=== PATIENT | male | born 1950 | race Caucasian/White ===

== ENCOUNTER → 2017-03-16 | Outpatient (CLI) | payer OTHER ==
[~2017-03-16] VITALS: Ht 185.4 cm; Wt 126.2 kg
[~2017-03-16] MED LIST: ACET1TAB84 PO; ADVIN25/60 INH; DILT-119 PO; FURO20TA PO; INSUINJ14 SC; INSUINJ4; LISI40TA PO; METF-383 PO; METO-551 PO; OMEP40CA36 PO; SIMV40TA4 PO
[2017-03-16 12:15] VITALS: BP 155/77; PULSE 74; Ht 185.4 cm; Wt 126.2 kg
== END | disposition home or self-care (01) ==
LOC: C.NEUR 11:40
PROVIDERS: ATTEND Physician Assistant Medical
DX: G47.33 Obstructive sleep apnea (adult) (pediatric) (principal); R09.02 Hypoxemia; J44.9 Chronic obstructive pulmonary disease, unspecified; J45.909 Unspecified asthma, uncomplicated; J98.6 Disorders of diaphragm

== ENCOUNTER → 2017-03-22 | Outpatient (CLI) | payer OTHER ==
[2017-03-22 10:17] LABS: CHOLESTEROL/HDL RATIO 3.2
[2017-03-22 10:26] LABS: ESTIMATED AVERAGE GLUCOSE 180 mg/dl; HA1C FLAG Normal (Normal)
--- NOTE | 2017-04-06 09:22 | CODING QUERY MEDICAL NECESSITY ---
SUPPORTING DIAGNOSIS NEEDED A supporting diagnosis is required for the test/procedure performed on this patient in order for us to be reimbursed by the patient's insurance. Please provide a supporting diagnosis for the following test/procedure listed below next to the test name along with your signature. *If there is no additional diagnosis for this patient that would support the following test/procedure please document that below next to the test/procedure. Test(s)/Procedure(s) that require a supporting diagnosis: DOS 03/22 * Hba1c DIAGNOSIS: Provider Signature: Date: Thank you Portia Colin [facility] Information Management Once completed, please kindly fax back to [phone] For questions please call [phone]
== END | disposition home or self-care (01) ==
LOC: C.LAB1850 08:35
PROVIDERS: ATTEND Nurse Practitioner Adult Health
DX: E78.5 Hyperlipidemia, unspecified (principal); E11.29 Type 2 diabetes mellitus with other diabetic kidney complication

== ENCOUNTER → 2017-05-11 | Outpatient (CLI) | payer OTHER ==
[2017-05-11 12:27] LABS: HEMATOCRIT 41.9 % (42-52); MEAN CELL VOLUME 95.9 fL (80-100); MEAN CORPUSCULAR HGB CONC 34.4 g/dl (32-36); MEAN PLATELET VOLUME 9.6 fL (7.4-10.4); PLATELET COUNT 271 K/uL (130-400); RED BLOOD COUNT 4.37 M/uL (4.7-6.1); WHITE BLOOD COUNT 9.52 K/uL (4.8-10.8)
[2017-05-11 12:44] LABS: URINE APPEARANCE CLOUDY (CLEAR); URINE BILIRUBIN NEG (NEG); URINE COLOR DK YELLOW; URINE EPITHELIAL CELL AUTO 20-30 /lpf (0-5); URINE NITRITE NEG (NEG); URINE PH 5.5 (4.5-7.5); URINE SPECIFIC GRAVITY 1.017 (1.000-1.030); UROBILINOGEN NEG (NEG)
[2017-05-11 12:50] LABS: CALCIUM 8.6 mg/dl (8.5-10.1)
[2017-05-11 12:52] LABS: MANUAL MICROSCOPIC REQUIRED? NO; REVIEW REQ? NO
[2017-05-11 13:05] LABS: BLOOD UREA NITROGEN 10 mg/dl (7-18); CARBON DIOXIDE 24 mmol/L (21-32); CHLORIDE 104 mmol/L (98-107); GLUCOSE 165 mg/dl (70-99); PHOSPHORUS 2.7 mg/dl (2.5-4.9); POTASSIUM 3.7 mmol/L (3.5-5.1); SODIUM 140 mmol/L (136-145)
[2017-05-11 14:11] LABS: URINE PROTIEN/CREAT RATIO 0.4 (0-0.2); URINE TOTAL PROTEIN 65.6 mg/dl (0-11.9)
== END | disposition home or self-care (01) ==
LOC: C.LAB1850 10:12
PROVIDERS: ATTEND Internal Medicine Nephrology
DX: I10 Essential (primary) hypertension (principal); N18.2 Chronic kidney disease, stage 2 (mild); R60.9 Edema, unspecified; E78.5 Hyperlipidemia, unspecified; E55.9 Vitamin D deficiency, unspecified

== ENCOUNTER → 2017-07-16 | Outpatient (CLI) | payer OTHER ==
[2017-07-16 16:49] LABS: ALT/SGPT 36 U/L (12-78); AST/SGOT 21 U/L (15-37)
[2017-07-17 07:03] LABS: ESTIMATED AVERAGE GLUCOSE 174 mg/dl; HA1C FLAG Normal (Normal)
== END | disposition home or self-care (01) ==
LOC: C.LAB1850 14:35
PROVIDERS: ATTEND Nurse Practitioner Adult Health
DX: E78.5 Hyperlipidemia, unspecified (principal); I10 Essential (primary) hypertension; E11.29 Type 2 diabetes mellitus with other diabetic kidney complication

== ENCOUNTER → 2017-10-27 | Outpatient (CLI) | payer OTHER ==
[2017-10-27 16:00] LABS: HEMATOCRIT 41.5 % (42-52); MEAN CELL VOLUME 91.6 fL (80-100); MEAN CORPUSCULAR HEMOGLOBIN 31.6 pg (25-34); MEAN CORPUSCULAR HGB CONC 34.5 g/dl (32-36); MEAN PLATELET VOLUME 9.4 fL (7.4-10.4); PLATELET COUNT 287 K/uL (130-400); RED BLOOD COUNT 4.53 M/uL (4.7-6.1); WHITE BLOOD COUNT 7.05 K/uL (4.8-10.8)
[2017-10-27 16:04] LABS: MANUAL MICROSCOPIC REQUIRED? NO; REVIEW REQ? NO; URINE APPEARANCE CLEAR (CLEAR); URINE BILIRUBIN NEG (NEG); URINE COLOR YELLOW; URINE NITRITE NEG (NEG); URINE SPECIFIC GRAVITY 1.011 (1.000-1.030); UROBILINOGEN NEG (NEG)
[2017-10-27 16:26] LABS: BLOOD UREA NITROGEN 11 mg/dl (7-18); BUN/CREATININE RATIO 12.5 (10-20); CALCIUM 8.9 mg/dl (8.5-10.1); CARBON DIOXIDE 28 mmol/L (21-32); CHLORIDE 104 mmol/L (98-107); CREATININE 0.89 mg/dl (0.60-1.40); GLUCOSE 85 mg/dl (70-99); POTASSIUM 3.6 mmol/L (3.5-5.1); SODIUM 137 mmol/L (136-145)
[2017-10-27 16:28] LABS: CREATININE, URINE 28.3 mg/dl; URINE PROTIEN/CREAT RATIO 0.5 (0-0.2); URINE TOTAL PROTEIN 13.4 mg/dl (0-11.9)
[2017-10-28 05:27] LABS: ESTIMATED AVERAGE GLUCOSE 163 mg/dl; HA1C FLAG Normal (Normal)
== END | disposition home or self-care (01) ==
LOC: C.LAB1850 14:47
PROVIDERS: ATTEND Internal Medicine Nephrology
DX: E11.29 Type 2 diabetes mellitus with other diabetic kidney complication (principal); N18.2 Chronic kidney disease, stage 2 (mild); R60.9 Edema, unspecified; R80.9 Proteinuria, unspecified; E55.9 Vitamin D deficiency, unspecified; I12.9 Hypertensive chronic kidney disease with stage 1 through stage 4 chronic kidney disease, or unspecified chronic kidney disease

== ENCOUNTER → 2017-12-07 | Outpatient (CLI) | payer OTHER ==
[2017-12-07 16:09] LABS: ALBUMIN 3.5 gm/dl (3.4-5.0); ALKALINE PHOSPHATASE 105 U/L (45-117); ALT/SGPT 24 U/L (12-78); AST/SGOT 11 U/L (15-37); BLOOD UREA NITROGEN 19 mg/dl (7-18); CALCIUM 9.2 mg/dl (8.5-10.1); CARBON DIOXIDE 25 mmol/L (21-32); CREATININE 1.03 mg/dl (0.60-1.40); GLUCOSE 232 mg/dl (70-99); SODIUM 137 mmol/L (136-145); TOTAL PROTEIN 7.2 gm/dl (6.4-8.2)
== END | disposition home or self-care (01) ==
LOC: C.LAB1850 10:21
PROVIDERS: ATTEND Urology
DX: R39.13 Splitting of urinary stream (principal)

== ENCOUNTER → 2018-01-06 | Outpatient (CLI) | payer OTHER | END | disposition home or self-care (01) | LOC: C.LAB1850 08:46 | PROVIDERS: ATTEND Urology | DX: Z00.00 Encounter for general adult medical examination without abnormal findings (principal); N40.1 Benign prostatic hyperplasia with lower urinary tract symptoms ==

== ENCOUNTER → 2018-03-11 | Outpatient (CLI) | payer OTHER ==
[2018-03-11 09:45] LABS: HEMOGLOBIN A1C 7.2 % (4.5-5.6)
== END | disposition home or self-care (01) ==
LOC: C.LAB1850 08:17
PROVIDERS: ATTEND Nurse Practitioner Adult Health
DX: E78.5 Hyperlipidemia, unspecified (principal); R94.31 Abnormal electrocardiogram [ECG] [EKG]; E11.29 Type 2 diabetes mellitus with other diabetic kidney complication

== ENCOUNTER 2023-02-15 11:14 | Inpatient (IN) ==
--- NOTE | 2023-01-27 11:38 | PAT Medication Instructions ---
Medication Instructions Date of Service January 27, 2023 Home Medications Medication Instructions Recorded lancets 33 gauge (OneTouch Delica #600 ea 07/01/21 Lancets) ergocalciferol (vitamin D2) 1,250 50,000 unit PO MONTHLY #12 caps 04/13/22 mcg (50,000 unit) capsule metformin 850 mg tablet 850 mg PO BID 90 days #180 tabs 07/13/22 blood sugar diagnostic (Accu-Chek #600 ea 07/14/22 Jaclyn Plus test strips) insulin aspart U-100 100 unit/mL 1 sliding scale dose subcut UD #90 07/29/22 (3 mL) subcutaneous pen (Novolog mL FlexPen U-100 Insulin aspart) insulin glargine 100 unit/mL (3 60 unit (0.6 mL) subcut BID #120 mL 07/29/22 mL) subcutaneous pen (Lantus Solostar U-100 Insulin) pen needle, diabetic 32 gauge x #300 ea 07/29/22 1/6" (NovoFine Plus) tamsulosin 0.4 mg capsule 0.4 mg PO DAILY #90 caps 11/05/22 albuterol sulfate 90 mcg/actuation aerosol inhaler 1 puffs inhalation UD PRN COPD lisinopril 40 mg tablet 40 mg PO QPM diltiazem HCl 360 mg capsule,extended release 24 hr 180 mg PO BID acetaminophen 650 mg tablet,extended release (Tylenol Arthritis Pain) 650 mg PO DAILY PRN Pain melatonin 5 mg capsule 10 mg PO HS apixaban 5 mg tablet (Eliquis) 5 mg PO BID fluticasone 250 mcg-salmeterol 50 mcg/dose blistr powdr for inhalation (Wixela Inhub) 1 inh inhalation BID ergocalciferol (vitamin D2) 1,250 mcg (50,000 unit) capsule 50,000 unit PO MONTHLY famotidine 20 mg tablet 20 mg PO QAM metformin 850 mg tablet 850 mg PO BID ascorbic acid (vitamin C) 500 mg tablet (Vitamin C) 500 mg PO QAM cyanocobalamin (vitamin B-12) 1,000 mcg tablet (Vitamin B-12) 1,000 mcg PO QAM docusate sodium 100 mg capsule (Colace) 100 mg PO HS empagliflozin 10 mg tablet (Jardiance) 10 mg PO UD fluticasone propionate 50 mcg/actuation nasal spray,suspension 1 spray intranasal UD PRN Nasal Congestion insulin aspart U-100 100 unit/mL (3 mL) subcutaneous pen (Novolog FlexPen U-100 Insulin aspart) 1 sliding scale dose subcut UD insulin glargine 100 unit/mL (3 mL) subcutaneous pen (Lantus Solostar U-100 Insulin) 60 unit (0.6 mL) subcut BID tamsulosin 0.4 mg capsule 0.4 mg PO DAILY lovastatin 10 mg tablet 10 mg PO PM Continue as directed ergocalciferol (vitamin D2) 1,250 mcg (50,000 unit) capsule 50,000 unit PO MONTHLY (just do not take morning of surgery) tamsulosin 0.4 mg capsule 0.4 mg PO DAILY ASK your prescriber and surgeon apixaban 5 mg tablet (Eliquis) 5 mg PO BID STOP taking 3 days before surgery empagliflozin 10 mg tablet (Jardiance) 10 mg PO UD DO NOT take the morning of surgery metformin 850 mg tablet 850 mg PO BID ascorbic acid (vitamin C) 500 mg tablet (Vitamin C) 500 mg PO QAM cyanocobalamin (vitamin B-12) 1,000 mcg tablet (Vitamin B-12) 1,000 mcg PO QAM insulin aspart U-100 100 unit/mL (3 mL) subcutaneous pen (Novolog FlexPen U-100 Insulin aspart) 1 sliding scale dose subcut UD Take morning of surgery With a small sip of water, OTHERWISE NOTHING TO EAT OR DRINK AFTER MIDNIGHT: albuterol sulfate 90 mcg/actuation aerosol inhaler 1 puffs inhalation UD PRN COPD (use if needed; please bring with you to hospital day of surgery if possible) diltiazem HCl 360 mg capsule,extended release 24 hr 180 mg PO BID acetaminophen 650 mg tablet,extended release (Tylenol Arthritis Pain) 650 mg PO DAILY PRN Pain (if needed) fluticasone 250 mcg-salmeterol 50 mcg/dose blistr powdr for inhalation (Wixela Inhub) 1 inh inhalation BID famotidine 20 mg tablet 20 mg PO QAM fluticasone propionate 50 mcg/actuation nasal spray,suspension 1 spray intranasal UD PRN Nasal Congestion (if needed) Take evening before surgery albuterol sulfate 90 mcg/actuation aerosol inhaler 1 puffs inhalation UD PRN COPD (if needed) lisinopril 40 mg tablet 40 mg PO QPM diltiazem HCl 360 mg capsule,extended release 24 hr 180 mg PO BID acetaminophen 650 mg tablet,extended release (Tylenol Arthritis Pain) 650 mg PO DAILY PRN Pain (if needed) melatonin 5 mg capsule 10 mg PO HS fluticasone 250 mcg-salmeterol 50 mcg/dose blistr powdr for inhalation (Wixela Inhub) 1 inh inhalation BID metformin 850 mg tablet 850 mg PO BID docusate sodium 100 mg capsule (Colace) 100 mg PO HS fluticasone propionate 50 mcg/actuation nasal spray,suspension 1 spray intranasal UD PRN Nasal Congestion (if needed) insulin aspart U-100 100 unit/mL (3 mL) subcutaneous pen (Novolog FlexPen U-100 Insulin aspart) 1 sliding scale dose subcut UD insulin glargine 100 unit/mL (3 mL) subcutaneous pen (Lantus Solostar U-100 Insulin) 60 unit (0.6 mL) subcut BID lovastatin 10 mg tablet 10 mg PO PM Insulin Dependent Diabetic Patients * Test your blood sugar the morning of surgery * If Blood Sugar is GREATER THAN 150, take HALF of your regular dose of: insulin glargine 100 unit/mL (3 mL) subcutaneous pen (Lantus Solostar U-100 Insulin) 60 unit (0.6 mL) subcut BID (30 units) * If Blood Sugar is LESS THAN 150, DO NOT TAKE ANY: insulin glargine 100 unit/mL (3 mL) subcutaneous pen (Lantus Solostar U-100 Insulin) 60 unit (0.6 mL) subcut BID Other Notes If you have any questions please call us at [phone] or [phone] or [phone] or [phone]
--- NOTE | 2023-01-29 12:10 | Anesthesiology Consultation ---
Date of Service January 29, 2023 Assessment & Plan (1) Encounter for pre-operative examination: Plan - check BSG am DOS. R hemidiaphragm elevation - Case discussed in detail with Dr. Reed including pre-op EKG and cardiology note 05/2022, he advised patient is acceptable to proceed without further evaluation or testing from his standpoint. - cardiology 06/04/22: "...persistent atrial fibrillation, obesity, COPD, SONIDO on CPAP, hypertension and diabetes, referred to EP clinic...evaluation of bradycardia...rate control, asymptomatic...2.2 second pause on telemetry while he was admitted for an unrelated issue...diltiazem was held a the time...ventricular rates...starting to go up...put himself back on diltiazem...3 pauses of more than 2.5 seconds were noted, longest was 3.1 seconds all in atrial fibrillation...permanent atrial fibrillation: rate control is adequate on current medication regimen. Continue Eliquis for stroke prophylaxis. Pauses...2.2 second pause noted on telemetry while he was admitted for another condition...no reports of lightheadedness/presyncope or syncope. In atrial fibrillation, without any symptoms, he would have to have a pause of 5 seconds to qualify for a pacemaker. No indication for any further intervention at this time. Follow-up as needed..." - Outpatient joint assessment: Patient is currently scheduled for inpatient pathway. If re-evaluated pending system levels during current pandemic/surgeon requests outpatient pathway, patient is not acceptable candidate for outpatient joint program from anesthesia standpoint. Chart Review Chart Review: Acceptable Risk for Surgery and Patient seen in Pre Admission Testing Teaching & Discussion Pre-Anesthesia Teaching/Discussion Notes: Instructed NPO after midnight before surgery, except medications with 15 cc of water. Medication instructions provided according to the PAT guidelines. History Surgery Operation Date: 02/15/23 07:15 Proposed Procedures p Left Shoulder Total SHoulder Arthroplasty - Michael Victoria MD Height/Weight Height: 6 ft 1 in Weight: 117.934 kg Allergies Allergy/AdvReac Type Severity Reaction Status Date / Time acetaminophen [From Percocet] Allergy Unknown Unknown Verified 01/27/23 09:17 celecoxib [From Celebrex] Allergy Unknown ? Hives Verified 01/27/23 09:17 cephalexin Allergy Unknown ? Rash Verified 01/27/23 09:17 dicyclomine Allergy Unknown Unknown Verified 01/27/23 09:17 homatropine Allergy Unknown Unknown Verified 01/27/23 09:17 hyaluronate sodium, Allergy Unknown Lips Verified 01/27/23 09:17 stabilized swelling hydrocodone Allergy Unknown Unknown Verified 01/27/23 09:17 hylan G-F 20 [From Synvisc] Allergy Unknown Lips Verified 01/27/23 09:17 swelling meloxicam Allergy Unknown Unknown Verified 01/27/23 09:17 oxycodone [From Percocet] Allergy Unknown Unknown Verified 01/27/23 09:17 pregabalin Allergy Unknown ? Tired, Verified 01/27/23 09:17 listless Bactrim AdvReac Unknown gi upset Verified 08/07/13 15:23 chlorthalidone AdvReac Unknown Listless Verified 01/27/23 09:17 gabapentin AdvReac Unknown ? Tired, Verified 01/27/23 09:17 listless Penicillins AdvReac Unknown GI upset Verified 01/27/23 09:17 prednisone AdvReac Unknown GI upset Verified 01/27/23 09:17 sulfamethoxazole AdvReac Unknown GI upset Verified 01/27/23 09:17 trimethoprim AdvReac Unknown GI upset Verified 01/27/23 09:17 Medications Home Medications Medication Instructions Recorded Confirmed Last Taken albuterol sulfate 90 mcg/actuation 1 puffs inhalation UD PRN COPD #1 g 07/07/19 01/27/23 Unknown aerosol inhaler lisinopril 40 mg tablet 40 mg PO QPM #90 tabs 07/07/19 01/27/23 Unknown diltiazem HCl 360 mg 180 mg PO BID 07/10/19 01/27/23 Unknown capsule,extended release 24 hr acetaminophen 650 mg 650 mg PO DAILY PRN Pain 01/22/20 01/27/23 Unknown tablet,extended release (Tylenol Arthritis Pain) melatonin 5 mg capsule 10 mg PO HS 07/22/20 01/27/23 Unknown lancets 33 gauge (OneTouch Delica #600 ea 07/01/21 10/15/22 Unknown Lancets) apixaban 5 mg tablet (Eliquis) 5 mg PO BID 02/16/22 01/27/23 Unknown fluticasone 250 mcg-salmeterol 50 1 inh inhalation BID 02/19/22 01/27/23 Unknown mcg/dose blistr powdr for inhalation (Elsaela Inhub) ergocalciferol (vitamin D2) 1,250 50,000 unit PO MONTHLY #12 caps 04/13/22 01/27/23 Unknown mcg (50,000 unit) capsule famotidine 20 mg tablet 20 mg PO QAM 04/13/22 01/27/23 Unknown metformin 850 mg tablet 850 mg PO BID 90 days #180 tabs 07/13/22 01/27/23 Unknown blood sugar diagnostic (Accu-Chek #600 ea 07/14/22 10/15/22 Unknown Jaclyn Plus test strips) ascorbic acid (vitamin C) 500 mg 500 mg PO QAM 07/20/22 01/27/23 Unknown tablet (Vitamin C) cyanocobalamin (vitamin B-12) 1,000 mcg PO QAM 07/20/22 01/27/23 Unknown 1,000 mcg tablet (Vitamin B-12) docusate sodium 100 mg capsule 100 mg PO HS 07/20/22 01/27/23 Unknown (Colace) fluticasone propionate 50 1 spray intranasal UD PRN Nasal 07/20/22 01/27/23 Unknown mcg/actuation nasal Congestion spray,suspension insulin aspart U-100 100 unit/mL 1 sliding scale dose subcut UD #90 07/29/22 01/27/23 Unknown (3 mL) subcutaneous pen (Novolog mL FlexPen U-100 Insulin aspart) insulin glargine 100 unit/mL (3 60 unit (0.6 mL) subcut BID #120 mL 07/29/22 01/27/23 Unknown mL) subcutaneous pen (Lantus Solostar U-100 Insulin) pen needle, diabetic 32 gauge x #300 ea 07/29/22 10/15/22 Unknown 1/" (NovoFine Plus) tamsulosin 0.4 mg capsule 0.4 mg PO DAILY #90 caps 11/05/22 01/27/23 Unknown lovastatin 10 mg tablet 10 mg PO PM 01/27/23 01/27/23 Unknown Past Medical History Medical History (Updated 01/29/23 @ 12:37 by Dolly Oshea PA-C) Abnormal cardiac conduction Cardiac pauses. Per EP office visit (06/03/22): 2.2 second pause noted on telemetry during inpatient stay. 3 more pauses on Zio patch, longest 3.1 seconds, all in atrial fibrillation. "In atrial fibrillation, without any symptoms, he would have to have a pause of 5 seconds to qualify for a pacemaker. No indication for any further intervention at this time. Follow-up as needed." Acid reflux controlled, stable per pt Afib on OAC, follows with cardiology Chronic kidney disease (CKD), stage II (mild) Constipation Occasional COPD (chronic obstructive pulmonary disease) controlled, stable per pt; last used rescue inhaler > 3 months ago Degeneration of cervical intervertebral disc s/p cervical spine surgeries DM type 2 (diabetes mellitus, type 2) IDDM Frequent urination at night R/t prostate HTN (hypertension) controlled, stable per pt Low back problem Malignant neoplasm of penis 6 years ago Neuropathy ambulates with cane Obesity Paralysis of diaphragm elevation R hemidiaphragm Sleep apnea CPAP-compliant TIA (transient ischemic attack) 01/13/21-vision and speech changes, started on statin and ASA, w/u notable for 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 reports he was never informed if previous TIA. Patient denies h/o seizures, heart attack, heart failure, blood clots or blood transfusions. Exercise / Class Metabolic Activity III < 4 Walking/Shop/Light housework (ambulates on flat surfaces, denies chest discomfort or shortness of breath with usual activities) Past Family History Family History Other Family history of diabetes mellitus in father Past Surgical History Surgical History Family history of reaction to anesthesia Mother- PONV 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 History of carpal tunnel surgery of left wrist History of carpal tunnel surgery of right wrist + ulnar nerve surgery History of cataract surgery R&L History of cholecystectomy History of colonoscopy with polypectomy History of decompression of median nerve Per records, pt unsure History of decompression of ulnar nerve RIGHT History of endoscopy ?1979 History of fusion of cervical spine FULL ROM History of hernia repair History of urologic surgery penis amputation Nausea and vomiting after administration of anesthetic agent denies needing scop patch Past Anesthesia History No Hx of Anesthesia Complications and Other (mother had PONV) History of PONV No Hx of Motion Sickness and History of PONV (denies needing scop patch) Social History Smoking Status: Former smoker tobacco type: cigars Do You Dip or Chew Tobacco: No Smoking End Date: 1989 Hx Alcohol Use: No Hx Substance Use: No substance use type: does not use Review of Systems Patient denies chest pain, shortness of breath, dyspnea on exertion, dizziness, lightheadedness, presyncope, fever, chills, cough, wheezing, or palpitations. Physical Exam Vital Signs Vitals BP 168/72 P 75 TEMP 99.1 SP02 97% on RA RESP 18 Physical Full cervical extension range of motion without pain TMD 3.5 finger breadths Mallampati Score 2 Dentition: intact, denies chipped or loose teeth, caps/crowns, implants or bridges Lungs: normal respiratory effort. Clear throughout to auscultation, no anabaptism itious breath sounds Cardiac: irregularly irregular rhythm, normal rate, no murmurs noted Carotid arteries: negative bruit bilat Lab Results Anesthesia Preop Results Results Anesthesia Widget: PT 11.8 Seconds (9.0-12.0) 01/29/23 PTT 30.5 Seconds (21.0-31.0) 01/29/23 INR 1.1 (0.9-1.1) 01/29/23 HA1c 6.7 % (4.5-5.6) H 01/29/23 Urine Color Yellow 01/29/23 Urine Appearance Clear (Clear) 01/29/23 Urine pH 7.0 (4.5-7.5) 01/29/23 Urine Specific [place] 1.015 (1.000-1.030) 01/29/23 Urine Protein 1+ (Negative) H 01/29/23 Urine Glucose (UA) Negative (Negative) 01/29/23 Urine Ketones Negative (Negative) 01/29/23 Urine Blood Negative (Negative) 01/29/23 Urine Nitrite Negative (Negative) 01/29/23 Urine Bilirubin Negative (Negative) 01/29/23 Urine Urobilinogen Negative (Negative) 01/29/23 Urine Leukocyte Esterase Negative (Negative) 01/29/23 Urine WBC (Auto) 0 /hpf (0-5) 01/29/23 Urine RBC (Auto) 0-4 /hpf (0-4) 01/29/23 Urine Hyaline Casts (Auto) 0 /lpf (0-5) 01/29/23 Urine Epithelial Cells (Auto) 5-10 /lpf (0-5) H 01/29/23 Urine Bacteria (Auto) Negative (Negative) 01/29/23 Blood Type O Positive 01/29/23 Antibody Screen NEGATIVE 01/29/23 Testing Laboratory Results 01/20/2023 WBC: 7 H/H: 14/43 PLATELETS: 267 SODIUM: 139 POTASSIUM: 3.8 CHLORIDE: 106 CO2: 28 BUN: 12 CREATININE: 0.9 GLUCOSE: 129 A1c: 6.8% Electrocardiogram Date: 01/29/23 Afib, rate 78 bpm RSR' or QR pattern in V1 suggests right ventricular conduction delay Chest X-Ray Date: 01/29/23 Elevation of the right hemidiaphragm is unchanged. Lungs are clear. There is no pneumothorax or pleural effusion. There is mild cardiomegaly. Mediastinal contours are normal. There is no evidence for pulmonary edema. IMPRESSION: No acute cardiopulmonary findings. Stable elevation of the right hemidiaphragm. Echocardiogram Date: 05/07/21 EF 60-64% No LV segmental wall motion abnormalities Mildly dilated RV Mild tricuspid regurgitation LA mildly enlarged Moderately calcified aortic stenosis Other Testing Abdomen MRI 03/26/22 1. A few scattered subcentimeter renal lesions consistent with cysts. 2. No solid enhancing renal masses identified. CT abdomen pelvis 02/05/22 1 cm heterogeneous exophytic nodule in the right kidney. Further evaluation with renal protocol MRI abdomen with/without contrast recommended for the possibility of enhancing renal mass 0.8 x 0.5 cm cyst in the distal pancreatic body COVID-19 Risk Screen Screening Information COVID-19 Screen Date: 01/29/23 Exposure 21 Days Family/Household +COVID Last 21 Days: No Exposure 10 Days Any COVID Exposure Last 10 Days: No Symptoms Last 10 Days Experienced COVID Sx Last 10 Days: No + COVID 0-90 Days COVID + in Last 0-90 Days: No
--- NOTE | 2023-02-13 10:02 | History & Physical Report ---
Date of Service February 13, 2023 Assessment & Plan (1) Primary osteoarthritis, left shoulder: Plan: Treatment options discussed with the patient. He would like to proceed with surgical intervention. Risks, benefits and alternatives to surgery including but not limited to infection, DVT, pain, stiffness, need for revision surgery, damage to blood vessels, damage to nerves, PE, , were discussed with the patient and they wish to proceed. Plan for left total shoulder arthroplasty scheduled for [facility] on February [address] Victoria. Patient would like to go to inpatient rehab postoperatively. Resume home Eliquis postop for DVT prophylaxis. All questions answered. Patient will follow-up postop. History of Present Illness Chief Complaint: Left shoulder pain Primary Care Provider: Austin Willson MD 72-year-old male with past medical history significant for A-fib, CKD, COPD, diabetes, hypertension paralysis of diaphragm, sleep apnea who presents with ongoing left shoulder pain. Patient has failed extensive conservative measures including multiple steroid injections.patient is unable to take NSAIDs. Pain is interfering with his daily activities. He would like to proceed with surgical intervention. Patient denies headaches, sweats, fevers, chills, double vision, blurred vision, cough, sore throat, dysphagia, chest pain, sob, wheezing, n/v/d/c, numbness, tingling, fatigue, urinary symptoms, mood disorders. ROS positive for left shoulder pain and stiffness. Allergies Allergy/AdvReac Type Severity Reaction Status Date / Time acetaminophen [From Percocet] Allergy Unknown Unknown Verified 02/09/23 08:29 celecoxib [From Celebrex] Allergy Unknown ? Hives Verified 02/09/23 08:29 cephalexin Allergy Unknown ? Rash Verified 02/09/23 08:29 dicyclomine Allergy Unknown Unknown Verified 02/09/23 08:29 homatropine Allergy Unknown Unknown Verified 02/09/23 08:29 hyaluronate sodium, Allergy Unknown Lips Verified 02/09/23 08:29 stabilized swelling hydrocodone Allergy Unknown Unknown Verified 02/09/23 08:29 hylan G-F 20 [From Synvisc] Allergy Unknown Lips Verified 02/09/23 08:29 swelling meloxicam Allergy Unknown Unknown Verified 02/09/23 08:29 oxycodone [From Percocet] Allergy Unknown Unknown Verified 02/09/23 08:29 pregabalin Allergy Unknown ? Tired, Verified 02/09/23 08:29 listless Bactrim AdvReac Unknown gi upset Verified 08/07/13 15:23 chlorthalidone AdvReac Unknown Listless Verified 02/09/23 08:29 gabapentin AdvReac Unknown ? Tired, Verified 02/09/23 08:29 listless Penicillins AdvReac Unknown GI upset Verified 02/09/23 08:29 prednisone AdvReac Unknown GI upset Verified 02/09/23 08:29 sulfamethoxazole AdvReac Unknown GI upset Verified 02/09/23 08:29 trimethoprim AdvReac Unknown GI upset Verified 02/09/23 08:29 Home Medications Medication Instructions Recorded Confirmed Type albuterol sulfate 90 mcg/actuation 1 puffs inhalation UD PRN COPD #1 g 07/07/19 02/09/23 History aerosol inhaler lisinopril 40 mg tablet 40 mg PO QPM #90 tabs 07/07/19 02/09/23 History diltiazem HCl 360 mg 180 mg PO BID 07/10/19 02/09/23 History capsule,extended release 24 hr acetaminophen 650 mg 650 mg PO DAILY PRN Pain 01/22/20 02/09/23 History tablet,extended release (Tylenol Arthritis Pain) melatonin 5 mg capsule 10 mg PO HS 07/22/20 02/09/23 History lancets 33 gauge (OneTouch Delica #600 ea 07/01/21 02/09/23 Rx Lancets) apixaban 5 mg tablet (Eliquis) 5 mg PO BID 02/16/22 02/09/23 History fluticasone 250 mcg-salmeterol 50 1 inh inhalation BID 02/19/22 02/09/23 History mcg/dose blistr powdr for inhalation (Wixela Inhub) ergocalciferol (vitamin D2) 1,250 50,000 unit PO MONTHLY #12 caps 04/13/22 02/09/23 Rx mcg (50,000 unit) capsule famotidine 20 mg tablet 20 mg PO QAM 04/13/22 02/09/23 History metformin 850 mg tablet 850 mg PO BID 90 days #180 tabs 07/13/22 02/09/23 Rx blood sugar diagnostic (Accu-Chek #600 ea 07/14/22 02/09/23 Rx Jaclyn Plus test strips) ascorbic acid (vitamin C) 500 mg 500 mg PO QAM 07/20/22 02/09/23 History tablet (Vitamin C) cyanocobalamin (vitamin B-12) 1,000 mcg PO QAM 07/20/22 02/09/23 History 1,000 mcg tablet (Vitamin B-12) docusate sodium 100 mg capsule 100 mg PO HS 07/20/22 02/09/23 History (Colace) fluticasone propionate 50 1 spray intranasal UD PRN Nasal 07/20/22 02/09/23 History mcg/actuation nasal Congestion spray,suspension insulin aspart U-100 100 unit/mL 1 sliding scale dose subcut UD #90 07/29/22 02/09/23 Rx (3 mL) subcutaneous pen (Novolog mL FlexPen U-100 Insulin aspart) insulin glargine 100 unit/mL (3 60 unit (0.6 mL) subcut BID #120 mL 07/29/22 02/09/23 Rx mL) subcutaneous pen (Lantus Solostar U-100 Insulin) pen needle, diabetic 32 gauge x #300 ea 07/29/22 02/09/23 Rx 1/6" (NovoFine Plus) tamsulosin 0.4 mg capsule 0.4 mg PO DAILY #90 caps 11/05/22 02/09/23 Rx lovastatin 10 mg tablet 10 mg PO PM 01/27/23 01/27/23 History Past Med/Surg History Medical History (Updated 01/29/23 @ 12:37 by Dolly Oshea PA-C) Abnormal cardiac conduction Cardiac pauses. Per EP office visit (06/03/22): 2.2 second pause noted on telemetry during inpatient stay. 3 more pauses on Zio patch, longest 3.1 seconds, all in atrial fibrillation. "In atrial fibrillation, without any symptoms, he would have to have a pause of 5 seconds to qualify for a pacemaker. No indication for any further intervention at this time. Follow-up as needed." Acid reflux controlled, stable per pt Afib on OAC, follows with cardiology Chronic kidney disease (CKD), stage II (mild) Constipation Occasional COPD (chronic obstructive pulmonary disease) controlled, stable per pt; last used rescue inhaler > 3 months ago Degeneration of cervical intervertebral disc s/p cervical spine surgeries DM type 2 (diabetes mellitus, type 2) IDDM Frequent urination at night R/t prostate HTN (hypertension) controlled, stable per pt Low back problem Malignant neoplasm of penis 6 years ago Neuropathy ambulates with cane Obesity Paralysis of diaphragm elevation R hemidiaphragm Sleep apnea CPAP-compliant TIA (transient ischemic attack) 01/13/21-vision and speech changes, started on statin and ASA, w/u notable for L orbital mass noted to be a collection of vessels, follows with ophthalmology per [facility] records pt denies above. reports he was never informed if previous TIA. Surgical History Family history of reaction to anesthesia Mother- PONV 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 History of carpal tunnel surgery of left wrist History of carpal tunnel surgery of right wrist + ulnar nerve surgery History of cataract surgery R&L History of cholecystectomy History of colonoscopy with polypectomy History of decompression of median nerve Per records, pt unsure History of decompression of ulnar nerve RIGHT History of endoscopy ?1979 History of fusion of cervical spine FULL ROM History of hernia repair History of urologic surgery penis amputation Nausea and vomiting after administration of anesthetic agent denies needing scop patch Family History Other Family history of diabetes mellitus in father Social History Smoking Status: Former smoker Second Hand Exposure: No; Hx Alcohol Use: No Hx Substance Use: No Preferred Language: Frisian Communication Ability: Effective [place] Pilot Required: No Beliefs That Will Affect Care: None marital status: Current Living Situation: Significant Other current occupational status: retired Feels Safe at Home: Yes Assistive Devices: Cane and CPAP Review of Systems All systems reviewed & are unremarkable except as noted in HPI & below Physical Exam Constitutional: well developed and well nourished; no acute distress Eyes: PERRL, conjunctivae normal, anicteric sclerae ENMT: external ear and nose normal, oropharynx normal Neck: trachea midline, no thyromegaly Respiratory: normal respiratory effort, lungs clear to auscultation Cardiovascular: RRR, no murmur, no edema Musculoskeletal: Left shoulder: Tenderness anterior glenoid. He has moderate crepitation with range of motion. Active painful range of motion in all directions. Forward flexion 90 degrees, abduction 85 degrees, external rotation to 45 degrees. Crepitation with strength testing however rotator cuff strength seems to be preserved. Skin: no rashes, warm and dry Neurologic: patellar DTR's 2+ bilat, sensation intact Psychiatric: A+Ox3, euthymic affect Results & Data Diagnostic Findings Left shoulder radiographs demonstrate end-stage osteoarthritis left shoulder, [id number] glenohumeral joint. There is periarticular osteophytes. Previous MRI had demonstrated intact rotator cuff.
[~2023-02-15 11:14] MED LIST changes: -ACET1TAB84 PO; +ACETAMINOPHEN 500 MG TAB PO SCH; -ADVIN25/60 INH; +BUPIVACAINE 0.5 % 5 MG/1 ML PF 10ML VIAL ONE; +DEXAMETHASONE SOD INJ 4 MG/ML VIAL ONE; -DILT-119 PO; +FAMOTIDINE 20 MG TAB PO SCH; -FURO20TA PO; +GABAPENTIN 300 MG CAP PO SCH; -INSUINJ14 SC; -INSUINJ4; +LIDOCAINE 2% MPF LOCAL 5 ML VIAL INFIL ONE; -LISI40TA PO; +LR 15ML/HR IV SCH; -METF-383 PO; -METO-551 PO; +METOCLOPRAMIDE HCL 10 MG TABLET PO SCH; +MIDAZOLAM HCL 1 MG/ML 2ML VIAL ONE; -OMEP40CA36 PO; +PROPOFOL IV EMULSION 10 MG/ML 20 ML VIAL IV ONE; +ROCURONIUM BROMIDE 10 MG/ML 5 ML VIAL IV ONE; -SIMV40TA4 PO; +SUCCINYLCHOLINE CHLORIDE 20 MG/ML 10 ML VIAL IV ONE; +TRANEXAMIC ACID 1,000 MG **IV Intra-op IV SCH; +TRANEXAMIC ACID 1,000 MG **IV Pre-op IV SCH; +VANCOMYCIN HCL 1,750 MG in SODIUM CHLORIDE 0.9% 500 ML IV SCH; +fentaNYL citrate PF 100 MCG/2 ML VIAL ONE
[2023-02-15] MEDS ORDERED: EpINEphrine HCL INJ 1 MG/ML 1ML SYRINGE ONE (11:52)
--- NOTE | 2023-02-15 13:15 | History & Physical Bridge Note ---
Date of Service February 15, 2023 History & Physical Bridge Note I have examined the patient, reviewed the History & Physical and in the interval since the performance of the History & Physical I have noted the following changes of clinical significance: no changes noted
[2023-02-15] MEDS ORDERED: ePHEDrine sulfate 50 MG/ML AMP ONE (14:32)
[2023-02-15] MEDS ORDERED: ROCURONIUM BROMIDE 10 MG/ML 5 ML VIAL IV ONE ×2 (14:32)
[2023-02-15] MEDS ORDERED: PROMETHAZINE HCL 12.5 MG in SODIUM CHLORIDE 0.9% 50 ML IV PRN (14:57)
[2023-02-15] MEDS ORDERED: ePHEDrine sulfate 50 MG/ML AMP IV PRN (14:57)
[2023-02-15] MEDS ORDERED: ONDANSETRON INJ 2 MG/ML 2 ML VIAL IV PRN ×2 (14:57→17:55)
[2023-02-15] MEDS ORDERED: LABETALOL HCL IV 5 MG/ML 20ML IV PRN (14:57)
[2023-02-15] MEDS ORDERED: ONDANSETRON INJ 2 MG/ML 2 ML VIAL ONE (15:53)
[2023-02-15] MEDS ORDERED: SUGAMMADEX SODIUM 200 MG/2 ML VIAL IV ONE (15:54)
[2023-02-15] MEDS ORDERED: PROPOFOL IV EMULSION 10 MG/ML 20 ML VIAL IV ONE (16:20)
--- NOTE | 2023-02-15 16:32 | Operative Report ---
Post Operative Report Pre & Post Diagnosis Operation Date: 02/15/23 14:45 Pre-Op Diagnosis: Left Shoulder Degenerative Joint Disease Post-Op Diagnosis: Left Shoulder Degenerative Joint Disease, posterior capsular laxity and marked biceps tenosynovitis biceps tendinopathy I identified the patient and participated in the time-out.: Yes Procedure Operation Date: 02/15/23 14:45 Actual Procedures p Left Shoulder Total Shoulder Arthroplasty(Left), posterior capsular shift, biceps tenodesis.- Michael Victoria MD Surgeon Michael Victoria MD Client Architect Deonte ABRAHAM Estimated Blood Loss 200 Findings Consistent with Post-Op Diagnosis Specimens Humeral head Drains 2 Hemovac Anesthesia Type General Regional Complications none Disposition Disposition: Recovery Room Indications 72-year-old male with chronic progressive osteoarthritis left shoulder failed conservative management. Patient has intact rotator cuff. He has some tendinopathy but no full-thickness tear. Description of Procedure The patient was taken to the operating room and anesthetized under a general and regional block anesthesia. A towel roll was placed under the medial border of the scapula of the left shoulder. The patient's head was placed on a foam headrest and protective eyewear was placed and the extremities were well padded. The arm was draped free in order to manipulate the shoulder as necessary. The shoulder exam demonstrated [id number] crepitation forward flexion 150 degrees abduction 90 degrees external rotation 60 degrees. The shoulder was sterilely prepped and draped in the usual sterile fashion. An anterior deltopectoral approach was performed. A longitudinal incision was made in the interval. The skin was incised sharply and subcutaneous tissues dissected down to the fascia. The cephalic vein was identified and retracted laterally with the deltoid. Any crossing veins were tied off with silk ties and divided. The clavipectoral fascia was divided at the lateral margin of the conjoined tendon and divided up to the level of the coracoacromial ligament which was preserved. The upper 1 cm of the pectoralis was released for inferior exposure. The biceps tendon findings demonstrated marked thickened tenosynovitis around the biceps tendon with debris in the tenosynovium. This extended all the way up in the bicipital groove area. Intra-articular biceps was widened had a tendinopathy. The rotator cuff tendon findings demonstrated intact rotator cuff. There was some moderate bursitis surrounding the rotator cuff.. The circumflex vessels were identified and tied off with silk ties and divided laterally. The fibers and subscapularis were split longitudinally at the level of the circumflex vessels down to the capsule and then reflected off the inferior capsule using a Kitner elevator. The axillary nerve was identified with a tug test and protected with a blunt Darcy retractor. The rotator interval was opened up and extended down to the glenoid. The biceps tendon was identified and tenodesed to the pectoralis tendon with [id number] #2 FiberWire sutures in the proximal bic eps was resected. The subscapularis tendon was taken down with a trans- tendinous incision leaving a cuff of tissue for repair on the lesser tuberosity. Intra-articular capsular tissue and synovium had white appearance to it either steroid deposition or chondrocalcinosis. Some synovectomy and partial capsulectomy was performed to this inflamed appearing tissue. The incision was carried down to the tendon and the capsule and a #1 Vicryl suture was placed into the free end of the subscapularis tendon. The capsule was subperiosteally dissected off the inferior neck of the humerus exposing the humeral osteophytes which demonstrated large irregular inferior osteophytes from anterior to posterior and the articular surface of the humeral head had multiple areas of pitting and cystic changes in the head with erosions and complete loss of articular cartilage down to bone with some bone loss as well.. The osteophytes were excised with an artist chisel and a rongeur. The capsular release along the inferior neck of the humerus was completed. The humerus was then retracted posterior to the glenoid with a Fukuda retractor. The remainder of the biceps tendon and labrum was resected. The glenoid findings demonstrated osteophytes around the glenoid with no cartilage remaining on the glenoid with eburnated bone type A wear with peripheral osteophytes circumferentially.. I did an anterior inferior and posterior inferior release with electrocautery on bone and a More elevator with the axillary nerve continuing to be protected with the blunt Hohmann retractor inferiorly. The osteophytes were resected with a rongeur. When the releases were completed and the humeral head was exposed with some extension and external rotation and in anatomic head cut was made using the oscillating saw. The Tornier ascend flex total shoulder arthroplasty was used including the Cortiloc glenoid component. Attention was first taken to preparation of the humeral shaft. A centralizing awl was used followed by broaches up to a size 6 which had good fit and fill.. The trial broach was left in place and a cut protector was placed. The humerus was then retracted posterior to the glenoid using a Bankart retractor anteriorly and blunt Darcy and posterior Tornier glenoid retractor. A central drill hole was made into the glenoid. The glenoid was sized for a size 40 radius large component. The glenoid was reamed and the central drill widened and the guide for the 3 peripheral peg holes was placed in the peg holes were drilled and a trial component was placed with a tight fit. The trial was removed and the glenoid was irrigated with pulsatile lavage antibiotic solution and the drill holes were dried and packed with epinephrine-soaked tampons for hemostasis. The Palacos G cement was vacuum mixed. The final component was cemented into position and held in position with pressure until the cement cured. A humeral head trial was placed. A trial reduction was performed and the shoulder was stable to posterior translation however with forward elevation and some adduction there was some subluxation posteriorly despite using the 52 x 23 trial head which was the largest head that fit his anatomy properly. I chose to do a capsular shift to tighten up the posterior capsule. The trial head was removed the cut protector was replaced the humerus was retracted with a conjoined tendon type retractor posteriorly exposing the posterior capsule. 2 plication sutures were placed in [id number] fashion using #1 Vicryl.. The cut protector and trial were removed and the humerus and canal were irrigated with pulse saline solution. 3 drill holes were made into the hard bone in the bicipital groove lateral to the lesser tuberosity and 3 #5 FiberWire transosseous sutures were placed for repair of the subscapularis. After further irrigation of the canal and the final components were assembled. The final components were the 6B standard PTC stem assembled to 52 x 23 mm high offset humeral head. The implant was then impacted into the humerus with a tight press-fit. The humerus was reduced to the glenoid and stability verified. Repair was stable to 45 degrees of external rotation 90 degrees abduction 140 degrees forward flexion. The subscapularis was repaired with the #5 FiberWire sutures in a Karan-Jah suture technique and lateral row fixation with [id number] #2 FiberWire in the soft tissue. The rotator interval was closed and maximal external rotation. The pectoralis was then closed with [id number] #2 FiberWire suture. The sutures were passed through the biceps tendon as well to reinforce the biceps tenodesis. 2 Hemovac drains were placed. The deltopectoral interval was closed with [id number] #1 Vicryl sutures. The subcutaneous tissues were closed with interrupted 2-0 Vicryl and the skin was closed with celestina and a sterile dressing was applied. Patient was placed into a pillow sling immobilizer. The patient tolerated the procedure well. Deonte ABRAHAM my physician treasury assistant participated as medical assistant float, he assisted in soft tissue retraction instrument management suture management and assisted in the subcutaneous and skin closure and will participate in the postoperative care the patient. Linda ABRAHAM also assisted with soft tissue retraction arm positioning wound closure and postop care. I attest to the content of the Intraoperative Record and any orders documented therein. Any exceptions are noted below.
[2023-02-15] MEDS: fentaNYL citrate PF 100 MCG/2 ML VIAL IV PRN ×4 (16:43→16:58)
--- NOTE | 2023-02-15 16:57 | XRay Report ---
XR shoulder LT min 2V routine CLINICAL HISTORY: Post shoulder surgery TECHNIQUE: 3 views of the left shoulder were obtained. Comparison: Comparison is made to chest radiograph 03/23/2016 FINDINGS: Patient is status post shoulder arthroplasty with expected postsurgical changes including soft tissue swelling and subcutaneous emphysema. No periarticular lucency or hardware fracture is seen. IMPRESSION: Expected postoperative appearance status post placement of shoulder arthroplasty. ACT 112: Negative or not required by law. Electronically signed by: Jorge Delarosa M.D. 02/15/2023 4:56 PM
[2023-02-15] MEDS: HYDROmorphone INJ 1 MG/ML SYRINGE IV PRN ×2 (17:11→17:17)
--- NOTE | 2023-02-15 17:28 | Anesthesiology Progress Note ---
Date of Service February 15, 2023 Anesthesia Post Procedure Vital Signs Vital Signs: Temp Pulse Pulse Resp BP Pulse Ox O2 Del Method 02/15/23 17:20 68 22 160/72 H 94 Nasal Cannula 02/15/23 17:10 71 21 159/81 H 93 Nasal Cannula 02/15/23 17:05 71 18 157/83 H 92 Nasal Cannula 02/15/23 16:55 68 18 176/80 H 94 Oxymask 02/15/23 16:45 64 18 189/84 H 95 Oxymask 02/15/23 16:35 36 C L 74 24 157/83 H 94 Oxymask 02/15/23 11:56 Room Air 02/15/23 11:56 37.1 C 84 22 175/98 H 97 Room Air O2 Flow Rate 02/15/23 17:20 4 02/15/23 17:10 4 02/15/23 17:05 2 02/15/23 16:55 9 02/15/23 16:45 9 02/15/23 16:35 9 02/15/23 11:56 02/15/23 11:56 Pain Intensity Left Shoulder: Pain Intensity: 4 Transfer of Care Handoff Completed per policy Notes Mental Status: alert / awake / arousable Patient Amnestic to Procedure: Yes Nausea / Vomiting: adequately controlled Pain: adequately controlled Airway Patency, RR, SpO2: stable & adequate BP & HR: stable & adequate Hydration State: stable & adequate Anesthetic Complications: no major complications apparent
[2023-02-15] MEDS ORDERED: NALOXONE HCL 0.4 MG/1 ML VIAL/CARP IV PRN (17:55)
[2023-02-15] MEDS ORDERED: PHARMACY GLYCEMIC MGMT CONSULT PRN (17:55)
[2023-02-15] MEDS ORDERED: METOCLOPRAMIDE HCL INJ 5 MG/ML 2 ML VIAL IV PRN (17:55)
[2023-02-15] MEDS ORDERED: traMADol HCL 50 MG TABLET PO PRN (17:55)
[2023-02-15] MEDS ORDERED: HYDROmorphone INJ 0.5 MG/0.5 ML SYR IV PRN (17:55)
[2023-02-15] MEDS ORDERED: FLUTICASONE PROPIONATE NA SPR 16 GM BTL PRN (17:55)
[2023-02-15] MEDS ORDERED: VANCOMYCIN CONSULT ACTIVE PRN (17:55)
[2023-02-15] MEDS ORDERED: MAGNESIUM HYDROXIDE SUSP 30 ML UDC PO PRN (17:55)
[2023-02-15] MEDS ORDERED: bisacodyL 10 MG SUPP PR PRN (17:55)
[2023-02-15] MEDS ORDERED: ALBUTEROL HFA 8 GM INHALER INH PRN (17:55)
[2023-02-15] MEDS: SODIUM CHLORIDE 0.9% 1000ML 1,000 ML IV SCH (18:05)
--- NOTE | 2023-02-15 19:41 | Consultation ---
Date of Consultation February 15, 2023 Assessment & Plan (1) Arthritis of shoulder region, left: (2) Post-operative state: s/p L TSA by Dr. Victoria EBL 200 POD #0 -pain/wound management per Ortho -VTE prophylaxis per Ortho, encourage early ambulation -incentive spirometry encouraged -CBC, BMP in am -PT/OT and activity restrictions per Ortho (3) Type 2 diabetes mellitus treated with insulin: A1C of 6.7 reflects good control overall. Cont basal bolus insulin managed with help of glycemic pharmacist. He is currently euglycemic. Hold metformin for now. (4) Hypertension: chronic, stable. Cont lisinopril. Outpatient medical records reflect he is taking HCTZ 25mg Po daily, also, however, he is not sure of this so we are not giving. Cont diltiazem. (5) Paroxysmal atrial fibrillation: Apixaban has been restarted after a brief preoperative hold. Cont diltiazem per home regimen. (6) Mild obstructive sleep apnea: CPAP qHS, has home machine with him. (7) Obesity: Lifestyle changes including diet and exercise efforts should be reviewed with PCP. DVT proph: apixaban Full Code Dispo-per PT/OT and ortho. Thank you for this consultation. Nevin Glez DO [facility] History of Present Illness Reason for Consultation: post op medical management Attending Physician: Michael Victoria MD History of Present Illness 72 yo M presented today for an elective left total shoulder arthroplasty. He is doing well post op but does feel that his breathing is shallow. He is afebrile and has no cough or chest pain. Denies nausea and is otherwise doing well. He reports some expected pain in his shoulder and is receiving pain medication now. We reviewed that he has an unknown reaction to hydroxodone and oxycodone in the past. He does well with codeine if needed. Allergies Allergy/AdvReac Type Severity Reaction Status Date / Time celecoxib [From Celebrex] Allergy Unknown ? Hives Verified 02/15/23 11:46 cephalexin Allergy Unknown ? Rash Verified 02/15/23 11:46 dicyclomine Allergy Unknown Unknown Verified 02/15/23 11:46 homatropine Allergy Unknown Unknown Verified 02/15/23 11:46 hyaluronate sodium, Allergy Unknown Lips Verified 02/15/23 11:46 stabilized swelling hydrocodone Allergy Unknown Unknown Verified 02/15/23 11:46 hylan G-F 20 [From Synvisc] Allergy Unknown Lips Verified 02/15/23 11:46 swelling meloxicam Allergy Unknown Unknown Verified 02/15/23 11:46 oxycodone [From Percocet] Allergy Unknown Unknown Verified 02/15/23 11:46 pregabalin Allergy Unknown ? Tired, Verified 02/15/23 11:46 listless Bactrim AdvReac Unknown gi upset Verified 08/07/13 15:23 chlorthalidone AdvReac Unknown Listless Verified 02/15/23 11:46 gabapentin AdvReac Unknown ? Tired, Verified 02/15/23 11:46 listless Penicillins AdvReac Unknown GI upset Verified 02/15/23 11:46 prednisone AdvReac Unknown GI upset Verified 02/15/23 11:46 sulfamethoxazole AdvReac Unknown GI upset Verified 02/15/23 11:46 trimethoprim AdvReac Unknown GI upset Verified 02/15/23 11:46 Home Medications Medication Instructions Recorded Confirmed Type albuterol sulfate 90 mcg/actuation 1 puffs inhalation UD PRN COPD #1 g 07/07/19 02/15/23 History aerosol inhaler lisinopril 40 mg tablet 40 mg PO QPM #90 tabs 07/07/19 02/15/23 History acetaminophen 650 mg 650 mg PO DAILY PRN Pain 01/22/20 02/15/23 History tablet,extended release (Tylenol Arthritis Pain) melatonin 5 mg capsule 10 mg PO HS 07/22/20 02/15/23 History apixaban 5 mg tablet (Eliquis) 5 mg PO BID 02/16/22 02/15/23 History fluticasone 250 mcg-salmeterol 50 1 inh inhalation BID 02/19/22 02/15/23 History mcg/dose blistr powdr for inhalation (Wixela Inhub) ergocalciferol (vitamin D2) 1,250 50,000 unit PO MONTHLY #12 caps 04/13/22 02/15/23 Rx mcg (50,000 unit) capsule famotidine 20 mg tablet (Pepcid) 20 mg PO QAM 04/13/22 02/15/23 History metformin 850 mg tablet 850 mg PO BID 90 days #180 tabs 07/13/22 02/15/23 Rx ascorbic acid (vitamin C) 500 mg 500 mg PO QAM 07/20/22 02/15/23 History tablet (Vitamin C) cyanocobalamin (vitamin B-12) 1,000 mcg PO QAM 07/20/22 02/15/23 History 1,000 mcg tablet (Vitamin B-12) docusate sodium 100 mg capsule 100 mg PO HS 07/20/22 02/15/23 History (Colace) fluticasone propionate 50 1 spray intranasal UD PRN Nasal 07/20/22 02/15/23 History mcg/actuation nasal Congestion spray,suspension insulin aspart U-100 100 unit/mL 1 sliding scale dose subcut UD #90 07/29/22 02/15/23 Rx (3 mL) subcutaneous pen (Novolog mL FlexPen U-100 Insulin aspart) insulin glargine 100 unit/mL (3 60 unit (0.6 mL) subcut BID #120 mL 07/29/22 02/15/23 Rx mL) subcutaneous pen (Lantus Solostar U-100 Insulin) tamsulosin 0.4 mg capsule 0.4 mg PO DAILY #90 caps 11/05/22 02/15/23 Rx acetaminophen 500 mg tablet 1,000 mg PO Q8 14 days #84 tabs 02/15/23 Rx (Tylenol Extra Strength) diltiazem HCl 180 mg capsule,24 180 mg PO BID 02/15/23 02/15/23 History hr,extended release Patient History Medical History Abnormal cardiac conduction Cardiac pauses. Per EP office visit (06/03/22): 2.2 second pause noted on telemetry during inpatient stay. 3 more pauses on Zio patch, longest 3.1 seconds, all in atrial fibrillation. "In atrial fibrillation, without any symptoms, he would have to have a pause of 5 seconds to qualify for a pacemaker. No indication for any further intervention at this time. Follow-up as needed." Acid reflux controlled, stable per pt Afib on OAC, follows with cardiology Chronic kidney disease (CKD), stage II (mild) Constipation Occasional COPD (chronic obstructive pulmonary disease) controlled, stable per pt; last used rescue inhaler > 3 months ago Degeneration of cervical intervertebral disc s/p cervical spine surgeries DM type 2 (diabetes mellitus, type 2) IDDM Frequent urination at night R/t prostate HTN (hypertension) controlled, stable per pt Low back problem Malignant neoplasm of penis 6 years ago Neuropathy ambulates with cane Obesity Paralysis of diaphragm elevation R hemidiaphragm Sleep apnea CPAP-compliant TIA (transient ischemic attack) 01/13/21-vision and speech changes, started on statin and ASA, w/u notable for 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 reports he was never informed if previous TIA. 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 History of carpal tunnel surgery of left wrist History of carpal tunnel surgery of right wrist + ulnar nerve surgery History of cataract surgery R&L History of cholecystectomy History of colonoscopy with polypectomy History of decompression of median nerve Per records, pt unsure History of decompression of ulnar nerve RIGHT History of endoscopy ?1979 History of fusion of cervical spine FULL ROM History of hernia repair History of urologic surgery penis amputation Nausea and vomiting after administration of anesthetic agent denies needing scop patch Family History Other Family history of diabetes mellitus in father Social History Smoking Status: Former smoker Smoking End Date: 1989; Second Hand Exposure: No; Do You Dip or Chew Tobacco: No; Tobacco Cessation Education Requested by Patient: No Hx Alcohol Use: No Hx Substance Use: No Preferred Language: Yoruba Communication Ability: Effective Table Saw Operator Required: No Beliefs That Will Affect Care: None marital status: Current Living Situation: Significant Other current occupational status: retired Feels Safe at Home: Yes Safety Concerns: Feels Safe At This Time Assistive Devices: Cane and CPAP Review of Systems Review of Systems: All systems were reviewed and negative except as indicated in HPI above. Physical Exam Physical Exam: CONSTITUTIONAL: WNWD, vitals as above, generally well-appearing, NAD EYES: normal conjunctivae, no scleral icterus ENT: external ear and nose normal, MMM NECK: trachea midline RESPIRATORY: clear to auscultation bilaterally, no crackles, rales or wheezes, normal respiratory effort CARDIOVASCULAR: regular rate and rhythm, S1 and 2 heard without murmurs, gallops or rubs, no JVD, no peripheral edema CHEST: inspection of chest was normal GASTROINTESTINAL: soft, nontender, ND, no guarding MUSCULOSKELETAL: strength 5/5 throughout, head is normocephalic and atraumatic SKIN: warm and dry NEUROLOGIC: CN 2-12 grossly intact, no sensory deficit, normal cognition, normal speech, no tremor PSYCHIATRIC: alert cooperative and oriented to person, place and time. Results & Data Vital Signs (Past 12 Hours) Vital Signs Temp Pulse Pulse Pulse Resp BP Pulse Ox 02/15/23 19:05 36.4 C L 78 18 164/87 H 95 02/15/23 18:00 37 C 76 18 149/82 H 94 02/15/23 17:45 78 20 159/88 H 94 02/15/23 17:30 37.1 C 70 21 150/83 H 94 02/15/23 17:20 68 22 160/72 H 94 02/15/23 17:10 71 21 159/81 H 93 02/15/23 17:05 71 18 157/83 H 92 02/15/23 16:55 68 18 176/80 H 94 02/15/23 16:45 64 18 189/84 H 95 02/15/23 16:35 36 C L 74 24 157/83 H 94 02/15/23 11:56 02/15/23 11:56 37.1 C 84 22 175/98 H 97 O2 Del Method O2 Flow Rate 02/15/23 19:05 Nasal Cannula 2 02/15/23 18:00 Nasal Cannula 4 02/15/23 17:45 Nasal Cannula 4 02/15/23 17:30 Nasal Cannula 4 02/15/23 17:20 Nasal Cannula 4 02/15/23 17:10 Nasal Cannula 4 02/15/23 17:05 Nasal Cannula 2 02/15/23 16:55 Oxymask 9 02/15/23 16:45 Oxymask 9 02/15/23 16:35 Oxymask 9 02/15/23 11:56 Room Air 02/15/23 11:56 Room Air Diagnostic Findings Shoulder X-Ray 02/15/23 14:58 XR shoulder LT min 2V routine CLINICAL HISTORY: Post shoulder surgery TECHNIQUE: 3 views of the left shoulder were obtained. Comparison: Comparison is made to chest radiograph 03/23/2016 FINDINGS: Patient is status post shoulder arthroplasty with expected postsurgical changes including soft tissue swelling and subcutaneous emphysema. No periarticular lucency or hardware fracture is seen. IMPRESSION: Expected postoperative appearance status post placement of shoulder arthroplasty. ACT 112: Negative or not required by law. Electronically signed by: Jorge Delarosa M.D. 02/15/2023 4:56 PM Medications Administered Current Inpatient Medications Acetaminophen (Acetaminophen 500 Mg Tab) 1,000 mg PO Q8 [facility] Stop: 03/17/23 21:59 Albuterol (Albuterol Hfa 8 Gm Inhaler) 1 puffs INH Q6 PRN PRN Reason: COPD Stop: 03/17/23 17:54 Apixaban (Apixaban 5 Mg Tablet) 5 mg PO BID [facility] Stop: 03/18/23 20:59 Ascorbic Acid (Ascorbic Acid 500 Mg Tab) 500 mg PO QAM [facility] Stop: 03/18/23 08:59 Bisacodyl (Bisacodyl 10 Mg Supp) 10 mg MD DAILY PRN PRN Reason: Constipation Stop: 03/17/23 17:54 Cyanocobalamin (Cyanocobalamin (B-12) 500 Mcg Tablet) 1,000 mcg PO QAM [facility] Stop: 03/18/23 08:59 Diltiazem HCl (Diltiazem Hcl 180 Mg Capcr) 180 mg PO BID [facility] Stop: 03/17/23 20:59 Docusate Sodium (Docusate Sodium 100 Mg Cap) 100 mg PO HS [facility] Stop: 03/17/23 20:59 Docusate Sodium (Docusate Sodium 100 Mg Cap) 100 mg PO BID [facility] Stop: 03/17/23 20:59 Ephedrine Sulfate (Ephedrine Sulfate 50 Mg/Ml Amp) 5 mg IV Q5M PRN PRN Reason: PACU Use Only-SBP<90 mmHg Stop: 02/15/23 22:57 Ergocalciferol (Ergocalciferol 50,000 Units 1250 Mcg Cap) 50,000 units PO Q30D@0900 [facility] Stop: 03/29/23 08:59 Famotidine (Famotidine 20 Mg Tab) 20 mg PO QAM [facility] Stop: 03/18/23 08:59 Fentanyl Citrate (Fentanyl Citrate 100 Mcg/2 Ml Vial) 25 mcg IV Q5M PRN PRN Reason: PACU Use Only-Pain Stop: 02/15/23 22:58 Last Admin: 02/15/23 16:58 Dose: 25 mcg Fluticasone Propionate (Fluticasone Propionate Na Spr 16 Gm Btl) 1 sprays NA DAILY PRN PRN Reason: Nasal Congestion Stop: 03/17/23 17:54 Fluticasone/Vilanterol (Fluticasone/Vilanterol 100/25mcg 14 Puffs/Inhaler) 1 puffs INH DAILY [facility] Stop: 03/18/23 08:59 Hydromorphone HCl (Hydromorphone Inj 1 Mg/Ml Syringe) 0.25 mg IV Q5M PRN PRN Reason: PACU Use Only-Pain Stop: 02/16/23 01:02 Last Admin: 02/15/23 17:17 Dose: 0.25 mg Hydromorphone HCl (Hydromorphone Inj 0.5 Mg/0.5 Ml Syr) 0.5 mg IV Q4H PRN PRN Reason: Pain or Pre PT Stop: 03/01/23 17:54 Promethazine HCl 12.5 mg/ (Sodium Chloride) 50.5 mls @ 204 mls/hr IV ONCE PRN PRN Reason: PACU Use Only-Nausea/Vomiting Stop: 02/15/23 22:59 Vancomycin HCl 1,750 mg/ (Sodium Chloride) 535 mls @ 200 mls/hr IV Q12H [facility] Stop: 02/16/23 02:41 Sodium Chloride (Nss 1000ml) 1,000 mls @ 100 mls/hr IV .Q10H [facility] Stop: 02/16/23 06:00 Last Admin: 02/15/23 18:05 Dose: 100 mls/hr Labetalol HCl (Labetalol Hcl Iv 5 Mg/Ml 20ml) 5 mg IV Q5M PRN PRN Reason: PACU Use-SBP>160 or DBP>100 Stop: 02/15/23 22:59 Lisinopril (Lisinopril 40 Mg Tab) 40 mg PO QPM [facility] Stop: 03/18/23 20:59 Magnesium Hydroxide (Magnesium Hydroxide Susp 30 Ml Udc) 30 ml PO Q6H PRN PRN Reason: Constipation Stop: 03/17/23 17:54 Melatonin (Melatonin 3 Mg Tab) 9 mg PO HS [facility] Stop: 03/17/23 20:59 Metoclopramide HCl (Metoclopramide Hcl Inj 5 Mg/Ml 2 Ml Vial) 10 mg IV Q6H PRN PRN Reason: Nausea And Vomiting Stop: 03/17/23 17:54 Miscellaneous Information (Pharmacy Glycemic Mgmt Consult) 1 each N/A UD PRN PRN Reason: Consult Stop: 03/17/23 17:54 Multivitamins (Multivitamin Tab) 1 tab PO QAM [facility] Stop: 03/18/23 08:59 Naloxone HCl (Naloxone Hcl 0.4 Mg/1 Ml Vial/Carp) 0.1 mg IV Q5M PRN PRN Reason: Oversedation/Resp Depression Stop: 03/17/23 17:54 Ondansetron HCl (Ondansetron Inj 2 Mg/Ml 2 Ml Vial) 4 mg IV ONCE PRN PRN Reason: PACU Use Only-Nausea/Vomiting Stop: 02/15/23 22:59 Ondansetron HCl (Ondansetron Inj 2 Mg/Ml 2 Ml Vial) 4 mg IV Q6H PRN PRN Reason: Nausea And Vomiting Stop: 03/17/23 17:54 Sennosides (Senna 8.6 Mg Tab) 17.2 mg PO HS [facility] Stop: 03/17/23 20:59 Tamsulosin HCl (Tamsulosin Hcl 0.4 Mg Cap) 0.4 mg PO DAILY [facility] Stop: 03/18/23 08:59 Tramadol HCl (Tramadol Hcl 50 Mg Tablet) 50 - 100 mg PO Q4H PRN PRN Reason: Pain & Pre PT Stop: 03/17/23 17:54
[2023-02-15] MEDS ORDERED: CARBOHYDRATES FOR HYPOGLYCEMIA PO PRN (20:00)
[2023-02-15] MEDS ORDERED: GLUCAGON FOR INJ 1 MG VIAL IM PRN (20:00)
[2023-02-15] MEDS ORDERED: GLUCOSE 40% GEL 15 GM TUBE PO PRN (20:00)
[2023-02-15] MEDS ORDERED: GLUCOSE 10 TAB/TUBE PO PRN (20:00)
[2023-02-15] MEDS ORDERED: DEXTROSE 50% 50 ML SYRINGE IV PRN (20:00)
[2023-02-15] MEDS ORDERED: MELATONIN 3 MG TAB PO SCH (21:00)
[2023-02-15] MEDS ORDERED: DOCUSATE SODIUM 100 MG CAP PO SCH (21:00)
[2023-02-15] MEDS ORDERED: dilTIAZem HCL 180 MG CAPCR PO SCH (21:00)
[2023-02-15] MEDS ORDERED: SENNA 8.6 MG TAB PO SCH (21:00)
[2023-02-15] MEDS ORDERED: LANTUS PER UNIT CHARGE SQ ONE (21:15)
[2023-02-15] MEDS: INSULIN ASPART PER UNIT CHARGE SC SCH (21:49)
[2023-02-15] MEDS: ACETAMINOPHEN 500 MG TAB PO SCH (21:50)
[2023-02-15] MEDS: dilTIAZem HCL 180 MG CAPCR PO SCH (21:51)
[2023-02-15] MEDS: DOCUSATE SODIUM 100 MG CAP PO SCH (21:51)
[2023-02-16] MEDS ORDERED: VANCOMYCIN HCL 1,750 MG in SODIUM CHLORIDE 0.9% 500 ML IV SCH
[2023-02-16] MEDS: INSULIN ASPART PER UNIT CHARGE SC SCH ×4 (00:25→12:54)
[2023-02-16] MEDS: SODIUM CHLORIDE 0.9% 1000ML 1,000 ML IV SCH (01:56)
[2023-02-16] MEDS: ACETAMINOPHEN 500 MG TAB PO SCH ×2 (05:00→12:55)
--- NOTE | 2023-02-16 07:05 | XRay Report ---
XR chest 1V portable HISTORY: 72 years-old Male post op shallow breathing acute shortness of breath COMPARISON: Chest radiograph 01/29/2023 TECHNIQUE: AP view of the chest FINDINGS: Cardiac silhouette is enlarged. Elevation of the diaphragm. No pneumothorax, pleural effusion or over t pulmonary edema. Mild subsegmental bibasilar densities suggest atelectasis. Left shoulder arthropla sty with expected postoperative soft tissue swelling, deep tissue air with overlying skin celestina. Howell rgical clips of the right upper quadrant abdomen. Lucency noted beneath the right hemidiaphragm. IMPRESSION: 1. Bibasilar linear densities suggest atelectasis. 2. Lucency beneath the right hemidiaphragm suggestive of hepatic flexure. Pneumoperitoneum considered less likely. ACT 112: Negative or not required by law. The above report was generated using voice recognition software. It may contain grammatical, syntax o r spelling errors. Electronically signed by: Dhaval Castaneda M.D. 02/16/2023 7:03 AM
[2023-02-16] MEDS ORDERED: TAPENTADOL HCL 50 MG TAB PO PRN (07:53)
--- NOTE | 2023-02-16 08:05 | Orthopedic Progress Note ---
Date of Service February 16, 2023 Assessment & Plan (1) Primary osteoarthritis, left shoulder: Plan: Postop day 1 status post left total shoulder arthroplasty. Posterior capsular tightening. PT/OT protocols. Nonweightbearing left upper extremity; minimal PT at this time secondary to posterior capsular tightening. DVT prophylaxis-apixaban p.o. twice daily, SCDs Pain management-patient was using tramadol which felt was causing him some shortness of breath at times. This was discontinued. We will try Nucynta to see how this works for him. DC planning-patient is planning for discharge to home. We will recheck him later today to see how his pain control is and to see if he is tolerating Nucynta if he had to take it. Admission and Anticipated Discharge Date Admission Date: February 15, 2023 Subjective Postop day 1 Patient sitting in his chair at the bedside. No complaints this morning. States that his pain is controlled quite well. We discussed his pain medications upon going home. He feels that the tramadol is causing him some type of shortness of breath off and on when he takes it. When he has not had it for some time he feels fine. Patient has multiple allergies to multiple narcotics. We discussed the use of Nucynta which he stated he was willing to try. He states that most of the narcotics caused him moderate to severe stomach discomfort. Several questions asked about the surgery and answered to the best of my ability. Physical Exam Physical Exam: Dressings are clean, dry, and intact. Sling is in place. He has good range of motion of his wrist and fingers at this time. He has good hand strength. He has some slightl residual tingling in his left thumb. Cap refill is less than 2 seconds Results & Data Vital Signs (Past 12 Hours) Vital Signs Temp Pulse Resp BP Pulse Ox O2 Del Method O2 Flow Rate 02/16/23 07:26 36.7 C 87 18 152/87 H 95 Room Air 02/16/23 06:03 85 16 95 Room Air 02/16/23 05:57 94 Room Air 02/16/23 03:35 36.5 C 80 22 165/90 H 96 Nasal Cannula 2 02/15/23 23:00 36.7 C 88 20 168/94 H 96 Nasal Cannula 2
[2023-02-16] MEDS: DOCUSATE SODIUM 100 MG CAP PO SCH (08:41)
[2023-02-16] MEDS: dilTIAZem HCL 180 MG CAPCR PO SCH (08:41)
[2023-02-16 08:43] LABS: Basophils # (auto) 0.06 K/uL (0-0.2); Basophils % (auto) 0.5 %; Eosinophils # (auto) 0.01 K/uL (0-0.50); Eosinophils % (auto) 0.1 %; Hematocrit (blood only) 42.5 % (42.0-52.0); Hemoglobin 14.4 g/dl (14.0-18.0); Immature Granulocytes # (auto) 0.08 K/uL (0.01-0.20); Immature Granulocytes % (auto) 0.6 %; Lymphocytes # (auto) 1.25 K/uL (1.2-3.4); Lymphocytes % (auto) 9.6 %; Mean Corpuscular Hemoglobin 32.1 pg (25.0-34.0); Mean Corpuscular Hgb Conc 33.9 g/dL (32.0-36.0); Mean Corpuscular Volume 94.9 fL (80.0-100.0); Mean Platelet Volume 9.5 fL (9.4-12.4); Monocytes # (auto) 1.51 K/uL (0.11-0.59); Monocytes % (auto) 11.6 %; Neutrophils # (auto) 10.13 K/uL (1.40-6.50); Neutrophils % (auto) 77.6 %; Platelet Count 287 K/uL (130-400); RDW Coefficient of Variation 12.8 % (11.5-14.5); RDW Standard Deviation 44.9 fL (36.4-46.3); Red Blood Count 4.48 M/uL (4.70-6.10); White Blood Count 13.04 K/ul (4.8-10.8)
[2023-02-16] MEDS ORDERED: CYANOCOBALAMIN (B-12) 500 MCG TABLET PO SCH (09:00)
[2023-02-16] MEDS ORDERED: MULTIVITAMIN TAB PO SCH (09:00)
[2023-02-16] MEDS ORDERED: FAMOTIDINE 20 MG TAB PO SCH (09:00)
[2023-02-16] MEDS ORDERED: LANTUS PER UNIT CHARGE SQ SCH (09:00)
[2023-02-16] MEDS ORDERED: FLUTICASONE/VILANTEROL 100/25MCG 14 PUFFS/INHALER INH SCH (09:00)
[2023-02-16] MEDS ORDERED: TAMSULOSIN HCL 0.4 MG CAP PO SCH (09:00)
[2023-02-16] MEDS ORDERED: APIXABAN 5 MG TABLET PO SCH ×2 (09:00→21:00)
[2023-02-16] MEDS ORDERED: ASCORBIC ACID 500 MG TAB PO SCH (09:00)
[2023-02-16 09:13] LABS: BUN Creatinine Ratio 17.9 (10-20); Calcium 8.9 mg/dl (8.5-10.1); Creatinine Clr Calc Pharmacy 102.7 ml/min; Est GFR (Non-African American) 86.3 ml/min; Potassium 4.2 mmol/L (3.5-5.1)
--- NOTE | 2023-02-16 10:55 | Hospitalist Progress Note ---
Date of Service February 16, 2023 Assessment & Plan (1) Arthritis of shoulder region, left: (2) Post-operative state: Plan: s/p L TSA by Dr. Victoria EBJeanne 200 POD #1 -pain/wound management per Ortho -VTE prophylaxis per Ortho, encourage early ambulation -incentive spirometry encouraged -CBC, BMP in am -PT/OT and activity restrictions per Ortho - NWB LUE (3) Type 2 diabetes mellitus treated with insulin: Plan: A1C of 6.7 reflects good control overall. Cont basal bolus insulin managed with help of glycemic pharmacist. Hold metformin, resume at discharge BSG elevated this a.m., 185 (4) Hypertension: Plan: Blood pressure 152/87 this morning Continue diltiazem and lisinopril outpatient medical records reflect he is taking HCTZ 25mg Po daily, also, however, he is not sure of this so we are not giving (5) Paroxysmal atrial fibrillation: Plan: Apixaban has been restarted after a brief preoperative hold. Continue diltiazem for rate and rhythm control (6) Mild obstructive sleep apnea: Plan: CPAP qHS, has home machine with him (7) Obesity: Plan: Lifestyle changes including diet and exercise efforts should be reviewed with PCP. DVT proph: apixaban Full Code Dispo-Pt to discharge to home sometime today if tolerating pain regimen Thank you for this consultation. A total of 45 minutes was spent with greater than 50% of that time personally viewing all current laboratory work and diagnostic imaging studies obtained in the ED. Additionally, I was able to view the patients past medication reconci liation and history with direct visualization in the patients chart. Included in the time above, a portion of that time was spent assessing the patient while discussing and collaborating with specialists, if necessary, and making medical decision making on treatment plan. All of the above was collaborated with Dr. Chaves. Please see addendum for further details. Admission and Anticipated Discharge Date Admission Date: February 15, 2023 Supervising Physician Co-Signing Physician Notes Pt seen and examined by me, care coordinated w/Edil Bolanos PA-C, pls refer to her note above for further detail. Pt underwent left TSA yesterday. Currently sitting up in the chair, in no acute distress. Reports feeling well overall, pain is well controlled at this time. Patient's nurse at the bedside as well. Patient denies any fevers chills chest pain shortness of breath abdominal pain. No nausea vomiting. He is ambulating well, has good appetite. Awake alert oriented answering questions appropriately. Lungs are clear to auscultation. Heart sounds regular. Abdomen soft obese nontender nondistended, positive bowel sounds. No lower extremity edema. Left arm in a sling/immobilizer, surgical dressings applied over left shoulder. Plan as above, patient's pain medications changed by orthopedics this morning. Plan for discharge this afternoon. Patient should follow-up for his chronic medical conditions with primary care provider. MD Andie Subjective Patient was seen and examined in room 319. Follow-up left shoulder replacement. He was working with occupational therapy this morning to assist with dressing. Prior to therapy his pain was well controlled now it is slightly elevated. He states he does not tolerate tramadol. He denies fever, chills, sweats, lightheadedness, dizziness, chest pain, shortness breath, nausea, vomiting, abdominal pain. He is going to be discharged today. Review of Systems Review of Systems: All systems reviewed & are unremarkable except as noted in HPI & below Physical Exam Physical Exam: Gen: WD/WN, NAD, A&O x3 HEENT: Normocephalic, atraumatic, conjunctivae moist, sclerae anicteric, mucous membranes moist. Lung: Clear to Auscultation bilaterally, no wheezes/rales/rhonchi Heart: Regular rate, regular rhythm, no murmurs, rubs, or gallops Abdomen: Soft, NT, ND +BS x 4 Extremities: No edema, left upper extremity immobilizer in place NVI distally Skin: Warm, no rash, negative turgor. Results & Data Results & Data Vital Signs (Past 12 Hours) Vital Signs Temp Pulse Resp BP Pulse Ox O2 Del Method O2 Flow Rate 02/16/23 07:26 36.7 C 87 18 152/87 H 95 Room Air 02/16/23 06:03 85 16 95 Room Air 02/16/23 05:57 94 Room Air 02/16/23 03:35 36.5 C 80 22 165/90 H 96 Nasal Cannula 2 02/15/23 23:00 36.7 C 88 20 168/94 H 96 Nasal Cannula 2 Laboratory Results Short CBC 02/16/23 Range/Units 07:41 WBC 13.04 H (4.8-10.8) K/ul Hgb 14.4 (14.0-18.0) g/dl Hct 42.5 (42.0-52.0) % Plt Count 287 (130-400) K/uL [facility] 02/16/23 07:41 Sodium 134 L Potassium 4.2 Chloride 101 Carbon Dioxide 26 BUN 15 Creatinine 0.84 Glucose 216 H Calcium 8.9 Medications Administered Current Inpatient Medications Acetaminophen (Acetaminophen 500 Mg Tab) 1,000 mg PO Q8 JOI Stop: 03/17/23 21:59 Last Admin: 02/16/23 05:00 Dose: 1,000 mg Albuterol (Albuterol Hfa 8 Gm Inhaler) 1 puffs INH Q6 PRN PRN Reason: COPD/wheezing Stop: 03/17/23 17:54 Last Admin: 02/16/23 06:03 Dose: 1 puffs Apixaban (Apixaban 5 Mg Tablet) 5 mg PO BID [facility] Stop: 03/18/23 20:59 Ascorbic Acid (Ascorbic Acid 500 Mg Tab) 500 mg PO QAM [facility] Stop: 03/18/23 08:59 Last Admin: 02/16/23 08:41 Dose: 500 mg Bisacodyl (Bisacodyl 10 Mg Supp) 10 mg [place] DAILY PRN PRN Reason: Constipation Stop: 03/17/23 17:54 Cyanocobalamin (Cyanocobalamin (B-12) 500 Mcg Tablet) 1,000 mcg PO QAM [facility] Stop: 03/18/23 08:59 Last Admin: 02/16/23 08:40 Dose: 1,000 mcg Dextrose (Dextrose 50% 50 Ml Syringe) 25 - 50 ml IV UD PRN; Protocol PRN Reason: Hypoglycemia Protocol Stop: 03/17/23 19:59 Diltiazem HCl (Diltiazem Hcl 180 Mg Capcr) 180 mg PO BID [facility] Stop: 03/17/23 20:59 Last Admin: 02/16/23 08:41 Dose: 180 mg Docusate Sodium (Docusate Sodium 100 Mg Cap) 100 mg PO BID [facility] Stop: 03/17/23 20:59 Last Admin: 02/16/23 08:41 Dose: 100 mg Ergocalciferol (Ergocalciferol 50,000 Units 1250 Mcg Cap) 50,000 units PO Q30D@0900 [facility] Stop: 03/29/23 08:59 Famotidine (Famotidine 20 Mg Tab) 20 mg PO QAM JOI Stop: 03/18/23 08:59 Last Admin: 02/16/23 08:41 Dose: 20 mg Fluticasone/Vilanterol (Fluticasone/Vilanterol 100/25mcg 14 Puffs/Inhaler) 1 puffs INH DAILY JOI Stop: 03/18/23 08:59 Last Admin: 02/16/23 08:38 Dose: 1 puffs Glucagon (Glucagon For Inj 1 Mg Vial) 1 mg IM UD PRN; Protocol PRN Reason: Hypoglycemia Protocol Stop: 03/17/23 19:59 Glucose (Glucose 40% Gel 15 Gm Tube) 15 - 30 gm PO UD PRN; Protocol PRN Reason: Hypoglycemia Protocol Stop: 03/17/23 19:59 Glucose (Glucose 10 Tab/Tube) 4 - 8 tab PO UD PRN; Protocol PRN Reason: Hypoglycemia Protocol Stop: 03/17/23 19:59 Hydromorphone HCl (Hydromorphone Inj 0.5 Mg/0.5 Ml Syr) 0.5 mg IV Q4H PRN PRN Reason: Pain or Pre PT Stop: 03/01/23 17:54 Insulin Aspart (Insulin Aspart Per Unit) 0 units SC ACHS [facility] Stop: 03/17/23 20:59 Last Admin: 02/16/23 08:51 Dose: 19 units Insulin Glargine (Lantus Per Unit Charge) 45 units SQ BID JOI Stop: 03/18/23 08:59 Last Admin: 02/16/23 08:51 Dose: 45 units Lisinopril (Lisinopril 40 Mg Tab) 40 mg PO QPM JOI Stop: 03/18/23 20:59 Magnesium Hydroxide (Magnesium Hydroxide Susp 30 Ml Udc) 30 ml PO Q6H PRN PRN Reason: Constipation Stop: 03/17/23 17:54 Melatonin (Melatonin 3 Mg Tab) 9 mg PO HS [facility] Stop: 03/17/23 20:59 Last Admin: 02/15/23 21:51 Dose: 9 mg Metoclopramide HCl (Metoclopramide Hcl Inj 5 Mg/Ml 2 Ml Vial) 10 mg IV Q6H PRN PRN Reason: Nausea And Vomiting Stop: 03/17/23 17:54 Miscellaneous (Carbohydrates For Hypoglycemia ) 15 - 30 gm PO UD PRN PRN Reason: Hypoglycemia Treatment Stop: 03/17/23 19:59 Miscellaneous Information (Pharmacy Glycemic Mgmt Consult) 1 each N/A UD PRN PRN Reason: Consult Stop: 03/17/23 17:54 Multivitamins (Multivitamin Tab) 1 tab PO QAM JOI Stop: 03/18/23 08:59 Last Admin: 02/16/23 08:40 Dose: 1 tab Naloxone HCl (Naloxone Hcl 0.4 Mg/1 Ml Vial/Carp) 0.1 mg IV Q5M PRN PRN Reason: Oversedation/Resp Depression Stop: 03/17/23 17:54 Ondansetron HCl (Ondansetron Inj 2 Mg/Ml 2 Ml Vial) 4 mg IV Q6H PRN PRN Reason: Nausea And Vomiting Stop: 03/17/23 17:54 Sennosides (Senna 8.6 Mg Tab) 17.2 mg PO HS JOI Stop: 03/17/23 20:59 Last Admin: 02/15/23 21:50 Dose: 17.2 mg Tamsulosin HCl (Tamsulosin Hcl 0.4 Mg Cap) 0.4 mg PO DAILY JOI Stop: 03/18/23 08:59 Last Admin: 02/16/23 08:41 Dose: 0.4 mg Tapentadol (Tapentadol Hcl 50 Mg Tab) 50 mg PO Q4H PRN PRN Reason: Pain Stop: 03/02/23 07:52
[2023-02-16] MEDS ORDERED: lisinopril 40 MG TAB PO SCH (21:00)
--- NOTE | 2023-02-17 12:33 | Discharge Summary ---
Date of Service February 17, 2023 Admission HPI Per Admitting Provider 72-year-old male with past medical history significant for A-fib, CKD, COPD, diabetes, hypertension paralysis of diaphragm, sleep apnea who presents with ongoing left shoulder pain. Patient has failed extensive conservative measures including multiple steroid injections.patient is unable to take NSAIDs. Pain is interfering with his daily activities. He would like to proceed with surgical intervention. Patient denies headaches, sweats, fevers, chills, double vision, blurred vision, cough, sore throat, dysphagia, chest pain, sob, wheezing, n/v/d/c, numbness, tingling, fatigue, urinary symptoms, mood disorders. ROS positive for left shoulder pain and stiffness. Admission Exam Per Admitting Provider Physical Exam Constitutional: well developed and well nourished; no acute distress Eyes: PERRL, conjunctivae normal, anicteric sclerae ENMT: external ear and nose normal, oropharynx normal Neck: trachea midline, no thyromegaly Respiratory: normal respiratory effort, lungs clear to auscultation Cardiovascular: RRR, no murmur, no edema Musculoskeletal: Left shoulder: Tenderness anterior glenoid. He has moderate crepitation with range of motion. Active painful range of motion in all directions. Forward flexion 90 degrees, abduction 85 degrees, external rotation to 45 degrees. Crepitation with strength testing however rotator cuff strength seems to be preserved. Skin: no rashes, warm and dry Neurologic: patellar DTR's 2+ bilat, sensation intact Psychiatric: A+Ox3, euthymic affect Principal Diagnosis Left Shoulder Osteoarthritis Discharge Data Allergies Allergy/AdvReac Type Severity Reaction Status Date / Time celecoxib [From Celebrex] Allergy Unknown ? Hives Verified 02/15/23 11:46 cephalexin Allergy Unknown ? Rash Verified 02/15/23 11:46 dicyclomine Allergy Unknown Unknown Verified 02/15/23 11:46 homatropine Allergy Unknown Unknown Verified 02/15/23 11:46 hyaluronate sodium, Allergy Unknown Lips Verified 02/15/23 11:46 stabilized swelling hydrocodone Allergy Unknown Unknown Verified 02/15/23 11:46 hylan G-F 20 [From Synvisc] Allergy Unknown Lips Verified 02/15/23 11:46 swelling meloxicam Allergy Unknown Unknown Verified 02/15/23 11:46 oxycodone [From Percocet] Allergy Unknown Unknown Verified 02/15/23 11:46 pregabalin Allergy Unknown ? Tired, Verified 02/15/23 11:46 listless Bactrim AdvReac Unknown gi upset Verified 08/07/13 15:23 chlorthalidone AdvReac Unknown Listless Verified 02/15/23 11:46 gabapentin AdvReac Unknown ? Tired, Verified 02/15/23 11:46 listless Penicillins AdvReac Unknown GI upset Verified 02/15/23 11:46 prednisone AdvReac Unknown GI upset Verified 02/15/23 11:46 sulfamethoxazole AdvReac Unknown GI upset Verified 02/15/23 11:46 trimethoprim AdvReac Unknown GI upset Verified 02/15/23 11:46 Consultations 02/10/23 17:16 Consult Hospitalist Routine Procedures Performed Operation Date: 02/15/23 14:45 Actual Procedures p Left Shoulder Total Shoulder Arthroplasty(Left) - Michael Victoria MD Ordered Studies 02/15/23 05:00 US - OR guided needle placemen Routine Hospital Course (1) Primary osteoarthritis, left shoulder: Patient:GREY THORNTON Admit Date:02/15/23 MR#:[id number] Att Phy:Michael Victoria M.D. Acct ID:[id number] Breana Phy:Austin Willson MD Date:1950 Fam Phy: Age:72 Location:3E Sex:M Room/Bed:E319 cc: ~ *NOTICE TO RECEIVING DEMOCRAT/AGENCY This information is strictly Confidential and protected under [place] law. [place] law prohibits you from making any further disclosure of this information unless further disclosure is expressly permitted by the written consent of the person to whom it pertains or is authorized by law. A general authorization for the release of medical or other information is not sufficient for this purpose. Hospital accepts no responsibility if the information is made available to any other person, INCLUDING THE PATIENT. ADDENDUM 02/16/23 1145Addendum February 16, 2023 11:43 Patient doing well. I stopped the to check him at around 1140. He states that the only new pain he has been having is some left-sided chest pain but whenever we discussed it and he he pointed to it, it was more towards his left shoulder where some of the surgery took place. Denies radiating chest pain. Denies shortness of breath. I believe this to be more pain that is from his shoulder surgery rather than cardiac in origin. I contacted Cristin Bolanos PA-C. She will reevaluate him however agrees that when she saw him earlier it was more shoulder discomfort than anything. Plan for discharged home unless hospitalist service feels patient should stay for any other reason. Patient re evaluated by Cristin Bolanos PA-C . Left chest pain likely secondary to shoulder surgery and non cardiac in origin. Pt dc'd to home in stable condition. Addendum Signed By: <Electronically signed by Deonte Reagan PA-C> 02/16/23 1145 Addendum Cosigned By: <Electronically signed by Alfredo Martino DO> 02/16/23 1311 Created: 02/16/23 Date of Service February 16, 2023 Assessment & Plan (1) Primary osteoarthritis, left shoulder: Plan: Postop day 1 status post left total shoulder arthroplasty. Posterior capsular tightening. PT/OT protocols. Nonweightbearing left upper extremity; minimal PT at this time secondary to posterior capsular tightening. DVT prophylaxis-apixaban p.o. twice daily, SCDs Pain management-patient was using tramadol which felt was causing him some shortness of breath at times. This was discontinued. We will try Nucynta to see how this works for him. DC planning-patient is planning for discharge to home. We will recheck him later today to see how his pain control is and to see if he is tolerating Nucynta if he had to take it. Admission and Anticipated Discharge Date Admission Date: February 15, 2023 Subjective Postop day 1 Patient sitting in his chair at the bedside. No complaints this morning. States that his pain is controlled quite well. We discussed his pain medications upon going home. He feels that the tramadol is causing him some type of shortness of breath off and on when he takes it. When he has not had it for some time he feels fine. Patient has multiple allergies to multiple narcotics. We discussed the use of Nucynta which he stated he was willing to try. He states that most of the narcotics caused him moderate to severe stomach discomfort. Several questions asked about the surgery and answered to the best of my ability. Physical Exam Physical Exam: Dressings are clean, dry, and intact. Sling is in place. He has good range of motion of his wrist and fingers at this time. He has good hand strength. He has some slightl residual tingling in his left thumb. Cap refill is less than 2 seconds Results & Data Vital Signs (Past 12 Hours) Vital Signs Temp Pulse Resp BP Pulse Ox O2 Del Method O2 Flow Rate 02/16/23 07:26 36.7 C 87 18 152/87 H 95 Room Air 02/16/23 06:03 85 16 95 Room Air 02/16/23 05:57 94 Room Air 02/16/23 03:35A 36.5 C 80 22 165/90 H 96 Nasal Cannula 2 02/15/23 23:00 36.7 C 88 20 168/94 H 96 Nasal Cannula 2 Signed By: <Electronically signed by Alrfedo Martino DO> 02/16/23 0843 <Electronically signed by Deonte Reagan PA-C> 02/16/23 0805 Total Time Total Time Spent Total Time Spent (In Minutes): 5 Discharge Plan Discharge Items Patient Disposition: Home - Self-Care Reason For Visit: POST SURGICAL CARE Discharge Diagnosis: Left shoulder osteoarthritis Activity: Per Instructions section Weightbearing: Left non-weightbearing Non-emergency contact: Surgeon Call non-emergency contact if: you have any medication questions, your pain is not controlled, you have a fever, your temperature is above 101, your wound has increased redness and your wound has increased drainage Follow-up/Referrals: Michael Victoria MD [Surgeon] - (Follow up with Dr Victoria or his PA in 2 weeks from the day of your surgery for your first post operative visit. ) Austin Willson MD [Primary Care Provider] - Diet: Carb Consistent or DM2 Addtl Attending Provider Instructions: ACTIVITY RECOMMENDATIONS: SELF CARE INSTRUCTIONS AFTER TOTAL SHOULDER ARTHROPLASTY A. You may do daily exercises as taught in physical therapy while in hospital. No lifting with the operative arm. B. You are to wear your sling/immobilizer at all times EXCEPT when performing your daily exercises and for hygiene purposes. C. You may perform dry, daily dressing changes. Please keep your incision covered. You may shower 48 hours after surgery. Do not apply soap or any ointment/lotions directly over incision. Do not soak incision in bath tub/swimming pool. D. You may use ice as needed to operative shoulder. SPECIAL CARE INSTRUCTIONS: VERY IMPORTANT TO READ AND REVIEW A. There are a few signs you need to watch for after you are home. Call [facility] at [phone] if you experience any of the followin. Increased severe shoulder pain. Some pain is expected especially when you exercise. 2. Increased swelling in you shoulder or arm; pain or swelling in either upper extremity. 3. Any fluid drainage from the incision. 4. Shortness of breath or chest pain. B. Please call [facility] at [phone] if you have any questions or concerns about your operation or recovery. C. Call your physician if: 1. Temperature is greater than 101 degrees (F). 2. Pain is not relieved by prescribed pain medications. 3. Increase drainage or redness from incision. 4. Unanswered questions or concerns. FOLLOW UP VISIT: Please call [facility] at [phone] to schedule a follow up appointment with Dr. Victoria or his PA in 12-14 days from your surgery date. Stand-Alone Forms: My [facility] [employer], Smoking Cessation Medications and DC Order Prescriptions: New acetaminophen [Tylenol Extra Strength] 500 mg Tablet 1,000 mg PO Q8 14 Days Qty: 84 0RF Nucynta 50 mg tablet 50 mg PO Q6H PRN (Reason: pain) Qty: 10 0RF Continued fluticasone propion-salmeterol [Wixela Inhub] 250-50 mcg/dose blister with device 1 inh inhalation BID Patient Comments: MOST OF THE TIME ONLY DO IT ONCE IN THE MORNING metformin 850 mg tablet 850 mg PO BID 90 Days Qty: 180 3RF insulin aspart U-100 [Novolog FlexPen U-100 Insulin] 100 unit/mL (3 mL) insulin pen 1 sliding scale dose subcut UD MDD 100 units Qty: 90 1RF Rx Instructions: Inject 15-20 units with breakfast and lunch and 20-40 units with dinner per sliding scale. insulin glargine [Lantus Solostar U-100 Insulin] 100 unit/mL (3 mL) insulin pen 60 unit subcut BID Qty: 120 1RF Rx Instructions: 64-66 units bid ergocalciferol (vitamin D2) 1,250 mcg (50,000 unit) capsule 50,000 unit PO MONTHLY Qty: 12 0RF Eliquis 5 mg tablet 5 mg PO BID lisinopril 40 mg tablet 40 mg PO QPM Qty: 90 albuterol sulfate 90 mcg/actuation HFA aerosol inhaler 1 puffs inhalation UD PRN (Reason: COPD) Qty: 1 Patient Comments: HARDLY USE IT melatonin 5 mg capsule 10 mg PO HS Patient Comments: EVERY NIGHT Rx Instructions: 10 mg PO PRN FOR SLEEP; famotidine [Pepcid] 20 mg tablet 20 mg PO QAM tamsulosin 0.4 mg capsule 0.4 mg PO DAILY Qty: 90 3RF cyanocobalamin (vitamin B-12) [Vitamin B-12] 1,000 mcg Tablet 1,000 mcg PO QAM ascorbic acid (vitamin C) [Vitamin C] 500 mg Tablet 500 mg PO QAM docusate sodium [Colace] 100 mg Capsule 100 mg PO HS Patient Comments: I THINK IT SAYS IT HAS A MILD LAXATIVE fluticasone propionate 50 mcg/actuation [place],Suspension 1 spray INTRANASAL UD PRN (Reason: Nasal Congestion) Patient Comments: NOT VERY OFTEN Rx Instructions: administer into each nostril diltiazem HCl 180 mg Capsule,Extended Release 24 Hr 180 mg PO BID Discontinued acetaminophen [Tylenol Arthritis Pain] 650 mg tablet extended release 650 mg PO DAILY PRN (Reason: Pain) Patient Comments: 6 A DAY (2 IN THE MORNING, 2 IN THE AFTERNOON AND 2 IN EARLY EVENING) Discharge Orders: Discharge Order (Routine); Ordered 02/16/23 Ordered By: Deonte Reagan Admission Data Admit Date/Time: 02/15/23 14:58 Attending Provider: Michael Victoria Admit Provider: Michael Victoria Primary Care Provider: Austin Willson Other Providers: Sundar Chowdhury ; Charles Chaves ; Cristin Bolanos Other Interventions: Discharge Summary Assessment (RN) Last Done: 02/16/23 13:59
[2023-02-27] MEDS ORDERED: ERGOCALCIFEROL 50,000 UNITS 1250 MCG CAP PO SCH (09:00)
== END 2023-02-16 14:59 | disposition home or self-care (01) | DRG 483 ==
LOC: ASU 11:14 → 3E 14:58

== ENCOUNTER 2024-10-18 08:18 | Observation (INO) ==
--- NOTE | 2024-09-13 12:47 | PAT Medication Instructions ---
Medication Instructions Date of Service September 13, 2024 Home Medications Medication Instructions Recorded blood sugar diagnostic (Accu-Chek #600 ea 02/22/23 Jaclyn Plus test strips) pen needle, diabetic 32 gauge x #300 ea 02/22/23 1/" (NovoFine Plus) insulin aspart U-100 100 unit/mL 100 unit subcut DAILY #90 mL 09/05/24 (3 mL) subcutaneous pen (Novolog FlexPen U-100 Insulin aspart) insulin glargine 100 unit/mL (3 66 unit (0.66 mL) subcut BID #120 09/05/24 mL) subcutaneous pen (Lantus mL Solostar U-100 Insulin) albuterol sulfate 90 mcg/actuation aerosol inhaler 1 puffs inhalation UD PRN COPD lisinopril 40 mg tablet 40 mg PO QPM apixaban 5 mg tablet (Eliquis) 5 mg PO BID fluticasone 250 mcg-salmeterol 50 mcg/dose blistr powdr for inhalation (Wixela Inhub) 1 inh inhalation QAM famotidine 20 mg tablet (Pepcid) 20 mg PO QAM cyanocobalamin (vitamin B-12) 1,000 mcg tablet (Vitamin B-12) 1,000 mcg PO QAM docusate sodium 100 mg capsule (Colace) 100 mg PO HS fluticasone propionate 50 mcg/actuation nasal spray,suspension 1 spray intranasal UD PRN Nasal Congestion diltiazem HCl 180 mg capsule,24 hr,extended release 180 mg PO BID tamsulosin 0.4 mg capsule 0.4 mg PO DAILY PRN prn acetaminophen 650 mg tablet 650 mg PO BID PRN prn diphenhydramine HCl 50 mg capsule (Sleep Aid (diphenhydramine)) 50 mg PO HS PRN prn/ sleep ascorbic acid (vitamin C) 500 mg tablet (Vitamin C) 1 g PO QAM hydrochlorothiazide 25 mg tablet 25 mg PO QAM insulin aspart U-100 100 unit/mL (3 mL) subcutaneous pen (Novolog FlexPen U-100 Insulin aspart) 100 unit subcut DAILY insulin glargine 100 unit/mL (3 mL) subcutaneous pen (Lantus Solostar U-100 Insulin) 66 unit (0.66 mL) subcut BID metformin 1,000 mg tablet 1,000 mg PO BID acetaminophen 300 mg-codeine 30 mg tablet 1 tab PO DAILY PRN Pain polyethylene glycol 3350 17 gram/dose oral powder (Miralax) 17 g PO DAILY PRN Constipation Continue as directed tamsulosin 0.4 mg capsule 0.4 mg PO DAILY PRN (if needed) acetaminophen 300 mg-codeine 30 mg tablet 1 tab PO DAILY PRN Pain (if needed) ASK your prescriber and surgeon apixaban 5 mg tablet (Eliquis) 5 mg PO BID (in order to get spinal anesthesia- will need to hold Eliquis/apixaban at least 72 hours prior to surgery) DO NOT take the morning of surgery cyanocobalamin (vitamin B-12) 1,000 mcg tablet (Vitamin B-12) 1,000 mcg PO QAM ascorbic acid (vitamin C) 500 mg tablet (Vitamin C) 1 g PO QAM hydrochlorothiazide 25 mg tablet 25 mg PO QAM insulin aspart U-100 100 unit/mL (3 mL) subcutaneous pen (Novolog FlexPen U-100 Insulin aspart) 100 unit subcut DAILY metformin 1,000 mg tablet 1,000 mg PO BID polyethylene glycol 3350 17 gram/dose oral powder (Miralax) 17 g PO DAILY PRN Constipation Take morning of surgery With a small sip of water, OTHERWISE NOTHING TO EAT OR DRINK AFTER MIDNIGHT: albuterol sulfate 90 mcg/actuation aerosol inhaler 1 puffs inhalation UD PRN COPD (use if needed; please bring with you to hospital day of surgery if possible) fluticasone 250 mcg-salmeterol 50 mcg/dose blistr powdr for inhalation (Wixela Inhub) 1 inh inhalation QAM famotidine 20 mg tablet (Pepcid) 20 mg PO QAM fluticasone propionate 50 mcg/actuation nasal spray,suspension 1 spray intranasal UD PRN Nasal Congestion (if needed) diltiazem HCl 180 mg capsule,24 hr,extended release 180 mg PO BID acetaminophen 650 mg tablet 650 mg PO BID PRN (if needed) Take evening before surgery albuterol sulfate 90 mcg/actuation aerosol inhaler 1 puffs inhalation UD PRN COPD (if needed) lisinopril 40 mg tablet 40 mg PO QPM docusate sodium 100 mg capsule (Colace) 100 mg PO HS fluticasone propionate 50 mcg/actuation nasal spray,suspension 1 spray intranasal UD PRN Nasal Congestion (if needed) diltiazem HCl 180 mg capsule,24 hr,extended release 180 mg PO BID acetaminophen 650 mg tablet 650 mg PO BID PRN (if needed) diphenhydramine HCl 50 mg capsule (Sleep Aid (diphenhydramine)) 50 mg PO HS PRN prn/ sleep (if needed) insulin aspart U-100 100 unit/mL (3 mL) subcutaneous pen (Novolog FlexPen U-100 Insulin aspart) 100 unit subcut DAILY insulin glargine 100 unit/mL (3 mL) subcutaneous pen (Lantus Solostar U-100 Insulin) 66 unit (0.66 mL) subcut BID metformin 1,000 mg tablet 1,000 mg PO BID polyethylene glycol 3350 17 gram/dose oral powder (Miralax) 17 g PO DAILY PRN Constipation (if needed) Insulin Dependent Diabetic Patients * Test your blood sugar the morning of surgery * If Blood Sugar is GREATER THAN 150, take HALF of your regular dose of: insulin glargine 100 unit/mL (3 mL) subcutaneous pen (Lantus Solostar U-100 Insulin) (33 units) * If Blood Sugar is LESS THAN 150, DO NOT TAKE ANY: insulin glargine 100 unit/mL (3 mL) subcutaneous pen (Lantus Solostar U-100 Insulin) Other Notes If you have any questions please call us at [phone] or [phone] or [phone] or [phone]
--- NOTE | 2024-09-20 13:52 | Anesthesiology Consultation ---
Date of Service September 20, 2024 Assessment & Plan (1) Encounter for pre-operative examination: - Check BSG DOS - Infectious disease screening: Per assessment on 09/20/24- No known recent infectious disease contacts or current infectious disease symptoms. - Outpatient joint assessment: Pt currently scheduled for inpatient pathway. If surgeon requests review for outpatient joint pathway, patient is not recommended candidate for outpatient joint program from anesthesia standpoint based on available information. - Eliquis instructions: patient made aware that for neuraxial anesthesia, Eliquis needs to be held 72 hours/3 days prior to surgery. Patient voiced understanding/will check if okay with prescriber. - Cardiology visit (06/04/22): "...persistent atrial fibrillation, obesity, COPD, SONIDO on CPAP, hypertension and diabetes, referred to EP clinic...evaluation of bradycardia...rate control, asymptomatic...2.2 second pause on telemetry while he was admitted for an unrelated issue...diltiazem was held a the time...ventricular rates...starting to go up...put himself back on diltiazem...3 pauses of more than 2.5 seconds were noted, longest was 3.1 seconds all in atrial fibrillation...permanent atrial fibrillation: rate control is adequate on current medication regimen. Continue Eliquis for stroke prophylaxis. Pauses...2.2 second pause noted on telemetry while he was admitted for another condition...no reports of lightheadedness/presyncope or syncope. In atrial fibrillation, without any symptoms, he would have to have a pause of 5 seconds to qualify for a pacemaker. No indication for any further intervention at this time. Follow-up as needed..." - Recent surgery/anesthesia hx: * S/P Left TSA (02/15/23): Grade 1 view, Glidescope#3, ETT 7.5 + regional at [facility] * S/P Left ulnar nerve transposition (03/15/24): LMA igel#5 at [facility] (Per 01/2024 anesthesia consult prior to surgery, Dolly Oshea PAC reviewed case with Dr. Haywood who advised "nothing additional is needed prior to surgery from her standpoint.") - Patient acceptable risk for surgery pending surgeon-PCP preop evaluation (Dr. Tyesha Aguilar/[facility], appt ~09/25). Chart Review Chart Review: Patient seen in Pre Admission Testing Teaching & Discussion Pre-Anesthesia Teaching/Discussion Notes: Instructed NPO after midnight before surgery,except medications with 15 cc of water. Medication instructions provided according to the PAT guidelines. History Surgery Operation Date: 10/18/24 10:35 Proposed Procedures p Left Total Knee Arthroplasty - Michael Victoria MD Height/Weight Height: 5 ft 10 in Weight: 116.5 kg Allergies Allergy/AdvReac Type Severity Reaction Status Date / Time hyaluronate sodium, Allergy Severe Lips Verified 09/12/24 10:22 stabilized swelling hylan G-F 20 [From Synvisc] Allergy Severe Lips Verified 09/12/24 10:22 swelling celecoxib [From Celebrex] Allergy Unknown Rash Verified 09/12/24 10:22 cephalexin Allergy Unknown Rash Verified 09/12/24 10:22 dicyclomine Allergy Unknown Unknown Verified 09/12/24 10:22 homatropine Allergy Unknown Unknown Verified 09/12/24 10:22 hydrocodone Allergy Unknown Unknown Verified 09/12/24 10:22 meloxicam Allergy Unknown Unknown Verified 09/12/24 10:22 oxycodone [From Percocet] Allergy Unknown Unknown Verified 09/12/24 10:22 pregabalin Allergy Unknown ? Tired, Verified 09/12/24 10:22 listless Penicillins AdvReac Intermediate GI upset Verified 09/12/24 10:22 chlorthalidone AdvReac Mild Listless Verified 09/12/24 10:22 gabapentin AdvReac Mild ? Tired, Verified 09/12/24 10:22 listless pravastatin AdvReac Mild Muscle Pain Verified 09/12/24 10:22 prednisone AdvReac Mild GI upset Verified 09/12/24 10:22 sulfamethoxazole AdvReac Mild GI upset Verified 09/12/24 10:22 trimethoprim AdvReac Mild GI upset Verified 09/12/24 10:22 Bactrim AdvReac Unknown gi upset Verified 08/07/13 15:23 Medications Home Medications Medication Instructions Recorded Confirmed Last Taken albuterol sulfate 90 mcg/actuation 1 puffs inhalation UD PRN COPD #1 g 07/07/19 09/12/24 Unknown aerosol inhaler lisinopril 40 mg tablet 40 mg PO QPM #90 tabs 07/07/19 09/12/24 03/14/24 18:00 apixaban 5 mg tablet (Eliquis) 5 mg PO BID 02/16/22 09/12/24 03/12/24 18:00 fluticasone 250 mcg-salmeterol 50 1 inh inhalation QAM 02/19/22 09/12/24 03/15/24 06:00 mcg/dose blistr powdr for inhalation (Wixela Inhub) famotidine 20 mg tablet (Pepcid) 20 mg PO QAM 04/13/22 09/12/24 03/15/24 06:00 cyanocobalamin (vitamin B-12) 1,000 mcg PO QAM 07/20/22 09/12/24 03/07/24 06:00 1,000 mcg tablet (Vitamin B-12) docusate sodium 100 mg capsule 100 mg PO HS 07/20/22 09/12/24 03/14/24 18:00 (Colace) fluticasone propionate 50 1 spray intranasal UD PRN Nasal 07/20/22 09/11/24 Unknown mcg/actuation nasal Congestion spray,suspension diltiazem HCl 180 mg capsule,24 180 mg PO BID 02/15/23 09/12/24 03/15/24 06:00 hr,extended release blood sugar diagnostic (Accu-Chek #600 ea 02/22/23 09/11/24 Unknown Jaclyn Plus test strips) pen needle, diabetic 32 gauge x #300 ea 02/22/23 09/11/24 Unknown 1/6" (NovoFine Plus) tamsulosin 0.4 mg capsule 0.4 mg PO DAILY PRN prn 08/12/23 09/12/24 Unknown acetaminophen 650 mg tablet 650 mg PO BID PRN prn 02/03/24 09/12/24 03/14/24 12:00 diphenhydramine HCl 50 mg capsule 50 mg PO HS PRN prn/ sleep 02/03/24 09/12/24 03/14/24 22:00 (Sleep Aid (diphenhydramine)) ascorbic acid (vitamin C) 500 mg 1 g PO QAM 09/05/24 09/12/24 Unknown tablet (Vitamin C) hydrochlorothiazide 25 mg tablet 25 mg PO QAM 09/05/24 09/12/24 Unknown insulin aspart U-100 100 unit/mL 100 unit subcut DAILY #90 mL 09/05/24 09/12/24 Unknown (3 mL) subcutaneous pen (Novolog FlexPen U-100 Insulin aspart) insulin glargine 100 unit/mL (3 66 unit (0.66 mL) subcut BID #120 09/05/24 09/12/24 Unknown mL) subcutaneous pen (Lantus mL Solostar U-100 Insulin) metformin 1,000 mg tablet 1,000 mg PO BID 09/05/24 09/12/24 Unknown acetaminophen 300 mg-codeine 30 mg 1 tab PO DAILY PRN Pain 09/12/24 09/12/24 Unknown tablet polyethylene glycol 3350 17 17 g PO DAILY PRN Constipation 09/12/24 09/12/24 Unknown gram/dose oral powder (Miralax) Past Medical History Medical History Abnormal cardiac conduction Hx cardiac pauses. Per EP office visit (06/03/22): 2.2 second pause noted on telemetry during inpatient stay. 3 more pauses on Zio patch, longest 3.1 seconds, all in atrial fibrillation. "In atrial fibrillation, without any symptoms, he would have to have a pause of 5 seconds to qualify for a pacemaker. No indication for any further intervention at this time. Follow-up as needed." Acid reflux Aortic stenosis Echo 05/2023: "Mild" aortic stenosis (ARTI Vmax 2.17 cm, DVI 0.48) Arthritis Chronic kidney disease, stage 2 (mild) Follows with Dr. 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 Aldridge Obesity Obesity Paralysis of diaphragm Right hemidiaphragm elevation Paroxysmal atrial fibrillation Follow-up PRN per cardio Taking Eliquis/diltiazem (PCP monitoring) Sleep apnea CPAP (compliant) Exercise / Class Metabolic Activity II 4-5 Yardwork/Stairs/Walk up hill Past Family History Family History Other Family history of diabetes mellitus in father Past Surgical History Surgical History Family history of reaction to anesthesia Mother- PONV 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 History of ankle surgery left ankle hardware present History of carpal tunnel surgery of left wrist History of carpal tunnel surgery of right wrist + ulnar nerve surgery History of cataract surgery R&L History of cholecystectomy History of colonoscopy with polypectomy History of decompression of median nerve Per records, pt unsure History of decompression of ulnar nerve Right Left ulnar nerve transposition (03/15/24): LMA igel#5 at [facility] History of endoscopy History of fusion of cervical spine x2- most recent 2014 History of hernia repair (1957) History of left shoulder replacement (01/2023) History of urologic surgery (2016) 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 Hx of LASIK Nausea and vomiting after administration of anesthetic agent controlled with meds Past Anesthesia History No Hx of Anesthesia Complications and No Family Hx of Anesthesia Complications (except mother- PONV) History of PONV No Hx of Motion Sickness and History of PONV (Improvement when preventative antiemetic given per patient) Social History Smoking Status: Former smoker tobacco type: cigars Do You Dip or Chew Tobacco: No Smoking End Date: Quit 1989 Hx Alcohol Use: No Hx Substance Use: No substance use type: does not use Review of Systems Patient denies chest pain, shortness of breath, dyspnea on exertion, fever, chills, cough, wheezing, palpitations. Physical Exam Vital Signs BP 146/78 P 74 TEMP 98.6 SP02 95%RA RESP 18 Physical Decreased cervical extension range of motion. Full TMJ range of motion. TMD > 3.5 finger breaths Mallampati Score II Dentition: missing molars Lungs: clear throughout to auscultation Cardiac: regular rate, irregularly rhythm, III/ systolic murmur Spine: normal Carotid arteries: negative bruit Extremities: no LE edema Trimmed barlow Lab Results Anesthesia Preop Results Results Anesthesia Widget: WBC 7.56 K/ul (4.8-10.8) 09/20/24 Hgb 14.4 g/dl (14.0-18.0) 09/20/24 Hct 42.5 % (42.0-52.0) 09/20/24 Plt 255 K/uL (130-400) 09/20/24 Na 137 mmol/L (136-145) 09/20/24 K 3.6 mmol/L (3.5-5.1) 09/20/24 Cl 102 mmol/L (98-107) 09/20/24 CO2 29 mmol/L (21-32) 09/20/24 BUN 18 mg/dl (6-23) 09/20/24 Creat 0.97 mg/dl (0.6-1.4) 09/20/24 Glucose Level 84 mg/dl (70-99(Fasting)) 09/20/24 PT 10.7 Seconds (9.0-12.0) 09/20/24 PTT 29 Seconds (21-31) 09/20/24 INR 1.0 (0.9-1.1) 09/20/24 HA1c 7.7 % (4.5-5.6) H 08/29/24 Urine Color Yellow 09/20/24 Urine Appearance Clear (Clear) 09/20/24 Urine pH 6.5 (4.5-7.5) 09/20/24 Urine Specific [place] 1.010 (1.000-1.030) 09/20/24 Urine Protein Negative (Negative) 09/20/24 Urine Glucose (UA) Negative (Negative) 09/20/24 Urine Ketones Negative (Negative) 09/20/24 Urine Blood Negative (Negative) 09/20/24 Urine Nitrite Negative (Negative) 09/20/24 Urine Bilirubin Negative (Negative) 09/20/24 Urine Urobilinogen Negative (Negative) 09/20/24 Urine Leukocyte Esterase Negative (Negative) 09/20/24 Blood Type O Positive 09/20/24 Antibody Screen NEGATIVE 09/20/24 Testing Electrocardiogram Date: 02/16/24 Afib, rate 70 bpm Chest X-Ray Date: 09/20/24 FINDINGS: PA and lateral chest radiographs are compared to study dated 02/15/2023. The cardiomediastinal silhouette is top normal for projection noting atherosclerotic calcification of the thoracic aorta. There is chronic elevation of the right hemidiaphragm and bibasilar atelectasis. The lungs and pleural spaces are otherwise clear. There is no pneumothorax. The skeletal structures are osteopenic. The bony thorax appears intact. A left shoulder arthroplasty is in place. Cholecystectomy clips are noted in the right upper quadrant. IMPRESSION: No active disease in the chest. Echocardiogram Date: 06/24/23 LVEF 60-65%. No regional wall motion abnormality. Severe LAD.Estimated RVSP mildly elevated at 43.1 mmHg. No pericardial effusion seen. Mild aortic valve stenosis (ARTI Vmax 2.17 cm, DVI 0.48).
--- NOTE | 2024-10-14 13:53 | History & Physical Report ---
Date of Service October 14, 2024 Assessment & Plan (1) Osteoarthritis of left knee: Plan: End-stage left knee osteoarthritis. Patient has associated bipartite patella and this will have to be excised at the time of patellar resurfacing part of the procedure. Patient scheduled for total knee replacement of the left knee. Osteoarthritis type: primary Qualified Code(s): M17.12 - Unilateral primary osteoarthritis, left knee (2) Bipartite patella: History of Present Illness Chief Complaint: Chronic progressive left knee pain. Primary Care Provider: Austin Willson MD 73-year-old male with chronic chronic left knee pain failed conservative management. Patient's had multiple injections. Patient denies headaches, sweats, fevers, chills, double vision, blurred vision, cough, sore throat, dysphagia, chest pain, sob at rest, wheezing, n/v/d/c, numbness, tingling, fatigue, urinary symptoms, mood disorders. ROS positive for shortness of breath with activity walking uphill or climbing a flight of stairs, hypertension, sleep apnea, diabetes on insulin multiple areas of arthritis, hiatal hernia, obesity, chipped teeth, nausea and vomiting with anesthesia and requests medicine to help prevent vomiting.. Allergies Allergy/AdvReac Type Severity Reaction Status Date / Time hyaluronate sodium, Allergy Severe Lips Verified 09/12/24 10:22 stabilized swelling hylan G-F 20 [From Synvisc] Allergy Severe Lips Verified 09/12/24 10:22 swelling celecoxib [From Celebrex] Allergy Unknown Rash Verified 09/12/24 10:22 cephalexin Allergy Unknown Rash Verified 09/12/24 10:22 dicyclomine Allergy Unknown Unknown Verified 09/12/24 10:22 homatropine Allergy Unknown Unknown Verified 09/12/24 10:22 hydrocodone Allergy Unknown Unknown Verified 09/12/24 10:22 meloxicam Allergy Unknown Unknown Verified 09/12/24 10:22 oxycodone [From Percocet] Allergy Unknown Unknown Verified 09/12/24 10:22 pregabalin Allergy Unknown ? Tired, Verified 09/12/24 10:22 listless Penicillins AdvReac Intermediate GI upset Verified 09/12/24 10:22 chlorthalidone AdvReac Mild Listless Verified 09/12/24 10:22 gabapentin AdvReac Mild ? Tired, Verified 09/12/24 10:22 listless pravastatin AdvReac Mild Muscle Pain Verified 09/12/24 10:22 prednisone AdvReac Mild GI upset Verified 09/12/24 10:22 sulfamethoxazole AdvReac Mild GI upset Verified 09/12/24 10:22 trimethoprim AdvReac Mild GI upset Verified 09/12/24 10:22 Bactrim AdvReac Unknown gi upset Verified 08/07/13 15:23 Home Medications Medication Instructions Recorded Confirmed Type albuterol sulfate 90 mcg/actuation 1 puffs inhalation UD PRN COPD #1 g 07/07/19 09/12/24 History aerosol inhaler lisinopril 40 mg tablet 40 mg PO QPM #90 tabs 07/07/19 09/12/24 History apixaban 5 mg tablet (Eliquis) 5 mg PO BID 02/16/22 09/12/24 History fluticasone 250 mcg-salmeterol 50 1 inh inhalation QAM 02/19/22 09/12/24 History mcg/dose blistr powdr for inhalation (Wixela Inhub) famotidine 20 mg tablet (Pepcid) 20 mg PO QAM 04/13/22 09/12/24 History cyanocobalamin (vitamin B-12) 1,000 mcg PO QAM 07/20/22 09/12/24 History 1,000 mcg tablet (Vitamin B-12) docusate sodium 100 mg capsule 100 mg PO HS 07/20/22 09/12/24 History (Colace) fluticasone propionate 50 1 spray intranasal UD PRN Nasal 07/20/22 09/11/24 History mcg/actuation nasal Congestion spray,suspension diltiazem HCl 180 mg capsule,24 180 mg PO BID 02/15/23 09/12/24 History hr,extended release blood sugar diagnostic (Accu-Chek #600 ea 02/22/23 09/11/24 Rx Jaclyn Plus test strips) pen needle, diabetic 32 gauge x #300 ea 02/22/23 09/11/24 Rx 1/6" (NovoFine Plus) tamsulosin 0.4 mg capsule 0.4 mg PO DAILY PRN prn 08/12/23 09/12/24 History acetaminophen 650 mg tablet 650 mg PO BID PRN prn 02/03/24 09/12/24 History diphenhydramine HCl 50 mg capsule 50 mg PO HS PRN prn/ sleep 02/03/24 09/12/24 History (Sleep Aid (diphenhydramine)) ascorbic acid (vitamin C) 500 mg 1 g PO QAM 09/05/24 09/12/24 History tablet (Vitamin C) hydrochlorothiazide 25 mg tablet 25 mg PO QAM 09/05/24 09/12/24 History insulin aspart U-100 100 unit/mL 100 unit subcut DAILY #90 mL 09/05/24 09/12/24 Rx (3 mL) subcutaneous pen (Novolog FlexPen U-100 Insulin aspart) insulin glargine 100 unit/mL (3 66 unit (0.66 mL) subcut BID #120 09/05/24 09/12/24 Rx mL) subcutaneous pen (Lantus mL Solostar U-100 Insulin) metformin 1,000 mg tablet 1,000 mg PO BID 09/05/24 09/12/24 History acetaminophen 300 mg-codeine 30 mg 1 tab PO DAILY PRN Pain 09/12/24 09/12/24 History tablet polyethylene glycol 3350 17 17 g PO DAILY PRN Constipation 09/12/24 09/12/24 History gram/dose oral powder (Miralax) Past Med/Surg History Problem List (Updated 10/14/24 @ 13:56 by Michael Victoria MD) Bipartite patella Osteoarthritis of left knee Vitamin D deficiency Peripheral neuropathy Encounter for pre-operative examination Nodule of kidney Myalgia Dyslipidemia Arthritis (Acute) BPH with obstruction/lower urinary tract symptoms (Acute) Chronic obstructive asthma (Acute) Diabetic nephropathy (Acute) Diabetic peripheral neuropathy (Acute) Diaphragmatic paralysis (Acute) Prostate nodule (Acute) Supraventricular tachycardia (Acute) Hypertension (Chronic) Proteinuria (Chronic) Medical History Aortic stenosis Echo 05/2023: "Mild" aortic stenosis (ARTI Vmax 2.17 cm, DVI 0.48) Hx of supraventricular tachycardia Nodule of kidney Follows with Dr. Aldridge Dyslipidemia Diabetic nephropathy Arthritis Nocturnal hypoxemia Obesity Paroxysmal atrial fibrillation Follow-up PRN per cardio Taking Eliquis/diltiazem (PCP monitoring) Chronic kidney disease, stage 2 (mild) Follows with Dr. Aldridge Hx-TIA (transient ischemic attack) Per records, 2020- vision and speech changes, started on statin and ASA, w/u notable for L orbital mass noted to be a collection of vessels Follows with ophthalmology per S records History of eye problem Laser surgery to correct bleeding of eye vessels years ago DM type 2 (diabetes mellitus, type 2) IDDM Abnormal cardiac conduction Hx cardiac pauses. Per EP office visit (06/03/22): 2.2 second pause noted on telemetry during inpatient stay. 3 more pauses on Zio patch, longest 3.1 seconds, all in atrial fibrillation. "In atrial fibrillation, without any symptoms, he would have to have a pause of 5 seconds to qualify for a pacemaker. No indication for any further intervention at this time. 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 (no chemo or xrt) Surgical History Hx of LASIK History of ankle surgery left ankle hardware present History of left shoulder replacement (01/2023) Family history of reaction to anesthesia Mother- PONV History of carpal tunnel surgery of left wrist Nausea and vomiting after administration of anesthetic agent controlled with meds History of endoscopy History of colonoscopy with polypectomy History of carpal tunnel surgery of right wrist + ulnar nerve surgery History of fusion of cervical spine x2- most recent 2014 History of decompression of median nerve Per records, pt unsure History of decompression of ulnar nerve Right Left ulnar nerve transposition (03/15/24): LMA igel#5 at [facility] History of hernia repair (1957) History of cataract surgery R&L 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 History of urologic surgery (2016) 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 History of cholecystectomy Family History Other Family history of diabetes mellitus in father Social History Smoking Status: Former smoker Tobacco Type: Cigars Second Hand Exposure: No; Do You Dip or Chew Tobacco: No; Hx Alcohol Use: No Hx Substance Use: No Preferred Language: Georgian Communication Ability: Effective Visual Impairment: No Limitations Hearing Ability: Normal Fashion Stylist Required: No Beliefs That Will Affect Care: None marital status: Current Living Situation: Significant Other current occupational status: retired Feels Safe at Home: Yes Diet: regular Physical Activity Frequency: Does not Exercise Do you think of yourself as: straight/heterosexual Gender Identity: Male Assistive Devices: Cane, CPAP and Glasses Review of Systems All systems reviewed & are unremarkable except as noted in HPI & below Physical Exam Physical Exam: Vital signs per the chart. Eyes - PERRLA,EOM Nose - septum midline, no turbinate edema, no nasal polyps. Throat - Mallampatti oropharyngeal obstruction Grade 3. Neck - supple, no thyromegaly, carotids equal without bruits. Chest - clear to auscultation ; decreased breath sounds at the right base with elevation of the right hemidiaphragm. Cor -regular rate and rhythm with a positive heart murmur. Abdomen - soft, no organomegaly or masses, normal bowel sounds. Ext - no cyanosis, clubbing or edema. Neuro - no focal motor findings; A&O x 3 Musculoskeletal: Left knee is varus with mild effusion medial joint line tenderness painful range of motion 0 to 125 degrees range of motion. No instability, weightbearing pain medial compartment. Distal neurocirculatory exam intact aside from peripheral neuropathy numbness. Results & Data Diagnostic Findings Left knee x-rays demonstrate osteoarthritis of knee [id number] medial compartment with some bone loss with moderate patellofemoral osteoarthritis with a bipartite patella.
[~2024-10-18 08:18] MED LIST changes: -ACETAMINOPHEN 500 MG TAB PO SCH; -DEXAMETHASONE SOD INJ 4 MG/ML VIAL ONE; -FAMOTIDINE 20 MG TAB PO SCH; -GABAPENTIN 300 MG CAP PO SCH; -LIDOCAINE 2% MPF LOCAL 5 ML VIAL INFIL ONE; -LR 15ML/HR IV SCH; -METOCLOPRAMIDE HCL 10 MG TABLET PO SCH; -ROCURONIUM BROMIDE 10 MG/ML 5 ML VIAL IV ONE; +ROPIV 0.5% 246mg, Ketorolac 30mg, EPINEPHrine 0.5mg in NSS INFIL SCH; +ROPIVACAINE 0.5% 5 MG/ML 30 ML VIAL ONE; -SUCCINYLCHOLINE CHLORIDE 20 MG/ML 10 ML VIAL IV ONE; -TRANEXAMIC ACID 1,000 MG **IV Intra-op IV SCH; -TRANEXAMIC ACID 1,000 MG **IV Pre-op IV SCH; +VANCOMYCIN HCL 1,750 MG in DEXTROSE 5% 500 ML IV SCH; -VANCOMYCIN HCL 1,750 MG in SODIUM CHLORIDE 0.9% 500 ML IV SCH
[2024-10-18] MEDS: VANCOMYCIN HCL 1,750 MG in SODIUM CHLORIDE 0.9% 500 ML IV SCH ×2 (09:03→20:48)
[2024-10-18] MEDS: LR 60ML/HR IV SCH (09:03)
[2024-10-18] MEDS: LR 500ML BOLUS, THEN 15ML/HR IV SCH (09:03)
[2024-10-18] MEDS: FAMOTIDINE 20 MG TAB PO SCH (09:04)
[2024-10-18] MEDS: ACETAMINOPHEN 500 MG TAB PO SCH (09:04)
[2024-10-18] MEDS: METOCLOPRAMIDE HCL 10 MG TABLET PO SCH (09:04)
--- NOTE | 2024-10-18 09:17 | History & Physical Bridge Note ---
Date of Service October 18, 2024 History & Physical Bridge Note I have examined the patient, reviewed the History & Physical and in the interval since the performance of the History & Physical I have noted the following changes of clinical significance: no changes noted
[2024-10-18] MEDS ORDERED: PHENYLEPHRINE 100MCG/ML 5ML SYR ONE (10:42)
[2024-10-18] MEDS ORDERED: PROPOFOL IV EMULSION 10 MG/ML 20 ML VIAL IV ONE ×2 (10:42→14:16)
[2024-10-18] MEDS: TRANEXAMIC ACID 1,000 MG **IV Pre-op IV SCH (11:45)
[2024-10-18] MEDS ORDERED: DROPERIDOL 5 MG/2 ML VIAL ONE (11:48)
[2024-10-18] MEDS ORDERED: ESMOLOL HCL INJ 10 MG/ML 10ML VIAL IV ONE (12:29)
[2024-10-18] MEDS ORDERED: ONDANSETRON INJ 2 MG/ML 2 ML VIAL ONE (12:32)
[2024-10-18] MEDS ORDERED: KETAMINE HCL 10MG/ML SYR ONE (13:04)
[2024-10-18] MEDS ORDERED: GLYCOPYRROLATE 0.2 MG/ML VIAL ONE (13:04)
[2024-10-18] MEDS: ORTHO JOINT ANESTHETIC ONE (13:14)
[2024-10-18] MEDS: ROPIVACAINE 0.5% HCL/PF 246 MG, EPINEPHrine 30MG/30ML (OR USE) 0.5 MG in SODIUM CHLORID... INFIL SCH (13:14)
--- NOTE | 2024-10-18 14:08 | Post Operative Brief Note ---
Immediate Post Op Note Date of Surgery October 18, 2024 Pre & Post Diagnosis Operation Date: 10/18/24 11:45 Pre-Op Diagnosis: 1. Osteoarthritis of left knee 2. Bipartite patella Post-Op Diagnosis: 1. Osteoarthritis of left knee 2. Bipartite patella 3. More than typical bleeding possibly due to preop anticoagulant history. I identified the patient and participated in the time-out.: Yes Procedure Operation Date: 10/18/24 11:45 Actual Procedures p Left Total Knee Arthroplasty, Cemented(Left), excision bipartite patella, application abby and Acticoat superficial wound VAC- Michael Victoria MD Surgeon Michael Victoria MD Black Mill Operator Kd ABRAHAM Estimated Blood Loss 100 Findings Consistent with Post-Op Diagnosis Specimens Bone cuts Drains Hemovac Drain Anesthesia Type MAC Spinal Regional Complications none Disposition Disposition: Recovery Room Overlapping Procedure I was present for: the critical portions of procedure.
[2024-10-18] MEDS: TRANEXAMIC ACID 1,000 MG **IV Intra-op IV SCH (14:10)
[2024-10-18] MEDS ORDERED: ATROPINE SULFATE 0.1 MG/ML 10ML SYR IV PRN (15:01)
[2024-10-18] MEDS ORDERED: ONDANSETRON INJ 2 MG/ML 2 ML VIAL IV PRN (15:01)
[2024-10-18] MEDS ORDERED: ePHEDrine sulfate 50 MG/ML AMP IV PRN (15:01)
[2024-10-18] MEDS: HYDROmorphone INJ 1 MG/ML SYRINGE IV PRN ×2 (15:10)
--- NOTE | 2024-10-18 15:31 | XRay Report ---
XR knee LT 1 or 2V routine CLINICAL HISTORY: Postoperative evaluation. COMPARISON: None FINDINGS: Alignment of the total left knee arthroplasty is anatomic. There is no periprosthetic frac ture or unexpected radiopaque foreign body. There are drains and skin celestina. IMPRESSION: Expected findings following total left knee arthroplasty. ACT 112: Negative or not required by law. Electronically signed by: James Doe M.D. 10/18/2024 3:29 PM
[2024-10-18] MEDS: ACETAMINOPHEN 1000 MG/100 ML IV IV ONE (15:40)
--- NOTE | 2024-10-18 16:20 | Anesthesiology Progress Note ---
Date of Service October 18, 2024 Anesthesia Post Procedure Vital Signs Vital Signs: Temp Pulse Pulse Resp BP Pulse Ox O2 Del Method 10/18/24 16:05 37.3 C 80 20 110/68 94 Oxymask 10/18/24 15:55 37.3 C 80 17 111/54 L 94 Oxymask 10/18/24 15:45 81 22 104/62 93 Oxymask 10/18/24 15:35 83 22 102/52 L 93 Oxymask 10/18/24 15:25 72 22 87/46 L 95 Oxymask 10/18/24 15:05 86 17 108/54 L 97 Oxymask 10/18/24 14:55 96 H 22 117/67 97 Oxymask 10/18/24 14:47 37.0 C 98 H 16 117/67 94 Oxymask 10/18/24 09:26 Room Air 10/18/24 09:09 37.1 C 86 22 130/63 96 Room Air O2 Flow Rate 10/18/24 16:05 2 10/18/24 15:55 3 10/18/24 15:45 3 10/18/24 15:35 3 10/18/24 15:25 3 10/18/24 15:05 3 10/18/24 14:55 3 10/18/24 14:47 5 10/18/24 09:26 10/18/24 09:09 Pain Intensity Left Knee: Pain Intensity: 8 Notes Mental Status: alert / awake / arousable Patient Amnestic to Procedure: Yes Nausea / Vomiting: adequately controlled Pain: improving with treatment (clinically improved but reporting elevated pain score) Airway Patency, RR, SpO2: stable & adequate BP & HR: stable & adequate Hydration State: stable & adequate Neuraxial Anesthesia: was administered and sensory block is resolving Anesthetic Complications: no major complications apparent
[2024-10-18] MEDS ORDERED: ALBUTEROL HFA 8 GM INHALER INH PRN (16:57)
[2024-10-18] MEDS ORDERED: TAMSULOSIN HCL 0.4 MG CAP PO PRN ×2 (16:57→19:03)
[2024-10-18] MEDS ORDERED: NALOXONE HCL 0.4 MG/1 ML VIAL/CARP IV PRN (16:57)
[2024-10-18] MEDS ORDERED: MAGNESIUM HYDROXIDE SUSP 30 ML UDC PO PRN (16:57)
[2024-10-18] MEDS ORDERED: diphenhydrAMINE Capsule 25 MG CAP PO PRN (16:57)
[2024-10-18] MEDS ORDERED: bisacodyL 10 MG SUPP PR PRN (16:57)
[2024-10-18] MEDS ORDERED: METOCLOPRAMIDE HCL INJ 5 MG/ML 2 ML VIAL IV PRN (16:57)
[2024-10-18] MEDS ORDERED: PHARMACY GLYCEMIC MGMT CONSULT PRN (16:57)
[2024-10-18] MEDS ORDERED: POLYETHYLENE (MIRALAX) 17 GM PACK PO PRN (16:57)
[2024-10-18] MEDS ORDERED: VANCOMYCIN CONSULT ACTIVE PRN (16:57)
--- NOTE | 2024-10-18 17:21 | Operative Report ---
Post Operative Report Pre & Post Diagnosis Operation Date: 10/18/24 11:45 Pre-Op Diagnosis: 1. Osteoarthritis of left knee 2. Bipartite patella Post-Op Diagnosis: 1. Osteoarthritis of left knee 2. Bipartite patella 3. More than typical bleeding possibly due to preoperative anticoagulant history I identified the patient and participated in the time-out.: Yes Procedure Operation Date: 10/18/24 11:45 Actual Procedures p Left Total Knee Arthroplasty, Cemented(Left), excision bipartite patella, increased difficulty due to more than typical intraoperative bleeding, application abby and Acticoat superficial wound VAC.- Michael Victoria MD Surgeon Michael Victoria MD Clothing Designer Kd ABRAHAM Estimated Blood Loss 100 Findings Consistent with Post-Op Diagnosis Specimens Bone cuts Drains 2 Hemovac Anesthesia Type MAC Spinal Regional Complications none Disposition Disposition: Recovery Room Indications 74-year-old male with chronic left knee osteoarthritis with grade 4 [id number] and flexion contracture of his knee. He has a varus knee. He has had extensive conservative management with multiple injections. Description of Procedure Patient taken to the operating room the size under spinal MAC regional block anesthesia. Patient was placed supine on the operating table. A pneumatic tourniquet was placed about the left upper thigh. The left lower extremity was prepped and draped in sterile fashion. Knee exam demonstrated 20 degree flexion contracture with excellent flexion to 130 degrees. No instability.. The leg was elevated exsanguinated with an Esmarch bandage and pneumatic tourniquet was raised to 325 millimeters of mercury and later increased to 350 due to ongoing bleeding.. Skin incised sharply in longitudinal fashion. Subcutaneous flaps elevated. There was noted to be more than typical bleeding from the beginning of the procedure and we did do meticulous cauterization of multiple vein bleed ers. Incision was made through the medial retinaculum extending up in the mid third of the quadriceps tendon and down to the medial tibial tubercle. Within the joint we used the aqua mantis to help control bleeding. Intra-articular findings demonstrated [id number] in the medial compartment with tricompartmental osteoarthritis including patellofemoral osteoarthritis. There was a bipartite patella noted.. The Shubham persona portion of the total knee arthroplasty system was used. To expose the knee a portion of the the infrapatellar fat pad was resected. The meniscal remnants and cruciate ligaments were resected. The anterior fat pad over the femur in the area of the location of the anterior flange of the femoral component was resected. The lateral synovial bands were released. Aqua mantis was again required multiple areas to help mitigate bleeding. The femur was exposed. An intramedullary drill hole was made into the canal. A guide umm was placed. Distal femoral cutting guide was adjusted to resect a 5 degree valgus cut with +2 millimeters more than the standard distal femur cut was due to the flexion contracture. Resected. The knee was extended and a subperiosteal peel lateral release was performed around the patella. The bipartite patella was excised using electrocautery with a subperiosteal excision. Patella width was measured and width was reproduced using a freehand cut technique and a 38 x 9.5 symmetrical patella component. The 3 drill holes were made and the excess lateral facet was beveled off to prevent any impingement. Attention was taken back to the femur which was exposed with retractors and the femoral sizing guide was pinned in position. The drill holes were placed in 3 of external rotation to match the epicondylar axis. The femur sized for a 11 component. The 4-in-1 cutting block was placed and then the anterior posterior and chamfer cuts are made. The tibia was then subluxed. The external tibial cutting guide was adjusted to make a perpendicular cut to the long axis of the tibia below the most deficient bone loss side. Bone was hard medially where there was eburnated bone on the tibia due to some bone loss and wear there. Cut was adjusted for slope. A lamina training intern was used and the flexion extension gaps were balanced. Medial and posterior medial releases were required. All posterior osteophytes removed. All meniscal remnants were resected. The tibia exposed and the trial tibial component size H left was externally rotated in line with the tibial tubercle and screwed in position. The drill and punch for stem was used. The femoral trial size 11 PS was centered appropriately and the femoral notch cut was made. The collet was inserted. Trial tibial inserts were placed and size 12 CPS left gave balanced ligaments through flexion and extension. Patella tracking was assessed. The patella tracked centrally. The trial components were then removed and the orthomix anesthetic cocktail was injected per protocol. The knee was then copiously irrigated with pulsatile lavage saline solution. Final components were then cemented with Refobacin cement. Xperience irrigation placed over metal compoments prior to polyethylene insertion. Final components were 11 left PS persona femoral component, H left tibial component with a 30 mm cemented stem and a 12 mm CPS left tibial polyethylene with a 38 x 9 mm all polyethylene symmetrical patella. After the cement cured further pulsatile lavage irrigation was then performed with Xperience and 2 Hemovac drains were brought out laterally. The quadriceps tendon and medial retinaculum were repaired with [id number] #2 FiberWire sutures around the distal quad tendon and medial retinaculum around the patella and another #2 FiberWire at the apex of the quad split superiorly and another [id number] #2 FiberWire at the level of the tibial polyethylene. A 0 running locking STRATAFIX suture was placed from the superior split in the quad down to the inferior patella followed by [id number] #1 Vicryl sutures below the patella level in the medial retinaculum. The knee was taken through full range of motion and the repair was secure. Knee range of motion was 0 through 130 degrees. The subcutaneous tissues were closed with 2-0 Vicryl sutures. Skin was closed with surgical celestina. A abby and Acticoat superficial wound VAC was applied. The patient tolerated the procedure well. There was increased level difficulty due to the bleeding which possibly could have been related to his being on prior anticoagulant. This did add least 25 to 30 minutes to the procedure. Kd ABRAHAM was my physician assistant branch operations manager who participated as first cook and was involved in all aspects of the procedure including patient positioning prepping and draping,leg positioning ,soft tissue retraction and instrument management and participated in the closing and application of the superficial wound VAC and will participate in postoperative care of the patient. The patient tolerated the procedure well. I attest to the content of the Intraoperative Record and any orders documented therein. Any exceptions are noted below.
[2024-10-18] MEDS: ACETAMINOPHEN 1,000 MG/100 ML VIAL IV STA (17:37)
[2024-10-18] MEDS: KETOROLAC TROMETHAMINE 15 MG/ML VIAL IV PRN (17:39)
[2024-10-18] MEDS: LANTUS PER UNIT CHARGE SC ONE (17:47)
[2024-10-18] MEDS: INSULIN ASPART PER UNIT CHARGE SC SCH (17:47)
--- NOTE | 2024-10-18 18:52 | Hospitalist Consultation ---
Date of Consultation October 18, 2024 Assessment & Plan (1) Osteoarthritis of left knee: 74 y/o male PMH of CKD, DM2, Afib on Eliquis, COPD, HTN, and HLD here POD #0 for Left total knee arthroplasty. Medicine consulted for medical management - Primary team - Ortho managing pain medication - PT/ OT ordered (2) Chronic obstructive asthma: - Continue Wixela daily and albuterol as needed - Currently on 2 L on nasal canula - Continue O2 Supplementation with goal of Oxygen saturation >88% - CPAP HS for SONIDO - Continue spirometry (3) Chronic kidney disease, stage 2 (mild): Baseline Cr: 1.2, GFR: 72 Avoid nephrotoxic meds Continue Vitamin D daily AM CMP (4) Paroxysmal atrial fibrillation: Continue Diltiazem 180 mg BID Continue Eliquis 5 mg BID (5) DM type 2 (diabetes mellitus, type 2): 7.7% 08/29/24 Home Regimen: Metformin hold Continue Insulin Glargine 62 BID and Novolog scale Pharmacy consulted by primary team (6) BPH with obstruction/lower urinary tract symptoms: Continue Tamsulosin (7) Hypertension: Continue Hydrochlorothiazide and Lisinopril Plan FEN: HH + DM2 Code status: Full code DVT ppx: Eliquis 5 mg Dispo: Med/surg Supervising Physician Co-Signing Physician Notes Patient seen and examined, chart reviewed, case discussed with Dr. Reuben Osorio MD and I agree with the assessment and plan as above except as otherwise noted Labs and images reviewed 74-year-old male who presented for left total knee arthroplasty. With about 100 cc of blood loss. Postoperatively doing well, no chest pain, chest pressure, nausea, vomiting. Does still have some tolerable pain in his left knee, sharp directly overlying his surgical site. No radiating pain. No neurovascular compromise. No wheezing. No hypoxia. Transiently hypotensive around analgesic medications; improving with time and oral intake, orals encouraged in the setting of critical IV fluid shortage. BMP/CMP trended. Agree with above. History of Present Illness Attending Physician: Michael Victoria MD History of Present Illness 74 y/o male POD #0 Left total knee arthroplasty due to OA and Bipartita patella. Patient with PMH of CKD, DM2, Afib on Eliquis, COPD, HTN, and HLD. Medicine was consulted for medical management. Patient was seen on beside found AAOx3 in NAD. Patient currently on a 2L on nasal cannula. He refers moderate pain from the left knee. Patient had a diet early this afternoon, tolerated well, no nausea or abdominal pain. Denied any SOB, chest pain, palpitations, cough, nausea, vomiting, diarrhea or any other symptoms . Allergies Allergy/AdvReac Type Severity Reaction Status Date / Time hyaluronate sodium, Allergy Severe Lips Verified 10/18/24 08:59 stabilized swelling hylan G-F 20 [From Synvisc] Allergy Severe Lips Verified 10/18/24 08:59 swelling celecoxib [From Celebrex] Allergy Unknown Rash Verified 10/18/24 08:59 cephalexin Allergy Unknown Rash Verified 10/18/24 08:59 dicyclomine Allergy Unknown Unknown Verified 10/18/24 08:59 homatropine Allergy Unknown Unknown Verified 10/18/24 08:59 hydrocodone Allergy Unknown Unknown Verified 10/18/24 08:59 meloxicam Allergy Unknown Unknown Verified 10/18/24 08:59 oxycodone [From Percocet] Allergy Unknown Unknown Verified 10/18/24 08:59 pregabalin Allergy Unknown ? Tired, Verified 10/18/24 08:59 listless Penicillins AdvReac Intermediate GI upset Verified 10/18/24 08:59 chlorthalidone AdvReac Mild Listless Verified 10/18/24 08:59 gabapentin AdvReac Mild ? Tired, Verified 10/18/24 08:59 listless pravastatin AdvReac Mild Muscle Pain Verified 10/18/24 08:59 prednisone AdvReac Mild GI upset Verified 10/18/24 08:59 sulfamethoxazole AdvReac Mild GI upset Verified 10/18/24 08:59 trimethoprim AdvReac Mild GI upset Verified 10/18/24 08:59 Home Medications Medication Instructions Recorded Confirmed Type albuterol sulfate 90 mcg/actuation 1 puffs inhalation UD PRN COPD #1 g 07/07/19 10/18/24 History aerosol inhaler lisinopril 40 mg tablet 40 mg PO QPM #90 tabs 07/07/19 10/18/24 History apixaban 5 mg tablet (Eliquis) 5 mg PO BID 02/16/22 10/18/24 History fluticasone 250 mcg-salmeterol 50 1 inh inhalation QAM 02/19/22 10/18/24 History mcg/dose blistr powdr for inhalation (Wixela Inhub) famotidine 20 mg tablet (Pepcid) 20 mg PO QAM 04/13/22 10/18/24 History cyanocobalamin (vitamin B-12) 1,000 mcg PO QAM 07/20/22 10/18/24 History 1,000 mcg tablet (Vitamin B-12) docusate sodium 100 mg capsule 100 mg PO HS 07/20/22 10/18/24 History (Colace) fluticasone propionate 50 1 spray intranasal UD PRN Nasal 07/20/22 10/18/24 History mcg/actuation nasal Congestion spray,suspension diltiazem HCl 180 mg capsule,24 180 mg PO BID 02/15/23 10/18/24 History hr,extended release blood sugar diagnostic (Accu-Chek #600 ea 02/22/23 09/11/24 Rx Jaclyn Plus test strips) pen needle, diabetic 32 gauge x #300 ea 02/22/23 09/11/24 Rx 1/6" (NovoFine Plus) tamsulosin 0.4 mg capsule 0.4 mg PO DAILY PRN prn 08/12/23 10/18/24 History acetaminophen 650 mg tablet 650 mg PO BID PRN prn 02/03/24 10/18/24 History diphenhydramine HCl 50 mg capsule 50 mg PO HS PRN prn/ sleep 02/03/24 10/18/24 History (Sleep Aid (diphenhydramine)) ascorbic acid (vitamin C) 500 mg 1 g PO QAM 09/05/24 10/18/24 History tablet (Vitamin C) hydrochlorothiazide 25 mg tablet 25 mg PO QAM 09/05/24 10/18/24 History insulin aspart U-100 100 unit/mL 100 unit subcut DAILY #90 mL 09/05/24 10/18/24 Rx (3 mL) subcutaneous pen (Novolog FlexPen U-100 Insulin aspart) metformin 1,000 mg tablet 1,000 mg PO BID 09/05/24 10/18/24 History acetaminophen 300 mg-codeine 30 mg 1 tab PO DAILY PRN Pain 09/12/24 10/18/24 History tablet polyethylene glycol 3350 17 17 g PO DAILY PRN Constipation 09/12/24 10/18/24 History gram/dose oral powder (Miralax) insulin glargine 100 unit/mL (3 64 unit subcut BID 10/18/24 10/18/24 History mL) subcutaneous pen (Lantus Solostar U-100 Insulin) Patient History Medical History Aortic stenosis Echo 05/2023: "Mild" aortic stenosis (ARTI Vmax 2.17 cm, DVI 0.48) Hx of supraventricular tachycardia Nodule of kidney Follows with Dr. Aldridge Dyslipidemia Diabetic nephropathy Arthritis Nocturnal hypoxemia Obesity Paroxysmal atrial fibrillation Follow-up PRN per cardio Taking Eliquis/diltiazem (PCP monitoring) Chronic kidney disease, stage 2 (mild) Follows with Dr. 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 Per EP office visit (06/03/22): 2.2 second pause noted on telemetry during inpatient stay. 3 more pauses on Zio patch, longest 3.1 seconds, all in atrial fibrillation. "In atrial fibrillation, without any symptoms, he would have to have a pause of 5 seconds to qualify for a pacemaker. No indication for any further intervention at this time. 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 (no chemo or xrt) Surgical History Hx of LASIK History of ankle surgery left ankle hardware present History of left shoulder replacement (01/2023) Family history of reaction to anesthesia Mother- PONV History of carpal tunnel surgery of left wrist Nausea and vomiting after administration of anesthetic agent controlled with meds History of endoscopy History of colonoscopy with polypectomy History of carpal tunnel surgery of right wrist + ulnar nerve surgery History of fusion of cervical spine x2- most recent 2014 History of decompression of median nerve Per records, pt unsure History of decompression of ulnar nerve Right Left ulnar nerve transposition (03/15/24): KAILEYA igel#5 at [facility] History of hernia repair (1958) History of cataract surgery R&L 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 History of urologic surgery (2016) 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 History of cholecystectomy Family History Other Family history of diabetes mellitus in father Social History Smoking Status: Former smoker Tobacco Type: Cigars Smoking End Date: Quit 1989; Second Hand Exposure: No; Do You Dip or Chew Tobacco: No; Tobacco Cessation Education Requested by Patient: No Hx Alcohol Use: No Hx Substance Use: No Preferred Language: Yoruba Communication Ability: Effective Visual Impairment: No Limitations Hearing Ability: Normal Clutch Assembler Required: No Beliefs That Will Affect Care: None marital status: Current Living Situation: Significant Other current occupational status: retired Other Information That Helps Us Care for You: No Feels Safe at Home: Yes Safety Concerns: Feels Safe At This Time Diet: regular Physical Activity Frequency: Does not Exercise Do you think of yourself as: straight/heterosexual Gender Identity: Male Assistive Devices: Cane, CPAP and Glasses Review of Systems Review of Systems: as per HPI Physical Exam Constitutional: WD/WN, vitals as above Eyes: PERRL, conjunctivae normal, anicteric sclerae Respiratory: normal respiratory effort, lungs clear to auscultation Cardiovascular: RRR, no murmur, no edema Gastrointestinal (Abdomen): normal bowel sounds, soft, nontender, no hepatosplenomegaly Musculoskeletal: Left knee with clean bandages, NANCY drain with minimal blood Results & Data Results & Data Vital Signs (Past 12 Hours) Vital Signs Temp Pulse Pulse Resp BP Pulse Ox O2 Del Method 10/18/24 18:26 36.4 C L 80 18 115/64 96 Nasal Cannula 10/18/24 17:35 36.4 C L 81 18 119/67 95 Nasal Cannula 10/18/24 16:59 36.4 C L 86 18 128/66 95 Nasal Cannula 10/18/24 16:42 Nasal Cannula 10/18/24 16:35 36.8 C 79 18 108/61 94 Nasal Cannula 10/18/24 16:05 37.3 C 80 20 110/68 94 Oxymask 10/18/24 15:55 37.3 C 80 17 111/54 L 94 Oxymask 10/18/24 15:45 81 22 104/62 93 Oxymask 10/18/24 15:35 83 22 102/52 L 93 Oxymask 10/18/24 15:25 72 22 87/46 L 95 Oxymask 10/18/24 15:05 86 17 108/54 L 97 Oxymask 10/18/24 14:55 96 H 22 117/67 97 Oxymask 10/18/24 14:47 37.0 C 98 H 16 117/67 94 Oxymask 10/18/24 09:26 Room Air 10/18/24 09:09 37.1 C 86 22 130/63 96 Room Air O2 Flow Rate 10/18/24 18:26 3 10/18/24 17:35 3 10/18/24 16:59 3 10/18/24 16:42 3 10/18/24 16:35 3 10/18/24 16:05 2 10/18/24 15:55 3 10/18/24 15:45 3 10/18/24 15:35 3 10/18/24 15:25 3 10/18/24 15:05 3 10/18/24 14:55 3 10/18/24 14:47 5 10/18/24 09:26 10/18/24 09:09 Resident Activity Tracking Resident Involvement: Resident Care Provided Care Provided: Adult Hospital Medicine (1) Osteoarthritis of left knee Osteoarthritis type: primary Qualified Code(s): M17.12 - Unilateral primary osteoarthritis, left knee
[2024-10-18] MEDS ORDERED: MELATONIN 3 MG TAB PO PRN (19:00)
[2024-10-18] MEDS ORDERED: ACETAMINOPHEN 325 MG TAB PO PRN (19:04)
--- NOTE | 2024-10-18 19:20 | Pharmacy Report ---
Pharmacy Glycemic Short Note 2 - Date of Service October 18, 2024 - Glycemic Short BSG Results (Last 24 hours): 10/18/24 10/18/24 10/18/24 09:01 11:14 14:49 POC Glucose 103 H 109 H 107 H 10/18/24 17:11 POC Glucose 167 H OUTPATIENT ANTIDIABETIC REGIMEN: * Insulin glargine 64 units BID; Novolog 15-20 units with breakfast/lunch; 20-40 units with dinner (~208 units/day with higher end range) * metformin 1000 mg BID * A1c 7.7% 08/29/24 ASSESSMENT: * Patient admitted post-op left TKA. BSGs 103-109-167 mg/dL. AM lantus dose was skipped for surgery. * 1x dose of 60 units of lantus with dinner. Will begin weight based stress of 3 dosing which may need to be tightened with high outpatient insulin needs. * Overnight checks PLAN FOR INPATIENT GLYCEMIC CONTROL: * Hold outpatient oral diabetes medications * Basal insulin * Lantus 60 units SQ x1; 62 units BID ordered to start tomorrow AM- will reassess with fasting BSG * Bolus insulin * NovoLog per scale ACHS or Q6hrs while NPO * Goal Range: Low 110 mg/dL - High 160 mg/dL * Correction Factor: 15 mg/dL/unit * Nutritional / Prandial insulin per carb ratio of 1 unit per 5 grams CHO consumed
[2024-10-18] MEDS: ACETAMINOPHEN W/CODEINE #3 1 TAB PO PRN (19:45)
[2024-10-18] MEDS: DOCUSATE SODIUM 100 MG CAP PO SCH (20:26)
[2024-10-18] MEDS: lisinopril 40 MG TAB PO SCH (20:27)
[2024-10-18] MEDS: dilTIAZem HCL 180 MG CAPCR PO SCH (20:28)
[2024-10-18] MEDS: SENNA 8.6 MG TAB PO SCH (20:28)
[2024-10-18] MEDS: HYDROmorphone INJ 0.5 MG/0.5 ML SYR IV PRN (20:34)
[2024-10-18] MEDS: TRANEXAMIC ACID / 0.7% NACL 1,000 MG/100 ML BAG IV SCH (20:34)
[2024-10-18] MEDS ORDERED: DOCUSATE SODIUM 100 MG CAP PO SCH (21:00)
[2024-10-18] MEDS ORDERED: metFORMIN HCL 500 MG TAB PO SCH (21:00)
[2024-10-18] MEDS ORDERED: NON-FORMULARY MEDICATION (Insulin Glargine [Lantus Solostar U-100 Insulin] 100 unit/mL (3 SQ SCH (21:00)
--- NOTE | 2024-10-18 21:26 | Billing Data ---
Date of Service October 18, 2024 Coding Level of Care Code 31364 IN/OBS CONSULT LVL 3,45M
[2024-10-18] MEDS: LANTUS PER UNIT CHARGE SQ ONE (22:09)
[2024-10-18] MEDS: HYDROmorphone INJ 0.5 MG/0.5 ML SYR IV STA (22:10)
--- OUTSIDE RECORDS SUMMARY | 2024-10-19 00:03 | External Medical Summary | Summary of Care ---
Author Name Unknown Organization [facility] Address [address] [address] Phone [phone] Care Team Providers Care Drug Coordinator Name Role Phone Unavailable Primary Care Provider Unavailabl e Reason for Visit * Reason Comments eRx-Medication Refill Encounter Details Date Type Department Care Team (Late st Contact Info) Description 10/09/2024 Refill Family [facility] [address] [place] [address] Martin Cardozo MD [address] [place] [address] HTN, goal to be determined Allergies Active Allergy Reactions Criticality Noted Date Comments Amoxicillin Abdominal pain High 12/21/2006 Nauseated Few years ago Antihistamines, Loratadine-Type Abdominal pain Medium 06/12/2019 High BP Sulfa Antibiotics Abdominal pain Medium 12/21/2006 Upsets stomach Celecoxib Rash Medium 12/01/2018 Chlorthalidone 02/08/2023 dehydrated Ciprofloxacin Nausea/vomiting Medium 06/14/2018 Dicyclomine Unknown Low 10/06/2019 Gabapentin 02/08/2023 Homatropine Unknown Low 10/06/2019 Cephalexin Abdominal pain Low 04/20/2013 Bad Rash, hives, 2013 Levofloxacin Nausea/vomiting Low 06/14/2018 Meloxicam 02/08/2023 Pravastatin 02/08/2023 Muscle pain Prednisone 02/08/2023 Abdominal discomfort Pregabalin 02/08/2023 sedated Simvastatin 02/08/2023 Muscle pain Sodium Hyaluronate (José Luis) Edema face/lips/tongue High 11/05/2011 Hylan G-F 20 Edema face/lips/tongue High 11/14/2019 Lip swelling, tongue swelling documented as of this encounter (statuses as of 10/11/2024) Medications METFORMIN HCL 850 MG PO TABS Take 1,000 mg by mouth 2 times a day with morning and evening meals. 0 12/21/19 07 Active NOVOLOG FLEXPEN 100 UNIT/ML SUBQ SOLN Inject under the skin three times a day before meals. Patient on sliding scale as needed based on carb count 0 03/01/20 07 Active tamsulosin (FLOMAX) 0.4 MG Capsule Take 1 Capsule by mouth daily as needed. Active Vitamin D, Ergocalciferol, 1.25 MG (29656 UT) Capsule Take 2,000 Units by mouth in the morning. Active Cyanocobalamin (VITAMIN B-12) 1000 MCG Tablet Take 1 Tablet by mouth in the morning. Active dilTIAZem HCl ER 180 MG CP24 Take 1 Capsule by mouth in the morning and 1 Capsule before bedtime. Active CPAP every night at bedtime. Active Albuterol Sulfate HFA 108 (90 Base) MCG/ACT Inhalation Aerosol Solution Inhale 2 Puffs by mouth every 6 hours as needed for Shortness of Breath. 90 g 1 05/08/20 21 Active Acetaminophen 325 MG Oral Tablet (Tylenol) Take 2 Tablets by mouth 2 times a day as needed for Pain, Mild or Fever >38C(100.5F). 30 Tab 05/08/20 21 Active Apixaban 5 MG Oral Tablet (Eliquis) Take by mouth 1 Tablet in the morning AND 1 Tablet before bedtime. 180 Tablet 3 02/14/20 22 Active Fluticasone Propionate 50 MCG/ACT Nasal Suspension Administer 1 [place] into nostril daily as needed. Active Polyethylene Glycol 3350 17 GM Oral Packet (Miralax) Take by mouth 1 Packet daily as needed (constipation) . 14 Each 09/15/20 22 Active Insulin Glargine 100 UNIT/ML Subcutaneous Solution (Lantus) Pt is taking 50 units to 60 units twice a day based on your blood sugars 1 Each 12 09/15/20 22 Active Additional Information Patient taking differently: 62 units twice a day, Reported on 05/12/2024 Albuterol Sulfate (2.5 MG/3ML) 0.083% Inhalation Nebulization Solution (Proventil) Inhale via nebulizer 1 Vial every 6 hours as needed for Wheezing. 360 mL 11 09/15/20 22 Active Additional Information Patient not taking.Reported on 05/12/2024 Vitamin C 500 MG Oral Tablet (Ascorbic Acid) Take 1 Tablet by mouth in the morning. Active hydroCHLOROthia zide 25 MG Oral Tablet (Hydrodiuril) Take 1 Tablet by mouth in the morning. 90 Tablet 3 03/29/20 23 Active Additional Information Patient taking differently: 12.5 mgOral Daily(AM), Reported on 05/12/2024 Docusate Sodium 100 MG Oral Capsule (Colace) Take 1 Capsule by mouth at bedtime. Active Fluticasone-Markus meterol 250-50 MCG/ACT Inhalation Aerosol Powder Breath Activated (Wixela Inhub) Inhale 1 Puff by mouth in the morning. Active Night Time Sleep Aid 25 MG Oral Tablet (diphenhydrAMIN E HCl (Sleep)) Take 50 mg by mouth at bedtime. Active Acetaminophen-C odeine 300-30 MG Oral Tablet Take 1 Tablet by mouth at bedtime. 60 Tablet 05/12/20 24 Active Promethazine-DM 6.25-15 MG/5ML Oral Syrup Take 5 mL by mouth 4 times a day as needed for Cough. 120 mL 1 06/13/20 24 Active Azithromycin 250 MG Oral Tablet (Zithromax Z-Shan) Take two tablets by mouth on first day, then 1 tablet daily until gone 6 Tablet 06/13/20 24 Active Acetaminophen ER 650 MG Oral Tablet Extended Release (Acetaminophen 8 Hour) 1 Tablet. 02/03/20 24 Active Cholecalciferol (VITAMIN D-3) 100 unit/0.03mL OR LIQD DAILY 04/19/20 24 Active Promethazine-DM 6.25-15 MG/5ML Oral Syrup Take 5 mL by mouth 4 times a day as needed for Cough. 120 mL 3 06/22/20 24 Active Famotidine 20 MG Oral Tablet (Pepcid) Take 1 Tablet by mouth in the morning. 90 Tablet 07/19/20 24 Active Lisinopril 40 MG Oral TabletIndicatio ns:HTN, goal to be determined Take 1 Tablet by mouth in the morning. 30 Tablet 2 10/11/20 Active Lisinopril 40 MG Oral TabletIndicatio ns:HTN, goal to be determined Take 1 Tablet by mouth in the morning. 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 06/12/2019 Hyperlipidemia with target LDL less than 100 SONIDO on CPAP 06/22/2018 Chronic atrial fibrillation 11/11/2017 HTN, goal below 140/90 Type 2 diabetes mellitus wit h hemoglobin A1c goal of less than 8.0% Overview (03/24/2016): ICD-10 update of inactive term documented as of this encounter (statuses as of 10/11/2024) Resolved Problems Problem Noted Date Diagnosed Date Resolved Date Acute respiratory failure with hypoxia 02/09/2022 03/06/2022 Acute exacerbation of chroni c obstructive pulmonary disease (COPD) 01/12/2022 03/06/2022 Overview: Per COPD GOLD Classification History of lung surgery 11/28/2021 04/0 06/2022 Fever 05/06/2021 05/08/2021 COPD exacerbation 05/06/2021 07/22/2021 Pneumonitis 05/06/2021 05/13/2021 Acute chest pain 05/06/2021 05/08/2021 Severe obesity with body mas s index (BMI) of 35.0 to 39.9 with serious comorbidity 12/14/2019 COPD, severity to be determined 06/22/2018 01/14/2022 Overview: Per COPD GOLD Classification documented as of this encounter (statuses as of 10/11/2024) Immunizations Name Administration Dates Next Due COVID-19 mRNA, LNP-s, No Pre serve, 2-Dose Series (Moderna) 01/18/2021,12/21/2020 COVID-19, mRNA, LNP-s, PF, B ooster, 100mcg/0.5mg (Moderna) 09/24/2021 Pneumococcal Conjugate Vacc, 13 Valent (Prevnar) 10/13/2016 Pneumococcal Polysaccharide PPV23 (Pneumovax) 11/10/2017 Seasonal Influenza, Quad, Nasal (Flumist) 2017,08/29/2018,11/10/2017 Seasonal Influenza, Quadriva lent Hd (Fluzone Hd) 09/15/2022 Seasonal Influenza, Quadriva lent Hd, 65+ Yrs 09/10/2021 Seasonal Influenza, Trivalen t, Adjuvanted, 65+ YRS, PF, (Fluad) 09/04/2020,08/30/2019 TD - Tetanus/Diptheria (ADULT) 10/13/2016 TDAP (age 10 and older)(Boostrix) 07/22/2021 Varicella Zoster Vaccine (Adult) 12/05/2014 documented as of this encounter Social History Tobacco Use Types Packs/Day Years Used Date Smoking Tobacco: Former Cigarettes Q uit: 01/13/1990 Smokeless Tobacco: Never Alcohol Use Standard Drinks/Week Comments No 0 (1 standard drink = 0.6 oz pur e alcohol) PHQ-2 Answer Date Recorded PHQ Adult Total Score 0 05/12/2024 Hunger Vital Sign Answer Date Recorded Within the past 12 months, y ou worried that your food would run out before you got the money to buy more. Never true 10/16/20 23 Within the past 12 months, t he food you bought just didn't last and you didn't have money to get more. Never true 10/16/2023 Childcare Answer Date Recorded Do you feel overwhelmed with taking care of a child, family member or friend? No 10/16/2023 Does your family need help f inding childcare? (Household - for ages 0-17 years) Not on file 10/16/2023 Clothing Answer Date Recorded Have you been unable to get clothing when it was really needed? No 10/16/2023 Is your family able to get c lothes or diapers when needed? (Household - for ages 0-17 years) Not on file 10/16/2023 Personal Safety Answer Date Recorded Do you feel unsafe or have concerns for your saf ety? No 10/16/2023 Do you have concerns for you r family's safety? (Household - for ages 0-17 years) Not on file 10/16/2023 Utilities Answer Date Recorded Do you have trouble paying y our heating, water, or electric bill? No 10/16/2023 Is your family able to pay t he heat, water, or electric bill? (Household - for ages 0-17 years) Not on file 10/16/2023 Does your family have access to good internet? (Household - for ages 0-17 years) Not on file 10/16/2023 Employment Status Answer Date Recorded Are you unemployed or without regular income? No 10/16/2023 Does the household have a re gular source of income? (Household - for ages 0-17 years) Not on file 10/16/2023 Social Connections Answer Date Recorded How often do you feel lonely or isolated from th ose around you? Never 10/16/2023 Financial Resource Strain Answer Date R ecorded Do you have any trouble payi ng for your medications, or do you think you might in the future? No 10/16/2023 Does your family have troubl e paying for medicine? (Household - for ages 0-17 years) Not on file 10/16/2023 Transportation Needs Answer Date Record ed READ ONLY Do you have troubl e getting a ride to medical visits or work? Never True 10/16/2023 Does your family have a hard time getting a ride to doctors visits? (Household - for ages 0-17 years) Not on file 10/16/2023 Has lack of transportation k ept you from medical appointments, meetings, work, or from getting things needed for daily living? Check all that apply. (Adult - for ages 18 years and over) Not on file 10/16/2023 Do you (or your family) have trouble finding or paying for a ride (transportation)? (Household - for ages 0-17 years) Not on file 10/16/2023 Housing Stability Answer Date Recorded Do you currently live in a s helter or have no steady place to sleep at night? No 10/16/2023 READ ONLY Do you think you a re at risk of becoming homeless? No 10/16/2023 Does your family worry about paying for your home or becoming homeless? (Household - for ages 0-17 years) Not on file 1 12/16/2022 Are you homeless or worried that you might be in the future? (Adult - for ages 18 years and over) Not on file Are you (or your family) tabatha eless or worried that you might be in the future? (Household - for ages 0-17 years) Not on file Food Insecurity Answer Date Recorded Do you need food for this week? No 10/16/2023 Are you able to get enough f ood for your family? (Household - for ages 0-17 years) Not on file 10/16/2023 Does your family need food t his week? (Household - for ages 0-17 years) Not on file 10/16/2023 Do you always have enough fo od for your family? (Household - for ages 0-17 years) Not on file 10/16/2023 Sex and Gender Information Value Date Recorded Sex Assigned at Male 11/18/2020 3:21 PM EST Legal Sex Male 5:26 AM EST Gender Identity Male 11/18/2020 3:21 PM EST Sexual Orientation Straight 11/18/2020 3: 21 PM EST documented as of this encounter Functional Status * Are you deaf or do you have serious difficulty hearing? Answer Date of Assessment Author No 09/14/2022 1:59 PM EDT Rosalba Monsivais RN * Are you blind or do you have serious difficulty seeing, even when wearing glasses? Answer Date of Assessment Author No 09/14/2022 1:59 PM EDT Rosalba Monsivais RN * Do you have serious difficulty walking or climbing stairs? (5 years old or older) Answer Date of Assessment Author No 09/14/2022 2:21 PM EDT Rosalba Garcia RN * Do you have difficulty dressing or bathing? (5 years old or older) Answer Date of Assessment Author No 09/14/2022 1:59 PM EDT Rosalba Monsivais RN * Because of a physical, mental, or emotional condition, do you have difficulty doing errands alone such as visiting a doctors office or shopping? (15 years old or older) Answer Date of Assessment Author No 09/14/2022 1:59 PM Rosalba Chandler RN documented as of this encounter Mental Status * Because of a physical, mental, or emotional condition, do you have serious difficulty concentrating, remembering, or making decisions? (5 years old or older) Answer Entry Date Author No 09/14/2022 1:59 PM Rosalba Chandler RN documented in this encounter Miscellaneous Notes * Telephone Encounter - Rachid Patterson MD - 10/11/2024 9:23 AM ESTSigned Prescriptions: Disp Refills Lisinopril 40 MG Oral Tablet 30 Tab*2 Sig: Take 1 Tablet by mouth in the morning. Authorizing Provider: RACHID PATTERSON * Telephone Encounter - Mandi Quezada RPh - 10/11/2024 8:33 AM EST Pending Prescriptions: Disp Refills Lisinopril 40 MG Oral Tablet 30 Tab*2 Sig: Take 1 Tablet by mouth in the morning. * Telephone Encounter - Mandi Quezada RPh - 10/11/2024 8:31 AM EST Provided 90 days supply with 0 refill. Per refill protocol patient should have BMP on file within past year. Lab work was already ordered. Added reminder note to pharmacy. Thanks, Mandi Quezada [facility] Clinical Pharmacist [facility] [phone] documented in this encounter Plan of Treatment Health Maintenance Due Date Last Done Comments Alpha-1 Antitrypsin 1968 Hepatitis C Screening 1968 Zoster Vaccines (2 of 3) 01/30/2015 12/05/2014 *COPD SEVERITY VERIFIED BY PFT 06/25/2018 Diabetic Foot Exam 12/23/2021 12/23/2020, 1 01/02/2019, 11/01/2019 Diabetic Eye Exam 11/19/2023 11/19/2022, , 07/28/2021, Additional history exists Albumin/Creatinine Ratio 01/20/2024 023, 02/17/2022, 10/31/2018 GFR 03/15/2024 03/15/2023, 12/31, 09/15/2022, Additional history exists HbA1c 04/24/2024 10/25/2023, 0302/2023, 01/20/2023, Additional history exists COVID-19 Vaccine ( season) 2024 09/24/2021, 01/18/2021, 12/21/2020 Influenza Vaccine (FLU shot) (#1) 2024 09/15/2022, 09/10/2021, 09/04/2020, Additional history exists Colonoscopy 11/14/2024 11/14/2019, 07/31, 08/27/2015, Additional history exists Depression Screening 05/12/2025 05/12/2024 O2 ASSESSMENT COMPLETED IN PAST YEAR FOR COPD 06/22/2025 06/22/2024 DTap/Tdap Vaccines (2 - Td or Tdap) 07/22/2031 07/22/2021, 10/13/2016 Pneumococcal Vaccine: 65+ Years Completed 11/10/2017, 10/13/2016, 11/29/2015 RETIRED - COLONOSCOPY-EVERY 5 YRS AGES 18-100 Discontinued 11/14/2019, 08/27/2015, 08/27/2015, Additional history exists HPV (Gardasil) Vaccine Aged Out No lo nger eligible based on patient's age to complete this topic Hepatitis B Vaccine Aged Out No longe r eligible based on patient's age to complete this topic MENINGOCOCCAL (MENACTRA/MENVEO) Aged Out No longer eligible based on patient's age to complete this topic documented as of this encounter Medical Devices Not on filedocumented as of this encounter Visit Diagnoses Diagnosis HTN, goal to be determined Unspecified essential hypertension documented in this encounter Advance Directives * Full Code (Latest Code Status on File) Date Activated Date Inactivated Comments 09/14/2022 1:06 PM 09/15/2022 6:06 PM This order reflects the patients wishes and were consensually agreed upon. Question Answer Comments Discussion of Advance Directives occurred with: Patient Does the patient have a Living Will? No Does the patient have Health Care Power of Attor lucas? No * Full Code Date Activated Date Inactivated Comments 01/30/2022 1:09 PM 02/01/2022 6:22 PM This order ref lects the patients wishes and were consensually agreed upon. Question Answer Comments Discussion of Advance Directives occurred with: Patient Does the patient have a Living Will? No Does the patient have Health Care Power of Attor lucas? No * Full Code Date Activated Date Inactivated Comments 05/06/2021 10:57 PM 05/08/2021 6:47 PM This order r eflects the patients wishes and were consensually agreed upon. Question Answer Comments Discussion of Advance Directives occurred with: Patient Does the patient have a Living Will? No Does the patient have Health Care Power of Attor lucas? No * Full Code Date Activated Date Inactivated Comments 01/13/2021 9:12 PM 01/14/2021 7:12 PM This order r eflects the patients wishes and were consensually agreed upon. Question Answer Comments Discussion of Advance Directives occurred with: Patient Does the patient have a Living Will? No Does the patient have Health Care Power of Attor lucas? No Healthcare Agents on File Name Relationship Healthcare Agent Relationship Communication Lynsey Burnsle Other - (no specific identity) Health Care Agent [phone] ([employer])
[2024-10-19] MEDS: INSULIN ASPART PER UNIT CHARGE SC SCH (00:06)
[2024-10-19] MEDS: diphenhydrAMINE Capsule 25 MG CAP PO PRN (00:09)
[2024-10-19] MEDS: ONDANSETRON INJ 2 MG/ML 2 ML VIAL IV PRN (03:15)
[2024-10-19] MEDS: FLUTICASONE PROPIONATE NA SPR 16 GM BTL PRN (03:15)
[2024-10-19 06:40] LABS: Hematocrit (blood only) 35.5 % (42.0-52.0); Hemoglobin 11.9 g/dl (14.0-18.0); Mean Corpuscular Hgb Conc 33.5 g/dL (32.0-36.0); Mean Corpuscular Volume 95.4 fL (80.0-100.0); Mean Platelet Volume 9.5 fL (9.4-12.4); Platelet Count 235 K/uL (130-400); RDW Coefficient of Variation 12.7 % (11.5-14.5); RDW Standard Deviation 44.3 fL (36.4-46.3); Red Blood Count 3.72 M/uL (4.70-6.10); White Blood Count 9.64 K/ul (4.8-10.8)
[2024-10-19 06:51] LABS: Calcium 8.4 mg/dl (8.6-10.3); Creatinine Clr Calc Pharmacy 66.2 ml/min; Potassium 4.1 mmol/L (3.5-5.1)
[2024-10-19 07:10] LABS: INR 1.1 (0.9-1.1); Prothrombin Time 11.4 Seconds (9.0-12.0)
--- NOTE | 2024-10-19 08:23 | Orthopedic Progress Note ---
Date of Service October 19, 2024 Assessment & Plan (1) Osteoarthritis of left knee: Plan: End-stage left knee osteoarthritis. Patient has associated bipartite patella and this will have to be excised at the time of patellar resurfacing part of the procedure. Postop day 1 left knee replacement excision bipartite patella and more than typical bleeding IntraOp possibly related to anticoagulant history. Continue Hemovac drain for another day. Patient wants to proceed with rehab hospital stay and will discuss with social service. Continue admission for another day. (2) Bipartite patella: Admission and Anticipated Discharge Date Admission Date: October 18, 2024 Subjective Some burning pain anterior knee. Review of Systems Review of Systems: Noncontributory Physical Exam 2 Musculoskeletal: Dressing dry and intact. Drain still draining. Circulation sensorimotor exam all intact. Results & Data Vital Signs (Past 12 Hours) Vital Signs Temp Pulse Resp BP Pulse Ox O2 Del Method O2 Flow Rate 10/19/24 07:58 37.0 C 92 H 16 111/62 92 Room Air 10/19/24 03:34 36.7 C 89 18 126/68 94 Nasal Cannula 4 10/18/24 23:48 CPAP 10/18/24 23:41 36.4 C L 82 16 119/64 93 CPAP Diagnostic Findings Labs stable, x-rays well aligned knee replacement, Hemovac drain 100 cc last shift so still too much drainage to remove Hemovac. (1) Osteoarthritis of left knee Osteoarthritis type: primary Qualified Code(s): M17.12 - Unilateral primary o steoarthritis, left knee
[2024-10-19] MEDS: ASCORBIC ACID 500 MG TAB PO SCH (08:37)
[2024-10-19] MEDS: FAMOTIDINE 20 MG TAB PO SCH (08:38)
[2024-10-19] MEDS: hydroCHLOROthiazide 25 MG TAB PO SCH (08:38)
[2024-10-19] MEDS: CYANOCOBALAMIN (B-12) 500 MCG TABLET PO SCH (08:38)
[2024-10-19] MEDS: MULTIVITAMIN TAB PO SCH (08:38)
[2024-10-19] MEDS: FLUTICASONE/VILANTEROL 100/25MCG 14 PUFFS/INHALER INH SCH (08:39)
[2024-10-19] MEDS: LANTUS PER UNIT CHARGE SQ SCH ×2 (08:42→21:01)
[2024-10-19] MEDS ORDERED: LANTUS PER UNIT CHARGE SQ SCH ×2 (09:00→21:00)
[2024-10-19] MEDS ORDERED: NON-FORMULARY MEDICATION (Insulin Aspart U-100 [Novolog Flexpen U-100 Insulin] 100 unit/mL SQ SCH (09:00)
[2024-10-19] MEDS: ALUMINUM/MAGNESIUM SUSP 30 ML UDC PO PRN (11:43)
--- NOTE | 2024-10-19 14:08 | Hospitalist Progress Note ---
Date of Service October 19, 2024 Assessment & Plan (1) Osteoarthritis of left knee: Plan: 74 y/o male PMH of CKD, DM2, Afib on Eliquis, COPD, HTN, and HLD here POD #0 for Left total knee arthroplasty. Medicine consulted for medical management - Primary team - Ortho managing pain medication - PT/ OT ordered (2) Chronic obstructive asthma: Plan: Continue Wixela daily and albuterol as needed - CPAP HS for SONIDO. Daytime baseline is room air Currently requiring 2L, wean as able. O2 goal 88% - encourage IS (3) Chronic kidney disease, stage 2 (mild): Plan: Baseline Cr: 1.2, GFR: 72 Avoid nephrotoxic meds Continue Vitamin D daily post op labs at baseline (4) Paroxysmal atrial fibrillation: Plan: Continue Diltiazem 180 mg BID Continue Eliquis 5 mg BID (5) DM type 2 (diabetes mellitus, type 2): Plan: A1C:7.7 08/2024 Continue Insulin Glargine 62 BID and [employer] scale Pharmacy consulted by primary team (6) BPH with obstruction/lower urinary tract symptoms: Plan: Continue Tamsulosin (7) Hypertension: Plan: Continue Hydrochlorothiazide and Lisinopril Plan Dispo: continued inpatient stay Thank you for allowing us to participate in the care of this patient, please reach out with any questions or concerns. Medicine will continue to follow Admission and Anticipated Discharge Date Admission Date: October 18, 2024 Supervising Physician Co-Signing Physician Notes Attending Attestation - Chart reviewed in detail, care plan d/w JARAD Trimble. I agree w/ the malcolm components of her consult documentation. s/p left TKR. Mild acute blood loss anemia (pre-op Hb 14.4, now 11.9). Mild hypoxia/o2 requirement - 2nd atelectasis? 2nd to asthma? Wean o2 as tolerated. Mild low-grade fever - T 37.6 - post-op inflammation? Follow temps carefully. Appreciate this consult; our team will follow with you. Dusty Bhatt MD Subjective Seen this morning prior to lunch - struggling with pain and some nausea, no vomiting. Was out of bed with therapy. not passing gas at this time. Review of Systems Review of Systems: All systems reviewed & are unremarkable except as noted in Subjective Physical Exam Physical Exam: General: NAD, VS as above Resp: normal respiratory effort, lungs clear to auscultation on 2L NC CV: afib, no murmur, Abd: soft, non tender, Extremities: left knee in shannan wrap with ice. able to wiggle toes distally Neuro: A&O x3, Results & Data Results & Data Vital Signs (Past 12 Hours) Vital Signs Temp Pulse Resp BP Pulse Ox O2 Del Method O2 Flow Rate 10/19/24 11:40 95 Nasal Cannula 2 10/19/24 11:37 97.5 F L 77 20 123/68 88 L Room Air 10/19/24 10:42 92 Room Air 10/19/24 10:41 87 L Room Air 10/19/24 08:30 Room Air 10/19/24 07:58 98.6 F 92 H 16 111/62 92 Room Air 10/19/24 03:34 98.1 F 89 18 126/68 94 Nasal Cannula 4 PG Care Time/CCT Total # of Minutes Spent Total Time Spent with Patient: Total time spent is greater than 50% in coordination of care (as documented) at patient's floor/unit and/or counseling patient: Coding Level of Care Code 28210 SUB INP/OBS CARE 235MIN Diagnoses Primary osteoarthritis of left knee M17.12 Osteoarthritis type: primary Chronic obstructive asthma J44.9 Chronic kidney disease, stage 2 (mild) N18.2 Paroxysmal atrial fibrillation I48.0 DM type 2 (diabetes mellitus, type 2) E11.9 BPH with obstruction/lower urinary tract symptoms N40.1; N13.8 Hypertension I10 (1) Osteoarthritis of left knee Osteoarthritis type: primary Qualified Code(s): M17.12 - Unilateral primary osteoarthritis, left knee
--- NOTE | 2024-10-19 14:55 | Pharmacy Report ---
Pharmacy Glycemic Short Note 2 - Date of Service October 19, 2024 - Glycemic Short BSG Results (Last 24 hours): 10/18/24 10/18/24 10/18/24 14:49 17:11 20:19 Glucose POC Glucose 107 H 167 H 242 H 10/19/24 10/19/24 10/19/24 00:00 03:14 06:08 Glucose 149 H POC Glucose 161 H 162 H 10/19/24 10/19/24 07:55 11:31 Glucose POC Glucose 121 H 153 H OUTPATIENT ANTIDIABETIC REGIMEN: * Insulin glargine 64 units BID; Novolog 15-20 units with breakfast/lunch; 20-40 units with dinner (~208 units/day with higher end range) * metformin 1000 mg BID * A1c 7.7% 08/29/24 ASSESSMENT: 10/19 * Benito received 82 units of insulin yesterday (72 were basal) * Fasting BSG this AM acceptable, will give approximately 80% of home basal insulin dose * No changes to Novolog at this time, no glycemic stressors noted, plan to discharge to rehab tomorrow per case management notes. 10/18 * Patient admitted post-op left TKA. BSGs 103-109-167 mg/dL. AM lantus dose was skipped for surgery. * 1x dose of 60 units of lantus with dinner. Will begin weight based stress of 3 dosing which may need to be tightened with high outpatient insulin needs. * Overnight checks PLAN FOR INPATIENT GLYCEMIC CONTROL: * Hold outpatient oral diabetes medications * Basal insulin * Lantus 60 units SQ x1; 62 units BID ordered to start tomorrow AM- will reassess with fasting BSG * Bolus insulin * NovoLog per scale ACHS or Q6hrs while NPO * Goal Range: Low 110 mg/dL - High 160 mg/dL * Correction Factor: 15 mg/dL/unit * Nutritional / Prandial insulin per carb ratio of 1 unit per 5 grams CHO consumed
[2024-10-19] MEDS: APIXABAN 5 MG TABLET PO SCH (20:43)
[2024-10-20 07:43] VITALS: BP 170/77; PULSE 75; RESP 20; TEMP 98.2
--- NOTE | 2024-10-20 07:56 | Orthopedic Progress Note ---
Date of Service October 20, 2024 Assessment & Plan (1) Osteoarthritis of left knee: Plan: End-stage left knee osteoarthritis. Patient has associated bipartite patella and this will have to be excised at the time of patellar resurfacing part of the procedure. Postop day 2 left knee replacement excision bipartite patella and more than typical bleeding IntraOp possibly related to anticoagulant history. Discontinue Hemovac drain . Patient wants to proceed with rehab hospital stay and case management has met with patient and waiting back on further information. Discharge to rehab when he is available if off O2 and medically stable with regard to other health issues. (2) Bipartite patella: Admission and Anticipated Discharge Date Admission Date: October 18, 2024 Subjective Patient had more pain today and less ability to raise his leg up on his own independently due to the pain. Review of Systems Review of Systems: No shortness of breath although still on oxygen nasal O2. Has hypertension asymptomatic Physical Exam Musculoskeletal: Dressing dry and intact left leg. Still some drainage from Hemovac but decreasing in volume. Distal circulation sensorimotor exam intact. Can do straight leg raise with 1 finger assistance. Results & Data Vital Signs (Past 12 Hours) Vital Signs Temp Pulse Resp BP Pulse Ox O2 Del Method O2 Flow Rate 10/20/24 07:43 36.8 C 75 20 170/77 H 96 Room Air 10/19/24 20:59 37.1 C 81 14 145/72 H 92 Nasal Cannula 2 10/19/24 20:39 37.1 C 81 14 145/72 H 92 Nasal Cannula 2 10/19/24 19:55 Nasal Cannula 2 (1) Osteoarthritis of left knee Osteoarthritis type: primary Qualified Code(s): M17.12 - Unilateral primary osteoarthritis, left knee
[2024-10-20] MEDS: LANTUS PER UNIT CHARGE SQ SCH (08:26)
--- NOTE | 2024-10-20 09:35 | Hospitalist Progress Note ---
Date of Service October 20, 2024 Assessment & Plan (1) Osteoarthritis of left knee: Plan: 74 y/o male PMH of CKD, DM2, Afib on Eliquis, COPD, HTN, and HLD. S/p Left total knee arthroplasty 10/[address] Victoria. Medicine consulted for medical management - Primary team - Ortho managing pain medication - PT/ OT ordered - plan for rehab today Low grade fever 99.7 10/19 - improved without tylenol - suspect related to atelectasis (2) Chronic obstructive asthma: Plan: Continue Wixela daily and albuterol as needed - CPAP HS for SONIDO. Daytime baseline is room air Has been able to be weaned down to room air - continue to encourage IS (3) Chronic kidney disease, stage 2 (mild): Plan: Baseline Cr: 1.2, GFR: 72 Avoid nephrotoxic meds Continue Vitamin D daily post op labs at baseline (4) Paroxysmal atrial fibrillation: Plan: Continue Diltiazem 180 mg BID Continue Eliquis 5 mg BID (5) DM type 2 (diabetes mellitus, type 2): Plan: A1C:7.7 08/2024 Continue Insulin Glargine 62 BID and Novolog scale Pharmacy consulted by primary team (6) BPH with obstruction/lower urinary tract symptoms: Plan: Continue Tamsulosin (7) Hypertension: Plan: Continue Hydrochlorothiazide and Lisinopril Plan Dispo: medically stable Thank you for allowing us to participate in the care of this patient, please reach out with any questions or concerns. Admission and Anticipated Discharge Date Admission Date: October 18, 2024 Supervising Physician Co-Signing Physician Notes Attending Attestation - Chart reviewed in detail, care plan d/w JARAD Trimble. I agree w/ the malcolm components of her documentation. Dusty Bhatt MD Subjective Patient seen sitting up at the side of the bed, working with therapy. Does not feel short of breath, only when he is having twinges of pain. does not use his albuterol inhaler very often at all. plan is for rehab today - patient has not passed gas since surgery. Does not feel like his abdomen is distended. also had low grade fever overnight. Review of Systems Review of Systems: All systems reviewed & are unremarkable except as noted in Subjective Physical Exam Physical Exam: General: NAD, VS as above, sitting at the edge of the bed Resp: normal respiratory effort, lungs clear to auscultation, poor movement in the bases CV: afib, no murmur, Abd: soft, non tender, Extremities: left knee dress c/d/i Neuro: A&O x3, Results & Data Results & Data Vital Signs (Past 12 Hours) Vital Signs Temp Pulse Resp BP Pulse Ox O2 Del Method 10/20/24 07:43 98.2 F 75 20 170/77 H 96 Room Air Laboratory Results POC BSG reviewed PG Care Time/CCT Total # of Minutes Spent Total Time Spent with Patient: Total time spent is greater than 50% in coordination of care (as documented) at patient's floor/unit and/or counseling patient: Coding Level of Care Code 14472 SUB INP/OBS CARE 2/35MIN Diagnoses Primary osteoarthritis of left knee M17.12 Osteoarthritis type: primary Chronic obstructive asthma J44.9 Chronic kidney disease, stage 2 (mild) N18.2 Paroxysmal atrial fibrillation I48.0 DM type 2 (diabetes mellitus, type 2) E11.9 BPH with obstruction/lower urinary tract symptoms N40.1; N13.8 Hypertension I10 (1) Osteoarthritis of left knee Osteoarthritis type: primary Qualified Code(s): M17.12 - Unilateral primary osteoarthritis, left knee
--- NOTE | 2024-10-20 10:07 | Pharmacy Report ---
Pharmacy Glycemic Short Note 2 - Date of Service October 20, 2024 - Glycemic Short BSG Results (Last 24 hours): 10/19/24 10/19/24 10/19/24 11:31 16:39 20:51 POC Glucose 153 H 160 H 164 H 10/20/24 07:49 POC Glucose 161 H OUTPATIENT ANTIDIABETIC REGIMEN: * Insulin glargine 64 units BID; Novolog 15-20 units with breakfast/lunch; 20-40 units with dinner (~208 units/day with higher end range) * metformin 1000 mg BID * A1c 7.7% 08/29/24 ASSESSMENT: 10/20 * Benito received 118 units of insulin yesterday (50 were basal) * Fasting BSG this AM acceptable, will continue current basal regimen, fixed morning dose and flexible evening dose based on needs * No indication for Novolog adjustment at this time * Plan to discharge to rehab today per case management notes 10/19 * Benito received 82 units of insulin yesterday (72 were basal) * Fasting BSG this AM acceptable, will give approximately 80% of home basal insulin dose * No changes to Novolog at this time, no glycemic stressors noted, plan to d ischarge to rehab tomorrow per case management notes. 10/18 * Patient admitted post-op left TKA. BSGs 103-109-167 mg/dL. AM lantus dose was skipped for surgery. * 1x dose of 60 units of lantus with dinner. Will begin weight based stress of 3 dosing which may need to be tightened with high outpatient insulin needs. * Overnight checks PLAN FOR INPATIENT GLYCEMIC CONTROL: * Hold outpatient oral diabetes medications * Basal insulin * Lantus 50 units SQ daily * Lantus 40-60 units SQ HS (see eMAR for additional details) * Bolus insulin * NovoLog per scale ACHS or Q6hrs while NPO * Goal Range: Low 110 mg/dL - High 160 mg/dL * Correction Factor: 15 mg/dL/unit * Nutritional / Prandial insulin per carb ratio of 1 unit per 4 grams CHO consumed
[2024-10-20 11:29] VITALS: O2SAT 93
--- NOTE | 2024-10-25 09:58 | Discharge Summary ---
Date of Service October 25, 2024 Admission HPI Per Admitting Provider 73-year-old male with chronic chronic left knee pain failed conservative management. Patient's had multiple injections. Patient denies headaches, sweats, fevers, chills, double vision, blurred vision, cough, sore throat, dysphagia, chest pain, sob at rest, wheezing, n/v/d/c, numbness, tingling, fatigue, urinary symptoms, mood disorders. ROS positive for shortness of breath with activity walking uphill or climbing a flight of stairs, hypertension, sleep apnea, diabetes on insulin multiple areas of arthritis, hiatal hernia, obesity, chipped teeth, nausea and vomiting with anesthesia and requests medicine to help prevent vomiting.. Principal Diagnosis Left knee osteoarthritis Discharge Data Allergies Allergy/AdvReac Type Severity Reaction Status Date / Time hyaluronate sodium, Allergy Severe Lips Verified 10/18/24 08:59 stabilized swelling hylan G-F 20 [From Synvisc] Allergy Severe Lips Verified 10/18/24 08:59 swelling celecoxib [From Celebrex] Allergy Unknown Rash Verified 10/18/24 08:59 cephalexin Allergy Unknown Rash Verified 10/18/24 08:59 dicyclomine Allergy Unknown Unknown Verified 10/18/24 08:59 homatropine Allergy Unknown Unknown Verified 10/18/24 08:59 hydrocodone Allergy Unknown Unknown Verified 10/18/24 08:59 meloxicam Allergy Unknown Unknown Verified 10/18/24 08:59 oxycodone [From Percocet] Allergy Unknown Unknown Verified 10/18/24 08:59 pregabalin Allergy Unknown ? Tired, Verified 10/18/24 08:59 listless Penicillins AdvReac Intermediate GI upset Verified 10/18/24 08:59 chlorthalidone AdvReac Mild Listless Verified 10/18/24 08:59 gabapentin AdvReac Mild ? Tired, Verified 10/18/24 08:59 listless pravastatin AdvReac Mild Muscle Pain Verified 10/18/24 08:59 prednisone AdvReac Mild GI upset Verified 10/18/24 08:59 sulfamethoxazole AdvReac Mild GI upset Verified 10/18/24 08:59 trimethoprim AdvReac Mild GI upset Verified 10/18/24 08:59 Consultations 10/18/24 16:57 Consult Hospitalist Routine Procedures Performed Operation Date: 10/18/24 11:45 Actual Procedures p Left Total Knee Arthroplasty, Cemented(Left) - Michael Victoria MD Ordered Studies 10/18/24 05:00 US - OR guided needle placemen Routine Hospital Course (1) Osteoarthritis of left knee: End-stage left knee osteoarthritis. Patient has associated bipartite patella and this will have to be excised at the time of patellar resurfacing part of the procedure. Postop day 2 left knee replacement excision bipartite patella and more than typical bleeding IntraOp possibly related to anticoagulant history. Discontinue Hemovac drain . Patient wants to proceed with rehab hospital stay and case management has met with patient and waiting back on further information. Discharge to rehab when he is available if off O2 and medically stable with regard to other health issues. Total Time Total Time Spent Total Time Spent (In Minutes): 30 Discharge Plan Discharge Items Patient Disposition: Transfer [facility] Fac Reason For Visit: Left Knee Arthritis Discharge Diagnosis: Left knee osteoarthritis Activity: Per Instructions section Weightbearing: Full weightbearing Non-emergency contact: Surgeon Call non-emergency contact if: your pain is not controlled, your pain is worsening and your temperature is above 101 Follow-up/Referrals: Tyesha Aguilar MD [Primary Care Provider] - Diet: Carb Count or DM1 Addtl Attending Provider Instructions: ACTIVITY RECOMMENDATIONS: SELF CARE INSTRUCTIONS AFTER TOTAL KNEE REPLACEMENT A. You may need to continue a physical therapy program after discharge from the hospital. There are several options available to you. Your doctor will assist you in selecting the best one for you. 1. An out-patient facility 3 times a week for therapy. 2. Home therapy for 1 to 2 weeks with outpatient therapy to follow. 3. Continue working on all exercises taught by physical therapy three times a day for 20 minutes on non-therapy days. Your goals should be to increase the bending of your knee to 90 degrees and beyond and to fully straighten your knee. Ice and elevate knee after exercise. B. Weight as tolerated with a walker or as instructed by your physician. C. It is okay to shower if minimal to no drainage from incision. No Baths. Do not soak wound. D. Make walking a part of your daily routine. Be up as much as comfortable with rest periods throughout the day. Rest with leg elevation is very important. Use the ice wrap frequently for the first 3-4 weeks. E. There are no restrictions on activities. You may ride in a car, shop, participate in cutter hand and all social activities. F. Wear the long elastic stockings ([employer] hose) 20 hours a day for one month after surgery. They can be removed several times a day for laundering and when showering. G. You may return to previous diet. H. JOSÉ dressing: You have a JOSÉ dressing on your surgical wound. It will remain in place for 7 days from surgery. You will be provided with a booklet with the do's and don'ts with the dressing in place. After 7 days, the dressing may be removed. If there is drainage from the surgical incision, you may cover the wound with dry dressings SPECIAL CARE INSTRUCTIONS: VERY IMPORTANT TO READ AND REVIEW A. Take Eliquis (blood thinning medications) as directed by your doctor. If on Coumadin, have a pro-time (blood test) drawn according to your doctor's instructions. This will tell the doctor how well the Coumadin is thinning your blood. B. There are a few signs you need to watch for after you are home. Call [facility] if you notice any of the followin. Increased severe knee pain. Some pain is expected especially when you exercise. 2. Increased swelling in your leg or knee; pain or swelling of the calf muscle in either lower leg. 3. Any redness or fluid drainage from the incision. 4. Shortness of breath or chest pain. 5. A Temperature of 101 degrees F or greater. C. Please call [facility] at if you have any concerns or questions about your operation or recovery. The doctor or his nurse will return your call promptly. D. You must take antibiotics before dental work, bladder, bowel or other surgery. Your doctor will provide you with a permanent care to carry describing this precaution. FOLLOW UP VISIT: If appointment is not already scheduled: Please call [facility] to make a follow-up appointment for 2 weeks after your surgery at . Pending Studies at Discharge: No Stand-Alone Forms: My [facility] Skilled Items Patient informed of condition?: Yes DNR: No Discharge Level of Care: Acute rehab Communicable Disease: No Discharge Prognosis: Stable Lines: None Urinary Catheter: No Medications and DC Order Prescriptions: New acetaminophen-codeine 300-30 mg Tablet 1 - 2 tab PO Q4H PRN (Reason: pain) Qty: 20 0RF cefadroxil 500 mg capsule 500 mg PO Q12H Qty: 28 0RF Continued fluticasone propion-salmeterol [Wixela Inhub] 250-50 mcg/dose blister with device 1 inh inhalation QAM Patient Comments: MOST OF THE TIME ONLY DO IT ONCE IN THE MORNING (DME) Accu-Chek Jaclyn Plus test strp Strip See Rx Instructions .Route Qty: 600 3RF Rx Instructions: test blood sugar 6 times per day (DME) NovoFine Plus 32 gauge x 1/6" needle See Dose Instructions .ROUTE .MEDSUPPLY Qty: 300 3RF Rx Instructions: use 3 needles daily tamsulosin 0.4 mg capsule 0.4 mg PO DAILY PRN (Reason: prn) Eliquis 5 mg tablet 5 mg PO BID lisinopril 40 mg tablet 40 mg PO QPM Qty: 90 albuterol sulfate 90 mcg/actuation HFA aerosol inhaler 1 puffs inhalation UD PRN (Reason: COPD) Qty: 1 Patient Comments: HARDLY USE IT famotidine [Pepcid] 20 mg tablet 20 mg PO QAM hydrochlorothiazide 25 mg tablet 25 mg PO QAM metformin 1,000 mg tablet 1,000 mg PO BID insulin aspart U-100 [Novolog FlexPen U-100 Insulin] 100 unit/mL (3 mL) insulin pen 100 unit subcut DAILY MDD 100 units Qty: 90 3RF Rx Instructions: Inject 15-20 units with breakfast and lunch and 20-40 units with dinner per sliding scale; TDD 100units cyanocobalamin (vitamin B-12) [Vitamin B-12] 1,000 mcg Tablet 1,000 mcg PO QAM docusate sodium [Colace] 100 mg Capsule 100 mg PO HS Patient Comments: I THINK IT SAYS IT HAS A MILD LAXATIVE fluticasone propionate 50 mcg/actuation [place],Suspension 1 spray INTRANASAL UD PRN (Reason: Nasal Congestion) Patient Comments: NOT VERY OFTEN Rx Instructions: administer into each nostril ascorbic acid (vitamin C) [Vitamin C] 500 mg tablet 1 g PO QAM diltiazem HCl 180 mg Capsule,Extended Release 24 Hr 180 mg PO BID diphenhydramine HCl [Sleep Aid (diphenhydramine)] 50 mg Capsule 50 mg PO HS PRN (Reason: prn/ sleep) polyethylene glycol 3350 [Miralax] 17 gram/dose Powder 17 g PO DAILY PRN (Reason: Constipation) insulin glargine [Lantus Solostar U-100 Insulin] 100 unit/mL (3 mL) insulin pen 64 unit subcut BID Discontinued acetaminophen 650 mg Tablet 650 mg PO BID PRN (Reason: prn) Hold Instructions: Do not take anymore Tylenol (Acetaminophen) while taking your Codeine/Acetaminophen acetaminophen-codeine 300-30 mg tablet 1 tab PO DAILY PRN (Reason: Pain) Discharge Orders: Discharge Order (Routine); Ordered 10/20/24 Ordered By: Michael Victoria Admission Data Admit Date/Time: 10/18/24 14:58 Attending Provider: Michael Victoria Admit Provider: Michael Victoria Primary Care Provider: Tyesha Aguilar Other Providers: [facility]; Dusty Bhatt Other Interventions: Discharge Summary Assessment (RN) Last Done: 10/20/24 13:16
== END 2024-10-20 14:28 ==
LOC: 3E 08:18 → ASU 08:18
DX: I35.0 Nonrheumatic aortic (valve) stenosis; Z88.8 Allergy status to other drugs, medicaments and biological substances; Z79.01 Long term (current) use of anticoagulants; Z88.5 Allergy status to narcotic agent; Z88.2 Allergy status to sulfonamides; J44.9 Chronic obstructive pulmonary disease, unspecified; Q74.1 Congenital malformation of knee; Z88.0 Allergy status to penicillin; M17.12 Unilateral primary osteoarthritis, left knee; Z79.899 Other long term (current) drug therapy; Z79.84 Long term (current) use of oral hypoglycemic drugs; E11.9 Type 2 diabetes mellitus without complications; G47.33 Obstructive sleep apnea (adult) (pediatric); I48.91 Unspecified atrial fibrillation; Z87.891 Personal history of nicotine dependence

== ENCOUNTER 2024-10-21 03:38 | Inpatient (IN) ==
[2024-10-21] MEDS ORDERED: DEXTROSE 50% 50 ML SYRINGE IV PRN (06:21)
[2024-10-21] MEDS ORDERED: GLUCOSE 10 TAB/TUBE PO PRN (06:21)
[2024-10-21] MEDS ORDERED: GLUCAGON FOR INJ 1 MG VIAL SQ PRN (06:21)
[2024-10-21] MEDS ORDERED: GLUCOSE 40% GEL 15 GM TUBE PO PRN (06:21)
[2024-10-21] MEDS ORDERED: CARBOHYDRATES FOR HYPOGLYCEMIA PO PRN (06:21)
[2024-10-21] MEDS ORDERED: PROCHLORPERAZINE 10 MG in SYRINGE 8 ML IV PRN (06:27)
[2024-10-21] MEDS ORDERED: ACETAMINOPHEN W/CODEINE #3 1 TAB PO PRN (06:39)
[2024-10-21] MEDS ORDERED: levoFLOXacin/D5W 500 MG/100 ML BAG IV SCH (06:45)
--- NOTE | 2024-10-21 06:53 | History & Physical Report ---
Date of Service October 21, 2024 Assessment & Plan (1) Postoperative wound infection: (2) History of left knee surgery: (3) Paroxysmal atrial fibrillation: (4) Peripheral neuropathy: (5) DM type 2 (diabetes mellitus, type 2): Plan Postoperative wound infection history of left total knee arthroplasty- Received vancomycin IV and Cipro IV in place for ED Admitted on daptomycin IV and levofloxacin IV Patient has multiple allergies to penicillins and cephalosporins Order lower extremity venous Doppler Ordered CBC with differential, chemistry profile, magnesium, troponin, EKG, chest x-ray, Continue wound VAC Consult orthopedic surgery Acetaminophen 650 mg 6 hours as needed for mild pain or fever Tylenol with codeine 1 every 6 hours as needed, be careful not to overmedicate Diabetes mellitus Suspect with decreased oral intake as patient may additional surgery, and has had some nausea vomiting Decrease glargine from 64 to 32 units SQ twice daily Atrial fibrillation/ Hold Eliquis the patient will need any additional procedures, and if not, resume per protocol COPD- Continue usual inhalers Admission and Anticipated Discharge Date Admission Date: October 21, 2024 History of Present Illness Chief Complaint: The patient was admitted to [facility] from 10/18-10/20/2024, during which time he underwent left total knee arthroplasty by Dr. Victoria on 10/18. His hospitalization went without event, and was then transferred to rehab in [place]. On arrival to rehab on 10/20, patient was thought to be generally weak, disoriented and confused. He was assessed by EMS there, and was found to have a temperature of 101.8, heart rate 103, pressure 140/70, respirations 24, and pulse ox 92% on room air. He was then transferred to [facility], and underwent workup including laboratories, and imaging studies. He was found to have a left total knee arthroplasty infection/cellulitis, and call was made to [facility]ist service, to accept patient in transfer for evaluation and treatment of presumptive postoperative wound infection. Primary Care Provider: Tyesha Aguilar MD The patient is a 74-year-old male with past medical history including bipartite patella, vitamin D deficiency, peripheral neuropathy, BPH with LUTS, COPD, diabetic nephropathy, reticular tachycardia, hypertension, atrial fibrillation and proteinuria. He underwent a left total knee arthroplasty on 10/18/2024, was then transferred to rehab and placed for, he was found to be confused disoriented and temperature. He was evaluated at [facility], was thought to have a postoperative wound infection. A call was made to [facility] hospitalist service, and with coordination with DOC covering orthopedic surgeon, patient has been accepted to [facility] for evaluation and treatment. Upon arrival, the patient is conversant, feels that his problem may be related to or codeine and it was used to for pain control, but does have significant pain in left lower extremity as of the expected. Wound VAC is intact. His left lower extremity is swollen and tender, with knee showing mild generalized erythema and warmth. Will order CBC with differential, chemistry profile, magnesium, troponin, EKG, chest x-ray and lower extremity venous Doppler. Patient will be admitted to medical telemetry, with consult orthopedic surgery. Allergies Allergy/AdvReac Type Severity Reaction Status Date / Time hyaluronate sodium, Allergy Severe Lips Verified 10/18/24 08:59 stabilized swelling hylan G-F 20 [From Synvisc] Allergy Severe Lips Verified 10/18/24 08:59 swelling celecoxib [From Celebrex] Allergy Unknown Rash Verified 10/18/24 08:59 cephalexin Allergy Unknown Rash Verified 10/18/24 08:59 dicyclomine Allergy Unknown Unknown Verified 10/18/24 08:59 homatropine Allergy Unknown Unknown Verified 10/18/24 08:59 hydrocodone Allergy Unknown Unknown Verified 10/18/24 08:59 meloxicam Allergy Unknown Unknown Verified 10/18/24 08:59 oxycodone [From Percocet] Allergy Unknown Unknown Verified 10/18/24 08:59 pregabalin Allergy Unknown ? Tired, Verified 10/18/24 08:59 listless Penicillins AdvReac Intermediate GI upset Verified 10/18/24 08:59 chlorthalidone AdvReac Mild Listless Verified 10/18/24 08:59 gabapentin AdvReac Mild ? Tired, Verified 10/18/24 08:59 listless pravastatin AdvReac Mild Muscle Pain Verified 10/18/24 08:59 prednisone AdvReac Mild GI upset Verified 10/18/24 08:59 sulfamethoxazole AdvReac Mild GI upset Verified 10/18/24 08:59 trimethoprim AdvReac Mild GI upset Verified 10/18/24 08:59 Home Medications Medication Instructions Recorded Confirmed Type albuterol sulfate 90 mcg/actuation 1 puffs inhalation UD PRN COPD #1 g 07/07/19 10/18/24 History aerosol inhaler lisinopril 40 mg tablet 40 mg PO QPM #90 tabs 07/07/19 10/18/24 History apixaban 5 mg tablet (Eliquis) 5 mg PO BID 02/16/22 10/18/24 History fluticasone 250 mcg-salmeterol 50 1 inh inhalation QAM 02/19/22 10/18/24 History mcg/dose blistr powdr for inhalation (Wixela Inhub) famotidine 20 mg tablet (Pepcid) 20 mg PO QAM 04/13/22 10/18/24 History cyanocobalamin (vitamin B-12) 1,000 mcg PO QAM 07/20/22 10/18/24 History 1,000 mcg tablet (Vitamin B-12) docusate sodium 100 mg capsule 100 mg PO HS 07/20/22 10/18/24 History (Colace) fluticasone propionate 50 1 spray intranasal UD PRN Nasal 07/20/22 10/18/24 History mcg/actuation nasal Congestion spray,suspension diltiazem HCl 180 mg capsule,24 180 mg PO BID 02/15/23 10/18/24 History hr,extended release blood sugar diagnostic (Accu-Chek #600 ea 02/22/23 09/11/24 Rx Jaclyn Plus test strips) pen needle, diabetic 32 gauge x #300 ea 02/22/23 09/11/24 Rx 1/6" (NovoFine Plus) tamsulosin 0.4 mg capsule 0.4 mg PO DAILY PRN prn 08/12/23 10/18/24 History diphenhydramine HCl 50 mg capsule 50 mg PO HS PRN prn/ sleep 02/03/24 10/18/24 History (Sleep Aid (diphenhydramine)) ascorbic acid (vitamin C) 500 mg 1 g PO QAM 09/05/24 10/18/24 History tablet (Vitamin C) hydrochlorothiazide 25 mg tablet 25 mg PO QAM 09/05/24 10/18/24 History insulin aspart U-100 100 unit/mL 100 unit subcut DAILY #90 mL 09/05/24 10/18/24 Rx (3 mL) subcutaneous pen (Novolog FlexPen U-100 Insulin aspart) metformin 1,000 mg tablet 1,000 mg PO BID 09/05/24 10/18/24 History polyethylene glycol 3350 17 17 g PO DAILY PRN Constipation 09/12/24 10/18/24 History gram/dose oral powder (Miralax) insulin glargine 100 unit/mL (3 64 unit subcut BID 10/18/24 10/18/24 History mL) subcutaneous pen (Lantus Solostar U-100 Insulin) acetaminophen 300 mg-codeine 30 mg 1 - 2 tab PO Q4H PRN pain #20 tabs 10/20/24 Rx tablet cefadroxil 500 mg capsule 500 mg PO Q12H #28 caps 10/20/24 Rx Past Med/Surg History Problem List (Updated 10/21/24 @ 06:58 by Ryan Bañuelos MD) History of left knee surgery DM type 2 (diabetes mellitus, type 2) IDDM Paroxysmal atrial fibrillation Follow-up PRN per cardio Taking Eliquis/diltiazem (PCP monitoring) Postoperative wound infection Bipartite patella Vitamin D deficiency Peripheral neuropathy Encounter for pre-operative examination Nodule of kidney Myalgia Dyslipidemia Arthritis (Acute) BPH with obstruction/lower urinary tract symptoms (Acute) Chronic obstructive asthma (Acute) Diabetic nephropathy (Acute) Diabetic peripheral neuropathy (Acute) Diaphragmatic paralysis (Acute) Prostate nodule (Acute) Supraventricular tachycardia (Acute) Hypertension (Chronic) Proteinuria (Chronic) Medical History Aortic stenosis Echo 05/2023: "Mild" aortic stenosis (ARTI Vmax 2.17 cm, DVI 0.48) Hx of supraventricular tachycardia Nodule of kidney Follows with Dr. Aldridge Dyslipidemia Diabetic nephropathy Arthritis Nocturnal hypoxemia Obesity Paroxysmal atrial fibrillation Follow-up PRN per cardio Taking Eliquis/diltiazem (PCP monitoring) Chronic kidney disease, stage 2 (mild) Follows with Dr. Aldridge Hx-TIA (transient ischemic attack) Per records, 2020- vision and speech changes, started on statin and ASA, w/u notable for L orbital mass noted to be a collection of vessels Follows with ophthalmology per [facility] records History of eye problem Laser surgery to correct bleeding of eye vessels years ago DM type 2 (diabetes mellitus, type 2) IDDM Abnormal cardiac conduction Hx cardiac pauses. Per EP office visit (06/03/22): 2.2 second pause noted on telemetry during inpatient stay. 3 more pauses on Zio patch, longest 3.1 seconds, all in atrial fibrillation. "In atrial fibrillation, without any symptoms, he would have to have a pause of 5 seconds to qualify for a pacemaker. No indication for any further intervention at this time. 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 (no chemo or xrt) Surgical History Hx of LASIK History of ankle surgery left ankle hardware present History of left shoulder replacement (01/2023) Family history of reaction to anesthesia Mother- PONV History of carpal tunnel surgery of left wrist Nausea and vomiting after administration of anesthetic agent controlled with meds History of endoscopy History of colonoscopy with polypectomy History of carpal tunnel surgery of right wrist + ulnar nerve surgery History of fusion of cervical spine x2- most recent 2014 History of decompression of median nerve Per records, pt unsure History of decompression of ulnar nerve Right Left ulnar nerve transposition (03/15/24): LMA igel#5 at [facility] History of hernia repair (1957) History of cataract surgery R&L 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 History of urologic surgery (2016) 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 History of cholecystectomy Family History Other Family history of diabetes mellitus in father Social History Smoking Status: Former smoker Tobacco Type: Cigars Second Hand Exposure: No; Do You Dip or Chew Tobacco: No; Hx Alcohol Use: No Hx Substance Use: No Preferred Language: Japanese Communication Ability: Effective Visual Impairment: No Limitations Hearing Ability: Normal Bridge Rigger Required: No Beliefs That Will Affect Care: None marital status: Current Living Situation: Significant Other current occupational status: retired Feels Safe at Home: Yes Diet: regular Physical Activity Frequency: Does not Exercise Do you think of yourself as: straight/heterosexual Gender Identity: Male Assistive Devices: Cane and Walker Review of Systems Review of Systems: The patient denies chest pain, palpitations, shortness of breath, dyspnea on exertion, cough, sore throat, fevers, chills, sweats, weight change, vomiting, diarrhea , constipation, abdominal pain, pelvic pain, blood in urine or stool, dysuria, urinary frequency or urgency, imbalance, focal or generalized weakness, numbness or tingling in arms, generalized arthralgias or myalgias, back or neck pain, or night sweats. The review of systems is otherwise negative other than for that already noted above, and at least 10 systems have been reviewed. Physical Exam Physical Exam: The patient is awake, alert and oriented 3, normocephalic and atraumatic, lying in bed and in no acute distress. HEENT--PERRL, EOMI, mucous membranes and oropharynx mildly dry. Neck--supple. No JVD. No bruits. Thyroid normal, trachea midline, no adenopathy. Heart--normal S1 and S2. No murmurs, rubs or gallops. Lungs--clear bilaterally, no respiratory distress, no accessory muscle use. Abdomen--normal bowel sounds and soft. Nontender. Nondistended. Obese Extremities--right lower extremity normal. Left lower extremity with wound VAC intact, 1-2+ pretibial pitting edema. Mild erythema and warmth surrounding the knee joint Dermatologic--see above Neurologic--cranial nerves II through XII grossly intact. Rheumatologic--normal range of motion except for left knee, which reportedly was at the 60% bending, which was where he was at PT Psychiatric--normal affect. Code Status & VTE Plan Code Status Full code VTE Prophylaxis Plan VTE Prophylaxis will be ordered: Yes PG Care Time/CCT Total # of Minutes Spent Total Time Spent with Patient: Total time spent is greater than 50% in coordination of care (as documented) at patient's floor/unit and/or counseling patient: Coding Level of Care Code 42867 INT INP/OBS CARE 3/75MIN Diagnoses Postoperative wound infection T81.49XA History of left knee surgery Z98.890 Paroxysmal atrial fibrillation I48.0 Peripheral neuropathy G62.9 DM type 2 (diabetes mellitus, type 2) E11.9
[2024-10-21 06:59] LABS: Basophils # (auto) 0.03 K/uL (0.00-0.20); Basophils % (auto) 0.3 %; Eosinophils # (auto) 0.03 K/uL (0.00-0.50); Eosinophils % (auto) 0.3 %; Hematocrit (blood only) 31.5 % (42.0-52.0); Hemoglobin 10.9 g/dl (14.0-18.0); Immature Granulocytes # (auto) 0.08 K/uL (0.01-0.20); Immature Granulocytes % (auto) 0.8 %; Lymphocytes # (auto) 0.53 K/uL (1.20-3.40); Mean Corpuscular Hemoglobin 32.2 pg (25.0-34.0); Mean Corpuscular Hgb Conc 34.6 g/dL (32.0-36.0); Mean Corpuscular Volume 93.2 fL (80.0-100.0); Mean Platelet Volume 9.3 fL (9.4-12.4); Monocytes % (auto) 11.4 %; Neutrophils # (auto) 8.64 K/uL (1.40-6.50); Neutrophils % (auto) 82.2 %; Platelet Count 210 K/uL (130-400); RDW Coefficient of Variation 11.9 % (11.5-14.5); RDW Standard Deviation 40.8 fL (36.4-46.3); Red Blood Count 3.38 M/uL (4.70-6.10); White Blood Count 10.51 K/ul (4.8-10.8)
[2024-10-21 07:18] LABS: Alanine Aminotransferase 23 U/L (7-52); Albumin Level 3.2 gm/dl (3.4-5.0); Alkaline Phosphatase 44 U/L (34-104); Anion Gap 6 (3-11); Aspartate Aminotransferase 27 U/L (13-39); BUN Creatinine Ratio 13.3 (10-20); Bilirubin,Total 1.2 mg/dl (0.2-1.0); Blood Urea Nitrogen 13 mg/dl (6-23); Calcium 8.6 mg/dl (8.6-10.3); Carbon Dioxide 28 mmol/L (21-32); Chloride 98 mmol/L (98-107); Globulin 3.2 gm/dl (2.5-4.0); Glucose 205 mg/dl (70-99(Fasting)); Magnesium 1.6 mg/dl (1.7-2.4); Potassium 3.7 mmol/L (3.5-5.1); Sodium 132 mmol/L (136-145); Total Protein 6.4 gm/dl (6.0-8.3)
[2024-10-21 07:28] LABS: Troponin I High Sensitivity 2118.7 pg/ml (0-20)
[2024-10-21 07:33] LABS: INR 1.1 (0.9-1.1); Partial Thromboplastin Ratio 1.2; Partial Thromboplastin Time 31 Seconds (21-31); Prothrombin Time 11.5 Seconds (9.0-12.0)
--- NOTE | 2024-10-21 07:33 | XRay Report ---
EXAM: XR chest 1V portable CLINICAL HISTORY: HYPOXIA, [facility] TECHNIQUE: X-ray image of the chest obtained in frontal projection. COMPARISON: No prior studies available for comparison. FINDINGS: Pulmonary Parenchyma: Right lower opacity noted, could be an infection. Hazy air space opacities in left nicki cardiac region. Left CP angle is obscured likely pleural effusion/ thickening. No pulmonary nodules identified. Heart and Mediastinum: Heart size and shape are normal. No mediastinal widening or masses. No hilar or mediastinal lymphadenopathy. Bony Thorax: Left shoulder replacement prosthesis. Mild spondylotic changes in thoracic spine. Bony thorax appears intact without fractures or deformities. Soft Tissues: Soft tissues overlying the chest wall are unremarkable. Elevated right dome of diaphragm. Right colon is interposed between the diaphragm and liver. IMPRESSION: 1. Hazy air space opacities in left para cardiac region, could be infective/inflammatory. 2. Left CP angle is obscured likely pleural effusion/ thickening. 3. Right lower opacity noted, could be an infection. 4. 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 Electronically signed by Adelina Gutierrez 10-21-2024 07:33 AM
[2024-10-21] MEDS: dilTIAZem HCL 180 MG CAPCR PO SCH (09:58)
[2024-10-21] MEDS: CYANOCOBALAMIN (B-12) 500 MCG TABLET PO SCH (09:58)
[2024-10-21] MEDS: FLUTICASONE/VILANTEROL 100/25MCG 14 PUFFS/INHALER INH SCH (09:58)
[2024-10-21] MEDS: FAMOTIDINE 20 MG TAB PO SCH (09:58)
[2024-10-21] MEDS: levoFLOXacin/D5W 750 MG/150 ML BAG IV SCH (09:59)
[2024-10-21] MEDS: DAPTOmycin 575 MG in SYRINGE 0 ML IV SCH (09:59)
--- NOTE | 2024-10-21 09:59 | Ultrasound Report ---
LEFT LOWER EXTREMITY VENOUS DOPPLER CLINICAL HISTORY: swelling and pain post op L TKA COMPARISON STUDY: No previous studies for comparison. TECHNIQUE: Sonography of the deep venous system of the left lower extremity was performed. Compressi on and augmentation were evaluated. FINDINGS: The left common femoral, superficial femoral and popliteal veins were compressible. Augmen tation was normal. Flow was shown within the deep calf vessels. IMPRESSION: No evidence of deep venous thrombus within the left lower extremity. ACT 112: Negative or not required by law. Electronically signed by: James Doe M.D. 10/21/2024 9:58 AM
[2024-10-21] MEDS: ONDANSETRON INJ 2 MG/ML 2 ML VIAL IV PRN (10:08)
[2024-10-21] MEDS: DOCUSATE SODIUM 100 MG CAP PO SCH (10:45)
[2024-10-21] MEDS: PANTOprazole 40 MG/10 ML SYR IV ONE (10:45)
[2024-10-21] MEDS ORDERED: ETHYL CHLORIDE AER PER SPRAY 100 ML CAN EXT ONE (10:45)
[2024-10-21] MEDS: LANTUS PER UNIT CHARGE SQ SCH (10:46)
[2024-10-21] MEDS: Patient's HEIGHT &/or WEIGHT Needed ONE (11:08)
--- NOTE | 2024-10-21 11:29 | Orthopedic Consultation ---
Date of Consultation October 21, 2024 Assessment & Plan (1) History of left knee surgery: -POD #3 s/p left TKA with Dr. Victoria on 10/18/24 -Needle aspiration performed at bedside today with return of ~10cc dark red blood. No purulent or abnormal drainage. Cultures pending. Suspect this is hemarthrosis and less likely septic joint, especially only being POD #3. Patient possibly developing pneumonia based on chest x-ray findings, could be cause of confusion/fever and oxygen requirement. Antibiotics per primary pending cultures -Maintain wound VAC and current pressure dressing (Webril and GORDON) -Continue TEDs/SCDs -PT/OT: May WBAT and gentle ROM -Pain medication: Per primary. Would consider trying Tramadol in addition to Tylenol if he is sensitive to other narcotics so that he can continue therapy more comfortably -May continue Eliquis from our standpoint -May continue diet as we do not anticipate additional surgery at this time We will continue to follow History of Present Illness Reason for Consultation: Concern for infection s/p left TKA Attending Physician: Dusty Bhatt MD History of Present Illness Mr. Ramirez is a 74 year old male with history of bipartite patella, vitamin D deficiency, peripheral neuropathy, BPH with LUTS, COPD, diabetic nephropathy, reticular tachycardia, hypertension, atrial fibrillation and proteinuria. He recently had left TKA with Dr. Victoria on 10/18/24. He was then discharged to rehab in [place] last evening. Unfortunately, upon arrival to rehab, he was reportedly weak, disoriented and confused, febrile at 101.8F, tachycardic at 103 BPM, and hypertensive at 140/70. Pulse ox noted to be 92% on room air, respiration 24. He was transferred to [facility] where workup concluded post-op infection. He was then transferred back to [facility] and admitted under the hospitalist service. Orthopedics was consulted for further evaluation. Currently, the patient states that he is feeling better than he was. His stomach is a little upset but he has not vomited and he otherwise denies feeling confused or having a headache, light headedness, dizziness, chest pain, cough, shortness of breath or other concerning symptoms. He does note having pain and swelling in his left knee for which he is currently taking Tylenol without much relief. He feels that his previous confusion may have been due to the narcotic pain medication. Allergies Allergy/AdvReac Type Severity Reaction Status Date / Time hyaluronate sodium, Allergy Severe Lips Verified 10/18/24 08:59 stabilized swelling hylan G-F 20 [From Synvisc] Allergy Severe Lips Verified 10/18/24 08:59 swelling celecoxib [From Celebrex] Allergy Unknown Rash Verified 10/18/24 08:59 cephalexin Allergy Unknown Rash Verified 10/18/24 08:59 dicyclomine Allergy Unknown Unknown Verified 10/18/24 08:59 homatropine Allergy Unknown Unknown Verified 10/18/24 08:59 hydrocodone Allergy Unknown Unknown Verified 10/18/24 08:59 meloxicam Allergy Unknown Unknown Verified 10/18/24 08:59 oxycodone [From Percocet] Allergy Unknown Unknown Verified 10/18/24 08:59 pregabalin Allergy Unknown ? Tired, Verified 10/18/24 08:59 listless Penicillins AdvReac Intermediate GI upset Verified 10/18/24 08:59 chlorthalidone AdvReac Mild Listless Verified 10/18/24 08:59 gabapentin AdvReac Mild ? Tired, Verified 10/18/24 08:59 listless pravastatin AdvReac Mild Muscle Pain Verified 10/18/24 08:59 prednisone AdvReac Mild GI upset Verified 10/18/24 08:59 sulfamethoxazole AdvReac Mild GI upset Verified 10/18/24 08:59 trimethoprim AdvReac Mild GI upset Verified 10/18/24 08:59 Home Medications Medication Instructions Recorded Confirmed Type albuterol sulfate 90 mcg/actuation 1 puffs inhalation UD PRN COPD #1 g 07/07/19 10/18/24 History aerosol inhaler lisinopril 40 mg tablet 40 mg PO QPM #90 tabs 07/07/19 10/18/24 History apixaban 5 mg tablet (Eliquis) 5 mg PO BID 02/16/22 10/18/24 History fluticasone 250 mcg-salmeterol 50 1 inh inhalation QAM 02/19/22 10/18/24 History mcg/dose blistr powdr for inhalation (Wixela Inhub) famotidine 20 mg tablet (Pepcid) 20 mg PO QAM 04/13/22 10/18/24 History cyanocobalamin (vitamin B-12) 1,000 mcg PO QAM 07/20/22 10/18/24 History 1,000 mcg tablet (Vitamin B-12) docusate sodium 100 mg capsule 100 mg PO HS 07/20/22 10/18/24 History (Colace) fluticasone propionate 50 1 spray intranasal UD PRN Nasal 07/20/22 10/18/24 History mcg/actuation nasal Congestion spray,suspension diltiazem HCl 180 mg capsule,24 180 mg PO BID 02/15/23 10/18/24 History hr,extended release blood sugar diagnostic (Accu-Chek #600 ea 02/22/23 09/11/24 Rx Jaclyn Plus test strips) pen needle, diabetic 32 gauge x #300 ea 02/22/23 09/11/24 Rx 1" (NovoFine Plus) tamsulosin 0.4 mg capsule 0.4 mg PO DAILY PRN prn 08/12/23 10/18/24 History diphenhydramine HCl 50 mg capsule 50 mg PO HS PRN prn/ sleep 02/03/24 10/18/24 History (Sleep Aid (diphenhydramine)) ascorbic acid (vitamin C) 500 mg 1 g PO QAM 09/05/24 10/18/24 History tablet (Vitamin C) hydrochlorothiazide 25 mg tablet 25 mg PO QAM 09/05/24 10/18/24 History insulin aspart U-100 100 unit/mL 100 unit subcut DAILY #90 mL 09/05/24 10/18/24 Rx (3 mL) subcutaneous pen (Novolog FlexPen U-100 Insulin aspart) metformin 1,000 mg tablet 1,000 mg PO BID 09/05/24 10/18/24 History polyethylene glycol 3350 17 17 g PO DAILY PRN Constipation 09/12/24 10/18/24 History gram/dose oral powder (Miralax) insulin glargine 100 unit/mL (3 64 unit subcut BID 10/18/24 10/18/24 History mL) subcutaneous pen (Lantus Solostar U-100 Insulin) acetaminophen 300 mg-codeine 30 mg 1 - 2 tab PO Q4H PRN pain #20 tabs 10/20/24 Rx tablet cefadroxil 500 mg capsule 500 mg PO Q12H #28 caps 10/20/24 Rx Patient History Medical History Osteoarthritis of left knee Aortic stenosis Echo 05/2023: "Mild" aortic stenosis (ARTI Vmax 2.17 cm, DVI 0.48) Hx of supraventricular tachycardia Nodule of kidney Follows with Dr. Aldridge Dyslipidemia Diabetic nephropathy Arthritis Nocturnal hypoxemia Obesity Chronic kidney disease, stage 2 (mild) Follows with Dr. 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 Per EP office visit (06/03/22): 2.2 second pause noted on telemetry during inpatient stay. 3 more pauses on Zio patch, longest 3.1 seconds, all in atrial fibrillation. "In atrial fibrillation, without any symptoms, he would have to have a pause of 5 seconds to qualify for a pacemaker. No indication for any further intervention at this time. 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 (no chemo or xrt) Surgical History Hx of LASIK History of ankle surgery left ankle hardware present History of left shoulder replacement (01/2023) Family history of reaction to anesthesia Mother- PONV History of carpal tunnel surgery of left wrist Nausea and vomiting after administration of anesthetic agent controlled with meds History of endoscopy History of colonoscopy with polypectomy History of carpal tunnel surgery of right wrist + ulnar nerve surgery History of fusion of cervical spine x2- most recent 2014 History of decompression of median nerve Per records, pt unsure History of decompression of ulnar nerve Right Left ulnar nerve transposition (03/15/24): LMA igel#5 at [facility] History of hernia repair (1957) History of cataract surgery R&L 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 History of urologic surgery (2017) 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 History of cholecystectomy Family History Other Family history of diabetes mellitus in father Social History Smoking Status: Former smoker Tobacco Type: Cigars Second Hand Exposure: No; Do You Dip or Chew Tobacco: No; Hx Alcohol Use: No Hx Substance Use: No Preferred Language: Slovak Communication Ability: Effective Visual Impairment: No Limitations Hearing Ability: Normal Library Technology Instructor Required: No Beliefs That Will Affect Care: None marital status: Current Living Situation: Significant Other current occupational status: retired Feels Safe at Home: Yes Safety Concerns: Feels Safe At This Time Diet: regular Physical Activity Frequency: Does not Exercise Do you think of yourself as: straight/heterosexual Gender Identity: Male Assistive Devices: Cane, CPAP, Glasses and Walker Review of Systems Review of Systems: All systems were reviewed and were negative unless otherwise stated as above in HPI Physical Exam Physical Exam: Resting in bed, no acute distress Musculoskeletal: LLE: Wound vac in place. Dressing C/D/I. Mild edema and erythema about the knee, warm and tender to palpation. There is some fluctuance. Needle aspiration performed at bedside with return of blood. No purulent or abnormal drainage. Anahi/plantar flexion and straight leg raise intact. N/V/I Neurologic: Awake, alert and oriented x 3. Interacting and answering questions appropriately Results & Data Vital Signs (Past 12 Hours) Vital Signs Temp Pulse Pulse Resp BP Pulse Ox O2 Del Method 10/21/24 08:02 93 H 10/21/24 07:39 37.4 C 96 H 24 167/81 H 98 Nasal Cannula 10/21/24 06:00 Nasal Cannula 10/21/24 06:00 37.0 C 90 22 164/80 H 96 Nasal Cannula O2 Flow Rate 10/21/24 08:02 10/21/24 07:39 2 10/21/24 06:00 2 10/21/24 06:00 2 Laboratory Results Knee aspirate and blood cultures pending Laboratory Tests 10/21/24 06:42 WBC 10.51 RBC 3.38 L Hgb 10.9 L Hct 31.5 L Neut # (Auto) 8.64 H Lymph # (Auto) 0.53 L Garden # (Auto) 1.20 H Diagnostic Findings LLE Venous Doppler: No evidence of deep venous thrombus within the left lower extremity CXR: Impression: 1. Hazy air space opacities in left para cardiac region, could be infective/inflammatory. 2. Left CP angle is obscured likely pleural effusion/ thickening. 3. Right lower opacity noted, could be an infection. 4. 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
[2024-10-21] MEDS: LIDOCAINE 2%/EPINEPHRINE 1:200,000 20 ML PF INFIL ONE (12:06)
[2024-10-21] MEDS: ETHYL CHLORIDE AER SPR 100 ML CAN EXT ONE (12:06)
--- NOTE | 2024-10-21 12:13 | Electrocardiogram Report ---
Test Reason : Blood Pressure : */* mmHG Vent. Rate : 91 BPM Atrial Rate : 93 BPM P-R Int : * ms QRS Dur : 96 ms QT Int : 342 ms P-R-T Axes : * 54 53 degrees QTcB Int : 420 ms Atrial fibrillation Abnormal ECG When compared with ECG of 16-Feb-2024 13:34, No significant change was found Confirmed by Gera Archer ([id number]) on 10/21/2024 12:13:03 PM Referred By: Tyesha Aguilar Confirmed By: Gera Archer
[2024-10-21 12:49] LABS: Appearance Synovial Fluid Bloody; Color Synovial Fluid Red; Mononuclear WBC Synovial 2.9 %; Polynuclear WBC Synovial 97.1 %; RBC Synovial Fluid Auto 1780000 /uL; Source Synovial Fluid Knee; WBC Synovial Fluid Auto 28440 /ul (0-200)
--- NOTE | 2024-10-21 14:19 | Hospitalist Progress Note ---
Date of Service October 21, 2024 Assessment & Plan (1) Altered mental status: Plan: Recently discharged to rehab after TKA on 10/20, where he became altered and weak and subsequently sent to the ER and transferred back to [facility] CXR: hazy airspace opacities - infection vs inflammation. Right lower opacity noted, could be infection. no leukocytosis, afebrile. Continue Dapto and Levoquin (multiple allergies) - MRSA nares: Negative. If respiratory becomes confirmed source, can d/c dapto. UA ordered - pending Blood Cultures: pending Covid: negative Encourage IS Wean O2 as able, baseline is room air AM CBC, BMP, Mag (2) History of left knee surgery: Plan: Recent left TKA with Dr. Victoria on 10/18, discharged to rehab and quickly returned to hospital - inital concern for possible infection Orthopedic consult - needle aspiration 10/21 - culture pending - continue wound vac, pressure dressing. - okay for anticoagulation and diet - not procedures plan Left leg doppler: negative for DVT (3) DM type 2 (diabetes mellitus, type 2): Plan: Recent A1c 7.7 Decrease glargine from 64 to 32 units SQ twice daily - with decreased intake and nausea and vomiting SSI added (4) Elevated troponin: Plan: 2117 --> 2583 --> 2671 --> repeat pending Clinically, denies chest pain. Does not feel short of breath, but has increased O2 requirement at 2L EKG: afib, rate 91. No ST changes Repeat EKG: afib with RVR, no major ST elevations, minimal twisting frame changer 3 Echo ordered, pending Cardiology consulted Plan Chronic stable medical conditions: * afib - continue diltiazem and Eliquis * COPD- Continue usual inhalers * SONIDO - continue CPAP Dispo: continued inpatient stay Dvt Proh: Eliquis Offered to call to update family 10/21, pt declined Admission and Anticipated Discharge Date Admission Date: October 21, 2024 Supervising Physician Co-Signing Physician Notes Attending Attestation - Chart reviewed, care plan d/w JARAD Trimble. I agree w/ the malcolm components of her documentation. Appreciate ortho assistance. Dusty Bhatt MD Subjective Patient seen lying in bed - reports that he felt okay when he was leaving, but then when he got to rehab he felt terrible, very out of it and weak. at one point told the staff that he had a procedure on his nose. Was sent to the ER and then transferred back to here not sure if he was given different pain medication there currently on 2L NC - denies CP, SOB or cough is experincing some nausea denies fevers, chills or sweats over night Tele - afib 90s Review of Systems Review of Systems: All systems reviewed & are unremarkable except as noted in Subjective Physical Exam Physical Exam: General: sitting up in bed, dry heaving, VS as above Resp: normal respiratory effort, diminished in bases, no wheezing. increased coughing with deep breathing CV: afib, no murmur, Abd: normal bowel sounds, mild generalized tenderness Extremities: Moves all extremities, left knee is erythematous, slighly warm to touch. no calf tenderness. Left knee dress with small spots of saturation Neuro: A&O x3, Results & Data Results & Data Vital Signs (Past 12 Hours) Vital Signs Temp Pulse Pulse Resp BP Pulse Ox O2 Del Method 10/21/24 08:02 93 H 10/21/24 07:39 99.3 F 96 H 24 167/81 H 98 Nasal Cannula 10/21/24 07:15 Nasal Cannula 10/21/24 06:00 Nasal Cannula 10/21/24 06:00 98.6 F 90 22 164/80 H 96 Nasal Cannula O2 Flow Rate 10/21/24 08:02 10/21/24 07:39 2 10/21/24 07:15 2 10/21/24 06:00 2 10/21/24 06:00 2 Laboratory Results CBC, chemistry reviewed covid reviewed PG Care Time/CCT Total # of Minutes Spent Total Time Spent with Patient: Total time spent is greater than 50% in coordination of care (as documented) at patient's floor/unit and/or counseling patient: Coding Level of Care Code None Diagnoses Altered mental status R41.82 History of left knee surgery Z98.890 DM type 2 (diabetes mellitus, type 2) E11.9 Elevated troponin R79.89
--- NOTE | 2024-10-21 15:29 | XCELERA ---
[id number]
[2024-10-21] MEDS: INSULIN ASPART PER UNIT CHARGE SC SCH (17:44)
[2024-10-21] MEDS: POLYETHYLENE (MIRALAX) 17 GM PACK PO PRN (17:48)
[2024-10-21] MEDS: ALBUT/IPRATROP 3MG/0.5MG NEB 3 ML VIAL NEB PRN (18:04)
[2024-10-21 18:34] LABS: Appearance Urine Clear (Clear); Bacteria Urine Automated None Seen (None Seen); Bilirubin Urine Negative (Negative); Blood Urine Negative (Negative); Cast Urine Automated 0-2 /lpf (0-2); Color Urine Yellow; Epithelial Cell Urine Auto 0-2 /hpf (0-2); Glucose Urine UA Trace (Negative); Ketones Urine 1+ (Negative); Leukocyte Esterase Urine Negative (Negative); Nitrite Urine Negative (Negative); Protein Urine 2+ (Negative); RBC Urine Automated 0-2 /hpf (0-2); Specific Gravity Urine 1.021 (1.000-1.030); Urobilinogen Urine Negative (Negative); WBC Urine Automated 0-5 /hpf (0-5); pH Urine 5.5 (4.5-7.5)
--- NOTE | 2024-10-21 19:39 | Electrocardiogram Report ---
Test Reason : Blood Pressure : */* mmHG Vent. Rate : 102 BPM Atrial Rate : 115 BPM P-R Int : * ms QRS Dur : 102 ms QT Int : 366 ms P-R-T Axes : * 44 62 degrees QTcB Int : 477 ms Atrial fibrillation with rapid ventricular response Nonspecific ST abnormality Abnormal ECG When compared with ECG of 21-Oct-2024 07:27, QT has lengthened Confirmed by Gera Archer ([id number]) on 10/21/2024 7:39:24 PM Referred By: Tyesha Aguilar Confirmed By: Gera Archer
[2024-10-21] MEDS: PANTOprazole 40 MG/10 ML SYR IV SCH (20:35)
[2024-10-21] MEDS: APIXABAN 5 MG TABLET PO SCH (20:37)
[2024-10-22] MEDS: ALBUTEROL HFA 8 GM INHALER INH PRN (05:22)
[2024-10-22 06:38] LABS: Basophils # (auto) 0.03 K/uL (0.00-0.20); Basophils % (auto) 0.3 %; Eosinophils # (auto) 0.06 K/uL (0.00-0.50); Eosinophils % (auto) 0.6 %; Hematocrit (blood only) 29.4 % (42.0-52.0); Hemoglobin 10.2 g/dl (14.0-18.0); Immature Granulocytes # (auto) 0.05 K/uL (0.01-0.20); Immature Granulocytes % (auto) 0.5 %; Lymphocytes # (auto) 0.88 K/uL (1.20-3.40); Lymphocytes % (auto) 8.3 %; Mean Corpuscular Hgb Conc 34.7 g/dL (32.0-36.0); Mean Corpuscular Volume 92.2 fL (80.0-100.0); Mean Platelet Volume 9.4 fL (9.4-12.4); Monocytes # (auto) 1.27 K/uL (0.11-0.59); Neutrophils # (auto) 8.25 K/uL (1.40-6.50); Neutrophils % (auto) 78.3 %; Platelet Count 250 K/uL (130-400); RDW Coefficient of Variation 11.6 % (11.5-14.5); RDW Standard Deviation 39.3 fL (36.4-46.3); Red Blood Count 3.19 M/uL (4.70-6.10); White Blood Count 10.54 K/ul (4.8-10.8)
[2024-10-22 06:55] LABS: Albumin Level 3.2 gm/dl (3.4-5.0); BUN Creatinine Ratio 14.5 (10-20); Bilirubin,Total 1.1 mg/dl (0.2-1.0); Calcium 8.3 mg/dl (8.6-10.3); Globulin 3.2 gm/dl (2.5-4.0); Magnesium 1.7 mg/dl (1.7-2.4); Potassium 3.7 mmol/L (3.5-5.1); Total Protein 6.4 gm/dl (6.0-8.3)
[2024-10-22] MEDS: ACETAMINOPHEN 325 MG TAB PO PRN (08:27)
--- NOTE | 2024-10-22 08:49 | Hospitalist Progress Note ---
Date of Service October 22, 2024 Assessment & Plan (1) Postoperative wound infection: Plan: Received vancomycin IV and Cipro IV in place for ED Admitted on daptomycin IV and levofloxacin IV Patient has multiple allergies to penicillins and cephalosporins (2) History of left knee surgery: Plan: Recent left TKA with Dr. Victoria on 10/18, discharged to rehab and quickly returned to hospital - inital concern for possible infection Orthopedic consult - needle aspiration 10/21 - Gram stain is negative. Culture pending - continue wound vac, pressure dressing. - okay for anticoagulation and diet - not procedures plan Increased pain - patient reticent to try narcotics due to codceine causing confusion. Multiple allergies but patient thinks it may have been GI upset or increased tiredness Will order Oxycodone 5mg PO q4h and watch closely for adverse reaction. Patient remains on telemetry. Will also order lidocaine patch for the patient's mild back pain Discussed plan with orthopedic PA Follow up with patient 3 hours after recieving oxycodone - no rash, SOB, Chest Pain, nausea or vomiting. Patient would like to continue with oxycodone as he has some relief from pain Left leg doppler: negative for DVT (3) Paroxysmal atrial fibrillation: Plan: Telemetry reviewed - Atrial fib in the low 100s. Tachycardia may be from pain Continue Apixaban 5mg PO BID Continue Diltiazem 180mg PO BID Continue to monitor on telemetry for rate control Cardiology consulted. Will defer to them regarding beta blockers or other options regarding rate control (4) Peripheral neuropathy: Plan: Minimal complaints today. Chief complaint is knee pain (5) DM type 2 (diabetes mellitus, type 2): Plan: Recent A1c 7.7 Decrease glargine from 64 to 32 units SQ twice daily - with decreased intake and nausea and vomiting SSI added (6) Altered mental status: Plan: Improved Recently discharged to rehab after TKA on 10/20, where he became altered and weak and subsequently sent to the ER and transferred back to [facility] CXR: hazy airspace opacities - infection vs inflammation. Right lower opacity noted, could be infection. no leukocytosis, afebrile. Continue Dapto and Levoquin (multiple allergies) - MRSA nares: Negative. If respiratory becomes confirmed source, can d/c dapto. UA ordered - pending Blood Cultures: pending Covid: negative Encourage IS Wean O2 as able, baseline is room air (7) Elevated troponin: Plan: 2117 --> 2583 --> 2671 --> repeat pending Clinically, denies chest pain. Does not feel short of breath, but had increased O2 requirement at 2L EKG: afib, rate 91. No ST changes Repeat EKG: afib with RVR, no major ST elevations, minimal change release manager [address] Archer note reviewed: Patient is certainly in a demographic of patients who have coronary disease and that would be the main concern. Preserved LV systolic function without regional wall motion abnormalities. However, given the degree of elevation and his risk factors, Dr. Archer did recommend coronary angiography in the absence of an alternative explanation. Tentatively planning on a procedure tomorrow. (8) Hypoxia: Plan: Hx of COPD as well as SONIDO Reported compliance with CPAP at home Continue CPAP HS and as needed during the day Continue Incentive spirometry SpO2 alberta 88%. Brief tachypnea Does not meet criteria for pulmonary embolism but will continue to monitor Discussed benefit of CTA Chest but for now will avoid dye load as he is expected to get cardiac catheterization tomorrow Plan Continue to monitor on telemetry for A fib and elevated troponin Needs better pain control - BM currently soft. May need bowel regimen as pain control is titrated Anticipate discharge to inpatient rehab Admission and Anticipated Discharge Date Admission Date: October 21, 2024 Supervising Physician Co-Signing Physician Notes Attending Attestation - Chart reviewed, care plan d/w JARAD Johnson. I agree w/ the malcolm components of his documentation. Appreciate ortho assistance. Appreciate cardiology assistance. Thus far the patient's left knee joint fluid culture is negative. Effusion felt to be hemarthrosis in the setting of recent left TKR. To have L heart cath tomorrow due to significantly elevated troponin which has risen to peak of 2671. Agree with plan for left knee pain. Dusty Bhatt MD Subjective Attending: Dr. Bhatt This is a 74-year-old male that was admitted 10/21/2024 for postoperative infection of the knee. Patient underwent total left knee arthroplasty 10/18/2024. Patient was then transferred to rehab where he had change of mental status, weakness and was transferred back to [facility]. Orthopedics was consulted and a needle aspiration was performed 10/21/2023. While culture is pending, Gram stain was negative with no organisms seen. Blood cultures x 2 are pending. Patient continues with wound VAC therapy and pressure dressing. Left lower extremity Doppler was negative for DVT. Patient was in the bedside chair this morning and had significant pain. Has been back in bed since that time. Long discussion regarding narcotics and pain management. Patient resistant to pain meds as he did not like the confusion. Discussed importance of being out of bed and ambulation as tolerated. Patient willing to try Oxcycodone or other narcotics as we will be supervising as an inpatient. Multiple allergies listed but patient unsure what the reaction was. Will trial Oxy and monitor closely. Discussed with [facility] pharmacist as well. Will also order lidocaine patch for back pain. Discussed plan with orthopedic PA Marcelina Shanks and she is onboard. Patient with no acute complaints other than pain at this time Review of Systems 2 Review of Systems: A total of 10 systems was reviewed and is negative other than as listed in the HPI Physical Exam 2 Physical Exam: GENERAL : No acute distress EYES: No icterus, gaze conjugate NOSE: No evidence of epistaxis MOUTH: No lesions or candidiasis NECK: Supple LUNGS: CTA B/L, no wheezes, rales or rhonchi HEART: Regular, rate controlled ABDOMEN: Soft, NT, ND, BS Present BACK: No reproducible pain on examination EXTREMITIES: No LE edema, pedal pulses intact. GORDON wrap around wound vac to left knee. Dressing dry and intact NEURO: A&OX3 Results & Data Results & Data Vital Signs (Past 12 Hours) Vital Signs Temp Pulse Pulse Resp BP Pulse Ox O2 Del Method 10/22/24 07:35 79 18 99 Room Air 10/22/24 05:24 77 18 97 Nasal Cannula 10/22/24 03:34 37.2 C 95 H 20 164/74 H 97 Nasal Cannula 10/22/24 00:00 101 H 10/21/24 23:17 36.9 C 99 H 20 143/76 H 93 Nasal Cannula 10/21/24 22:15 103 H 29 H 94 10/21/24 22:10 92 H 18 88 L Room Air O2 Flow Rate 10/22/24 07:35 10/22/24 05:24 3 10/22/24 03:34 2 10/22/24 00:00 10/21/24 23:17 2 10/21/24 22:15 2 10/21/24 22:10 Laboratory Results 10/22/24 06:08 10/22/24 06:08 Diagnostic Findings Chest X-Ray 10/21/24 06:28 EXAM: XR chest 1V portable CLINICAL HISTORY: HYPOXIA, [facility] TECHNIQUE: X-ray image of the chest obtained in frontal projection. COMPARISON: No prior studies available for comparison. FINDINGS: Pulmonary Parenchyma: Right lower opacity noted, could be an infection. Hazy air space opacities in left nicki cardiac region. Left CP angle is obscured likely pleural effusion/ thickening. No pulmonary nodules identified. Heart and Mediastinum: Heart size and shape are normal. No mediastinal widening or masses. No hilar or mediastinal lymphadenopathy. Bony Thorax: Left shoulder replacement prosthesis. Mild spondylotic changes in thoracic spine. Bony thorax appears intact without fractures or deformities. Soft Tissues: Soft tissues overlying the chest wall are unremarkable. Elevated right dome of diaphragm. Right colon is interposed between the diaphragm and liver. IMPRESSION: 1. Hazy air space opacities in left para cardiac region, could be infective/inflammatory. 2. Left CP angle is obscured likely pleural effusion/ thickening. 3. Right lower opacity noted, could be an infection. 4. 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 Electronically signed by Adelina Gutierrez 10-21-2024 07:33 AM Venous Doppler Study 10/21/24 06:51 LEFT LOWER EXTREMITY VENOUS DOPPLER CLINICAL HISTORY: swelling and pain post op L TKA COMPARISON STUDY: No previous studies for comparison. TECHNIQUE: Sonography of the deep venous system of the left lower extremity was performed. Compression and augmentation were evaluated. FINDINGS: The left common femoral, superficial femoral and popliteal veins were compressible. Augmentation was normal. Flow was shown within the deep calf vessels. IMPRESSION: No evidence of deep venous thrombus within the left lower extremity. ACT 112: Negative or not required by law. Electronically signed by: James Doe M.D. 10/21/2024 9:58 AM PG Care Time/CCT Total # of Minutes Spent Total Time Spent with Patient: Total time spent is greater than 50% in coordination of care (as documented) at patient's floor/unit and/or counseling patient: 40 Coding Level of Care Code 27165 SUB INP/OBS CARE 2/35MIN Diagnoses Postoperative wound infection T81.49XA History of left knee surgery Z98.890 Paroxysmal atrial fibrillation I48.0 Peripheral neuropathy G62.9 DM type 2 (diabetes mellitus, type 2) E11.9 Altered mental status R41.82 Elevated troponin R79.89 Hypoxia R09.02 Time Spent (min) 40
--- NOTE | 2024-10-22 10:08 | Orthopedic Progress Note ---
Date of Service October 22, 2024 Assessment & Plan (1) History of left knee surgery: Plan: -POD #4 s/p left TKA with Dr. Victoria on 10/18/24 -Needle aspiration performed at bedside on 10/21/24 with return of ~10cc dark red blood. No purulent or abnormal drainage. Gram stain with many WBC but no organisms seen, final cultures pending. Suspect this is hemarthrosis and less likely septic joint. Antibiotics per primary pending cultures -Maintain wound VAC and current pressure dressing. VAC to be removed POD #7 -Continue TEDs/SCDs -PT/OT: May WBAT and gentle ROM -Pain medication: Per primary. Would consider trying Tramadol in addition to Tylenol if he is sensitive to other narcotics so that he can continue therapy more comfortably -May continue Eliquis from our standpoint -May continue diet as we do not anticipate additional surgery at this time -D/C planning: Patient is interested in going to [facility] if possible when ready for d/c as opposed to [place] where he was previously discharged to Admission and Anticipated Discharge Date Admission Date: October 21, 2024 Subjective Patient did well over night. He has weaned down to room air and continues to deny chest pain or SOB. He has remained afebrile. He states that his knee is feeling better when he is laying in bed but he is still having a lot of pain when trying to get up and out of bed/in a chair. He has only been taking Tylenol for pain control. He is apprehensive to take other narcotics due to his previous confusion. Discussed maybe trying Tramadol today to see if this might work better for him. Review of Systems Review of Systems: All systems were reviewed and were negative unless otherwise stated as above in HPI Physical Exam Physical Exam: Resting in bed, no acute distress Musculoskeletal: LLE: Wound VAC in place and dressing C/D/I. Dorsi/plantarflexion and straight leg raise intact. No calf tenderness. Compartments soft. N/V/I Skin: 1+ pitting edema LLE Neurologic: Awake, alert and oriented x 3. Interacting and answering questions appropriately Results & Data Vital Signs (Past 12 Hours) Vital Signs Temp Pulse Pulse Resp BP Pulse Ox O2 Del Method 10/22/24 07:35 79 18 99 Room Air 10/22/24 05:24 77 18 97 Nasal Cannula 10/22/24 03:34 37.2 C 95 H 20 164/74 H 97 Nasal Cannula 10/22/24 00:00 101 H 10/21/24 23:17 36.9 C 99 H 20 143/76 H 93 Nasal Cannula 10/21/24 22:15 103 H 29 H 94 10/21/24 22:10 92 H 18 88 L Room Air O2 Flow Rate 10/22/24 07:35 10/22/24 05:24 3 10/22/24 03:34 2 10/22/24 00:00 10/21/24 23:17 2 10/21/24 22:15 2 10/21/24 22:10
[2024-10-22] MEDS: oxyCODONE HCL IR 5 MG TAB (IMMEDIATE RELEASE) PO PRN (12:36)
--- NOTE | 2024-10-22 12:41 | Cardiology Consultation ---
Date of Consultation October 22, 2024 Assessment & Plan (1) Elevated troponin: (2) Paroxysmal atrial fibrillation: (3) Aortic stenosis: Plan 1. Elevated troponin: No symptoms suggestive of coronary insufficiency, anginal or recent NSTEMI. However, this occurred in the perioperative period and could have been related to his surgery. 1 concern would be a pulmonary embolus. I think we will need to perform some evaluation in that regard. He is certainly in a demographic of patients who have coronary disease and that would be the main concern. Preserved LV systolic function without regional wall motion abnormalities. However, given the degree of elevation and his risk factors, I did recommend coronary angiography in the absence of an alternative explanation. I described the procedure to him including the attendant risks. Tentatively planning on a procedure tomorrow. 2. Atrial fibrillation: Permanent. Rate control appears suboptimal although he is in a lot of pain. It seems that he is been maintained on a high dose of diltiazem. I think we can monitor him while he is an inpatient and consider the addition of any more rate control as his other symptoms improved. Will continue systemic anticoagulation. Will interrupt anticoagulation to facilitate his catheterization. 3. Aortic stenosis: Mild previously. Very mild currently. Something that can be followed over time. History of Present Illness Reason for Consultation: Elevated troponin Requesting Physician: Nai Attending Physician: Dusty Bhatt MD History of Present Illness The patient is a 74-year-old gentleman with a history of permanent atrial fibri llation who underwent elective left knee replacement on 10/18/2024. The patient was subsequently discharged to a rehab facility. He continues to have some left knee discomfort but was noted by the nursing staff to become somewhat confused. He was sent to an outside facility where he was noted to have a fever and be confused. There was some concern about a left knee infection and he was subsequ ently returned to [facility]. In the course of his evaluation cardiac troponin was obtained which was elevated. The patient has been unaware of any cardiac symptoms. He does not have a history of cardiac disease with the exception of his atrial fibrillation. He is not aware of atrial fibrillation and this appears to have been diagnosed incidentally. He denies symptoms of chest discomfort or chest pressure. He has not had dyspnea recently or subsequent to his surgery. He does have some mild right flank discomfort which perhaps is worse with deep inspiration. No coughin g. Prior to his surgery his ambulation was limited by left knee pain. He did not do vigorous activity. He also has some right knee arthritis. He uses CPAP at nighttime. He does not describe other orthopnea or difficulty sleeping. He has not been aware of any palpitations. Current complaints include left knee discomfort much worse when the knee is dependent. Allergies Allergy/AdvReac Type Severity Reaction Status Date / Time hyaluronate sodium, Allergy Severe Lips Verified 10/18/24 08:59 stabilized swelling hylan G-F 20 [From Synvisc] Allergy Severe Lips Verified 10/18/24 08:59 swelling celecoxib [From Celebrex] Allergy Unknown Rash Verified 10/18/24 08:59 cephalexin Allergy Unknown Rash Verified 10/18/24 08:59 dicyclomine Allergy Unknown Unknown Verified 10/18/24 08:59 homatropine Allergy Unknown Unknown Verified 10/18/24 08:59 hydrocodone Allergy Unknown Unknown Verified 10/18/24 08:59 meloxicam Allergy Unknown Unknown Verified 10/18/24 08:59 oxycodone [From Percocet] Allergy Unknown Unknown Verified 10/18/24 08:59 pregabalin Allergy Unknown ? Tired, Verified 10/18/24 08:59 listless Penicillins AdvReac Intermediate GI upset Verified 10/18/24 08:59 chlorthalidone AdvReac Mild Listless Verified 10/18/24 08:59 gabapentin AdvReac Mild ? Tired, Verified 10/18/24 08:59 listless pravastatin AdvReac Mild Muscle Pain Verified 10/18/24 08:59 prednisone AdvReac Mild GI upset Verified 10/18/24 08:59 sulfamethoxazole AdvReac Mild GI upset Verified 10/18/24 08:59 trimethoprim AdvReac Mild GI upset Verified 10/18/24 08:59 Home Medications Medication Instructions Recorded Confirmed Type albuterol sulfate 90 mcg/actuation 1 puffs inhalation UD PRN COPD #1 g 07/07/19 10/18/24 History aerosol inhaler lisinopril 40 mg tablet 40 mg PO QPM #90 tabs 07/07/19 10/18/24 History apixaban 5 mg tablet (Eliquis) 5 mg PO BID 02/16/22 10/18/24 History fluticasone 250 mcg-salmeterol 50 1 inh inhalation QAM 02/19/22 10/18/24 History mcg/dose blistr powdr for inhalation (Wixela Inhub) famotidine 20 mg tablet (Pepcid) 20 mg PO QAM 04/13/22 10/18/24 History cyanocobalamin (vitamin B-12) 1,000 mcg PO QAM 07/20/22 10/18/24 History 1,000 mcg tablet (Vitamin B-12) docusate sodium 100 mg capsule 100 mg PO HS 07/20/22 10/18/24 History (Colace) fluticasone propionate 50 1 spray intranasal UD PRN Nasal 07/20/22 10/18/24 History mcg/actuation nasal Congestion spray,suspension diltiazem HCl 180 mg capsule,24 180 mg PO BID 02/15/23 10/18/24 History hr,extended release blood sugar diagnostic (Accu-Chek #600 ea 02/22/23 09/11/24 Rx Jaclyn Plus test strips) pen needle, diabetic 32 gauge x #300 ea 02/22/23 09/11/24 Rx 1/6" (NovoFine Plus) tamsulosin 0.4 mg capsule 0.4 mg PO DAILY PRN prn 08/12/23 10/18/24 History diphenhydramine HCl 50 mg capsule 50 mg PO HS PRN prn/ sleep 02/03/24 10/18/24 History (Sleep Aid (diphenhydramine)) ascorbic acid (vitamin C) 500 mg 1 g PO QAM 09/05/24 10/18/24 History tablet (Vitamin C) hydrochlorothiazide 25 mg tablet 25 mg PO QAM 09/05/24 10/18/24 History insulin aspart U-100 100 unit/mL 100 unit subcut DAILY #90 mL 09/05/24 10/18/24 Rx (3 mL) subcutaneous pen (Novolog FlexPen U-100 Insulin aspart) metformin 1,000 mg tablet 1,000 mg PO BID 09/05/24 10/18/24 History polyethylene glycol 3350 17 17 g PO DAILY PRN Constipation 09/12/24 10/18/24 History gram/dose oral powder (Miralax) insulin glargine 100 unit/mL (3 64 unit subcut BID 10/18/24 10/18/24 History mL) subcutaneous pen (Lantus Solostar U-100 Insulin) acetaminophen 300 mg-codeine 30 mg 1 - 2 tab PO Q4H PRN pain #20 tabs 10/20/24 Rx tablet cefadroxil 500 mg capsule 500 mg PO Q12H #28 caps 10/20/24 Rx Patient History Medical History Osteoarthritis of left knee Aortic stenosis Echo 05/2023: "Mild" aortic stenosis (ARTI Vmax 2.17 cm, DVI 0.48) Hx of supraventricular tachycardia Nodule of kidney Follows with Dr. Aldridge Dyslipidemia Diabetic nephropathy Arthritis Nocturnal hypoxemia Obesity Chronic kidney disease, stage 2 (mild) Follows with Dr. 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 Per EP office visit (06/03/22): 2.2 second pause noted on telemetry during inpatient stay. 3 more pauses on Zio patch, longest 3.1 seconds, all in atrial fibrillation. "In atrial fibrillation, without any symptoms, he would have to have a pause of 5 seconds to qualify for a pacemaker. No indication for any further intervention at this time. 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 (no chemo or xrt) Surgical History Hx of LASIK History of ankle surgery left ankle hardware present History of left shoulder replacement (01/2023) Family history of reaction to anesthesia Mother- PONV History of carpal tunnel surgery of left wrist Nausea and vomiting after administration of anesthetic agent controlled with meds History of endoscopy History of colonoscopy with polypectomy History of carpal tunnel surgery of right wrist + ulnar nerve surgery History of fusion of cervical spine x2- most recent 2014 History of decompression of median nerve Per records, pt unsure History of decompression of ulnar nerve Right Left ulnar nerve transposition (03/15/24): LMA igel#5 at [facility] History of hernia repair (195) History of cataract surgery R&L 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 History of urologic surgery (2016) 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 History of cholecystectomy Family History Other Family history of diabetes mellitus in father Social History Smoking Status: Former smoker Tobacco Type: Cigars Second Hand Exposure: No; Do You Dip or Chew Tobacco: No; Hx Alcohol Use: No Hx Substance Use: No Preferred Language: Swedish Communication Ability: Effective Visual Impairment: No Limitations Hearing Ability: Normal Payroll Benefits Clerk Required: No Beliefs That Will Affect Care: None marital status: Current Living Situation: Significant Other current occupational status: retired Feels Safe at Home: Yes Safety Concerns: Feels Safe At This Time Diet: regular Physical Activity Frequency: Does not Exercise Do you think of yourself as: straight/heterosexual Gender Identity: Male Assistive Devices: Cane, CPAP, Glasses and Walker Review of Systems Review of Systems: Per HPI. Physical Exam Physical Exam: The patient is alert and oriented. Mood and affect appeared normal. He answered all questions appropriately. HEENT: Pupils are equal and reactive to light and accommodation. Extraocular movements are intact. The sclerae are anicteric. Neuro: Cranial nerves intact Lungs: Clear to auscultation bilaterally. He has good air movement without use of accessory muscles. No rales wheezes or rhonchi. Cardiac: Heart demonstrates a regular rate and rhythm. Normal S1 and S2. No murmurs on examination. Pulses: The patient has palpable radial pulses bilaterally that are equal in intensity Extremities: There was no evidence of hypoperfusion. There is no cyanosis or clubbing. No edema in the right leg but he is wearing surgical stockings. Notable edema involving the left leg. Skin: I did not appreciate any rashes on examination today. Results & Data Vital Signs (Past 12 Hours) Vital Signs Temp Pulse Pulse Resp BP Pulse Ox O2 Del Method 10/22/24 11:38 36.9 C 101 H 18 145/74 H 95 Room Air 10/22/24 08:28 Nasal Cannula 10/22/24 07:35 79 18 99 Room Air 10/22/24 05:24 77 18 97 Nasal Cannula 10/22/24 03:34 37.2 C 95 H 20 164/74 H 97 Nasal Cannula O2 Flow Rate 10/22/24 11:38 10/22/24 08:28 2 10/22/24 07:35 10/22/24 05:24 3 10/22/24 03:34 2 Laboratory Results Abnormal Lab Results 10/21/24 10/21/24 10/21/24 11:55 12:50 16:21 WBC RBC Hgb Hct MCV MCH MCHC RDW Std Deviation RDW Coeff of Beatriz Plt Count MPV Immature Gran % (Auto) Neut % (Auto) Lymph % (Auto) [place] % (Auto) Eos % (Auto) Baso % (Auto) Neut # (Auto) Lymph # (Auto) [place] # (Auto) Eos # (Auto) Baso # (Auto) Immature Gran # (Auto) Sodium Potassium Chloride Carbon Dioxide Anion Gap BUN Creatinine Est Cr Clr Drug Dosing eGFR BUN/Creatinine Ratio Glucose POC Glucose 216 H Calcium Magnesium Total Bilirubin AST ALT Alkaline Phosphatase Troponin I High Sens 2077.0 H* D Total Protein Albumin Globulin Albumin/Globulin Ratio Urine Color Urine Appearance Urine pH Ur Specific [place] Urine Protein Urine Glucose (UA) Urine Ketones Urine Blood Urine Nitrite Urine Bilirubin Urine Urobilinogen Ur Leukocyte Esterase Urine WBC (Auto) Urine RBC (Auto) U Hyaline Cast (Auto) U Epithel Cells (Auto) Urine Bacteria (Auto) Synovial Source Knee Synovial Color Red Synovial Appearance Bloody Synovial WBC (Auto) 12516 H Synovial RBC (Auto) [id number] Synovial Polynuclear % 97.1 Synovial Mononuclear % 2.9 10/21/24 10/21/24 10/21/24 16:31 17:21 20:13 WBC RBC Hgb Hct MCV MCH MCHC RDW Std Deviation RDW Coeff of Beatriz Plt Count MPV Immature Gran % (Auto) Neut % (Auto) Lymph % (Auto) [place] % (Auto) Eos % (Auto) Baso % (Auto) Neut # (Auto) Lymph # (Auto) [place] # (Auto) Eos # (Auto) Baso # (Auto) Immature Gran # (Auto) Sodium Potassium Chloride Carbon Dioxide Anion Gap BUN Creatinine Est Cr Clr Drug Dosing eGFR BUN/Creatinine Ratio Glucose POC Glucose 220 H 209 H Calcium Magnesium Total Bilirubin AST ALT Alkaline Phosphatase Troponin I High Sens Total Protein Albumin Globulin Albumin/Globulin Ratio Urine Color Yellow Urine Appearance Clear Urine pH 5.5 Ur Specific [place] 1.021 Urine Protein 2+ H Urine Glucose (UA) Trace H Urine Ketones 1+ H Urine Blood Negative Urine Nitrite Negative Urine Bilirubin Negative Urine Urobilinogen Negative Ur Leukocyte Esterase Negative Urine WBC (Auto) 0-5 Urine RBC (Auto) 0-2 U Hyaline Cast (Auto) 0-2 U Epithel Cells (Auto) 0-2 Urine Bacteria (Auto) None Seen Synovial Source Synovial Color Synovial Appearance Synovial WBC (Auto) Synovial RBC (Auto) Synovial Polynuclear % Synovial Mononuclear % 10/22/24 10/22/24 10/22/24 06:08 08:25 12:09 WBC 10.54 RBC 3.19 L Hgb 10.2 L Hct 29.4 L MCV 92.2 MCH 32.0 MCHC 34.7 RDW Std Deviation 39.3 RDW Coeff of Beatriz 11.6 Plt Count 250 MPV 9.4 Immature Gran % (Auto) 0.5 Neut % (Auto) 78.3 Lymph % (Auto) 8.3 [place] % (Auto) 12.0 Eos % (Auto) 0.6 Baso % (Auto) 0.3 Neut # (Auto) 8.25 H Lymph # (Auto) 0.88 L [place] # (Auto) 1.27 H Eos # (Auto) 0.06 Baso # (Auto) 0.03 Immature Gran # (Auto) 0.05 Sodium 132 L Potassium 3.7 Chloride 97 L Carbon Dioxide 28 Anion Gap 7 BUN 12 Creatinine 0.83 Est Cr Clr Drug Dosing 100.0 eGFR 90.71 BUN/Creatinine Ratio 14.5 Glucose 189 H POC Glucose 187 H 295 H Calcium 8.3 L Magnesium 1.7 Total Bilirubin 1.1 H AST 26 ALT 25 Alkaline Phosphatase 50 Troponin I High Sens Total Protein 6.4 Albumin 3.2 L Globulin 3.2 Albumin/Globulin Ratio 1.0 Urine Color Urine Appearance Urine pH Ur Specific [place] Urine Protein Urine Glucose (UA) Urine Ketones Urine Blood Urine Nitrite Urine Bilirubin Urine Urobilinogen Ur Leukocyte Esterase Urine WBC (Auto) Urine RBC (Auto) U Hyaline Cast (Auto) U Epithel Cells (Auto) Urine Bacteria (Auto) Synovial Source Synovial Color Synovial Appearance Synovial WBC (Auto) Synovial RBC (Auto) Synovial Polynuclear % Synovial Mononuclear % Diagnostic Findings Chest x-ray obtained at the time of admission revealed some nonspecific opacities involving the right lower lung and left pericardiac region. Elevated right diaphragm Echocardiogram 10/21/2024: Normal LV systolic function with ejection fraction 55 to 60%. Mild LVH. Mild aortic stenosis. Mildly elevated right ventricular systolic pressure 40 to 50 mmHg PG Care Time/CCT Total # of Minutes Spent Total Time Spent with Patient: Total time spent is greater than 50% in coordination of care (as documented) at patient's floor/unit and/or counseling patient: Coding Level of Care Code 22890 INT INP/OBS CARE 3/75MIN Diagnoses Elevated troponin R79.89 Paroxysmal atrial fibrillation I48.0 Aortic stenosis I35.0
[2024-10-22] MEDS: LIDOCAINE 5% 1 PATCH TD STA (14:14)
--- NOTE | 2024-10-22 16:12 | XRay Report ---
EXAM: Radiograph of the Chest 1 View INDICATION: Cough. TECHNIQUE: Frontal view of the chest. COMPARISON: 10/21/2024 FINDINGS: Lungs and pleural spaces: Persistent but slightly improved patchy lower lung zone infiltrates with stable underlying vascular congestion. No significant pleural effusion. No pneumothorax. Heart: Stable cardiac shadow. Mediastinum: Normal contour. Bones/joints: No fracture, erosion or dislocation. Soft tissues: No abnormality noted. No radiopaque foreign body noted. Upper abdomen: Stable right diaphragmatic elevation with subjacent prominent colonic aeration. IMPRESSION: Persistent but slightly improved patchy bilateral lower lung zone infiltrates with stable underlying vascular congestion. ACT 112: Negative or not required by law. Electronically signed by Hortencia Landry 10-22-2024 4:11 PM
[2024-10-22] MEDS: ENOXAPARIN INJ 120 MG/0.8 ML SYR SQ ONE (21:52)
[2024-10-22] MEDS: guaiFENesin 600 MG TABCR PO SCH (21:53)
[2024-10-23 08:34] LABS: Basophils # (auto) 0.03 K/uL (0.00-0.20); Basophils % (auto) 0.3 %; Eosinophils % (auto) 1.1 %; Hematocrit (blood only) 29.1 % (42.0-52.0); Hemoglobin 10.2 g/dl (14.0-18.0); Immature Granulocytes # (auto) 0.08 K/uL (0.01-0.20); Immature Granulocytes % (auto) 0.9 %; Mean Corpuscular Hemoglobin 32.2 pg (25.0-34.0); Mean Corpuscular Hgb Conc 35.1 g/dL (32.0-36.0); Mean Corpuscular Volume 91.8 fL (80.0-100.0); Mean Platelet Volume 9.2 fL (9.4-12.4); Monocytes # (auto) 1.14 K/uL (0.11-0.59); Monocytes % (auto) 12.5 %; Neutrophils # (auto) 6.68 K/uL (1.40-6.50); Neutrophils % (auto) 73.2 %; Platelet Count 274 K/uL (130-400); RDW Coefficient of Variation 11.6 % (11.5-14.5); RDW Standard Deviation 39.4 fL (36.4-46.3); Red Blood Count 3.17 M/uL (4.70-6.10); White Blood Count 9.13 K/ul (4.8-10.8)
[2024-10-23 08:51] LABS: BUN Creatinine Ratio 17.6 (10-20); Bilirubin,Total 0.9 mg/dl (0.2-1.0); Calcium 8.3 mg/dl (8.6-10.3); Globulin 3.1 gm/dl (2.5-4.0); Magnesium 1.9 mg/dl (1.7-2.4); Potassium 3.6 mmol/L (3.5-5.1); Total Protein 6.1 gm/dl (6.0-8.3)
--- NOTE | 2024-10-23 10:18 | Pre Anesthesia Assessment ---
Date of Service October 23, 2024 Pre Sedation Assessment Vital Signs Temp Pulse Pulse Pulse Resp BP BP 10/23/24 09:42 96 H 18 139/68 10/23/24 07:49 10/23/24 07:29 37.1 C 93 H 20 155/70 H 10/23/24 05:02 90 22 10/23/24 03:59 37.3 C 86 20 158/74 H 10/22/24 23:56 37.4 C 101 H 20 154/77 H 10/22/24 23:51 96 H 22 10/22/24 22:00 102 H 10/22/24 20:30 37.4 C 99 H 20 168/77 H 10/22/24 20:00 10/22/24 15:49 90 10/22/24 15:48 37.7 C H 98 H 18 173/67 H 10/22/24 13:10 77 19 10/22/24 11:38 36.9 C 101 H 18 145/74 H Pulse Ox O2 Del Method O2 Flow Rate 10/23/24 09:42 92 Room Air 10/23/24 07:49 Nasal Cannula 2 10/23/24 07:29 93 CPAP 10/23/24 05:02 95 2 10/23/24 03:59 92 Nasal Cannula, CPAP 2 10/22/24 23:56 93 CPAP 2 10/22/24 23:51 96 2 10/22/24 22:00 10/22/24 20:30 92 Nasal Cannula 2 10/22/24 20:00 Nasal Cannula 2 10/22/24 15:49 10/22/24 15:48 96 Room Air 10/22/24 13:10 93 Room Air 10/22/24 11:38 95 Room Air Cardiovascular + irregularly irregular Respiratory + respiratory effort normal Pre-Sedation Airway Assessment Smoking Status: Former smoker Hx Sleep Apnea: Yes Hx Difficult Intubation: No Short, Thick Neck: No Thyromental Distance: > or= 3.5 Finger Breadths Oral Cavity: + WNL Mallampati Class: III ASA: ASA3 NPO Status Date of Last Intake of Fluids: 10/22/24 Time of Last Intake of Fluids: 20:00 Date of Last Intake of Solid Food: 10/22/24 Time of Last Intake of Solid Foods: 20:00 Procedure Planning Contraindications for Sedation: none Current Medications Reviewed: Yes Notes The planned sedation has been discussed with the patient. Informed Consent was obtained. I have identified the patient, determined the appropriateness of sedation and have assessed the patient immediately prior to the procedure. All medicine(s) and interventions are by my order.
[2024-10-23] MEDS: HEPARIN (PORCINE) 1000 UNIT/ML 10 ML (CATH LAB USE ONLY) ONE ×3 (10:38→10:41)
[2024-10-23] MEDS: niCARdipine 2,000 MCG/20 ML SYR ONE (10:39)
[2024-10-23] MEDS: NITROGLYCERIN/D5W 100MCG/ML 20ML SYR ONE (10:39)
[2024-10-23] MEDS: MIDAZOLAM HCL 1 MG/ML 2ML VIAL ONE ×2 (11:06→14:05)
[2024-10-23] MEDS: OPTIRAY 350 ONE (11:07)
[2024-10-23] MEDS: fentaNYL citrate PF 100 MCG/2 ML VIAL ONE (11:07)
--- NOTE | 2024-10-23 11:14 | Post Anesthesia Assessment ---
Date of Service October 23, 2024 Post Sedation Assessment Vital Signs Temp Pulse Pulse Pulse Resp BP BP 10/23/24 11:07 90 10/23/24 09:42 96 H 18 139/68 10/23/24 07:49 10/23/24 07:29 37.1 C 93 H 20 155/70 H 10/23/24 05:02 90 22 10/23/24 03:59 37.3 C 86 20 158/74 H 10/22/24 23:56 37.4 C 101 H 20 154/77 H 10/22/24 23:51 96 H 22 10/22/24 22:00 102 H 10/22/24 20:30 37.4 C 99 H 20 168/77 H 10/22/24 20:00 10/22/24 15:49 90 10/22/24 15:48 37.7 C H 98 H 18 173/67 H 10/22/24 13:10 77 19 10/22/24 11:38 36.9 C 101 H 18 145/74 H Pulse Ox O2 Del Method O2 Flow Rate 10/23/24 11:07 10/23/24 09:42 92 Room Air 10/23/24 07:49 Nasal Cannula 2 10/23/24 07:29 93 CPAP 10/23/24 05:02 95 2 10/23/24 03:59 92 Nasal Cannula, CPAP 2 10/22/24 23:56 93 CPAP 2 10/22/24 23:51 96 2 10/22/24 22:00 10/22/24 20:30 92 Nasal Cannula 2 10/22/24 20:00 Nasal Cannula 2 10/22/24 15:49 10/22/24 15:48 96 Room Air 10/22/24 13:10 93 Room Air 10/22/24 11:38 95 Room Air Recovery Score Activity: Moves 4 extremities Respiration: Deep Breath/Cough Circulation: +/-20% PreAnes Value Consciousness: Fully Awake Oxygen Saturation: > 92% On Room Air Discharge Sedation Level of Care: Fast Track Phase II Post Sedation Plan On clinical assessment, the patient appears to have tolerated the sedation without complications. Patient is recovering as anticipated. Patient will continue to be monitored by nursing and may be discharged when sedation discharge criteria are met per below protocol. Upon Completions of procedure up to 15 minutes continue every 5 minute vital signs and the P.A.R. score; then discharge to a Phase I or Fast Track to Phase II per the following guidelines: * Discharge Patient to appropriate Phase II area if PAR is 8 or greater or return to pre- procedure baseline. The post - procedure orders will be as directed. * If PAR score is less than 8 or not return to pre-procedure baseline then patient will follow Phase I monitoring till PAR is reached for Phase II. The Phase I may be done in procedure room or may call to secure a Phase I area. * If naloxone or flumazenil are used for reversal, hold in Phase I for continued monitoring from when last reversal dose was given for a minimum of 60 minutes or longer pending the nurse and/or physician discretion of patient condition before discharge to Phase II. Please call the Sedation Physician to re-evaluate and complete post-note for discharge to Phase II area. Do NOT discharge from procedure sedation or Phase 1 until post- sedation evaluation note is complete by procedure /sedation MD Sedation Discharge Instructions to be given to the patient at discharge to home.
--- NOTE | 2024-10-23 11:15 | Cardiac Catheterization ---
[facility] Data: Pharmacy Affairs Assistant Cardiac Status Clinical evaluation leading to the procedure CAD Presenation: Non STEMI Diagnostic Physicians Name: Gera Archer MD Closure Device Recommendations: CABG Cardiac Cath Procedure Full Procedure Date October 23, 2024 Pre-Procedure Diagnosis Pre-Procedure Diagnosis: Non STEMI AUC Score AUC Score: 7 Post-Procedure Diagnosis Post-Procedure Diagnosis: Severe CAD Procedure(s) Performed Procedure(s) Performed: Coronary Angiography and Left Heart Cath Appraisal Manager Gera Archer MD Estimated Blood Loss Estimated Blood Loss: 7cc Medication(s) Medication(s): Fentanyl, Heparin, Lidocaine 1%, Nicardipine, Nitroglycerin and Versed Summary of Findings Procedure performed: Left heart catheterization, selective coronary angiography Staff brothel keeper: Gera Archer MD Indication: The patient is a 74-year-old gentleman without a known history of cardiac disease who recently underwent a left knee replacement. He was brought back to the hospital due to concerns of knee infection. Cardiac biomarkers were obtained and markedly elevated. Based on his risk factors and biomarker elevation he was advised to consider coronary angiography today. Procedure in detail: The patient was informed of the risks benefits and alternatives to the intended procedure, he understood such and wished to proceed. He was taken to the cardiac catheterization suite in a fasting state. Conscious sedation was administered per protocol and the patient was monitored electrocardiographically throughout today's procedure. The right wrist area was prepped and draped in usual sterile fashion. This area was anesthetized using subcutaneous administration of a lidocaine solution. The right radial artery was then accessed using Seldinger technique, and a arterial sheath was placed at this site over a guidewire. The sheath was used to facilitate passage of the cardiac catheter for coronary angiography and left heart catheterization. Coronary angiogram was then obtained in multiple orthogonal views prior to removal of the catheter. At the conclusion of the procedure the sheath was removed and hemostasis was achieved at the access site using manual pressure. The patient tolerated procedure well, there were no immediate complications. Equipment used: 5 [place] 4 Findings: Coronary angiography Left Main: Left main was normal in size and caliber and effectively trifurcated into the left anterior descending, large ramus intermedius and large circumflex. No significant disease in this vessel. Left anterior descending: left anterior descending was a large vessel with a significant stenosis in its proximal portion estimated at 70%. It produced 2 diminutive and heavily diseased diagonal branches. There appeared to be a 60- 70% stenosis in its midportion as well. Ramus intermedius: Ramus intermedius was a large vessel with a diseased segment in its proximal portion estimated at 70% stenosis. Left circumflex: Left circumflex was a very large dominant vessel. It was heavily diseased throughout its course but the maximum stenosis appeared to be 50-60%. Right coronary: Right coronary was a nondominant vessel which was heavily diseased. Impression: Severe obstructive coronary disease involving the proximal LAD, proximal ramus intermedius and branch of OM2 Normal left ventricular filling pressures Left dominant coronary system Hemodynamics Rest Ao:: 100/55 mmHg Final Ao: 131/68 mmHg LV: 117/2 millimeters mercury Left ventricular end-diastolic pressure 11 mmHg Recommendations Recommendations: CABG Specimens Specimens: None Radiation Exposure (mGy) 812 Contrast (mls) 40 Procedural Complication(s) None Disposition PCU I attest to the content of the Intraoperative Record and any orders documented therein. Any exceptions are noted below. [facility] Card Cath Procedure Codes Cardiac Catheterization Procedure 1: Cardiovascular Cath Procedures: 44754 Coronaries and LHC (+/-LV) Moderate Sedation Procedure 1: Sedation/Anesthesia: 02838 Mod Sedation by the same physician;Init15 Min Child Age 5 & Up Procedure 2: Sedation/Anesthesia: 66623 Mod Sedation by the same physician; Ea [id number] Minutes PG Care Time/CCT Total # of Minutes Spent Total Time Spent with Patient: Total time spent is greater than 50% in coordination of care (as documented) at patient's floor/unit and/or counseling patient:
--- NOTE | 2024-10-23 11:19 | Post Anesthesia Assessment ---
Date of Service October 23, 2024 Post Sedation Assessment Vital Signs Temp Pulse Pulse Pulse Resp BP BP 10/23/24 11:07 90 10/23/24 09:42 96 H 18 139/68 10/23/24 07:49 10/23/24 07:29 37.1 C 93 H 20 155/70 H 10/23/24 05:02 90 22 10/23/24 03:59 37.3 C 86 20 158/74 H 10/22/24 23:56 37.4 C 101 H 20 154/77 H 10/22/24 23:51 96 H 22 10/22/24 22:00 102 H 10/22/24 20:30 37.4 C 99 H 20 168/77 H 10/22/24 20:00 10/22/24 15:49 90 10/22/24 15:48 37.7 C H 98 H 18 173/67 H 10/22/24 13:10 77 19 10/22/24 11:38 36.9 C 101 H 18 145/74 H Pulse Ox O2 Del Method O2 Flow Rate 10/23/24 11:07 10/23/24 09:42 92 Room Air 10/23/24 07:49 Nasal Cannula 2 10/23/24 07:29 93 CPAP 10/23/24 05:02 95 2 10/23/24 03:59 92 Nasal Cannula, CPAP 2 10/22/24 23:56 93 CPAP 2 10/22/24 23:51 96 2 10/22/24 22:00 10/22/24 20:30 92 Nasal Cannula 2 10/22/24 20:00 Nasal Cannula 2 10/22/24 15:49 10/22/24 15:48 96 Room Air 10/22/24 13:10 93 Room Air 10/22/24 11:38 95 Room Air Recovery Score Activity: Moves 4 extremities Respiration: Deep Breath/Cough Circulation: +/-20% PreAnes Value Consciousness: Fully Awake Oxygen Saturation: > 92% On Room Air Discharge Sedation Level of Care: Fast Track Phase II Post Sedation Plan On clinical assessment, the patient appears to have tolerated the sedation without complications. Patient is recovering as anticipated. Patient will continue to be monitored by nursing and may be discharged when sedation discharge criteria are met per below protocol. Upon Completions of procedure up to 15 minutes continue every 5 minute vital signs and the P.A.R. score; then discharge to a Phase I or Fast Track to Phase II per the following guidelines: * Discharge Patient to appropriate Phase II area if PAR is 8 or greater or return to pre- procedure baseline. The post - procedure orders will be as directed. * If PAR score is less than 8 or not return to pre-procedure baseline then patient will follow Phase I monitoring till PAR is reached for Phase II. The Phase I may be done in procedure room or may call to secure a Phase I area. * If naloxone or flumazenil are used for reversal, hold in Phase I for continued monitoring from when last reversal dose was given for a minimum of 60 minutes or longer pending the nurse and/or physician discretion of patient condition before discharge to Phase II. Please call the Sedation Physician to re-evaluate and complete post-note for discharge to Phase II area. Do NOT discharge from procedure sedation or Phase 1 until post- sedation evaluation note is complete by procedure /sedation MD Sedation Discharge Instructions to be given to the patient at discharge to home. [facility] Procedure Codes (Charges) Indication for Procedure Indication for procedure: NSTEMI Sedation/Anesthesia Procedure 1: Sedation/Anesthesia: 45744 Mod Sedation by a different physician ;Init15 Min Child Age 5&Up (start 1051) Total Sedation Time (minutes): 17 Procedure 2: Sedation/Anesthesia: 36411 Mod Sedation by a different physician;Ea Additional 15 Minutes (additional 2 mins, end 1106)
--- NOTE | 2024-10-23 11:47 | Cardiac Catheterization ---
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 Archer) Diagnostic Physicians Name: Huey Pacheco MD, PhD Closure Device Percutaneous Entry Location: Radial Closure Device: Radial Band Recommendations: CABG Cardiac Cath Procedure Full Procedure Date October 23, 2024 Pre-Procedure Diagnosis Pre-Procedure Diagnosis: Non STEMI AUC Score AUC Score: 08 Post-Procedure Diagnosis Post-Procedure Diagnosis: Severe CAD Procedure(s) Performed Procedure(s) Performed: Procedure (IFR-LAD) Celery Stripper Huey Pacheco MD, PhD Estimated Blood Loss Estimated Blood Loss: 2 cc Medication(s) Medication(s): Fentanyl, Heparin and Versed Summary of Findings Brief description: Patient was already sedated and underwent diagnostic coronary angiography via the right radial artery access. That procedure was performed by Dr. Archer. Patient had a 6 Slovenian radial artery glide sheath in place. I was asked to perform IFR analysis of the LAD. Additional sedation was provided with fentanyl and Versed. Additional heparin was also provided. A 6 Slovenian EBU 3.0 guide catheter was used to engage the left main coronary. Coronary angiography was performed. The Omni Doppler wave wire was advanced and positioned with the transducer just distal to the guide catheter tip. System was flushed with normal saline and then the pressures were equalized. Guidewire was then advanced into the LAD and positioned with the transducer just distal to the second proximal LAD stenosis. iFR was sampled 3 times. The guidewire was removed and final angiographic evaluation was performed. Guide catheter was then removed over the J-wire. Radial artery sheath was removed. Hemostasis was obtained using the TR band. Patient was hemodynamically stable and asymptomatic. He was returned to the recovery area. This ended the case. Coronary angiography and IFR of LAD findings: IFR equals 0.77, 0.72, and 0.73. Therefore, the proximal LAD has hemodynamically significant stenosis. LAD-there is an ostial to proximal 80% stenosis followed by a tandem 60% stenosis. The mid segment has a focal 80% stenosis and distally as the vessel approaches the apex it is subtotally occluded filling late via left to left collaterals and through the subtotal occlusion. (SUJIT I flow in this segment) No evidence of dissection or perforation post IFR analysis Summary: 1. IFR analysis of the ostial to proximal LAD demonstrates this is hemodynamically significant. 2. Taken as a whole, patient has severe multivessel coronary artery disease. See Dr. Archer's diagnostic report for full angiography. We recommend referral to tertiary center regarding surgical revascularization. 3. Guideline directed medical therapy for secondary prevention of coronary disease Hemodynamics Rest Ao:: 122/51 mmHg Final Ao: 111/45 mmHg LV: Not performed Recommendations Recommendations: CABG Radiation Exposure (mGy) 1717 mGy, fluoroscopy time 6.5 minutes Contrast (mls) 35 cc Anesthesia 1 mg Versed, 25 mcg fentanyl IV. Start time 1051, end time 1106 Procedural Complication(s) None Disposition Ornamental Ironworking Supervisor Holding/Recovery I attest to the content of the Intraoperative Record and any orders documented therein. Any exceptions are noted below. [facility] Card Cath Procedure Codes Cardiac Catheterization Procedure 1: Cardiovascular Cath Procedures: 97346 (Doppler) Pressure Wire Addl vess el (iFR, CPT 50899) Moderate Sedation Procedure 1: Sedation/Anesthesia: 88257 Mod Sedation by a different physician ;Init15 Min Child Age 5&Up (Initial 15 min, start time 1051) PG Care Time/CCT Total # of Minutes Spent Total Time Spent with Patient: Total time spent is greater than 50% in coordination of care (as documented) at patient's floor/unit and/or counseling patient:
--- NOTE | 2024-10-23 16:28 | Hospitalist Progress Note ---
Date of Service October 23, 2024 Assessment & Plan (1) History of left knee surgery: Plan: Recent left TKA with Dr. Victoria on 10/18, discharged to rehab and quickly returned to hospital - inital concern for possible infection Orthopedic consult - needle aspiration 10/21 - Gram stain is negative. Culture prelim negative. - continue wound vac, pressure dressing. - okay for anticoagulation and diet - not procedures plan Continue Oxycodone PO q4h for pain. Left leg doppler: negative for DVT On IV daptomycin and IV Levofloxacin currently. Continue pending final knee culture pt w/ multiple allergies to PCN and cephalosporins BC neg at 48h gricelda. (2) Postoperative wound infection: Plan: see plan above (3) Paroxysmal atrial fibrillation: Plan: Telemetry reviewed - Atrial fib in the low 100s. Tachycardia may be from pain Continue Apixaban 5mg PO BID Continue Diltiazem 180mg PO BID Continue to monitor on telemetry for rate control Cardiology consulted, appreciate recommendations. Cardiac catheterization completed 10/[address] Pacheco: patient w/ severe multivessel CAD. - recommend outpatient referral to tertiary care center regarding surgical revascularization (4) Altered mental status: Plan: Improved, AxOx3 10/23 Recently discharged to rehab after TKA on 10/20, where he became altered and weak and subsequently sent to the ER and transferred back to [facility] CXR: hazy airspace opacities - infection vs inflammation. Right lower opacity noted, could be infection. no leukocytosis, afebrile. Continue Dapto and Levoquin (multiple allergies) - MRSA nares: Negative. If respiratory becomes confirmed source, can d/c dapto. UA ordered - negative Blood Cultures: negative at 48h gricelda. Covid: negative Encourage IS Wean O2 as able, baseline is room air (5) Elevated troponin: Plan: 2118 --> 2583 --> 2671 -->2077.0 Clinically, denies chest pain. Does not feel short of breath, but had increased O2 requirement at 2L EKG: afib, rate 91. No ST changes Repeat EKG: afib with RVR, no major ST elevations, minimal gang leader 3 see plan #3 (6) Hypoxia: Plan: Hx of COPD & SONIDO Reported compliance with CPAP at home Continue CPAP HS and as needed during the day Continue Incentive spirometry SpO2 alberta 88%. Brief tachypnea Consider CTA for evaluation of PE (7) DM type 2 (diabetes mellitus, type 2): Plan: Recent A1c 7.7 Decrease glargine from 64 to 32 units SQ twice daily - with decreased intake and nausea and vomiting SSI added Plan Continue to monitor on telemetry for A fib and elevated troponin Needs better pain control Anticipate discharge to inpatient rehab Admission and Anticipated Discharge Date Admission Date: October 21, 2024 Subjective Patient seen and examined this afternoon following his cath. patient reports fatigue and knee pain. He states he was given pain medication shortly to my arrival. He denies any CP or SOB. he was on 2L of O2 at time of my encounter. states he is not typically on oxygen at home. He states he was waiting to hear from the hardware installer about the results of his catheterization. Physical Exam 2 Constitutional: WD/WN, vitals as above Eyes: PERRL, conjunctivae normal, anicteric sclerae Respiratory: wheezing b/l upper lobes Cardiovascular: irregularly irregular. no edema Psychiatric: A+Ox3, euthymic affect Results & Data Results & Data Vital Signs (Past 12 Hours) Vital Signs Temp Pulse Pulse Resp BP BP Pulse Ox 10/23/24 15:03 87 29 H 94 10/23/24 15:00 141/75 H 10/23/24 15:00 141/75 H 10/23/24 14:57 89 27 H 92 10/23/24 14:55 125/78 10/23/24 14:55 125/78 10/23/24 14:55 125/78 10/23/24 14:48 100 H 26 H 90 10/23/24 14:45 84 27 H 125/78 95 10/23/24 14:30 88 22 93 10/23/24 14:21 74 24 96 10/23/24 14:15 10/23/24 13:15 83 18 123/64 98 10/23/24 13:00 85 20 131/78 98 10/23/24 12:45 85 20 136/77 98 10/23/24 12:30 76 20 127/77 97 10/23/24 12:15 89 20 142/77 H 97 10/23/24 12:00 93 H 20 139/85 97 10/23/24 11:45 87 20 138/81 97 10/23/24 11:30 96 H 20 131/68 97 10/23/24 11:15 92 H 20 139/88 93 10/23/24 11:07 90 10/23/24 09:42 96 H 18 139/68 92 10/23/24 07:49 10/23/24 07:29 37.1 C 93 H 20 155/70 H 93 10/23/24 05:02 90 22 95 O2 Del Method O2 Flow Rate 10/23/24 15:03 10/23/24 15:00 10/23/24 15:00 10/23/24 14:57 10/23/24 14:55 10/23/24 14:55 10/23/24 14:55 10/23/24 14:48 10/23/24 14:45 10/23/24 14:30 10/23/24 14:21 10/23/24 14:15 Nasal Cannula 2 10/23/24 13:15 Nasal Cannula 2 10/23/24 13:00 Nasal Cannula 2 10/23/24 12:45 Nasal Cannula 2 10/23/24 12:30 Nasal Cannula 2 10/23/24 12:15 Nasal Cannula 2 10/23/24 12:00 Nasal Cannula 2 10/23/24 11:45 Nasal Cannula 2 10/23/24 11:30 Nasal Cannula 2 10/23/24 11:15 Room Air 10/23/24 11:07 10/23/24 09:42 Room Air 10/23/24 07:49 Nasal Cannula 2 10/23/24 07:29 CPAP 10/23/24 05:02 2 Laboratory Results 10/23/24 08:09 10/23/24 08:09 PG Care Time/CCT Total # of Minutes Spent Total Time Spent with Patient: Total time spent is greater than 50% in coordination of care (as documented) at patient's floor/unit and/or counseling patient: Coding Level of Care Code 70868 SUB INP/OBS CARE 2/35MIN Diagnoses History of left knee surgery Z98.890 Postoperative wound infection T81.49XA Paroxysmal atrial fibrillation I48.0 Altered mental status R41.82 Elevated troponin R79.89 Hypoxia R09.02 DM type 2 (diabetes mellitus, type 2) E11.9
--- NOTE | 2024-10-23 17:19 | Cardiology Progress Note ---
Date of Service October 23, 2024 Assessment & Plan (1) Elevated troponin: (2) Paroxysmal atrial fibrillation: (3) Aortic stenosis: Plan 1. Elevated troponin: Coronary angiography revealed severe obstructive coronary disease. Not easily amenable to percutaneous intervention. There is no acute lesions and his biomarker elevation was likely related to a perioperative event, type II infarct. Will intensify his medical therapy. Will add beta-blockade and recommend reinstitution of statin therapy. He will resume his apixaban and we can add aspirin to his regimen as well. 2. Atrial fibrillation: Permanent. Rate control appears suboptimal. Based on his coronary anatomy I think the addition of beta-erick would be good and will help with rate control as well. Will resume his apixaban tonight. 3. Aortic stenosis: Mild previously. Very mild currently. Something that can be followed over time. Admission and Anticipated Discharge Date Admission Date: October 21, 2024 Subjective This afternoon the patient was feeling well. Still persistent left knee discomfort. He denied any chest pain or breathing difficulty. No pain at the r ight radial access site. Review of Systems Review of Systems: Per HPI Physical Exam Physical Exam: The patient is alert and oriented. Mood and affect appeared normal. He answered all questions appropriately. HEENT: Pupils are equal and reactive to light and accommodation. Extraocular movements are intact. The sclerae are anicteric. Neuro: Cranial nerves intact Lungs: Normal respiratory effort. Cardiac: Irregular rhythm. Pulses: The patient has palpable radial pulses bilaterally that are equal in intensity. Good perfusion of the right hand Extremities: There was no evidence of hypoperfusion. There is no cyanosis or clubbing. No edema in the right leg but he is wearing surgical stockings. Notable edema involving the left leg. Skin: I did not appreciate any rashes on examination today. ENMT: Mallampati Class: III Respiratory: normal respiratory effort Cardiovascular: Rate/Rhythm: + irregularly irregular Results & Data Vital Signs (Past 12 Hours) Vital Signs Temp Pulse Pulse Resp BP BP Pulse Ox 10/23/24 15:03 87 29 H 94 10/23/24 15:00 141/75 H 10/23/24 15:00 141/75 H 10/23/24 14:57 89 27 H 92 10/23/24 14:55 125/78 10/23/24 14:55 125/78 10/23/24 14:55 125/78 10/23/24 14:48 100 H 26 H 90 10/23/24 14:45 84 27 H 125/78 95 10/23/24 14:30 88 22 93 10/23/24 14:21 74 24 96 10/23/24 14:15 10/23/24 13:15 83 18 123/64 98 10/23/24 13:00 85 20 131/78 98 10/23/24 12:45 85 20 136/77 98 10/23/24 12:30 76 20 127/77 97 10/23/24 12:15 89 20 142/77 H 97 10/23/24 12:00 93 H 20 139/85 97 10/23/24 11:45 87 20 138/81 97 10/23/24 11:30 96 H 20 131/68 97 10/23/24 11:15 92 H 20 139/88 93 10/23/24 11:07 90 10/23/24 09:42 96 H 18 139/68 92 10/23/24 07:49 10/23/24 07:29 37.1 C 93 H 20 155/70 H 93 O2 Del Method O2 Flow Rate 10/23/24 15:03 10/23/24 15:00 10/23/24 15:00 10/23/24 14:57 10/23/24 14:55 10/23/24 14:55 10/23/24 14:55 10/23/24 14:48 10/23/24 14:45 10/23/24 14:30 10/23/24 14:21 10/23/24 14:15 Nasal Cannula 2 10/23/24 13:15 Nasal Cannula 2 10/23/24 13:00 Nasal Cannula 2 10/23/24 12:45 Nasal Cannula 2 10/23/24 12:30 Nasal Cannula 2 10/23/24 12:15 Nasal Cannula 2 10/23/24 12:00 Nasal Cannula 2 10/23/24 11:45 Nasal Cannula 2 10/23/24 11:30 Nasal Cannula 2 10/23/24 11:15 Room Air 10/23/24 11:07 10/23/24 09:42 Room Air 10/23/24 07:49 Nasal Cannula 2 10/23/24 07:29 CPAP Laboratory Results Abnormal Lab Results 10/22/24 10/23/24 10/23/24 20:54 07:34 08:09 WBC 9.13 RBC 3.17 L Hgb 10.2 L Hct 29.1 L MCV 91.8 MCH 32.2 MCHC 35.1 RDW Std Deviation 39.4 RDW Coeff of Beatriz 11.6 Plt Count 274 MPV 9.2 L Immature Gran % (Auto) 0.9 Neut % (Auto) 73.2 Lymph % (Auto) 12.0 Graves % (Auto) 12.5 Eos % (Auto) 1.1 Baso % (Auto) 0.3 Neut # (Auto) 6.68 H Lymph # (Auto) 1.10 L Graves # (Auto) 1.14 H Eos # (Auto) 0.10 Baso # (Auto) 0.03 Immature Gran # (Auto) 0.08 Sodium 132 L Potassium 3.6 Chloride 96 L Carbon Dioxide 29 Anion Gap 7 BUN 15 Creatinine 0.85 Est Cr Clr Drug Dosing 98.0 eGFR 90.06 BUN/Creatinine Ratio 17.6 Glucose 191 H POC Glucose 270 H 202 H Calcium 8.3 L Magnesium 1.9 Total Bilirubin 0.9 AST 23 ALT 27 Alkaline Phosphatase 48 Total Protein 6.1 Albumin 3.0 L Globulin 3.1 Albumin/Globulin Ratio 1.0 10/23/24 16:19 WBC RBC Hgb Hct MCV MCH MCHC RDW Std Deviation RDW Coeff of Beatriz Plt Count MPV Immature Gran % (Auto) Neut % (Auto) Lymph % (Auto) Graves % (Auto) Eos % (Auto) Baso % (Auto) Neut # (Auto) Lymph # (Auto) Graves # (Auto) Eos # (Auto) Baso # (Auto) Immature Gran # (Auto) Sodium Potassium Chloride Carbon Dioxide Anion Gap BUN Creatinine Est Cr Clr Drug Dosing eGFR BUN/Creatinine Ratio Glucose POC Glucose 176 H Calcium Magnesium Total Bilirubin AST ALT Alkaline Phosphatase Total Protein Albumin Globulin Albumin/Globulin Ratio Diagnostic Findings Card catheterization performed today revealed severe proximal LAD, proximal ramus intermedius and disease involving the circumflex branch. He had a very dominant circumflex. Heavily diseased nondominant right coronary artery. PG Care Time/CCT Total # of Minutes Spent Total Time Spent with Patient: Total time spent is greater than 50% in coordination of care (as documented) at patient's floor/unit and/or counseling patient: Coding Level of Care Code 13772 SUB INP/OBS CARE 2/35MIN Diagnoses Elevated troponin R79.89 Paroxysmal atrial fibrillation I48.0 Aortic stenosis I35.0
[2024-10-23] MEDS: METOPROLOL TARTRATE 25 MG TAB PO SCH (21:06)
[2024-10-23] MEDS: APIXABAN 5 MG TABLET PO SCH (21:06)
[2024-10-24 04:32] LABS: Basophils # (auto) 0.03 K/uL (0.00-0.20); Basophils % (auto) 0.4 %; Eosinophils # (auto) 0.32 K/uL (0.00-0.50); Eosinophils % (auto) 4.1 %; Hematocrit (blood only) 29.1 % (42.0-52.0); Hemoglobin 10.2 g/dl (14.0-18.0); Immature Granulocytes # (auto) 0.08 K/uL (0.01-0.20); Lymphocytes # (auto) 1.13 K/uL (1.20-3.40); Lymphocytes % (auto) 14.4 %; Mean Corpuscular Hemoglobin 32.5 pg (25.0-34.0); Mean Corpuscular Hgb Conc 35.1 g/dL (32.0-36.0); Mean Corpuscular Volume 92.7 fL (80.0-100.0); Mean Platelet Volume 9.3 fL (9.4-12.4); Monocytes # (auto) 1.03 K/uL (0.11-0.59); Monocytes % (auto) 13.2 %; Neutrophils # (auto) 5.24 K/uL (1.40-6.50); Neutrophils % (auto) 66.9 %; Platelet Count 319 K/uL (130-400); RDW Coefficient of Variation 11.8 % (11.5-14.5); RDW Standard Deviation 39.9 fL (36.4-46.3); Red Blood Count 3.14 M/uL (4.70-6.10); White Blood Count 7.83 K/ul (4.8-10.8)
[2024-10-24 04:47] LABS: Albumin Globulin Ratio 1.1 (0.9-2); Albumin Level 3.2 gm/dl (3.4-5.0); BUN Creatinine Ratio 19.6 (10-20); Bilirubin,Total 0.7 mg/dl (0.2-1.0); Calcium 8.5 mg/dl (8.6-10.3); Creatinine Clr Calc Pharmacy 90.6 ml/min; Potassium 3.6 mmol/L (3.5-5.1); Total Protein 6.2 gm/dl (6.0-8.3)
[2024-10-24] MEDS: ASPIRIN 81 MG ECTAB PO SCH (08:05)
--- NOTE | 2024-10-24 16:30 | Hospitalist Progress Note ---
Date of Service October 24, 2024 Assessment & Plan (1) History of left knee surgery: Plan: Recent left TKA with Dr. Victoria on 10/18, discharged to rehab and quickly returned to hospital - initial concern for possible infection Orthopedic consult - needle aspiration 10/21 - Gram stain is negative. Culture prelim negative. - continue wound vac, pressure dressing. - okay for anticoagulation and diet - not procedures plan -reached out to ortho 10/24 via tiger text - less likely intra articular joint or superficial joint infection. recommend 2 weeks of prophylactic abx. Continue Oxycodone PO q4h for pain. Left leg doppler: negative for DVT On IV daptomycin and IV Levofloxacin currently. Continue pending final knee culture pt w/ multiple allergies to PCN and cephalosporins BC neg at 48h gricelda. (2) Postoperative wound infection: Plan: see plan above (3) Paroxysmal atrial fibrillation: Plan: Telemetry reviewed - Atrial fib in the low 100s. Tachycardia may be from pain Continue Apixaban 5mg PO BID Continue Diltiazem 180mg PO BID Continue to monitor on telemetry for rate control Cardiology consulted, appreciate recommendations. Cardiac catheterization completed 10/[address] Pacheco: patient w/ severe multivessel CAD. - recommend outpatient referral to tertiary care center regarding surgical revascularization (4) Altered mental status: Plan: Improved, AxOx3 10/23 Recently discharged to rehab after TKA on 10/20, where he became altered and weak and subsequently sent to the ER and transferred back to [facility] CXR: hazy airspace opacities - infection vs inflammation. Right lower opacity noted, could be infection. no leukocytosis, afebrile. Continue Dapto and Levoquin (multiple allergies) - MRSA nares: Negative. If respiratory becomes confirmed source, can d/c dapto. UA ordered - negative Blood Cultures: negative at 48h gricelda. Covid: negative Encourage IS Wean O2 as able, baseline is room air (5) Elevated troponin: Plan: 2118 --> 2583 --> 2671 -->2077.0 Clinically, denies chest pain. Does not feel short of breath, but had increased O2 requirement at 2L EKG: afib, rate 91. No ST changes Repeat EKG: afib with RVR, no major ST elevations, minimal slip box changer 3 see plan #3 (6) Hypoxia: Plan: Hx of COPD & SONIDO Reported compliance with CPAP at home Continue CPAP HS and as needed during the day Continue Incentive spirometry SpO2 alberta 88%. Brief tachypnea Consider CTA for evaluation of PE patient on Eliquis repeat CXR 10/24 pending respiratory Biofire pending (7) DM type 2 (diabetes mellitus, type 2): Plan: Recent A1c 7.7 Decrease glargine from 64 to 32 units SQ twice daily - with decreased intake and nausea and vomiting SSI added Plan PT/OT consults placed 10/24, appreciate recommendations anticipate discharge to rehab pending stabilization of hypoxia. Admission and Anticipated Discharge Date Admission Date: October 21, 2024 Subjective Patient seen and examined this afternoon. Patient reports to be feeling okay today. His knee pain is controlled with pain medication. He is still experiencing hypoxia when taken off his nasal cannula. He denies SOB or cough. Denies CP. Physical Exam Constitutional: WD/WN, vitals as above Eyes: PERRL, conjunctivae normal, anicteric sclerae Respiratory: lung sounds clear in all hurst, normal effort Cardiovascular: irregularly irregular, no edema Psychiatric: A+Ox3, euthymic affect Results & Data Results & Data Vital Signs (Past 12 Hours) Vital Signs Temp Pulse Pulse Resp BP BP Pulse Ox 10/24/24 14:58 37.0 C 87 18 144/71 H 97 10/24/24 14:17 10/24/24 14:02 75 10/24/24 13:00 36.7 C 81 20 103/58 L 93 10/24/24 12:09 75 22 95 10/24/24 11:50 169/90 H 10/24/24 11:50 169/90 H 92 10/24/24 11:50 169/90 H 10/24/24 11:33 78 26 H 94 10/24/24 11:25 36.8 C 10/24/24 11:03 77 23 93 10/24/24 10:00 85 23 94 10/24/24 09:00 86 24 96 10/24/24 08:48 18 97 10/24/24 08:40 10/24/24 08:03 36.6 C 10/24/24 08:00 81 24 95 10/24/24 07:23 154/76 H 10/24/24 07:12 92 H 24 96 10/24/24 07:03 87 24 96 O2 Del Method O2 Flow Rate 10/24/24 14:58 Nasal Cannula 2 10/24/24 14:17 Nasal Cannula 2 10/24/24 14:02 10/24/24 13:00 Nasal Cannula 2 10/24/24 12:09 10/24/24 11:50 10/24/24 11:50 Room Air 10/24/24 11:50 10/24/24 11:33 10/24/24 11:25 10/24/24 11:03 10/24/24 10:00 10/24/24 09:00 10/24/24 08:48 Nasal Cannula 2 10/24/24 08:40 Nasal Cannula 2 10/24/24 08:03 10/24/24 08:00 Nasal Cannula 2 10/24/24 07:23 10/24/24 07:12 10/24/24 07:03 PG Care Time/CCT Total # of Minutes Spent Total Time Spent with Patient: Total time spent is greater than 50% in coordination of care (as documented) at patient's floor/unit and/or counseling patient: Coding Level of Care Code 25178 SUB INP/OBS CARE 2/35MIN Diagnoses History of left knee surgery Z98.890 Postoperative wound infection T81.49XA Paroxysmal atrial fibrillation I48.0 Altered mental status R41.82 Elevated troponin R79.89 Hypoxia R09.02 DM type 2 (diabetes mellitus, type 2) E11.9
--- NOTE | 2024-10-24 18:49 | Cardiology Progress Note ---
Date of Service October 24, 2024 Assessment & Plan (1) Elevated troponin: (2) Paroxysmal atrial fibrillation: (3) Aortic stenosis: Plan 1. Elevated troponin: NSTEMI in the setting of significant coronary artery disease. No recurrent symptoms. We discussed the possibility of surgical revascularization. The patient's coronary angiograms are in his chart on a DVD and he will need to bring these to [facility] will rearrange an appointment with the cardiac surgery team there. For now we will continue apixaban and a daily aspirin as well as metoprolol. Metoprolol tartrate can be converted to metoprolol succinate at the time of discharge. Will restart statin therapy and monitor his response. 2. Atrial fibrillation: Permanent. Rate control appears suboptimal. Based on his coronary anatomy I think the addition of beta-erick would be good and will help with rate control as well. Continue apixaban and aspirin. 3. Aortic stenosis: Mild previously. Very mild currently. Something that can be followed over time. Admission and Anticipated Discharge Date Admission Date: October 21, 2024 Subjective This afternoon the patient clinically feeling well. His knee pain appears to have improved with a different analgesic regimen. No exertional chest pain, minimal ambulation or activity. No chest pain at rest. No breathing diffi culty. Review of Systems Review of Systems: Per HPI Physical Exam Physical Exam: The patient is alert and oriented. Mood and affect appeared normal. He answered all questions appropriately. HEENT: Pupils are equal and reactive to light and accommodation. Extraocular movements are intact. The sclerae are anicteric. Neuro: Cranial nerves intact Lungs: Normal respiratory effort. Cardiac: Irregular rhythm. Pulses: The patient has palpable radial pulses bilaterally that are equal in intensity. Good perfusion of the right hand Extremities: There was no evidence of hypoperfusion. There is no cyanosis or clubbing. No edema in the right leg but he is wearing surgical stockings. Notable edema involving the left leg. Skin: I did not appreciate any rashes on examination today. ENMT: Mallampati Class: III Respiratory: normal respiratory effort Cardiovascular: Rate/Rhythm: + irregularly irregular Results & Data Vital Signs (Past 12 Hours) Vital Signs Temp Pulse Pulse Resp BP BP Pulse Ox 10/24/24 14:58 37.0 C 87 18 144/71 H 97 10/24/24 14:17 10/24/24 14:02 75 10/24/24 13:00 36.7 C 81 20 103/58 L 93 10/24/24 12:09 75 22 95 10/24/24 11:50 169/90 H 10/24/24 11:50 169/90 H 92 10/24/24 11:50 169/90 H 10/24/24 11:33 78 26 H 94 10/24/24 11:25 36.8 C 10/24/24 11:03 77 23 93 10/24/24 10:00 85 23 94 10/24/24 09:00 86 24 96 10/24/24 08:48 18 97 10/24/24 08:40 10/24/24 08:03 36.6 C 10/24/24 08:00 81 24 95 10/24/24 07:23 154/76 H 10/24/24 07:12 92 H 24 96 10/24/24 07:03 87 24 96 O2 Del Method O2 Flow Rate 10/24/24 14:58 Nasal Cannula 2 10/24/24 14:17 Nasal Cannula 2 10/24/24 14:02 10/24/24 13:00 Nasal Cannula 2 10/24/24 12:09 10/24/24 11:50 10/24/24 11:50 Room Air 10/24/24 11:50 10/24/24 11:33 10/24/24 11:25 10/24/24 11:03 10/24/24 10:00 10/24/24 09:00 10/24/24 08:48 Nasal Cannula 2 10/24/24 08:40 Nasal Cannula 2 10/24/24 08:03 10/24/24 08:00 Nasal Cannula 2 10/24/24 07:23 10/24/24 07:12 10/24/24 07:03 Laboratory Results Abnormal Lab Results 10/23/24 10/24/24 10/24/24 20:16 03:51 07:21 WBC 7.83 RBC 3.14 L Hgb 10.2 L Hct 29.1 L MCV 92.7 MCH 32.5 MCHC 35.1 RDW Std Deviation 39.9 RDW Coeff of Beatriz 11.8 Plt Count 319 MPV 9.3 L Immature Gran % (Auto) 1.0 Neut % (Auto) 66.9 Lymph % (Auto) 14.4 Mcdonald % (Auto) 13.2 Eos % (Auto) 4.1 Baso % (Auto) 0.4 Neut # (Auto) 5.24 Lymph # (Auto) 1.13 L Mcdonald # (Auto) 1.03 H Eos # (Auto) 0.32 Baso # (Auto) 0.03 Immature Gran # (Auto) 0.08 Sodium 129 L Potassium 3.6 Chloride 94 L Carbon Dioxide 30 Anion Gap 5 BUN 18 Creatinine 0.92 Est Cr Clr Drug Dosing 90.6 eGFR 86.21 BUN/Creatinine Ratio 19.6 Glucose 186 H POC Glucose 243 H 211 H Calcium 8.5 L Magnesium 2.0 Total Bilirubin 0.7 AST 29 ALT 33 Alkaline Phosphatase 51 Total Protein 6.2 Albumin 3.2 L Globulin 3.0 Albumin/Globulin Ratio 1.1 10/24/24 10/24/24 11:33 17:15 WBC RBC Hgb Hct MCV MCH MCHC RDW Std Deviation RDW Coeff of Beatriz Plt Count MPV Immature Gran % (Auto) Neut % (Auto) Lymph % (Auto) Mcdonald % (Auto) Eos % (Auto) Baso % (Auto) Neut # (Auto) Lymph # (Auto) Mcdonald # (Auto) Eos # (Auto) Baso # (Auto) Immature Gran # (Auto) Sodium Potassium Chloride Carbon Dioxide Anion Gap BUN Creatinine Est Cr Clr Drug Dosing eGFR BUN/Creatinine Ratio Glucose POC Glucose 249 H 224 H Calcium Magnesium Total Bilirubin AST ALT Alkaline Phosphatase Total Protein Albumin Globulin Albumin/Globulin Ratio PG Care Time/CCT Total # of Minutes Spent Total Time Spent with Patient: Total time spent is greater than 50% in coordination of care (as documented) at patient's floor/unit and/or counseling patient: Coding Level of Care Code 01359 SUB INP/OBS CARE 2/35MIN Diagnoses Elevated troponin R79.89 Paroxysmal atrial fibrillation I48.0 Aortic stenosis I35.0
[2024-10-24 20:28] LABS: Adenovirus PCR Not Detected (NotDetected); Bordetella parapertussis PCR Not Detected (NotDetected); Bordetella pertussis PCR Not Detected (NotDetected); Chlamydia pneumoniae PCR Not Detected (NotDetected); Coronavirus 229E PCR Not Detected (NotDetected); Coronavirus CoV-2 (COVID19)PCR Not Detected (NotDetected); Coronavirus HKU1 PCR Not Detected (NotDetected); Coronavirus NL63 PCR Not Detected (NotDetected); Coronavirus OC43PCR Not Detected (NotDetected); Human Metapneumovirus PCR Not Detected (NotDetected); Influenza A PCR Not Detected (NotDetected); Influenza B PCR Not Detected (NotDetected); Mycoplasma pneumoniae PCR Not Detected (NotDetected); Parainfluenza Virus 1 PCR Not Detected (NotDetected); Parainfluenza Virus 2 PCR Not Detected (NotDetected); Parainfluenza Virus 3 PCR Not Detected (NotDetected); Parainfluenza Virus 4 PCR Not Detected (NotDetected); Respiratory Syncytial VirusPCR Not Detected (NotDetected); Rhinovirus/Enterovirus PCR Not Detected (NotDetected)
--- NOTE | 2024-10-24 21:05 | XRay Report ---
Exam(s): XR CXR 2 VIEWS EXAM: XR Chest, 2 Views CLINICAL HISTORY: Reason for exam: SOB. TECHNIQUE: Frontal and lateral views of the chest. COMPARISON: No relevant prior studies available. FINDINGS: Lungs: Patchy infiltrates are seen in the lung bases. Pleural space: Unremarkable. No pneumothorax. Heart: Unremarkable. No cardiomegaly. Mediastinum: Unremarkable. Normal mediastinal contour. Bones/joints: There is left humeral head arthroplasty. No acute fracture. Upper abdomen: Right dome of the diaphragm is elevated. IMPRESSION: Patchy infiltrates in the lung bases which could be from aspiration or pneumonia Electronically signed by: Checo Rabago MD 10/24/24 21:04 PM
[2024-10-25] MEDS: MELATONIN 3 MG TAB PO PRN (02:00)
[2024-10-25 06:41] LABS: Hematocrit (blood only) 29.2 % (42.0-52.0); Hemoglobin 10.2 g/dl (14.0-18.0); Mean Corpuscular Hemoglobin 32.4 pg (25.0-34.0); Mean Corpuscular Hgb Conc 34.9 g/dL (32.0-36.0); Mean Corpuscular Volume 92.7 fL (80.0-100.0); Mean Platelet Volume 9.1 fL (9.4-12.4); Platelet Count 378 K/uL (130-400); RDW Coefficient of Variation 11.6 % (11.5-14.5); RDW Standard Deviation 39.1 fL (36.4-46.3); Red Blood Count 3.15 M/uL (4.70-6.10); White Blood Count 9.11 K/ul (4.8-10.8)
[2024-10-25 07:09] LABS: BUN Creatinine Ratio 17.4 (10-20); Calcium 8.3 mg/dl (8.6-10.3); Creatinine Clr Calc Pharmacy 97.2 ml/min; Potassium 3.7 mmol/L (3.5-5.1)
--- NOTE | 2024-10-25 10:35 | CT Scan Report ---
CT OF THE CHEST WITHOUT IV CONTRAST CLINICAL HISTORY: Hypoxia. COMPARISON STUDY: Chest radiograph October 24, 2024. Chest CT September 15, 2012. CT DOSE: 910.54 mGy.cm TECHNIQUE: Axial images of the chest were obtained without IV contrast. Images were reviewed in the axial, sagittal, and coronal planes. IV contrast was not administered for this examination. Automat ed exposure control was utilized for the study. A dose lowering technique was utilized adhering to t he principles of ALARA. FINDINGS: Elevation of the right hemidiaphragm is similar to CT of September 15, 2012. There is mild c ardiomegaly and extensive coronary artery calcification. There is no pericardial effusion. No pneumot horax. Trace bilateral pleural effusions. Multifocal groundglass opacities, predominantly subpleural in location are noted. There are also multiple nodular densities within the lungs, including a 1.9 cm lingular density on image 160 and a 1.2 cm subpleural nodular density within the left lower lobe on image 134. 1.1 cm left upper lobe nodular density on image 115 may contain a tiny central focus of ca vitation. Central airways are patent. No lobar consolidation is present. Visualized portions of the a bdomen demonstrate moderate distention of the hepatic flexure and transverse colon. IMPRESSION: 1. Multifocal groundglass opacities throughout the lungs suggestive of an infectious process. Several nodular foci within the lungs, one of which may contain early cavitation. These may also be infectio us in etiology however raise the possibility of septic emboli. However, a neoplastic process such as metastatic disease could appear similar. Short-term follow-up chest CT in one month is recommended to ensure resolution. 2. Trace bilateral pleural effusions. 3. Stable elevation of the right hemidiaphragm. 4. Moderate distention of visualized portions of the colon. ACT 112: Positive. There are findings on this exam that require communication between the performing entity and the patient following Patient Test Result Information Act ([place] Act 112) guidelines. Electronically signed by: James Doe M.D. 10/25/2024 10:32 AM
--- NOTE | 2024-10-25 13:29 | Pulmonary Consultation ---
Date of Consultation October 25, 2024 Assessment & Plan (1) Hypoxia: (2) Pulmonary nodule: Plan Impression: 74-year-old male with recent total knee arthroplasty admitted with possible infection. His cultures have not grown anything however he did have significant elevation in his synovial white blood cell count the majority of which were PMNs. The lung findings could be explained by endovascular infection and are less likely to be malignant or other more sinister process. Recommendations: 1. Would recommend completing a course of antibiotics. Would consult with infectious disease to determine antibiotic choices and duration however given the presence of septic emboli, a 4 to 6-week course may be considered if we cannot rule out endovascular etiologies. Given the potential need for upcoming cardiothoracic surgery, I think ensuring that he is cleared from an infectious disease standpoint would be ideal. 2. Would recommend repeating the patient's CT scan in 6 to 8 weeks. 3. Hypoxemia: Multifactorial. At this point time recommend incentive spirometry and weaning oxygen as tolerated. 4. Sleep disordered breathing: Continue CPAP. Can follow-up with Dr. bejarano in the outpatient setting. No intervention is required from a pulmonary standpoint at this time. Will defer choices and duration of antimicrobial therapy to infectious disease and the primary admitting service. Follow-up CT scan in 6 to 8 weeks with his providers in [place]. Pulmonary will sign off at this point in time. Feel free to contact us with questions or concerns. History of Present Illness Attending Physician: Tito Diez History of Present Illness Asked by hospitalist to assist in evaluation management of and abnormal chest CT. History is obtained from discussion with the patient as well as review the electronic medical record. Patient is a 74-year-old male who underwent left total knee arthroplasty October 18. He was hospitalized for 2 days and then transferred to rehab in [place]. Apparently on arrival he was weak disoriented and confused. He was found to be febrile tachycardic and tachypneic. He was initially evaluated at [facility]. They felt that the knee was infected. It is unclear which antibiotics he received there. He was transferred to [facility] and continued on daptomycin and levofloxacin. Orthopedics was consulted and tapped the knee. Cultures were negative. Blood cultures have also been negative however they were obtained after the patient received antibiotics. The patient has been seen by multiple specialists throughout this hospitalization including cardiology given an elevated troponin. He is also noted to be in A-fib. Cardiac catheterization demonstrated severe obstructive coronary disease in the proximal LAD and OM1 with normal left ventricular filling pressures. He was not a candidate for percutaneous intervention. Medical therapy was increased. Plan is to have him follow-up in [place] with the cardiac surgery team to discuss potential bypass. As part of his evaluation, he was hypoxemic and a CT scan was performed. Contrast was not used. There are multiple nodular foci throughout the bilateral pulmonary parenchyma which appear to be in a subpleural/peripheral distribution and may be consistent with septic emboli. Trace bilateral effusions were noted with stable elevation of the right hemidiaphragm. Pulmonary was subsequently consulted. The patient is devoid of respiratory symptoms currently. He has a history of sleep disordered breathing and uses CPAP in the outpatient setting. He is not coughing or expectorating phlegm. He does not report fevers, chills, or night sweats. His appetite is good. Weight is stable. Allergies Allergy/AdvReac Type Severity Reaction Status Date / Time hyaluronate sodium, Allergy Severe Lips Verified 10/18/24 08:59 stabilized swelling hylan G-F 20 [From Synvisc] Allergy Severe Lips Verified 10/18/24 08:59 swelling celecoxib [From Celebrex] Allergy Unknown Rash Verified 10/18/24 08:59 cephalexin Allergy Unknown Rash Verified 10/18/24 08:59 dicyclomine Allergy Unknown Unknown Verified 10/18/24 08:59 homatropine Allergy Unknown Unknown Verified 10/18/24 08:59 hydrocodone Allergy Unknown Unknown Verified 10/18/24 08:59 meloxicam Allergy Unknown Unknown Verified 10/18/24 08:59 oxycodone [From Percocet] Allergy Unknown Unknown Verified 10/18/24 08:59 pregabalin Allergy Unknown ? Tired, Verified 10/18/24 08:59 listless Penicillins AdvReac Intermediate GI upset Verified 10/18/24 08:59 chlorthalidone AdvReac Mild Listless Verified 10/18/24 08:59 gabapentin AdvReac Mild ? Tired, Verified 10/18/24 08:59 listless pravastatin AdvReac Mild Muscle Pain Verified 10/18/24 08:59 prednisone AdvReac Mild GI upset Verified 10/18/24 08:59 sulfamethoxazole AdvReac Mild GI upset Verified 10/18/24 08:59 trimethoprim AdvReac Mild GI upset Verified 10/18/24 08:59 Home Medications Medication Instructions Recorded Confirmed Type albuterol sulfate 90 mcg/actuation 1 puffs inhalation UD PRN COPD #1 g 07/07/19 10/18/24 History aerosol inhaler lisinopril 40 mg tablet 40 mg PO QPM #90 tabs 07/07/19 10/18/24 History apixaban 5 mg tablet (Eliquis) 5 mg PO BID 02/16/22 10/18/24 History fluticasone 250 mcg-salmeterol 50 1 inh inhalation QAM 02/19/22 10/18/24 History mcg/dose blistr powdr for inhalation (Wixela Inhub) famotidine 20 mg tablet (Pepcid) 20 mg PO QAM 04/13/22 10/18/24 History cyanocobalamin (vitamin B-12) 1,000 mcg PO QAM 07/20/22 10/18/24 History 1,000 mcg tablet (Vitamin B-12) docusate sodium 100 mg capsule 100 mg PO HS 07/20/22 10/18/24 History (Colace) fluticasone propionate 50 1 spray intranasal UD PRN Nasal 07/20/22 10/18/24 History mcg/actuation nasal Congestion spray,suspension diltiazem HCl 180 mg capsule,24 180 mg PO BID 02/15/23 10/18/24 History hr,extended release blood sugar diagnostic (Accu-Chek #600 ea 02/22/23 09/11/24 Rx Jaclyn Plus test strips) pen needle, diabetic 32 gauge x #300 ea 02/22/23 09/11/24 Rx 1/6" (NovoFine Plus) tamsulosin 0.4 mg capsule 0.4 mg PO DAILY PRN prn 08/12/23 10/18/24 History diphenhydramine HCl 50 mg capsule 50 mg PO HS PRN prn/ sleep 02/03/24 10/18/24 History (Sleep Aid (diphenhydramine)) ascorbic acid (vitamin C) 500 mg 1 g PO QAM 09/05/24 10/18/24 History tablet (Vitamin C) hydrochlorothiazide 25 mg tablet 25 mg PO QAM 09/05/24 10/18/24 History insulin aspart U-100 100 unit/mL 100 unit subcut DAILY #90 mL 09/05/24 10/18/24 Rx (3 mL) subcutaneous pen (Novolog FlexPen U-100 Insulin aspart) metformin 1,000 mg tablet 1,000 mg PO BID 09/05/24 10/18/24 History polyethylene glycol 3350 17 17 g PO DAILY PRN Constipation 09/12/24 10/18/24 History gram/dose oral powder (Miralax) insulin glargine 100 unit/mL (3 64 unit subcut BID 10/18/24 10/18/24 History mL) subcutaneous pen (Lantus Solostar U-100 Insulin) acetaminophen 300 mg-codeine 30 mg 1 - 2 tab PO Q4H PRN pain #20 tabs 10/20/24 Rx tablet cefadroxil 500 mg capsule 500 mg PO Q12H #28 caps 10/20/24 Rx Patient History Medical History Osteoarthritis of left knee Aortic stenosis Echo 05/2023: "Mild" aortic stenosis (ARTI Vmax 2.17 cm, DVI 0.48) Hx of supraventricular tachycardia Nodule of kidney Follows with Dr. Aldridge Dyslipidemia Diabetic nephropathy Arthritis Nocturnal hypoxemia Obesity Chronic kidney disease, stage 2 (mild) Follows with Dr. 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 Per EP office visit (06/03/22): 2.2 second pause noted on telemetry during inpatient stay. 3 more pauses on Zio patch, longest 3.1 seconds, all in atrial fibrillation. "In atrial fibrillation, without any symptoms, he would have to have a pause of 5 seconds to qualify for a pacemaker. No indication for any further intervention at this time. 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 (no chemo or xrt) Surgical History Hx of LASIK History of ankle surgery left ankle hardware present History of left shoulder replacement (01/2023) Family history of reaction to anesthesia Mother- PONV History of carpal tunnel surgery of left wrist Nausea and vomiting after administration of anesthetic agent controlled with meds History of endoscopy History of colonoscopy with polypectomy History of carpal tunnel surgery of right wrist + ulnar nerve surgery History of fusion of cervical spine x2- most recent 2014 History of decompression of median nerve Per records, pt unsure History of decompression of ulnar nerve Right Left ulnar nerve transposition (03/15/24): LMA igel#5 at [facility] History of hernia repair (1957) History of cataract surgery R&L 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 History of urologic surgery (2016) 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 History of cholecystectomy Family History Other Family history of diabetes mellitus in father Social History Smoking Status: Former smoker Tobacco Type: Cigars Second Hand Exposure: No; Do You Dip or Chew Tobacco: No; Hx Alcohol Use: No Hx Substance Use: No Preferred Language: Norwegian Communication Ability: Effective Visual Impairment: No Limitations Hearing Ability: Normal Distributed Generation Project Manager Required: No Beliefs That Will Affect Care: None marital status: Current Living Situation: Significant Other current occupational status: retired Feels Safe at Home: Yes Safety Concerns: Feels Safe At This Time Diet: regular Physical Activity Frequency: Does not Exercise Do you think of yourself as: straight/heterosexual Gender Identity: Male Assistive Devices: CPAP Review of Systems Review of Systems: All systems reviewed & are unremarkable except as noted in Subjective Physical Exam Constitutional: + obese; no acute distress Neck: trachea midline, no thyromegaly Respiratory: normal respiratory effort, lungs clear to auscultation Cardiovascular: RRR, no murmur, no edema Gastrointestinal (Abdomen): normal bowel sounds, soft, nontender, no hepatosplenomegaly Musculoskeletal: Left knee dressed. Skin: no rashes, warm and dry Neurologic: Nonfocal exam Lymphatic: no cervical lymphadenopathy Results & Data Results & Data Vital Signs (Past 12 Hours) Vital Signs Temp Pulse Pulse Resp BP Pulse Ox Pulse Ox 10/25/24 11:02 36.5 C 88 20 141/69 H 97 10/25/24 08:23 10/25/24 08:23 98 10/25/24 07:33 36.7 C 87 20 160/69 H 98 10/25/24 07:18 86 10/25/24 04:33 86 20 95 10/25/24 04:31 86 18 95 10/25/24 03:14 36.7 C 86 20 140/72 96 10/25/24 03:01 94 H O2 Del Method O2 Del Method O2 Flow Rate O2 Flow Rate 10/25/24 11:02 Nasal Cannula 2 10/25/24 08:23 Nasal Cannula 3 10/25/24 08:23 Nasal Cannula 3 10/25/24 07:33 Nasal Cannula 3 10/25/24 07:18 10/25/24 04:33 3 10/25/24 04:31 CPAP 3 10/25/24 03:14 Nasal Cannula 2 10/25/24 03:01 Laboratory Results Synovial fluid demonstrated 28,000 white blood cells 97% PMNs. Gram stain and culture negative Critical Care Results & Data Vital Signs (Past 12 Hours) Vital Signs Temp Pulse Pulse Resp BP Pulse Ox Pulse Ox 10/25/24 11:02 36.5 C 88 20 141/69 H 97 10/25/24 08:23 10/25/24 08:23 98 10/25/24 07:33 36.7 C 87 20 160/69 H 98 10/25/24 07:18 86 10/25/24 04:33 86 20 95 10/25/24 04:31 86 18 95 10/25/24 03:14 36.7 C 86 20 140/72 96 10/25/24 03:01 94 H O2 Del Method O2 Del Method O2 Flow Rate O2 Flow Rate 10/25/24 11:02 Nasal Cannula 2 10/25/24 08:23 Nasal Cannula 3 10/25/24 08:23 Nasal Cannula 3 10/25/24 07:33 Nasal Cannula 3 10/25/24 07:18 10/25/24 04:33 3 10/25/24 04:31 CPAP 3 10/25/24 03:14 Nasal Cannula 2 10/25/24 03:01 Lab & Micro Results (Past 24 Hours) RBC 3.15 M/uL (4.70-6.10) L 10/25/24 WBC 9.11 K/ul (4.8-10.8) 10/25/24 Hgb 10.2 g/dl (14.0-18.0) L 10/25/24 Hct 29.2 % (42.0-52.0) L 10/25/24 MCV 92.7 fL (80.0-100.0) 10/25/24 MCH 32.4 pg (25.0-34.0) 10/25/24 MCHC 34.9 g/dL (32.0-36.0) 10/25/24 RDW Standard Deviation 39.1 fL (36.4-46.3) 10/25/24 RDW Coefficient of Variation 11.6 % (11.5-14.5) 10/25/24 Plt Count 378 K/uL (130-400) 10/25/24 MPV 9.1 fL (9.4-12.4) L 10/25/24 Na 132 mmol/L (136-145) L 10/25/24 K 3.7 mmol/L (3.5-5.1) 10/25/24 Cl 95 mmol/L (98-107) L 10/25/24 CO2 31 mmol/L (21-32) 10/25/24 Anion Gap 6 (3-11) 10/25/24 BUN 15 mg/dl (6-23) 10/25/24 Creatinine 0.86 mg/dl (0.6-1.4) 10/25/24 BUN/Creatinine Ratio 17.4 (10-20) 10/25/24 Glu 215 mg/dl (70-99(Fasting)) H 10/25/24 Ca 8.3 mg/dl (8.6-10.3) L 10/25/24 Calcium Level 8.3 mg/dl (8.6-10.3) L 10/25/24 05:58 Diagnostic Findings (Past 24 Hours) Chest X-Ray 10/24/24 13:39 Exam(s): XR CXR 2 VIEWS EXAM: XR Chest, 2 Views CLINICAL HISTORY: Reason for exam: SOB. TECHNIQUE: Frontal and lateral views of the chest. COMPARISON: No relevant prior studies available. FINDINGS: Lungs: Patchy infiltrates are seen in the lung bases. Pleural space: Unremarkable. No pneumothorax. Heart: Unremarkable. No cardiomegaly. Mediastinum: Unremarkable. Normal mediastinal contour. Bones/joints: There is left humeral head arthroplasty. No acute fracture. Upper abdomen: Right dome of the diaphragm is elevated. IMPRESSION: Patchy infiltrates in the lung bases which could be from aspiration or pneumonia Electronically signed by: Checo Rabago MD 10/24/24 21:[address] 10/25/24 08:56 CT OF THE CHEST WITHOUT IV CONTRAST CLINICAL HISTORY: Hypoxia. COMPARISON STUDY: Chest radiograph October 24, 2024. Chest CT September 15, 2012. CT DOSE: 910.54 mGy.cm TECHNIQUE: Axial images of the chest were obtained without IV contrast. Images were reviewed in the axial, sagittal, and coronal planes. IV contrast was not administered for this examination. Automated exposure control was utilized for the study. A dose lowering technique was utilized adhering to the principles of ALARA. FINDINGS: Elevation of the right hemidiaphragm is similar to CT of September 15, 2012. There is mild cardiomegaly and extensive coronary artery calcification. There is no pericardial effusion. No pneumothorax. Trace bilateral pleural effusions. Multifocal groundglass opacities, predominantly subpleural in location are noted. There are also multiple nodular densities within the lungs, including a 1.9 cm lingular density on image 160 and a 1.2 cm subpleural nodular density within the left lower lobe on image 134. 1.1 cm left upper lobe nodular density on image 115 may contain a tiny central focus of cavitation. Central airways are patent. No lobar consolidation is present. Visualized portions of the abdomen demonstrate moderate distention of the hepatic flexure and transverse colon. IMPRESSION: 1. Multifocal groundglass opacities throughout the lungs suggestive of an infectious process. Several nodular foci within the lungs, one of which may contain early cavitation. These may also be infectious in etiology however raise the possibility of septic emboli. However, a neoplastic process such as metastatic disease could appear similar. Short-term follow-up chest CT in one month is recommended to ensure resolution. 2. Trace bilateral pleural effusions. 3. Stable elevation of the right hemidiaphragm. 4. Moderate distention of visualized portions of the colon. ACT 112: Positive. There are findings on this exam that require communication between the performing entity and the patient following Patient Test Result Information Act ([place] Act 112) guidelines. Electronically signed by: James Doe M.D. 10/25/2024 10:32 AM I & O Totals 24 Hours 10/24/24 10/25/24 10/26/24 06:59 06:59 06:59 Intake Total 225 / 225 670 / 670 150 / 150 Output Total 676 / 676 1501 / 1501 Balance -451 / -451 -831 / -831 150 / 150 Cumulative 10/21/24 thru 10/25/24 09:47 Intake Total 2735 Output Total 4837 Balance -2102 RT Ventilator Mngmt (Last Documented) Ventilator Ordered Settings Respiratory Rate 20 10/25/24 11:02 Fraction of Inspired Oxygen 2 10/23/24 23:17 Ventilator - PT Measurements Respiratory Rate 20 PG Care Time/CCT Total # of Minutes Spent Total Time Spent with Patient: Total time spent is greater than 50% in coordination of care (as documented) at patient's floor/unit and/or counseling patient: Coding Level of Care Code 14016 INT INP/OBS CARE 3/75MIN Diagnoses Hypoxia R09.02 Pulmonary nodule R91.1
--- NOTE | 2024-10-25 14:43 | Orthopedic Progress Note ---
Date of Service October 25, 2024 Assessment & Plan (1) History of left knee surgery: Plan: -POD #7 s/p left TKA with Dr. Victoria on 10/18/24 -Needle aspiration performed at bedside on 10/21/24 with return of ~10cc dark red blood. No purulent or abnormal drainage. Gram stain with many WBC but no organisms seen, final cultures pending. Suspect this is hemarthrosis and less likely septic joint. Antibiotics per primary pending cultures -Maintain wound VAC and current pressure dressing. VAC to be removed tomorrow -Continue TEDs/SCDs -PT/OT: May WBAT and gentle ROM. Strengthening per protocol TKA. -Pain medication: Per primary. Would consider trying Tramadol in addition to Tylenol if he is sensitive to other narcotics so that he can continue therapy more comfortably -May continue Eliquis from our standpoint -May continue diet as we do not anticipate additional surgery at this time -D/C planning: Patient is interested in going to [facility] if possible when ready for d/c as opposed to [place] where he was previously discharged to. Treat medical problems per medical oncologist recommendations. Would recommend oral antibiotics for another week prophylactically but not necessary to treat any infection of the knee which does not appear to be infected. Patient would require staple removal in 1 week and recommend follow-up visit in 1 week at [facility]. Admission and Anticipated Discharge Date Admission Date: October 21, 2024 Subjective Still gets some burning pain anterior knee Review of Systems Review of Systems: No chest pain, still on oxygen. In general feeling somewhat better. Physical Exam Musculoskeletal: Still has slight chronic flexion contracture of knee. Swelling of knee improving and has some generalized edema but no knee effusion now. No erythema or signs of cellulitis or infection of the knee. The abby is intact and holding its suction well. No drainage from the drain removal site. Distal neurocirculatory exam intact. Results & Data Vital Signs (Past 12 Hours) Vital Signs Temp Pulse Pulse Resp BP Pulse Ox Pulse Ox 10/25/24 11:02 36.5 C 88 20 141/69 H 97 10/25/24 08:23 10/25/24 08:23 98 10/25/24 07:33 36.7 C 87 20 160/69 H 98 10/25/24 07:18 86 10/25/24 04:33 86 20 95 10/25/24 04:31 86 18 95 10/25/24 03:14 36.7 C 86 20 140/72 96 10/25/24 03:01 94 H O2 Del Method O2 Del Method O2 Flow Rate O2 Flow Rate 10/25/24 11:02 Nasal Cannula 2 10/25/24 08:23 Nasal Cannula 3 10/25/24 08:23 Nasal Cannula 3 10/25/24 07:33 Nasal Cannula 3 10/25/24 07:18 10/25/24 04:33 3 10/25/24 04:31 CPAP 3 10/25/24 03:14 Nasal Cannula 2 10/25/24 03:01 Diagnostic Findings Cultures of the knee joint are negative.
--- NOTE | 2024-10-25 15:28 | Infectious Disease Consult ---
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 He was discharged to [facility] rehab on 10/20/2024. There he was noted to be weak and confused. He was seen in the [facility] ED where he was noted to be febrile with a temp of 101.8, tachycardic-pulse 103 and o2 sat of 92% on room air. It was thought that he had a postoperative wound infection. He was transferred back to [facility] on 10/21/2024 for further evaluation as a direct admission. He was transferred on daptomycin and Levaquin as he has multiple listed antibiotic allergies. On admission,he was hemodynamically stable and afebrile. No leukocytosis. Noted for troponin of 2118.7. Chest x-ray showed hazy airspace opacities in the left pericardiac region, right lower opacity. Left lower extremity Doppler showed no evidence of DVT. Repeat chest x-ray showed persistent slightly improved patchy bilateral lung zone infiltrates. He was evaluated by cardiology for elevated troponins and A-fib. He underwent a trans thoracic echocardiogram which showed mild aortic stenosis, normal mitral valve. He underwent coronary angiography which revealed severe obstructive coronary disease not easily amenable to percutaneous intervention. There was no acute lesion. He was also evaluated by orthopedic surgery and underwent a left knee arthrocentesis which returned 10 cc of dark red blood without purulence. Fluid studies showed 28,440 WBCs, greater than 1 million RBCs, 97% polynuclear cells. MRSA screen negative for MRSA. Fluid cultures with no growth to date. Blood cultures no growth to date (obtained after antibiotics initiated). His course complicated by hypoxia. He underwent CT chest which showed multi focal groundglass opacities throughout the lung suggestive of an infectious process and several nodular foci within the lungs concerning for possible septic emboli. However a neoplastic process could appear similar. He had no significant respiratory symptoms. He was evaluated by pulmonary who recommended ID consult for septic emboli. No intervention per pulmonary. He currently on 2 L nasal cannula. Patient not seen as no Telepresenter available at time consult placed. Chart reviewed Microbiology: Blood cultures 10/21 NGTD Left knee synovial fluid culture 10/21 NGTD Left knee fluid analysis 10/21 28,440 WBCs, greater than 1 million RBCs, 97% polynuclear cells. Antibiotics: Levaquin 10/21ongoing Daptomycin 10/21ongoing # Possible septic emboli # Possible pneumonia # Recent left TKA (10/18/2024) # Neutrophilic predominant synovial fluid aspiration # History of left ankle surgery with hardware Discussion: Etiology of reported fevers and tachycardia at outside hospital unclear. Appears to have resolved once admitted and started on antibiotics. Knee fluid aspiration shows greater than 20,000 WBCs with a neutrophil predominance, however cultures with no growth to date. Blood cultures also with no growth to date; both synovial fluid and blood cultures obtained about 24 hours after initiation of antibiotics. Lung imaging findings concerning for pneumonia and/ septic emboli. TTE done on admission shows mild aortic stenosis but no obvious mobile densities or vegetations. MRSA screen is negative. Antibiotic allergies listed including penicillins and Bactrim however symptoms are GI upset. He has documented history of rash with cephalexin. Levaquin should appropriately cover for pneumonia. Daptomycin does not provide lung coverage however MRSA screen is negative so doubt MRSA pneumonia. Given fevers/tahycardia prior to admission, presence of hardware/prosthetics: Left ankle and recent left knee prosthetic with concern for septic emboli on imaging, would further evaluate for endovascular infection/endocarditis. Recommendations -Follow up BC 10/21 -Continue Levaquin -Continue daptomycin -Check TASNEEM -Ordered RF -Ordered fungal blood cultures for 10/26 Thank you for this consult. ID will continue to follow. ID will not round or review chart on 10/26/24. Will return Wednesday10/27/24 Daisy Stevens MD, MPH Infectious Disease [facility], ID Division Call [phone] with questions Consultation Information This patient recommendation is based on a telemedicine consult request which was completed asynchronously through chart review and information provided by the primary physician. The patient was not seen or examined today. The evaluation is consultative in nature and all patient care and treatment decisions can either be accepted or rejected by the patient's primary hospital-based treating physician using their own independent medical judgment for their patient. Lepidopterist contact information: Please call [facility] Call Center . 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 He was discharged to [facility] rehab on 10/20/2024. There he was noted to be weak and confused. He was seen in the [facility] ED where he was noted to be febrile with a temp of 101.8, tachycardic-pulse 103 and o2 sat of 92% on room air. It was thought that he had a postoperative wound infection. He was transferred back to [facility] on 10/21/2024 for further evaluation as a direct admission. He was transferred on daptomycin and Levaquin as he has multiple listed antibiotic allergies. On admission,he was hemodynamically stable and afebrile. No leukocytosis. Noted for troponin of 2118.7. Chest x-ray showed hazy airspace opacities in the left pericardiac region, right lower opacity. Left lower extremity Doppler showed no evidence of DVT. Repeat chest x-ray showed persistent slightly improved patchy bilateral lung zone infiltrates. He was evaluated by cardiology for elevated troponins and A-fib. He underwent a trans thoracic echocardiogram which showed mild aortic stenosis, normal mitral valve. He underwent coronary angiography which revealed severe obstructive co ronary disease not easily amenable to percutaneous intervention. There was no acute lesion. He was also evaluated by orthopedic surgery and underwent a left knee arthrocentesis which returned 10 cc of dark red blood without purulence. Fluid studies showed 28,440 WBCs, greater than 1 million RBCs, 97% polynuclear cells. MRSA screen negative for MRSA. Fluid cultures with no growth to date. Blood cultures no growth to date (obtained after antibiotics initiated). His course complicated by hypoxia. He underwent CT chest which showed multi focal groundglass opacities throughout the lung suggestive of an infectious process and several nodular foci within the lungs concerning for possible septic emboli. However a neoplastic process could appear similar. He had no significant respiratory symptoms. He was evaluated by pulmonary who recommended ID consult for septic emboli. No intervention per pulmonary. He currently on 2 L nasal cannula. Patient not seen as no Telepresenter available at time consult placed. Chart reviewed Allergies Allergy/AdvReac Type Severity Reaction Status Date / Time hyaluronate sodium, Allergy Severe Lips Verified 10/18/24 08:59 stabilized swelling hylan G-F 20 [From Synvisc] Allergy Severe Lips Verified 10/18/24 08:59 swelling celecoxib [From Celebrex] Allergy Unknown Rash Verified 10/18/24 08:59 cephalexin Allergy Unknown Rash Verified 10/18/24 08:59 dicyclomine Allergy Unknown Unknown Verified 10/18/24 08:59 homatropine Allergy Unknown Unknown Verified 10/18/24 08:59 hydrocodone Allergy Unknown Unknown Verified 10/18/24 08:59 meloxicam Allergy Unknown Unknown Verified 10/18/24 08:59 oxycodone [From Percocet] Allergy Unknown Unknown Verified 10/18/24 08:59 pregabalin Allergy Unknown ? Tired, Verified 10/18/24 08:59 listless Penicillins AdvReac Intermediate GI upset Verified 10/18/24 08:59 chlorthalidone AdvReac Mild Listless Verified 10/18/24 08:59 gabapentin AdvReac Mild ? Tired, Verified 10/18/24 08:59 listless pravastatin AdvReac Mild Muscle Pain Verified 10/18/24 08:59 prednisone AdvReac Mild GI upset Verified 10/18/24 08:59 sulfamethoxazole AdvReac Mild GI upset Verified 10/18/24 08:59 trimethoprim AdvReac Mild GI upset Verified 10/18/24 08:59 Home Medications Medication Instructions Recorded Confirmed Type albuterol sulfate 90 mcg/actuation 1 puffs inhalation UD PRN COPD #1 g 07/07/19 10/18/24 History aerosol inhaler lisinopril 40 mg tablet 40 mg PO QPM #90 tabs 07/07/19 10/18/24 History apixaban 5 mg tablet (Eliquis) 5 mg PO BID 02/16/22 10/18/24 History fluticasone 250 mcg-salmeterol 50 1 inh inhalation QAM 02/19/22 10/18/24 History mcg/dose blistr powdr for inhalation (Wixela Inhub) famotidine 20 mg tablet (Pepcid) 20 mg PO QAM 04/13/22 10/18/24 History cyanocobalamin (vitamin B-12) 1,000 mcg PO QAM 07/20/22 10/18/24 History 1,000 mcg tablet (Vitamin B-12) docusate sodium 100 mg capsule 100 mg PO HS 07/20/22 10/18/24 History (Colace) fluticasone propionate 50 1 spray intranasal UD PRN Nasal 07/20/22 10/18/24 History mcg/actuation nasal Congestion spray,suspension diltiazem HCl 180 mg capsule,24 180 mg PO BID 02/15/23 10/18/24 History hr,extended release blood sugar diagnostic (Accu-Chek #600 ea 02/22/23 09/11/24 Rx Jaclyn Plus test strips) pen needle, diabetic 32 gauge x #300 ea 02/22/23 09/11/24 Rx 1/6" (NovoFine Plus) tamsulosin 0.4 mg capsule 0.4 mg PO DAILY PRN prn 08/12/23 10/18/24 History diphenhydramine HCl 50 mg capsule 50 mg PO HS PRN prn/ sleep 02/03/24 10/18/24 History (Sleep Aid (diphenhydramine)) ascorbic acid (vitamin C) 500 mg 1 g PO QAM 09/05/24 10/18/24 History tablet (Vitamin C) hydrochlorothiazide 25 mg tablet 25 mg PO QAM 09/05/24 10/18/24 History insulin aspart U-100 100 unit/mL 100 unit subcut DAILY #90 mL 09/05/24 10/18/24 Rx (3 mL) subcutaneous pen (Novolog FlexPen U-100 Insulin aspart) metformin 1,000 mg tablet 1,000 mg PO BID 09/05/24 10/18/24 History polyethylene glycol 3350 17 17 g PO DAILY PRN Constipation 10/15/24 11/20/24 History gram/dose oral powder (Miralax) insulin glargine 100 unit/mL (3 64 unit subcut BID 10/18/24 10/18/24 History mL) subcutaneous pen (Lantus Solostar U-100 Insulin) acetaminophen 300 mg-codeine 30 mg 1 - 2 tab PO Q4H PRN pain #20 tabs 10/20/24 Rx tablet cefadroxil 500 mg capsule 500 mg PO Q12H #28 caps 10/20/24 Rx Patient History Medical History Osteoarthritis of left knee Aortic stenosis Echo 05/2023: "Mild" aortic stenosis (ARTI Vmax 2.17 cm, DVI 0.48) Hx of supraventricular tachycardia Nodule of kidney Follows with Dr. Aldridge Dyslipidemia Diabetic nephropathy Arthritis Nocturnal hypoxemia Obesity Chronic kidney disease, stage 2 (mild) Follows with Dr. 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 Per EP office visit (06/03/22): 2.2 second pause noted on telemetry during inpatient stay. 3 more pauses on Zio patch, longest 3.1 seconds, all in atrial fibrillation. "In atrial fibrillation, without any symptoms, he would have to have a pause of 5 seconds to qualify for a pacemaker. No indication for any further intervention at this time. 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 (no chemo or xrt) Surgical History Hx of LASIK History of ankle surgery left ankle hardware present History of left shoulder replacement (01/2023) Family history of reaction to anesthesia Mother- PONV History of carpal tunnel surgery of left wrist Nausea and vomiting after administration of anesthetic agent controlled with meds History of endoscopy History of colonoscopy with polypectomy History of carpal tunnel surgery of right wrist + ulnar nerve surgery History of fusion of cervical spine x2- most recent 2014 History of decompression of median nerve Per records, pt unsure History of decompression of ulnar nerve Right Left ulnar nerve transposition (03/15/24): LMA igel#5 at [facility] History of hernia repair (1958) History of cataract surgery R&L 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 History of urologic surgery (2016) 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 History of cholecystectomy Family History Other Family history of diabetes mellitus in father Social History Smoking Status: Former smoker Tobacco Type: Cigars Second Hand Exposure: No; Do You Dip or Chew Tobacco: No; Hx Alcohol Use: No Hx Substance Use: No Preferred Language: Tamazight Communication Ability: Effective Visual Impairment: No Limitations Hearing Ability: Normal Antenna Engineer Required: No Beliefs That Will Affect Care: None marital status: Current Living Situation: Significant Other current occupational status: retired Feels Safe at Home: Yes Safety Concerns: Feels Safe At This Time Diet: regular Physical Activity Frequency: Does not Exercise Do you think of yourself as: straight/heterosexual Gender Identity: Male Assistive Devices: CPAP Results & Data Vital Signs (Past 12 Hours) Vital Signs Temp Pulse Pulse Resp BP Pulse Ox Pulse Ox 10/25/24 15:03 36.5 C 74 18 136/69 97 10/25/24 11:02 36.5 C 88 20 141/69 H 97 10/25/24 08:23 10/25/24 08:23 98 10/25/24 07:33 36.7 C 87 20 160/69 H 98 10/25/24 07:18 86 10/25/24 04:33 86 20 95 10/25/24 04:31 86 18 95 O2 Del Method O2 Del Method O2 Flow Rate O2 Flow Rate 10/25/24 15:03 Room Air 10/25/24 11:02 Nasal Cannula 2 10/25/24 08:23 Nasal Cannula 3 10/25/24 08:23 Nasal Cannula 3 10/25/24 07:33 Nasal Cannula 3 10/25/24 07:18 10/25/24 04:33 3 10/25/24 04:31 CPAP 3 Laboratory Results Laboratory Results - last 48 hr 10/23/24 10/23/24 10/24/24 16:19 20:16 03:51 WBC 7.83 RBC 3.14 L Hgb 10.2 L Hct 29.1 L MCV 92.7 MCH 32.5 MCHC 35.1 RDW Std Deviation 39.9 RDW Coeff of Beatriz 11.8 Plt Count 319 MPV 9.3 L Immature Gran % (Auto) 1.0 Neut % (Auto) 66.9 Lymph % (Auto) 14.4 [place] % (Auto) 13.2 Eos % (Auto) 4.1 Baso % (Auto) 0.4 Neut # (Auto) 5.24 Lymph # (Auto) 1.13 L [place] # (Auto) 1.03 H Eos # (Auto) 0.32 Baso # (Auto) 0.03 Immature Gran # (Auto) 0.08 Sodium 129 L Potassium 3.6 Chloride 94 L Carbon Dioxide 30 Anion Gap 5 BUN 18 Creatinine 0.92 Est Cr Clr Drug Dosing 90.6 eGFR 86.21 BUN/Creatinine Ratio 19.6 Glucose 186 H POC Glucose 176 H 243 H Calcium 8.5 L Magnesium 2.0 Total Bilirubin 0.7 AST 29 ALT 33 Alkaline Phosphatase 51 B-Natriuretic Peptide Total Protein 6.2 Albumin 3.2 L Globulin 3.0 Albumin/Globulin Ratio 1.1 Adenovirus (PCR) B. pertussis DNA (PCR) B.parapertussis DNA PCR C. pneumoniae DNA (PCR) Coronavirus OC43 (PCR) Coronavirus HKU1 (PCR) Coronavirus 229E (PCR) SARS-CoV-2 (PCR) Coronavirus NL63 (PCR) Human Metapneumovir PCR Influenza Type A (PCR) Influenza Type B (PCR) M. pneumoniae (PCR) Parainfluenza 1 (PCR) Parainfluenza 2 (PCR) Parainfluenza 3 (PCR) Parainfluenza 4 (PCR) RSV (PCR) Entero/Rhino (PCR) 10/24/24 10/24/24 10/24/24 07:21 11:33 17:15 WBC RBC Hgb Hct MCV MCH MCHC RDW Std Deviation RDW Coeff of Beatriz Plt Count MPV Immature Gran % (Auto) Neut % (Auto) Lymph % (Auto) [place] % (Auto) Eos % (Auto) Baso % (Auto) Neut # (Auto) Lymph # (Auto) [place] # (Auto) Eos # (Auto) Baso # (Auto) Immature Gran # (Auto) Sodium Potassium Chloride Carbon Dioxide Anion Gap BUN Creatinine Est Cr Clr Drug Dosing eGFR BUN/Creatinine Ratio Glucose POC Glucose 211 H 249 H 224 H Calcium Magnesium Total Bilirubin AST ALT Alkaline Phosphatase B-Natriuretic Peptide Total Protein Albumin Globulin Albumin/Globulin Ratio Adenovirus (PCR) B. pertussis DNA (PCR) B.parapertussis DNA PCR C. pneumoniae DNA (PCR) Coronavirus OC43 (PCR) Coronavirus HKU1 (PCR) Coronavirus 229E (PCR) SARS-CoV-2 (PCR) Coronavirus NL63 (PCR) Human Metapneumovir PCR Influenza Type A (PCR) Influenza Type B (PCR) M. pneumoniae (PCR) Parainfluenza 1 (PCR) Parainfluenza 2 (PCR) Parainfluenza 3 (PCR) Parainfluenza 4 (PCR) RSV (PCR) Entero/Rhino (PCR) 10/24/24 10/24/24 10/25/24 19:29 19:57 05:58 WBC 9.11 RBC 3.15 L Hgb 10.2 L Hct 29.2 L MCV 92.7 MCH 32.4 MCHC 34.9 RDW Std Deviation 39.1 RDW Coeff of Beatriz 11.6 Plt Count 378 MPV 9.1 L Immature Gran % (Auto) Neut % (Auto) Lymph % (Auto) [place] % (Auto) Eos % (Auto) Baso % (Auto) Neut # (Auto) Lymph # (Auto) [place] # (Auto) Eos # (Auto) Baso # (Auto) Immature Gran # (Auto) Sodium 132 L Potassium 3.7 Chloride 95 L Carbon Dioxide 31 Anion Gap 6 BUN 15 Creatinine 0.86 Est Cr Clr Drug Dosing 97.2 eGFR 89.74 BUN/Creatinine Ratio 17.4 Glucose 215 H POC Glucose 214 H Calcium 8.3 L Magnesium Total Bilirubin AST ALT Alkaline Phosphatase B-Natriuretic Peptide Total Protein Albumin Globulin Albumin/Globulin Ratio Adenovirus (PCR) Not Detected B. pertussis DNA (PCR) Not Detected B.parapertussis DNA PCR Not Detected C. pneumoniae DNA (PCR) Not Detected Coronavirus OC43 (PCR) Not Detected Coronavirus HKU1 (PCR) Not Detected Coronavirus 229E (PCR) Not Detected SARS-CoV-2 (PCR) Not Detected Coronavirus NL63 (PCR) Not Detected Human Metapneumovir PCR Not Detected Influenza Type A (PCR) Not Detected Influenza Type B (PCR) Not Detected M. pneumoniae (PCR) Not Detected Parainfluenza 1 (PCR) Not Detected Parainfluenza 2 (PCR) Not Detected Parainfluenza 3 (PCR) Not Detected Parainfluenza 4 (PCR) Not Detected RSV (PCR) Not Detected Entero/Rhino (PCR) Not Detected 10/25/24 10/25/24 10/25/24 07:49 09:36 11:56 WBC RBC Hgb Hct MCV MCH MCHC RDW Std Deviation RDW Coeff of Beatriz Plt Count MPV Immature Gran % (Auto) Neut % (Auto) Lymph % (Auto) [place] % (Auto) Eos % (Auto) Baso % (Auto) Neut # (Auto) Lymph # (Auto) [place] # (Auto) Eos # (Auto) Baso # (Auto) Immature Gran # (Auto) Sodium Potassium Chloride Carbon Dioxide Anion Gap BUN Creatinine Est Cr Clr Drug Dosing eGFR BUN/Creatinine Ratio Glucose POC Glucose 220 H 261 H Calcium Magnesium Total Bilirubin AST ALT Alkaline Phosphatase B-Natriuretic Peptide 254 H Total Protein Albumin Globulin Albumin/Globulin Ratio Adenovirus (PCR) B. pertussis DNA (PCR) B.parapertussis DNA PCR C. pneumoniae DNA (PCR) Coronavirus OC43 (PCR) Coronavirus HKU1 (PCR) Coronavirus 229E (PCR) SARS-CoV-2 (PCR) Coronavirus NL63 (PCR) Human Metapneumovir PCR Influenza Type A (PCR) Influenza Type B (PCR) M. pneumoniae (PCR) Parainfluenza 1 (PCR) Parainfluenza 2 (PCR) Parainfluenza 3 (PCR) Parainfluenza 4 (PCR) RSV (PCR) Entero/Rhino (PCR) Diagnostic Findings Microbiology 10/21/24 09:00 Blood Aerobic Blood Culture - Preliminary No growth in Aerobic bottle after 48 hours. 10/21/24 09:00 Blood Anaerobic Blood Culture - Preliminary No growth in Anaerobic bottle after 48 hours. 10/21/24 08:49 Blood Aerobic Blood Culture - Preliminary No growth in Aerobic bottle after 48 hours. 10/21/24 08:49 Blood Anaerobic Blood Culture - Preliminary No growth in Anaerobic bottle after 48 hours. 10/21/24 11:55 Knee Gram Stain - Final 10/21/24 11:55 Knee Aerobic and Anaerobic Culture - Preliminary No growth to date. Chest X-Ray 10/22/24 15:31 EXAM: Radiograph of the Chest 1 View INDICATION: Cough. TECHNIQUE: Frontal view of the chest. COMPARISON: 10/21/2024 FINDINGS: Lungs and pleural spaces: Persistent but slightly improved patchy lower lung zone infiltrates with stable underlying vascular congestion. No significant pleural effusion. No pneumothorax. Heart: Stable cardiac shadow. Mediastinum: Normal contour. Bones/joints: No fracture, erosion or dislocation. Soft tissues: No abnormality noted. No radiopaque foreign body noted. Upper abdomen: Stable right diaphragmatic elevation with subjacent prominent colonic aeration. IMPRESSION: Persistent but slightly improved patchy bilateral lower lung zone infiltrates with stable underlying vascular congestion. ACT 112: Negative or not required by law. Electronically signed by Hortencia Landry 10-22-2024 4:11 PM Chest X-Ray 10/24/24 13:39 Exam(s): XR CXR 2 VIEWS EXAM: XR Chest, 2 Views CLINICAL HISTORY: Reason for exam: SOB. TECHNIQUE: Frontal and lateral views of the chest. COMPARISON: No relevant prior studies available. FINDINGS: Lungs: Patchy infiltrates are seen in the lung bases. Pleural space: Unremarkable. No pneumothorax. Heart: Unremarkable. No cardiomegaly. Mediastinum: Unremarkable. Normal mediastinal contour. Bones/joints: There is left humeral head arthroplasty. No acute fracture. Upper abdomen: Right dome of the diaphragm is elevated. IMPRESSION: Patchy infiltrates in the lung bases which could be from aspiration or pneumonia Electronically signed by: Checo Rabago MD 10/24/24 21:[address] 10/25/24 08:56 CT OF THE CHEST WITHOUT IV CONTRAST CLINICAL HISTORY: Hypoxia. COMPARISON STUDY: Chest radiograph October 24, 2024. Chest CT September 15, 2012. CT DOSE: 910.54 mGy.cm TECHNIQUE: Axial images of the chest were obtained without IV contrast. Images were reviewed in the axial, sagittal, and coronal planes. IV contrast was not administered for this examination. Automated exposure control was utilized for the study. A dose lowering technique was utilized adhering to the principles of ALARA. FINDINGS: Elevation of the right hemidiaphragm is similar to CT of September 15, 2012. There is mild cardiomegaly and extensive coronary artery calcification. There is no pericardial effusion. No pneumothorax. Trace bilateral pleural effusions. Multifocal groundglass opacities, predominantly subpleural in location are noted. There are also multiple nodular densities within the lungs, including a 1.9 cm lingular density on image 160 and a 1.2 cm subpleural nodular density within the left lower lobe on image 134. 1.1 cm left upper lobe nodular density on image 115 may contain a tiny central focus of cavitation. Central airways are patent. No lobar consolidation is present. Visualized portions of the abdomen demonstrate moderate distention of the hepatic flexure and transverse colon. IMPRESSION: 1. Multifocal groundglass opacities throughout the lungs suggestive of an infectious process. Several nodular foci within the lungs, one of which may contain early cavitation. These may also be infectious in etiology however raise the possibility of septic emboli. However, a neoplastic process such as metastatic disease could appear similar. Short-term follow-up chest CT in one month is recommended to ensure resolution. 2. Trace bilateral pleural effusions. 3. Stable elevation of the right hemidiaphragm. 4. Moderate distention of visualized portions of the colon. ACT 112: Positive. There are findings on this exam that require communication between the performing entity and the patient following Patient Test Result Information Act ([place] Act 112) guidelines. Electronically signed by: James Doe M.D. 10/25/2024 10:32 AM Medications Administered Home Medications Medication Instructions Recorded Confirmed Last Taken albuterol sulfate 90 mcg/actuation 1 puffs inhalation UD PRN COPD #1 g 07/07/19 10/18/24 Unknown aerosol inhaler lisinopril 40 mg tablet 40 mg PO QPM #90 tabs 07/07/19 10/18/24 10/17/24 21:00 apixaban 5 mg tablet (Eliquis) 5 mg PO BID 02/16/22 10/18/24 10/13/24 18:00 fluticasone 250 mcg-salmeterol 50 1 inh inhalation QAM 02/19/22 10/18/24 10/18/24 05:00 mcg/dose blistr powdr for inhalation (Wixela Inhub) famotidine 20 mg tablet (Pepcid) 20 mg PO QAM 04/13/22 10/18/2410/18/24 05:00 cyanocobalamin (vitamin B-12) 1,000 mcg PO QAM 07/20/22 10/18/24 10/16/24 07:00 1,000 mcg tablet (Vitamin B-12) docusate sodium 100 mg capsule 100 mg PO HS 07/20/22 10/18/24 10/17/24 21:00 (Colace) fluticasone propionate 50 1 spray intranasal UD PRN Nasal 07/20/22 10/18/24 10/18/24 05:00 mcg/actuation nasal Congestion spray,suspension diltiazem HCl 180 mg capsule,24 180 mg PO BID 02/15/23 10/18/24 10/18/24 05:00 hr,extended release blood sugar diagnostic (Accu-Chek #600 ea 02/22/23 09/11/24 Unknown Jaclyn Plus test strips) pen needle, diabetic 32 gauge x #300 ea 02/22/23 09/11/24 Unknown 1/6" (NovoFine Plus) tamsulosin 0.4 mg capsule 0.4 mg PO DAILY PRN prn 08/12/23 10/18/24 Unknown diphenhydramine HCl 50 mg capsule 50 mg PO HS PRN prn/ sleep 02/03/24 10/18/24 10/17/24 22:00 (Sleep Aid (diphenhydramine)) ascorbic acid (vitamin C) 500 mg 1 g PO QAM 09/05/24 10/18/24 10/16/24 07:00 tablet (Vitamin C) hydrochlorothiazide 25 mg tablet 25 mg PO QAM 09/05/24 10/18/24 10/17/24 07:00 insulin aspart U-100 100 unit/mL 100 unit subcut DAILY #90 mL 09/05/24 10/18/24 Unknown (3 mL) subcutaneous pen (Novolog FlexPen U-100 Insulin aspart) metformin 1,000 mg tablet 1,000 mg PO BID 09/05/24 10/18/24 10/17/24 19:00 polyethylene glycol 3350 17 17 g PO DAILY PRN Constipation 09/12/24 10/18/24 Unknown gram/dose oral powder (Miralax) insulin glargine 100 unit/mL (3 64 unit subcut BID 10/18/24 10/18/2424 19:00 mL) subcutaneous pen (Lantus Solostar U-100 Insulin) acetaminophen 300 mg-codeine 30 mg 1 - 2 tab PO Q4H PRN pain #20 tabs 10/20/24 Unknown tablet cefadroxil 500 mg capsule 500 mg PO Q12H #28 caps 10/20/24 Unknown Active Medications Generic Name Dose Route Start Last Admin Trade Name Freq PRN Reason Stop Dose Admin Acetaminophen 650 mg 10/21/24 06:21 10/25/24 11:50 Acetaminophen 325 Mg Tab PO 11/20/24 06:20 650 mg Q4H PRN Administration Pain or Fever Albuterol 3 ml 10/21/24 06:27 10/25/24 04:28 Albut/Ipratrop 3mg/0.5mg Neb 3 Ml Vial NEB 11/20/24 06:26 3 ml Q2H PRN Administration dyspnea Protocol Albuterol 1 puffs 10/21/24 06:39 10/22/24 05:22 Albuterol Hfa 8 Gm Inhaler INH 11/20/24 06:38 1 puffs Q6H PRN Administration COPD Apixaban 5 mg 10/23/24 21:00 10/25/24 08:15 Apixaban 5 Mg Tablet PO 11/22/24 20:59 5 mg BID JOI Administration Aspirin 81 mg 10/24/24 09:00 10/25/24 08:15 Aspirin 81 Mg Ectab PO 11/23/24 08:59 81 mg QAM JOI Administration Cyanocobalamin 1,000 mcg 10/21/24 09:00 10/25/24 08:14 Cyanocobalamin (B-12) 500 Mcg Tablet PO 11/20/24 08:59 1,000 mcg QAM JOI Administration Diltiazem HCl 180 mg 10/21/24 09:00 10/25/24 08:15 Diltiazem Hcl 180 Mg Capcr PO 11/20/24 08:59 180 mg BID JOI Administration Docusate Sodium 100 mg 10/21/24 09:00 10/25/24 08:14 Docusate Sodium 100 Mg Cap PO 11/20/24 08:59 100 mg BID JOI Administration Famotidine 20 mg 10/21/24 09:00 10/25/24 08:14 Famotidine 20 Mg Tab PO 11/20/24 08:59 20 mg QAM JOI Administration Fluticasone/Vilanterol 1 puffs 10/21/24 09:00 10/25/24 08:16 Fluticasone/Vilanterol 100/25mcg 14 Puffs/Inhaler INH 11/20/24 08:59 1 puffs QAM JOI Administration Protocol Guaifenesin 600 mg 10/22/24 21:00 10/25/24 08:14 Guaifenesin 600 Mg Tabcr PO 11/21/24 20:59 600 mg Q12 JOI Administration Pantoprazole Sodium 40 mg in 10 mls @ 5 mls/min 10/21/24 21:00 10/24/24 21:20 Protonix IV 11/20/24 20:59 5 mls/min QPM JOI Administration Levofloxacin/Dextrose 750 mg in 150 mls @ 100 mls/hr 10/21/24 08:15 10/25/24 09:47 Levaquin/D5w IV 10/26/24 08:14 Infused Q24H JOI Infusion Insulin Aspart 0 units 10/21/24 16:30 10/25/24 12:25 Insulin Aspart Per Unit Charge SC 11/20/24 16:29 15 units ACHS JOI Administration Insulin Glargine 32 units 10/21/24 09:00 10/25/24 08:55 Lantus Per Unit Charge SQ 11/20/24 08:59 32 units BID JOI Administration Melatonin 3 mg 10/25/24 01:52 10/25/24 02:00 Melatonin 3 Mg Tab PO 11/24/24 01:51 3 mg HS PRN Administration Sleep Metoprolol Tartrate 12.5 mg 10/23/24 21:00 10/25/24 08:14 Metoprolol Tartrate 25 Mg Tab PO 11/22/24 20:59 12.5 mg BID JOI Administration Miscellaneous 1 each 10/22/24 21:00 10/24/24 23:49 Remove Lidoderm Patch N/A 11/21/24 20:59 1 each DAILY@2100 JOI Administration Ondansetron HCl 4 mg 10/21/24 06:21 10/25/24 01:19 Ondansetron Inj 2 Mg/Ml 2 Ml Vial IV 11/20/24 06:20 4 mg Q6H PRN Administration Nausea Oxycodone HCl 5 mg 10/22/24 12:16 11/27/24 13:00 Oxycodone Hcl Ir 5 Mg Tab (Immediate Release) PO 11/05/24 12:15 5 mg Q4H PRN Administration Pain Polyethylene Glycol 17 gm 10/21/24 16:52 10/21/24 17:48 Polyethylene (Miralax) 17 Gm Pack PO 11/20/24 16:51 17 gm DAILY PRN Administration Constipation
--- NOTE | 2024-10-25 15:35 | Hospitalist Progress Note ---
Date of Service October 25, 2024 Assessment & Plan (1) History of left knee surgery: Plan: Recent left TKA with Dr. Victoria on 10/18, discharged to rehab and quickly returned to hospital - initial concern for possible infection but this has been ruled out thus far Orthopedic consult - needle aspiration 10/21 - Gram stain is negative. Culture prelim negative. - continue wound vac, pressure dressing. - okay for anticoagulation and diet - not procedures plan -reached out to ortho 10/24 via tiger text - less likely intra articular joint or superficial joint infection. recommend 2 weeks of prophylactic abx. Spoke w/ pharmacy today who has recommended cefuroxime 500mg PO BID for prophylactic abx which can be considered at discharge. Continue Oxycodone PO q4h for pain. Left leg doppler: negative for DVT Daptomycin discontinued 10/25 due to absence of joint infection. Continue IV Levofloxacin for ongoing pneumonia. BC neg at 48h gricelda. (2) Hypoxia: Plan: Hx of COPD & SONIDO Pneumonia Reported compliance with CPAP at home Continue CPAP HS and as needed during the day Continue Incentive spirometry SpO2 alberta 88%. Brief tachypnea Consider CTA for evaluation of PE patient on Eliquis repeat CXR 10/24 reviewed: patchy infiltrates in lung bases which could be from aspiration or pneumonia respiratory Biofire 10/24 negative CBC/BMP reviewed 10/25: stable Chest CT reviewed 10/25: multifocal ground glass opacities throughout lungs suggestive of infectious process. several nodular foci within the lungs, one of which may contain early cavitation. may also be infectious in etiology and raise possibility of septic emboli. neoplastic process could appear similar. short term follow up chest CT in 1 month is recommended to ensure resolution. trace b/l pleural effusions. stable elevation of right hemidiaphgram Pulmonology consulted 10/25, note reviewed consult ID to determine abx choices and duration - 4-6 week course considered if cannot r/o endovascular etiologies repeat CT scan in 6-8 weeks continue incentive spirometry and wean O2 as tolerated. continue CPAP Continue Levaquin for now, last dose scheduled for 10/26 although this will likely need to be lengthened due to CT findings. ID consulted, appreciate recommendations. AM CBC, BMP (3) Paroxysmal atrial fibrillation: Plan: Telemetry reviewed - Atrial fib in the low 100s. Tachycardia may be from pain Continue Apixaban 5mg PO BID Continue Diltiazem 180mg PO BID Cardiac catheterization completed 10/[address] Pacheco: patient w/ severe multivessel CAD. - recommend outpatient referral to tertiary care center regarding surgical revascularization Cardiology added metoprolol tartrate 10/24 to patient's medication regimen can be converted to metoprolol succinate at time of discharge. (4) Altered mental status: Plan: Metabolic encephalopathy Improved, AxOx3 10/23 Recently discharged to rehab after TKA on 10/20, where he became altered and weak and subsequently sent to the ER and transferred back to [facility] CXR: hazy airspace opacities - infection vs inflammation. Right lower opacity noted, could be infection. no leukocytosis, afebrile. Continue Dapto and Levoquin (multiple allergies) - MRSA nares: Negative. If respiratory becomes confirmed source, can d/c dapto. UA ordered - negative Blood Cultures: negative at 48h gricelda. Covid: negative Encourage IS Wean O2 as able, baseline is room air (5) Elevated troponin: Plan: Myocardial infarction type 2, POA 2118 --> 2583 --> 2671 -->2077.0 Clinically, denies chest pain. Does not feel short of breath, but had increased O2 requirement at 2L EKG: afib, rate 91. No ST changes Repeat EKG: afib with RVR, no major ST elevations, minimal knife changer 3 see plan #3 (6) DM type 2 (diabetes mellitus, type 2): Plan: Recent A1c 7.7 Decrease glargine from 64 to 32 units SQ twice daily - with decreased intake and nausea and vomiting SSI added Plan PT/OT consults placed 10/24, recommending rehab anticipate discharge to rehab pending stabilization of hypoxia. Admission and Anticipated Discharge Date Admission Date: October 21, 2024 Subjective Patient seen and examined this morning and afternoon. Patient states he had a rough night last night. states he felt very short of breath and believes he had a panic attack. Today, he states his breathing has been okay. he states the duonebs do help when he has symptoms. Physical Exam Constitutional: WD/WN, vitals as above Eyes: PERRL, conjunctivae normal, anicteric sclerae Respiratory: crackles and lung bases Cardiovascular: irregulary, irregular. no edema Psychiatric: A+Ox3, euthymic affect Results & Data Results & Data Vital Signs (Past 12 Hours) Vital Signs Temp Pulse Pulse Resp BP Pulse Ox Pulse Ox 10/25/24 15:03 36.5 C 74 18 136/69 97 10/25/24 11:02 36.5 C 88 20 141/69 H 97 10/25/24 08:23 10/25/24 08:23 98 10/25/24 07:33 36.7 C 87 20 160/69 H 98 10/25/24 07:18 86 10/25/24 04:33 86 20 95 10/25/24 04:31 86 18 95 O2 Del Method O2 Del Method O2 Flow Rate O2 Flow Rate 10/25/24 15:03 Room Air 10/25/24 11:02 Nasal Cannula 2 10/25/24 08:23 Nasal Cannula 3 10/25/24 08:23 Nasal Cannula 3 10/25/24 07:33 Nasal Cannula 3 10/25/24 07:18 10/25/24 04:33 3 10/25/24 04:31 CPAP 3 PG Care Time/CCT Total # of Minutes Spent Total Time Spent with Patient: Total time spent is greater than 50% in coordination of care (as documented) at patient's floor/unit and/or counseling patient: Coding Level of Care Code 17205 SUB INP/OBS CARE 3/50MIN Diagnoses History of left knee surgery Z98.890 Hypoxia R09.02 Paroxysmal atrial fibrillation I48.0 Altered mental status R41.82 Elevated troponin R79.89 DM type 2 (diabetes mellitus, type 2) E11.9
[2024-10-26 07:24] LABS: Hematocrit (blood only) 29.4 % (42.0-52.0); Hemoglobin 10.1 g/dl (14.0-18.0); Mean Corpuscular Hgb Conc 34.4 g/dL (32.0-36.0); Mean Platelet Volume 8.9 fL (9.4-12.4); Platelet Count 437 K/uL (130-400); RDW Coefficient of Variation 11.8 % (11.5-14.5); RDW Standard Deviation 39.9 fL (36.4-46.3); Red Blood Count 3.16 M/uL (4.70-6.10); White Blood Count 10.02 K/ul (4.8-10.8)
[2024-10-26 07:39] LABS: BUN Creatinine Ratio 17.9 (10-20); C Reactive Protein 14.2 mg/dl (0-0.5); Calcium 8.3 mg/dl (8.6-10.3); Creatinine Clr Calc Pharmacy 108.5 ml/min; Potassium 4.2 mmol/L (3.5-5.1)
[2024-10-26] MEDS: DAPTOmycin 575 MG in SYRINGE 0 ML IV SCH (08:38)
[2024-10-26] MEDS: BUTT PASTE (ZINC OXIDE 16%) 171 APPLN/57 GM JAR EXT SCH (12:45)
--- NOTE | 2024-10-26 16:12 | Hospitalist Progress Note ---
Date of Service October 26, 2024 Assessment & Plan (1) History of left knee surgery: Plan: Recent left TKA with Dr. Victoria on 10/18, discharged to rehab and quickly returned to hospital - initial concern for possible infection but this has been ruled out thus far Orthopedic consult - needle aspiration 10/21 - Gram stain is negative. Culture prelim negative. - continue wound vac, pressure dressing. - okay for anticoagulation and diet - not procedures plan -reached out to ortho 10/24 via tiger text - less likely intra articular joint or superficial joint infection. recommend 2 weeks of prophylactic abx. Spoke w/ pharmacy today who has recommended cefuroxime 500mg PO BID for prophylactic abx which can be considered at discharge. Continue Oxycodone PO q4h for pain. Left leg doppler: negative for DVT Daptomycin discontinued 10/25 due to absence of joint infection. Continue IV Levofloxacin for ongoing pneumonia. BC neg at 48h gricelda. (2) Hypoxia: Plan: Hx of COPD & SONIDO Pneumonia Reported compliance with CPAP at home Continue CPAP HS and as needed during the day Continue Incentive spirometry SpO2 alberta 88%. Brief tachypnea Consider CTA for evaluation of PE patient on Eliquis repeat CXR 10/24 reviewed: patchy infiltrates in lung bases which could be from aspiration or pneumonia respiratory Biofire 10/24 negative CBC/BMP reviewed 10/26: stable Chest CT reviewed 10/25: multifocal ground glass opacities throughout lungs suggestive of infectious process. several nodular foci within the lungs, one of which may contain early cavitation. may also be infectious in etiology and raise possibility of septic emboli. neoplastic process could appear similar. short term follow up chest CT in 1 month is recommended to ensure resolution. trace b/l pleural effusions. stable elevation of right hemidiaphgram Pulmonology consulted 10/25, note reviewed consult ID to determine abx choices and duration - 4-6 week course considered if cannot r/o endovascular etiologies repeat CT scan in 6-8 weeks continue incentive spirometry and wean O2 as tolerated. continue CPAP ID consulted, reviewed consult note 10/26 Continue Levaquin and Daptomcyin Check TASNEEM check Rheumatoid factor Fungal blood cultures pending AM CBC, BMP (3) Paroxysmal atrial fibrillation: Plan: Telemetry reviewed - Atrial fib in the low 100s. Tachycardia may be from pain Continue Apixaban 5mg PO BID Continue Diltiazem 180mg PO BID Cardiac catheterization completed 10/[address] Pacheco: patient w/ severe multivessel CAD. - recommend outpatient referral to tertiary care center regarding surgical revascularization Cardiology added metoprolol tartrate 10/24 to patient's medication regimen can be converted to metoprolol succinate at time of discharge. (4) Altered mental status: Plan: Metabolic encephalopathy Improved, AxOx3 10/23 Recently discharged to rehab after TKA on 10/20, where he became altered and weak and subsequently sent to the ER and transferred back to [facility] CXR: hazy airspace opacities - infection vs inflammation. Right lower opacity noted, could be infection. no leukocytosis, afebrile. Continue Dapto and Levoquin (multiple allergies) - MRSA nares: Negative. If respiratory becomes confirmed source, can d/c dapto. UA ordered - negative Blood Cultures: negative at 48h gricelda. Covid: negative Encourage IS Wean O2 as able, baseline is room air (5) Elevated troponin: Plan: Myocardial infarction type 2, POA 2118 --> 2583 --> 2671 -->2077.0 Clinically, denies chest pain. Does not feel short of breath, but had increased O2 requirement at 2L EKG: afib, rate 91. 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 Admission and Anticipated Discharge Date Admission Date: October 21, 2024 Subjective Patient seen and examined this morning. Patient reports knee pain today. He continues on 2L of nasal cannula. Nursing notes patient has been unmotivated to ambulate. Discussed w/ patient today that ambulating will aid in his joint pain. Patient agreeable to try. He denies CP. Physical Exam Constitutional: WD/WN, vitals as above Eyes: PERRL, conjunctivae normal, anicteric sclerae Respiratory: crackles at bases Cardiovascular: irregulary irregular, no edema Psychiatric: A+Ox3, euthymic affect Results & Data Results & Data Vital Signs (Past 12 Hours) Vital Signs Temp Pulse Pulse Resp BP Pulse Ox O2 Del Method 10/26/24 15:07 36.8 C 71 20 146/64 H 98 Nasal Cannula 10/26/24 13:02 78 10/26/24 11:26 36.6 C 86 18 145/82 H 95 Room Air 10/26/24 11:01 Nasal Cannula 10/26/24 09:13 10/26/24 07:50 36.6 C 79 18 146/70 H 99 Nasal Cannula 10/26/24 05:43 83 O2 Del Method O2 Flow Rate 10/26/24 15:07 2 10/26/24 13:02 10/26/24 11:26 10/26/24 11:01 2 10/26/24 09:13 Nasal Cannula 10/26/24 07:50 2 10/26/24 05:43 PG Care Time/CCT Total # of Minutes Spent Total Time Spent with Patient: Total time spent is greater than 50% in coordination of care (as documented) at patient's floor/unit and/or counseling patient: Coding Level of Care Code 73630 SUB INP/OBS CARE 2/35MIN Diagnoses History of left knee surgery Z98.890 Hypoxia R09.02 Paroxysmal atrial fibrillation I48.0 Altered mental status R41.82 Elevated troponin R79.89 DM type 2 (diabetes mellitus, type 2) E11.9
[2024-10-27 06:16] LABS: Hematocrit (blood only) 30.2 % (42.0-52.0); Hemoglobin 10.4 g/dl (14.0-18.0); Mean Corpuscular Hemoglobin 31.8 pg (25.0-34.0); Mean Corpuscular Hgb Conc 34.4 g/dL (32.0-36.0); Mean Corpuscular Volume 92.4 fL (80.0-100.0); Mean Platelet Volume 8.6 fL (9.4-12.4); Platelet Count 442 K/uL (130-400); RDW Coefficient of Variation 11.9 % (11.5-14.5); RDW Standard Deviation 40.3 fL (36.4-46.3); Red Blood Count 3.27 M/uL (4.70-6.10); White Blood Count 9.91 K/ul (4.8-10.8)
[2024-10-27 06:30] LABS: BUN Creatinine Ratio 15.3 (10-20); Calcium 8.3 mg/dl (8.6-10.3); Creatinine Clr Calc Pharmacy 98.8 ml/min
--- NOTE | 2024-10-27 15:54 | Hospitalist Progress Note ---
Date of Service October 27, 2024 Assessment & Plan (1) History of left knee surgery: Plan: Recent left TKA with Dr. Victoria on 10/18, discharged to rehab and quickly returned to hospital needle aspiration 10/21 - Gram stain is negative. Culture negative. Blood cultures negative reached out to ortho 10/24 via tiger text - less likely intra articular joint or superficial joint infection. recommend 2 weeks of prophylactic abx. Spoke w/ pharmacy today who has recommended cefuroxime 500mg PO BID for prophylactic abx which can be considered at discharge. Continue Oxycodone PO q4h for pain. Left leg doppler: negative for DVT (2) Hypoxia: Plan: Pneumonia Continue CPAP HS and as needed during the day Continue Incentive spirometry CXR 10/24 reviewed: patchy infiltrates in lung bases which could be from aspiration or pneumonia respiratory Biofire 10/24 negative CBC/BMP reviewed 10/27: stable Chest CT reviewed 10/25: multifocal ground glass opacities throughout lungs suggestive of infectious process. several nodular foci within the lungs, one of which may contain early cavitation. may also be infectious in etiology and raise possibility of septic emboli. neoplastic process could appear similar. short term follow up chest CT in 1 month is recommended to ensure resolution. trace b/l pleural effusions. stable elevation of right makayla-diaphgram Pulmonology consulted 10/25, note reviewed consult ID to determine abx choices and duration - 4-6 week course considered if cannot r/o endovascular etiologies repeat CT scan in 6-8 weeks continue incentive spirometry and wean O2 as tolerated. continue CPAP ID consulted, reviewed consult note 10/26 Continue Levaquin and Daptomycin Check TASNEEM Rheumatoid factor pending Fungal blood cultures pending AM CBC, BMP (3) Paroxysmal atrial fibrillation: Plan: Continue Apixaban 5mg PO BID Continue Diltiazem 180mg PO BID Metoprolol tartrate added 10/24 convert to metoprolol succinate on discharge per cardiology Cardiac catheterization completed 10/[address] Pacheco: patient w/ severe multivessel CAD. - recommend outpatient referral to tertiary care center regarding surgical revascularization (4) Altered mental status: Plan: Metabolic encephalopathy Resolved plan as above (5) Elevated troponin: Plan: Myocardial infarction type 2, POA 2118 --> 2583 --> 2671 -->2077.0 see plan #3 (6) DM type 2 (diabetes mellitus, type 2): Plan: Recent A1c 7.7 Decrease glargine from 64 to 32 units SQ twice daily SSI Plan PT/OT consults placed 10/24, recommending rehab anticipate discharge to rehab pending stabilization of hypoxia. Admission and Anticipated Discharge Date Admission Date: October 21, 2024 Subjective Patient seen and examined this morning. Patient sitting upright in chair at time of encounter. He continues to complain of knee pain. He has been on room air. He denies any shortness of breath. denies CP. Physical Exam Constitutional: WD/WN, vitals as above Eyes: PERRL, conjunctivae normal, anicteric sclerae Respiratory: breathing unlabored Cardiovascular: well perfused, no edema Psychiatric: A+Ox3, euthymic affect Results & Data Results & Data Vital Signs (Past 12 Hours) Vital Signs Temp Pulse Pulse Resp BP Pulse Ox O2 Del Method 10/27/24 13:31 80 10/27/24 11:00 36.5 C 79 18 132/77 92 Room Air 10/27/24 08:05 Room Air 10/27/24 07:48 36.5 C 83 18 169/81 H 92 Room Air 10/27/24 05:54 83 PG Care Time/CCT Total # of Minutes Spent Total Time Spent with Patient: Total time spent is greater than 50% in coordination of care (as documented) at patient's floor/unit and/or counseling patient: Coding Level of Care Code 79666 SUB INP/OBS CARE 2/35MIN Diagnoses History of left knee surgery Z98.890 Hypoxia R09.02 Paroxysmal atrial fibrillation I48.0 Altered mental status R41.82 Elevated troponin R79.89 DM type 2 (diabetes mellitus, type 2) E11.9
--- NOTE | 2024-10-27 16:33 | Infectious Disease Progress Nt ---
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 He was discharged to [facility] rehab on 10/20/2024. There he was noted to be weak and confused. He was seen in the [facility] ED where he was noted to be febrile with a temp of 101.8, tachycardic-pulse 103 and o2 sat of 92% on room air. It was thought that he had a postoperative wound infection. He was transferred back to [facility] on 10/21/2024 for further evaluation as a direct admission. He was transferred on daptomycin and Levaquin as he has multiple listed antibiotic allergies. On admission,he was hemodynamically stable and afebrile. No leukocytosis. Noted for troponin of 2118.7. Chest x-ray showed hazy airspace opacities in the left pericardiac region, right lower opacity. Left lower extremity Doppler showed no evidence of DVT. Repeat chest x-ray showed persistent slightly improved patchy bilateral lung zone infiltrates. He was evaluated by cardiology for elevated troponin and A-fib. He underwent a trans thoracic echocardiogram which showed mild aortic stenosis, normal mitral valve. He underwent coronary angiography which revealed severe obstructive coronary disease not easily amenable to percutaneous intervention. There was no acute lesion. He was also evaluated by orthopedic surgery and underwent a left knee arthrocentesis which returned 10 cc of dark red blood without purulence. Fluid studies showed 28,440 WBCs, greater than 1 million RBCs, 97% polynuclear cells. MRSA screen negative for MRSA. Fluid cultures with no growth to date. Blood cultures no growth to date (obtained after antibiotics initiated). His course complicated by hypoxia. He underwent CT chest which showed multi focal groundglass opacities throughout the lung suggestive of an infectious process and several nodular foci within the lungs concerning for possible septic emboli. However a neoplastic process could appear similar. He had no significant respiratory symptoms. He was evaluated by pulmonary who recommended ID consult for septic emboli. No intervention per pulmonary. He currently on 2 L nasal cannula. Microbiology: Blood cultures 10/21 NG Left knee synovial fluid culture 10/21 NG Left knee fluid analysis 10/21 28,440 WBCs, greater than 1 million RBCs, 97% polynuclear cells. Fugal blood culture 10/25 Pending Antibiotics: Levaquin 10/21ongoing Daptomycin 10/21ongoing # Possible septic emboli # Possible pneumonia # Recent left TKA (10/18/2024) # Neutrophilic predominant synovial fluid aspiration # History of left ankle surgery with hardware Discussion: Etiology of reported fevers and tachycardia at outside hospital unclear. Appears to have resolved once admitted and started on antibiotics. Knee fluid aspiration shows greater than 20,000 WBCs with a neutrophil predomina nce, however cultures with no growth to date. Blood cultures also with no growth to date; both synovial fluid and blood cultures obtained about 24 hours after initiation of antibiotics. Lung imaging findings concerning for pneumonia and/ septic emboli. TTE done on admission shows mild aortic stenosis but no obvious mobile densities or vegetations. MRSA screen is negative. Antibiotic allergies listed including penicillins and Bactrim however symptoms are GI upset. He has documented history of rash with cephalexin. Levaquin should appropriately cover for pneumonia ( qtc 420, 10/21 . Daptomycin does not provide lung coverage however MRSA screen is negative so doubt MRSA pneumonia. Given fevers/tachycardia prior to admission, presence of hardware/prosthetics: Left ankle and recent left knee prosthetic with concern for septic emboli on imaging, would further evaluate for endovascular infection/endocarditis. esr 88, crp 14.20 (10/26) Recommendations -Continue Levaquin for now -Continue daptomycin for now -Follow up TASNEEM -Follow up RF - Follow up Fungal culture - Ordered coxiella ( q fever) serology ID will continue to follow. ID will not round or review chart over the weekend. Call [phone] with questions. Will return, Tuesday 10/30 Daisy Stevens MD, MPH Infectious Disease ID Connect [facility], ID Division Admission and Anticipated Discharge Date Admission Date: October 21, 2024 Subjective This patient recommendation is based on a telemedicine consult request which was completed asynchronously through chart review and information provided by the primary physician. The patient was not seen or examined today. The evaluation is consultative in nature and all patient care and treatment decisions can either be accepted or rejected by the patient's primary hospital-based treating physician using their own independent medical judgment for their patient. Time Spent Reviewing Chart: 21 - 30 minutes TASNEEM pending 10/21 NG Results & Data Vital Signs (Past 12 Hours) Vital Signs Temp Pulse Pulse Resp BP Pulse Ox O2 Del Method 10/27/24 16:00 36.4 C L 74 19 138/72 93 Room Air 10/27/24 13:31 80 10/27/24 11:00 36.5 C 79 18 132/77 92 Room Air 10/27/24 08:05 Room Air 10/27/24 07:48 36.5 C 83 18 169/81 H 92 Room Air 10/27/24 05:54 83 Laboratory Results Laboratory Results - last 48 hr 10/25/24 10/25/24 10/26/24 16:48 20:00 06:34 WBC 10.02 RBC 3.16 L Hgb 10.1 L Hct 29.4 L MCV 93.0 MCH 32.0 MCHC 34.4 RDW Std Deviation 39.9 RDW Coeff of Beatriz 11.8 Plt Count 437 H MPV 8.9 L ESR 88 H Sodium 134 L Potassium 4.2 Chloride 97 L Carbon Dioxide 32 Anion Gap 5 BUN 14 Creatinine 0.78 Est Cr Clr Drug Dosing 108.5 eGFR 92.42 BUN/Creatinine Ratio 17.9 Glucose 165 H POC Glucose 209 H 143 H Calcium 8.3 L C-Reactive Protein 14.20 H 10/26/24 10/26/24 10/26/24 08:16 11:59 17:08 WBC RBC Hgb Hct MCV MCH MCHC RDW Std Deviation RDW Coeff of Beatriz Plt Count MPV ESR Sodium Potassium Chloride Carbon Dioxide Anion Gap BUN Creatinine Est Cr Clr Drug Dosing eGFR BUN/Creatinine Ratio Glucose POC Glucose 187 H 205 H 166 H Calcium C-Reactive Protein 10/26/24 10/27/24 10/27/24 20:14 05:32 08:11 WBC 9.91 RBC 3.27 L Hgb 10.4 L Hct 30.2 L MCV 92.4 MCH 31.8 MCHC 34.4 RDW Std Deviation 40.3 RDW Coeff of Beatriz 11.9 Plt Count 442 H MPV 8.6 L ESR Sodium 134 L Potassium 4.0 Chloride 98 Carbon Dioxide 28 Anion Gap 8 BUN 13 Creatinine 0.85 Est Cr Clr Drug Dosing 98.8 eGFR 90.06 BUN/Creatinine Ratio 15.3 Glucose 132 H POC Glucose 179 H 157 H Calcium 8.3 L C-Reactive Protein 10/27/24 12:00 WBC RBC Hgb Hct MCV MCH MCHC RDW Std Deviation RDW Coeff of Beatriz Plt Count MPV ESR Sodium Potassium Chloride Carbon Dioxide Anion Gap BUN Creatinine Est Cr Clr Drug Dosing eGFR BUN/Creatinine Ratio Glucose POC Glucose 275 H Calcium C-Reactive Protein Diagnostic Findings Microbiology 10/21/24 08:49 Blood Aerobic Blood Culture - Final No growth in Aerobic bottle after 5 days. 10/21/24 08:49 Blood Anaerobic Blood Culture - Final No growth in Anaerobic bottle after 5 days. 10/21/24 09:00 Blood Aerobic Blood Culture - Final No growth in Aerobic bottle after 5 days. 10/21/24 09:00 Blood Anaerobic Blood Culture - Final No growth in Anaerobic bottle after 5 days. 10/21/24 11:55 Knee Gram Stain - Final 10/21/24 11:55 Knee Aerobic and Anaerobic Culture - Final No growth 10/25/24 20:47 Blood Fungal Smear - Final Chest X-Ray 10/24/24 13:39 Exam(s): XR CXR 2 VIEWS EXAM: XR Chest, 2 Views CLINICAL HISTORY: Reason for exam: SOB. TECHNIQUE: Frontal and lateral views of the chest. COMPARISON: No relevant prior studies available. FINDINGS: Lungs: Patchy infiltrates are seen in the lung bases. Pleural space: Unremarkable. No pneumothorax. Heart: Unremarkable. No cardiomegaly. Mediastinum: Unremarkable. Normal mediastinal contour. Bones/joints: There is left humeral head arthroplasty. No acute fracture. Upper abdomen: Right dome of the diaphragm is elevated. IMPRESSION: Patchy infiltrates in the lung bases which could be from aspiration or pneumonia Electronically signed by: Checo Rabago MD 10/24/24 21:[address] 10/25/24 08:56 CT OF THE CHEST WITHOUT IV CONTRAST CLINICAL HISTORY: Hypoxia. COMPARISON STUDY: Chest radiograph October 24, 2024. Chest CT September 15, 2012. CT DOSE: 910.54 mGy.cm TECHNIQUE: Axial images of the chest were obtained without IV contrast. Images were reviewed in the axial, sagittal, and coronal planes. IV contrast was not administered for this examination. Automated exposure control was utilized for the study. A dose lowering technique was utilized adhering to the principles of ALARA. FINDINGS: Elevation of the right hemidiaphragm is similar to CT of September 15, 2012. There is mild cardiomegaly and extensive coronary artery calcification. There is no pericardial effusion. No pneumothorax. Trace bilateral pleural effusions. Multifocal groundglass opacities, predominantly subpleural in location are noted. There are also multiple nodular densities within the lungs, including a 1.9 cm lingular density on image 160 and a 1.2 cm subpleural nodular density within the left lower lobe on image 134. 1.1 cm left upper lobe nodular density on image 115 may contain a tiny central focus of cavitation. Central airways are patent. No lobar consolidation is present. Visualized portions of the abdomen demonstrate moderate distention of the hepatic flexure and tra nsverse colon. IMPRESSION: 1. Multifocal groundglass opacities throughout the lungs suggestive of an infectious process. Several nodular foci within the lungs, one of which may contain early cavitation. These may also be infectious in etiology however raise the possibility of septic emboli. However, a neoplastic process such as metastatic disease could appear similar. Short-term follow-up chest CT in one month is recommended to ensure resolution. 2. Trace bilateral pleural effusions. 3. Stable elevation of the right hemidiaphragm. 4. Moderate distention of visualized portions of the colon. ACT 112: Positive. There are findings on this exam that require communication between the performing entity and the patient following Patient Test Result Information Act ([place] Act 112) guidelines. Electronically signed by: James Doe M.D. 10/25/2024 10:32 AM Medications Administered Home Medications Medication Instructions Recorded Confirmed Last Taken albuterol sulfate 90 mcg/actuation 1 puffs inhalation UD PRN COPD #1 g 07/07/19 10/18/24 Unknown aerosol inhaler lisinopril 40 mg tablet 40 mg PO QPM #90 tabs 07/07/19 10/18/24 10/17/24 21:00 apixaban 5 mg tablet (Eliquis) 5 mg PO BID 02/16/22 10/18/24 10/13/24 18:00 fluticasone 250 mcg-salmeterol 50 1 inh inhalation QAM 02/19/22 10/18/24 10/18/24 05:00 mcg/dose blistr powdr for inhalation (Wixela Inhub) famotidine 20 mg tablet (Pepcid) 20 mg PO QAM 04/13/22 10/18/24 10/18/24 05:00 cyanocobalamin (vitamin B-12) 1,000 mcg PO QAM 07/20/22 10/18/24 10/16/24 07:00 1,000 mcg tablet (Vitamin B-12) docusate sodium 100 mg capsule 100 mg PO HS 07/20/22 10/18/24 10/17/24 21:00 (Colace) fluticasone propionate 50 1 spray intranasal UD PRN Nasal 07/20/22 10/18/24 10/18/24 05:00 mcg/actuation nasal Congestion spray,suspension diltiazem HCl 180 mg capsule,24 180 mg PO BID 02/15/23 10/18/24 10/18/24 05:00 hr,extended release blood sugar diagnostic (Accu-Chek #600 ea 02/22/23 09/11/24 Unknown Jaclyn Plus test strips) pen needle, diabetic 32 gauge x #300 ea 02/22/23 09/11/24 Unknown 1/6" (NovoFine Plus) tamsulosin 0.4 mg capsule 0.4 mg PO DAILY PRN prn 08/12/23 10/18/24 Unknown diphenhydramine HCl 50 mg capsule 50 mg PO HS PRN prn/ sleep 02/03/24 10/18/24 10/17/24 22:00 (Sleep Aid (diphenhydramine)) ascorbic acid (vitamin C) 500 mg 1 g PO QAM 09/05/24 10/18/24 10/16/24 07:00 tablet (Vitamin C) hydrochlorothiazide 25 mg tablet 25 mg PO QAM 09/05/24 10/18/24 10/17/24 07:00 insulin aspart U-100 100 unit/mL 100 unit subcut DAILY #90 mL 09/05/24 10/18/24 Unknown (3 mL) subcutaneous pen (Novolog FlexPen U-100 Insulin aspart) metformin 1,000 mg tablet 1,000 mg PO BID 09/05/24 10/18/24 10/17/24 19:00 polyethylene glycol 3350 17 17 g PO DAILY PRN Constipation 09/12/24 10/18/24 Unknown gram/dose oral powder (Miralax) insulin glargine 100 unit/mL (3 64 unit subcut BID 10/18/24 10/18/24 10/17/24 19:00 mL) subcutaneous pen (Lantus Solostar U-100 Insulin) acetaminophen 300 mg-codeine 30 mg 1 - 2 tab PO Q4H PRN pain #20 tabs 10/20/24 Unknown tablet cefadroxil 500 mg capsule 500 mg PO Q12H #28 caps 10/20/24 Unknown Active Medications Generic Name Dose Route Start Last Admin Trade Name Freq PRN Reason Stop Dose Admin Acetaminophen 650 mg 10/21/24 06:21 10/27/24 12:24 Acetaminophen 325 Mg Tab PO 11/20/24 06:20 650 mg Q4H PRN Administration Pain or Fever Albuterol 3 ml 10/21/24 06:27 10/25/24 04:28 Albut/Ipratrop 3mg/0.5mg Neb 3 Ml Vial NEB 11/20/24 06:26 3 ml Q2H PRN Administration dyspnea Protocol Albuterol 1 puffs 10/21/24 06:39 10/22/24 05:22 Albuterol Hfa 8 Gm Inhaler INH 11/20/24 06:38 1 puffs Q6H PRN Administration COPD Apixaban 5 mg 10/23/24 21:00 10/27/24 08:17 Apixaban 5 Mg Tablet PO 11/22/24 20:59 5 mg BID JOI Administration Aspirin 81 mg 10/24/24 09:00 10/27/24 08:17 Aspirin 81 Mg Ectab PO 11/23/24 08:59 81 mg QAM JOI Administration Cyanocobalamin 1,000 mcg 10/21/24 09:00 10/27/24 08:18 Cyanocobalamin (B-12) 500 Mcg Tablet PO 11/20/24 08:59 1,000 mcg QAM JOI Administration Diltiazem HCl 180 mg 10/21/24 09:00 10/27/24 08:17 Diltiazem Hcl 180 Mg Capcr PO 11/20/24 08:59 180 mg BID JOI Administration Docusate Sodium 100 mg 10/21/24 09:00 10/27/24 08:04 Docusate Sodium 100 Mg Cap PO 11/20/24 08:59 Not Given BID JOI Famotidine 20 mg 10/21/24 09:00 10/27/24 08:18 Famotidine 20 Mg Tab PO 11/20/24 08:59 20 mg QAM JOI Administration Fluticasone/Vilanterol 1 puffs 10/21/24 09:00 10/27/24 08:19 Fluticasone/Vilanterol 100/25mcg 14 Puffs/Inhaler INH 11/20/24 08:59 1 puffs QAM JOI Administration Protocol Guaifenesin 600 mg 10/22/24 21:00 10/27/24 08:17 Guaifenesin 600 Mg Tabcr PO 11/21/24 20:59 600 mg Q12 JOI Administration Pantoprazole Sodium 40 mg in 10 mls @ 5 mls/min 10/21/24 21:00 10/26/24 21:02 Protonix IV 11/20/24 20:59 5 mls/min QPM JOI Administration Levofloxacin/Dextrose 750 mg in 150 mls @ 100 mls/hr 10/21/24 08:15 10/27/24 10:14 Levaquin/D5w IV 11/02/24 08:14 Infused Q24H JOI Infusion Daptomycin 575 mg/ Syringe 11.5 mls @ 5.75 mls/min 10/26/24 08:30 10/27/24 09:49 IV 12/07/24 08:14 5.75 mls/min Q24H JOI Administration Protocol Insulin Aspart 0 units 10/21/24 16:30 10/27/24 13:16 Insulin Aspart Per Unit Charge SC 11/20/24 16:29 20 units ACHS JOI Administration Insulin Glargine 32 units 10/21/24 09:00 10/27/24 08:31 Lantus Per Unit Charge SQ 11/20/24 08:59 32 units BID JOI Administration Melatonin 3 mg 10/25/24 01:52 10/26/24 21:01 Melatonin 3 Mg Tab PO 11/24/24 01:51 3 mg HS PRN Administration Sleep Metoprolol Tartrate 12.5 mg 10/23/24 21:00 10/27/24 08:17 Metoprolol Tartrate 25 Mg Tab PO 11/22/24 20:59 12.5 mg BID JOI Administration Miscellaneous 1 each 10/22/24 21:00 10/26/24 21:05 Remove Lidoderm Patch N/A 11/21/24 20:59 1 each DAILY@2100 JOI Administration Ondansetron HCl 4 mg 10/21/24 06:21 10/26/24 13:31 Ondansetron Inj 2 Mg/Ml 2 Ml Vial IV 11/20/24 06:20 4 mg Q6H PRN Administration Nausea Oxycodone HCl 5 mg 10/22/24 12:16 10/27/24 12:25 Oxycodone Hcl Ir 5 Mg Tab (Immediate Release) PO 11/05/24 12:15 5 mg Q4H PRN Administration Pain Petrolatum 1 appln 10/26/24 11:30 10/27/24 08:21 Butt Paste (Zinc Oxide 16%) 171 Appln/57 Gm Jar EXT 11/25/24 11:29 1 appln BID JOI Administration Polyethylene Glycol 17 gm 10/21/24 16:52 10/21/24 17:48 Polyethylene (Miralax) 17 Gm Pack PO 11/20/24 16:51 17 gm DAILY PRN Administration Constipation
[2024-10-28 06:20] LABS: Hematocrit (blood only) 30.4 % (42.0-52.0); Hemoglobin 10.4 g/dl (14.0-18.0); Mean Corpuscular Hemoglobin 31.8 pg (25.0-34.0); Mean Corpuscular Hgb Conc 34.2 g/dL (32.0-36.0); Mean Platelet Volume 8.6 fL (9.4-12.4); Platelet Count 501 K/uL (130-400); RDW Coefficient of Variation 11.9 % (11.5-14.5); RDW Standard Deviation 40.3 fL (36.4-46.3); Red Blood Count 3.27 M/uL (4.70-6.10); White Blood Count 9.94 K/ul (4.8-10.8)
[2024-10-28 06:38] LABS: Calcium 8.5 mg/dl (8.6-10.3); Creatinine Clr Calc Pharmacy 88.7 ml/min
[2024-10-28] MEDS: SODIUM CHLORIDE 0.65% NA SOLN 45 ML (OCEAN) PRN (11:40)
--- NOTE | 2024-10-28 14:31 | Hospitalist Progress Note ---
Date of Service October 28, 2024 Assessment & Plan (1) History of left knee surgery: Plan: Recent left TKA with Dr. Victoria on 10/18, discharged to rehab and quickly returned to hospital Needle aspiration 10/21 - Gram stain is negative. Culture negative. Blood cultures negative reached out to ortho 10/24 via tiger text - less likely intra articular joint or superficial joint infection. recommend 2 weeks of prophylactic abx. Spoke w/ pharmacy today who has recommended cefuroxime 500mg PO BID for prophylactic abx which can be considered at discharge. Continue Oxycodone PO q4h for pain. Left leg doppler: negative for DVT (2) Hypoxia: Plan: Pneumonia Continue CPAP HS and as needed during the day Continue Incentive spirometry CXR 10/24 reviewed: patchy infiltrates in lung bases which could be from aspiration or pneumonia respiratory Biofire 10/24 negative CBC/BMP reviewed 10/28: stable Chest CT reviewed 10/25: multifocal ground glass opacities throughout lungs suggestive of infectious process. several nodular foci within the lungs, one of which may contain early cavitation. may also be infectious in etiology and raise possibility of septic emboli. neoplastic process could appear similar. short term follow up chest CT in 1 month is recommended to ensure resolution. trace b/l pleural effusions. stable elevation of right makayla-diaphgram Pulmonology consulted: recommend to consult ID, likely 4-6 week course of abx if cannot r/o endovascular etiology. Recheck CT in 6-8 weeks. ID consulted, reviewed consult note 10/26 Continue Levaquin and Daptomycin Check TASNEEM Rheumatoid factor pending Fungal blood cultures preliminary negative. AM CBC, BMP (3) Paroxysmal atrial fibrillation: Plan: Continue Apixaban 5mg PO BID Continue Diltiazem 180mg PO BID Metoprolol tartrate added 10/24 convert to metoprolol succinate on discharge per cardiology Cardiac catheterization completed 10/[address] Pacheco: patient w/ severe multivessel CAD. - recommend outpatient referral to tertiary care center regarding surgical revascularization (4) Altered mental status: Plan: Metabolic encephalopathy Resolved plan as above (5) Elevated troponin: Plan: Myocardial infarction type 2, POA 2117 --> 2583 --> 2671 -->2077.0 see plan #3 (6) DM type 2 (diabetes mellitus, type 2): Plan: Recent A1c 7.7 Decrease glargine from 64 to 32 units SQ twice daily SSI Plan PT/OT recommending rehab anticipate discharge to rehab pending stabilization of hypoxia. discussed with CM to offer patient additional rehab options other than [facility] since he feels he cannot tolerate 3 hours of combined therapy daily. Admission and Anticipated Discharge Date Admission Date: October 21, 2024 Subjective Patient seen and examined this morning. Patient with knee pain. Denies CP or SOB. Continues to do well on room air. Patient concerned that [facility] may not be the [facility] for him to complete rehab at this time. He reports he is unsure if he can tolerate 3 hours of combined therapy daily. Patient recommended to discuss this with CM. Physical Exam Constitutional: WD/WN, vitals as above Eyes: PERRL, conjunctivae normal, anicteric sclerae Respiratory: breathing unlabored Cardiovascular: well perfused Psychiatric: A+Ox3, euthymic affect Results & Data Results & Data Vital Signs (Past 12 Hours) Vital Signs Temp Pulse Pulse Resp BP Pulse Ox Pulse Ox 10/28/24 11:50 36.4 C L 87 18 129/70 94 10/28/24 10:23 95 10/28/24 07:52 37.1 C 93 H 21 137/65 95 10/28/24 07:21 81 10/28/24 04:05 36.9 C 83 18 145/76 H 92 O2 Del Method O2 Del Method 10/28/24 11:50 Room Air 10/28/24 10:23 Room Air 10/28/24 07:52 Room Air 10/28/24 07:21 10/28/24 04:05 Room Air PG Care Time/CCT Total # of Minutes Spent Total Time Spent with Patient: Total time spent is greater than 50% in coordination of care (as documented) at patient's floor/unit and/or counseling patient: Coding Level of Care Code 50163 SUB INP/OBS CARE 2/35MIN Diagnoses History of left knee surgery Z98.890 Hypoxia R09.02 Paroxysmal atrial fibrillation I48.0 Altered mental status R41.82 Elevated troponin R79.89 DM type 2 (diabetes mellitus, type 2) E11.9
[2024-10-29 07:02] LABS: Hematocrit (blood only) 29.6 % (42.0-52.0); Hemoglobin 10.2 g/dl (14.0-18.0); Mean Corpuscular Hemoglobin 31.7 pg (25.0-34.0); Mean Corpuscular Hgb Conc 34.5 g/dL (32.0-36.0); Mean Corpuscular Volume 91.9 fL (80.0-100.0); Mean Platelet Volume 8.6 fL (9.4-12.4); Platelet Count 516 K/uL (130-400); RDW Coefficient of Variation 12.2 % (11.5-14.5); RDW Standard Deviation 41.3 fL (36.4-46.3); Red Blood Count 3.22 M/uL (4.70-6.10); White Blood Count 9.86 K/ul (4.8-10.8)
[2024-10-29 07:25] LABS: BUN Creatinine Ratio 18.2 (10-20); Calcium 8.5 mg/dl (8.6-10.3); Potassium 4.1 mmol/L (3.5-5.1)
--- NOTE | 2024-10-29 12:57 | Hospitalist Progress Note ---
Date of Service October 29, 2024 Assessment & Plan (1) History of left knee surgery: Plan: Recent left TKA with Dr. Victoria on 10/18, discharged to rehab and quickly returned to hospital Needle aspiration 10/21 - Gram stain is negative. Culture negative. Blood cultures negative reached out to ortho 10/24 via tiger text - less likely intra articular joint or superficial joint infection. recommend 2 weeks of prophylactic abx. Spoke w/ pharmacy today who has recommended cefuroxime 500mg PO BID for prophylactic abx which can be considered at discharge. Continue Oxycodone PO q4h for pain. Left leg doppler: negative for DVT (2) Hypoxia: Plan: Pneumonia Continue CPAP HS and as needed during the day Continue Incentive spirometry CXR 10/24 reviewed: patchy infiltrates in lung bases which could be from aspiration or pneumonia respiratory Biofire 10/24 negative CBC/BMP reviewed 10/29: stable Chest CT reviewed 10/25: multifocal ground glass opacities throughout lungs suggestive of infectious process. several nodular foci within the lungs, one of which may contain early cavitation. may also be infectious in etiology and raise possibility of septic emboli. neoplastic process could appear similar. short term follow up chest CT in 1 month is recommended to ensure resolution. trace b/l pleural effusions. stable elevation of right makayla-diaphgram Pulmonology consulted: recommend to consult ID, likely 4-6 week course of abx if cannot r/o endovascular etiology. Recheck CT in 6-8 weeks. ID consulted, following along Continue Levaquin and Daptomycin Check TASNEEM - anticipate 10/30 Rheumatoid factor pending Fungal blood cultures preliminary negative. AM CBC, BMP (3) Paroxysmal atrial fibrillation: Plan: Continue Apixaban 5mg PO BID Continue Diltiazem 180mg PO BID Metoprolol tartrate added 10/24 convert to metoprolol succinate on discharge per cardiology Cardiac catheterization completed 10/[address] Pacheco: patient w/ severe multivessel CAD. - recommend outpatient referral to tertiary care center regarding surgical revascularization (4) Altered mental status: Plan: Metabolic encephalopathy Resolved plan as above (5) Elevated troponin: Plan: Myocardial infarction type 2, POA 2117 --> 2583 --> 2671 -->2077.0 see plan #3 (6) DM type 2 (diabetes mellitus, type 2): Plan: Recent A1c 7.7 Decrease glargine from 64 to 32 units SQ twice daily SSI Plan PT/OT recommending rehab anticipate discharge to rehab pending stabilization of hypoxia. Admission and Anticipated Discharge Date Admission Date: October 21, 2024 Subjective Patient seen and examined this morning. Patient doing well today. he offers no complaints. Reports his knee pain has improved w/ removal of wound vac yesterday. Physical Exam Constitutional: WD/WN, vitals as above Eyes: PERRL, conjunctivae normal, anicteric sclerae Respiratory: breathing unlabored Cardiovascular: well perfused Psychiatric: A+Ox3, euthymic affect Results & Data Results & Data Vital Signs (Past 12 Hours) Vital Signs Temp Pulse Pulse Resp BP BP Pulse Ox 10/29/24 12:03 36.6 C 67 18 134/69 95 10/29/24 11:41 36.9 C 69 18 140/76 94 10/29/24 10:14 10/29/24 10:14 10/29/24 08:39 80 10/29/24 08:03 36.9 C 78 18 134/71 93 10/29/24 03:37 36.3 C L 81 18 138/73 92 Pulse Ox O2 Del Method O2 Del Method 10/29/24 12:03 Room Air 10/29/24 11:41 Room Air 10/29/24 10:14 Room Air 10/29/24 10:14 93 Room Air 10/29/24 08:39 10/29/24 08:03 Room Air 10/29/24 03:37 Room Air, CPAP PG Care Time/CCT Total # of Minutes Spent Total Time Spent with Patient: Total time spent is greater than 50% in coordination of care (as documented) at patient's floor/unit and/or counseling patient: Coding Level of Care Code 76704 SUB INP/OBS CARE 2/35MIN Diagnoses History of left knee surgery Z98.890 Hypoxia R09.02 Paroxysmal atrial fibrillation I48.0 Altered mental status R41.82 Elevated troponin R79.89 DM type 2 (diabetes mellitus, type 2) E11.9
[2024-10-30 06:24] LABS: Hematocrit (blood only) 29.5 % (42.0-52.0); Hemoglobin 10.1 g/dl (14.0-18.0); Mean Corpuscular Hemoglobin 31.6 pg (25.0-34.0); Mean Corpuscular Hgb Conc 34.2 g/dL (32.0-36.0); Mean Corpuscular Volume 92.2 fL (80.0-100.0); Mean Platelet Volume 8.3 fL (9.4-12.4); Platelet Count 523 K/uL (130-400); RDW Coefficient of Variation 12.4 % (11.5-14.5); RDW Standard Deviation 41.5 fL (36.4-46.3); White Blood Count 10.22 K/ul (4.8-10.8)
[2024-10-30 06:36] LABS: Calcium 8.4 mg/dl (8.6-10.3); Creatinine Clr Calc Pharmacy 82.7 ml/min; Magnesium 1.8 mg/dl (1.7-2.4); Potassium 4.4 mmol/L (3.5-5.1)
[2024-10-30] MEDS: INSULIN ASPART PER UNIT CHARGE SC SCH ×2 (12:17→16:51)
--- NOTE | 2024-10-30 12:41 | Infectious Disease Progress Nt ---
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 He was discharged to [facility] rehab on 10/20/2024. There he was noted to be weak and confused. He was seen in the [facility] ED where he was noted to be febrile with a temp of 101.8, tachycardic-pulse 103 and o2 sat of 92% on room air. It was thought that he had a postoperative wound infection. He was transferred back to [facility] on 10/21/2024 for further evaluation as a direct admission. He was transferred on daptomycin and Levaquin as he has multiple listed antibiotic allergies. On admission,he was hemodynamically stable and afebrile. No leukocytosis. Noted for troponin of 2118.7. Chest x-ray showed hazy airspace opacities in the left pericardiac region, right lower opacity. Left lower extremity Doppler showed no evidence of DVT. Repeat chest x-ray showed persistent slightly improved patchy bilateral lung zone infiltrates. He was evaluated by cardiology for elevated troponin and A-fib. He underwent a trans thoracic echocardiogram which showed mild aortic stenosis, normal mitral valve. He underwent coronary angiography which revealed severe obstructive coronary disease not easily amenable to percutaneous intervention. There was no acute lesion. He was also evaluated by orthopedic surgery and underwent a left knee arthrocentesis which returned 10 cc of dark red blood without purulence. Fluid studies showed 28,440 WBCs, greater than 1 million RBCs, 97% polynuclear cells. MRSA screen negative for MRSA. Fluid cultures with no growth to date. Blood cultures no growth to date (obtained after antibiotics initiated). His course complicated by hypoxia. He underwent CT chest which showed multi focal groundglass opacities throughout the lung suggestive of an infectious process and several nodular foci within the lungs concerning for possible septic emboli. However a neoplastic process could appear similar. He had no significant respiratory symptoms. He was evaluated by pulmonary who recommended ID consult for septic emboli. No intervention per pulmonary. He currently on 2 L nasal cannula. Microbiology: Blood cultures 10/21 NG Left knee synovial fluid culture 10/21 NG Left knee fluid analysis 10/21 28,440 WBCs, greater than 1 million RBCs, 97% polynuclear cells. Fugal blood culture 10/25 Pending Antibiotics: Levaquin 10/21ongoing Daptomycin 10/21ongoing # Possible septic emboli # Possible pneumonia # Recent left TKA (10/18/2024) # Neutrophilic predominant synovial fluid aspiration # History of left ankle surgery with hardware # Cephalexin allergy- rash #PCN "allergy" - GI upset Discussion: Etiology of reported fevers and tachycardia at outside hospital unclear. Appears to have resolved once admitted and started on antibiotics. Knee fluid aspiration shows greater than 20,000 WBCs with a neutrophil predominance, however cultures with no growth to date. Blood cultures also with no growth ; both synovial fluid and blood cultures obtained about 24 hours after initiation of antibiotics. Lung imaging findings concerning for pneumonia and/ septic emboli. TTE done on admission shows mild aortic stenosis but no obvious mobile densities or vegetations. MRSA screen is negative. Antibiotic allergies listed including penicillins and Bactrim however symptoms are GI upset. He has documented history of rash with cephalexin. Levaquin should appropriately cover for pneumonia ( qtc 420, 10/21 . Daptomycin does not provide lung coverage however MRSA screen is negative so doubt MRSA pneumonia. Given fevers/tachycardia prior to admission, presence of hardware/prosthetics: Left ankle and recent left knee prosthetic with concern for septic emboli on imaging, would further evaluate for endovascular infection/endocarditis. esr 88, crp 14.20 (10/26) RF 12 Recommendations -Continue Levaquin -Continue daptomycin -Follow up TASNEEM - Follow up Fungal culture -Follow up coxiella ( q fever) serology D/w pt and team ID will continue to follow. Daisy Stevens MD, MPH Infectious Disease [facility], ID Division Call [phone] with questions. Admission and Anticipated Discharge Date Admission Date: October 21, 2024 Subjective Subsequent visit was provided via telemedicine using two-way real-time interactive telecommunication between the patient and the telemedicine provider. For the duration of the visit, the provider was performing the assessment from a different facility than the patient. This includesuse of bluetooth stethoscope forauscultationperformed by the telepresenter that the telemedicine provider can hear if described in the physical exam. Boiling Tub Operator contact information: Please call [facility] Call Center . (Phone Number For Physician Use Only) After establishing a telemedicine visit, patient was: Patient was verified with two unique identifiers Time Spent with Patient: Subsequent => 35 min Pending TASNEEM. Feels well. On RA. No cough RF 12 Physical Exam Physical Exam: General- NAD Neck- supple HEENT- AT/NC, anicteric sclera Lungs- clear to auscultation , on RA Abd-soft, non tender, Extremities- LLE dresses Neuro- AAO x3 Skin- no embolic stigmata noted Psych- Cooperative Results & Data Vital Signs (Past 12 Hours) Vital Signs Temp Pulse Resp BP Pulse Ox O2 Del Method 10/30/24 07:20 Room Air 10/30/24 06:57 36.9 C 83 16 156/78 H 95 Room Air Laboratory Results Laboratory Results - last 48 hr 10/26/24 10/28/24 10/28/24 06:34 15:48 16:57 WBC RBC Hgb Hct MCV MCH MCHC RDW Std Deviation RDW Coeff of Beatriz Plt Count MPV Sodium Potassium Chloride Carbon Dioxide Anion Gap BUN Creatinine Est Cr Clr Drug Dosing eGFR BUN/Creatinine Ratio Glucose POC Glucose 105 H 105 H Calcium Magnesium Rheumatoid Factor 12 10/28/24 10/29/24 10/29/24 20:25 06:18 08:20 WBC 9.86 RBC 3.22 L Hgb 10.2 L Hct 29.6 L MCV 91.9 MCH 31.7 MCHC 34.5 RDW Std Deviation 41.3 RDW Coeff of Beatriz 12.2 Plt Count 516 H MPV 8.6 L Sodium 132 L Potassium 4.1 Chloride 98 Carbon Dioxide 29 Anion Gap 5 BUN 16 Creatinine 0.88 Est Cr Clr Drug Dosing 94.0 eGFR 89.12 BUN/Creatinine Ratio 18.2 Glucose 128 H POC Glucose 242 H 139 H Calcium 8.5 L Magnesium Rheumatoid Factor 10/29/24 10/29/24 10/29/24 12:33 16:34 20:14 WBC RBC Hgb Hct MCV MCH MCHC RDW Std Deviation RDW Coeff of Beatriz Plt Count MPV Sodium Potassium Chloride Carbon Dioxide Anion Gap BUN Creatinine Est Cr Clr Drug Dosing eGFR BUN/Creatinine Ratio Glucose POC Glucose 124 H 120 H 97 Calcium Magnesium Rheumatoid Factor 10/30/24 10/30/24 10/30/24 06:01 07:35 12:15 WBC 10.22 RBC 3.20 L Hgb 10.1 L Hct 29.5 L MCV 92.2 MCH 31.6 MCHC 34.2 RDW Std Deviation 41.5 RDW Coeff of Beatriz 12.4 Plt Count 523 H MPV 8.3 L Sodium 132 L Potassium 4.4 Chloride 99 Carbon Dioxide 27 Anion Gap 6 BUN 14 Creatinine 1.00 Est Cr Clr Drug Dosing 82.7 eGFR 78.00 BUN/Creatinine Ratio 14.0 Glucose 135 H POC Glucose 126 H 108 H Calcium 8.4 L Magnesium 1.8 Rheumatoid Factor Diagnostic Findings Microbiology 10/25/24 20:47 Blood Fungal Smear - Final 10/25/24 20:47 Blood Fungal Culture - Preliminary No yeast or fungus isolated - Report 1, Additional Report to Follow. 10/21/24 08:49 Blood Aerobic Blood Culture - Final No growth in Aerobic bottle after 5 days. 10/21/24 08:49 Blood Anaerobic Blood Culture - Final No growth in Anaerobic bottle after 5 days. 10/21/24 09:00 Blood Aerobic Blood Culture - Final No growth in Aerobic bottle after 5 days. 10/21/24 09:00 Blood Anaerobic Blood Culture - Final No growth in Anaerobic bottle after 5 days. 10/21/24 11:55 Knee Gram Stain - Final 10/21/24 11:55 Knee Aerobic and Anaerobic Culture - Final No growth Medications Administered Home Medications Medication Instructions Recorded Confirmed Last Taken albuterol sulfate 90 mcg/actuation 1 puffs inhalation UD PRN COPD #1 g 07/07/19 10/18/24 Unknown aerosol inhaler lisinopril 40 mg tablet 40 mg PO QPM #90 tabs 07/07/19 10/18/24 10/17/24 21:00 apixaban 5 mg tablet (Eliquis) 5 mg PO BID 02/16/22 10/18/24 10/13/24 18:00 fluticasone 250 mcg-salmeterol 50 1 inh inhalation QAM 02/19/22 10/18/24 10/18/24 05:00 mcg/dose blistr powdr for inhalation (Wixela Inhub) famotidine 20 mg tablet (Pepcid) 20 mg PO QAM 04/13/22 10/18/24 10/18/24 05:00 cyanocobalamin (vitamin B-12) 1,000 mcg PO QAM 07/20/22 10/18/24 10/16/24 07:00 1,000 mcg tablet (Vitamin B-12) docusate sodium 100 mg capsule 100 mg PO HS 07/20/22 10/18/24 10/17/24 21:00 (Colace) fluticasone propionate 50 1 spray intranasal UD PRN Nasal 07/20/22 10/18/24 10/18/24 05:00 mcg/actuation nasal Congestion spray,suspension diltiazem HCl 180 mg capsule,24 180 mg PO BID 02/15/23 10/18/24 10/18/24 05:00 hr,extended release blood sugar diagnostic (Accu-Chek #600 ea 02/22/23 09/11/24 Unknown Jcalyn Plus test strips) pen needle, diabetic 32 gauge x #300 ea 02/22/23 09/11/24 Unknown 1/6" (NovoFine Plus) tamsulosin 0.4 mg capsule 0.4 mg PO DAILY PRN prn 08/12/23 10/18/24 Unknown diphenhydramine HCl 50 mg capsule 50 mg PO HS PRN prn/ sleep 02/03/24 10/18/24 10/17/24 22:00 (Sleep Aid (diphenhydramine)) ascorbic acid (vitamin C) 500 mg 1 g PO QAM 09/05/24 10/18/24 10/16/24 07:00 tablet (Vitamin C) hydrochlorothiazide 25 mg tablet 25 mg PO QAM 09/05/24 10/18/24 10/17/24 07:00 insulin aspart U-100 100 unit/mL 100 unit subcut DAILY #90 mL 09/05/24 10/18/24 Unknown (3 mL) subcutaneous pen (Novolog FlexPen U-100 Insulin aspart) metformin 1,000 mg tablet 1,000 mg PO BID 09/05/24 10/18/24 10/17/24 19:00 polyethylene glycol 3350 17 17 g PO DAILY PRN Constipation 09/12/24 10/18/24 Unknown gram/dose oral powder (Miralax) insulin glargine 100 unit/mL (3 64 unit subcut BID 10/18/24 10/18/24 10/17/24 19:00 mL) subcutaneous pen (Lantus Solostar U-100 Insulin) acetaminophen 300 mg-codeine 30 mg 1 - 2 tab PO Q4H PRN pain #20 tabs 10/20/24 Unknown tablet cefadroxil 500 mg capsule 500 mg PO Q12H #28 caps 10/20/24 Unknown Active Medications Generic Name Dose Route Start Last Admin Trade Name Freq PRN Reason Stop Dose Admin Acetaminophen 650 mg 10/21/24 06:21 10/29/24 16:53 Acetaminophen 325 Mg Tab PO 11/20/24 06:20 650 mg Q4H PRN Administration Pain or Fever Albuterol 3 ml 10/21/24 06:27 10/25/24 04:28 Albut/Ipratrop 3mg/0.5mg Neb 3 Ml Vial NEB 11/20/24 06:26 3 ml Q2H PRN Administration dyspnea Protocol Albuterol 1 puffs 10/21/24 06:39 10/22/24 05:22 Albuterol Hfa 8 Gm Inhaler INH 11/20/24 06:38 1 puffs Q6H PRN Administration COPD Apixaban 5 mg 10/23/24 21:00 10/30/24 07:31 Apixaban 5 Mg Tablet PO 11/22/24 20:59 5 mg BID JOI Administration Aspirin 81 mg 10/24/24 09:00 10/30/24 07:31 Aspirin 81 Mg Ectab PO 11/23/24 08:59 81 mg QAM JOI Administration Cyanocobalamin 1,000 mcg 10/21/24 09:00 10/30/24 07:31 Cyanocobalamin (B-12) 500 Mcg Tablet PO 11/20/24 08:59 1,000 mcg QAM JOI Administration Diltiazem HCl 180 mg 10/21/24 09:00 10/30/24 07:34 Diltiazem Hcl 180 Mg Capcr PO 11/20/24 08:59 180 mg BID JOI Administration Docusate Sodium 100 mg 10/21/24 09:00 10/30/24 07:32 Docusate Sodium 100 Mg Cap PO 11/20/24 08:59 100 mg BID JOI Administration Famotidine 20 mg 10/21/24 09:00 10/30/24 07:32 Famotidine 20 Mg Tab PO 11/20/24 08:59 20 mg QAM JOI Administration Fluticasone/Vilanterol 1 puffs 10/21/24 09:00 10/30/24 07:33 Fluticasone/Vilanterol 100/25mcg 14 Puffs/Inhaler INH 11/20/24 08:59 1 puffs QAM JOI Administration Protocol Guaifenesin 600 mg 10/22/24 21:00 10/30/24 07:32 Guaifenesin 600 Mg Tabcr PO 11/21/24 20:59 600 mg Q12 JOI Administration Pantoprazole Sodium 40 mg in 10 mls @ 5 mls/min 10/21/24 21:00 10/29/24 20:51 Protonix IV 11/20/24 20:59 5 mls/min QPM JOI Administration Levofloxacin/Dextrose 750 mg in 150 mls @ 100 mls/hr 10/21/24 08:15 10/30/24 09:02 Levaquin/D5w IV 11/02/24 08:14 Infused Q24H JOI Infusion Daptomycin 575 mg/ Syringe 11.5 mls @ 5.75 mls/min 10/26/24 08:30 10/30/24 09:05 IV 12/07/24 08:14 5.75 mls/min Q24H JOI Administration Protocol Insulin Aspart 0 units 10/30/24 12:00 10/30/24 12:17 Insulin Aspart Per Unit Charge SC 11/29/24 11:59 Not Given Q6H JOI Insulin Glargine 32 units 10/21/24 09:00 10/30/24 07:34 Lantus Per Unit Charge SQ 11/20/24 08:59 32 units BID JOI Administration Melatonin 3 mg 10/25/24 01:52 10/29/24 22:56 Melatonin 3 Mg Tab PO 11/24/24 01:51 3 mg HS PRN Administration Sleep Metoprolol Tartrate 12.5 mg 10/23/24 21:00 10/30/24 07:33 Metoprolol Tartrate 25 Mg Tab PO 11/22/24 20:59 12.5 mg BID JOI Administration Miscellaneous 1 each 10/22/24 21:00 10/29/24 20:45 Remove Lidoderm Patch N/A 11/21/24 20:59 1 each DAILY@2100 JOI Administration Ondansetron HCl 4 mg 10/21/24 06:21 10/28/24 08:33 Ondansetron Inj 2 Mg/Ml 2 Ml Vial IV 11/20/24 06:20 4 mg Q6H PRN Administration Nausea Oxycodone HCl 5 mg 10/22/24 12:16 10/30/24 12:18 Oxycodone Hcl Ir 5 Mg Tab (Immediate Release) PO 11/05/24 12:15 5 mg Q4H PRN Administration Pain Petrolatum 1 appln 10/26/24 11:30 10/30/24 07:38 Butt Paste (Zinc Oxide 16%) 171 Appln/57 Gm Jar EXT 11/25/24 11:29 1 appln BID JOI Administration Polyethylene Glycol 17 gm 10/21/24 16:52 10/21/24 17:48 Polyethylene (Miralax) 17 Gm Pack PO 11/20/24 16:51 17 gm DAILY PRN Administration Constipation Sodium Chloride 2 sprays 10/28/24 11:18 10/29/24 13:33 Sodium Chloride 0.65% Na Soln 45 Ml ([place]) NA 11/27/24 11:17 2 sprays BID PRN Administration Dryness
--- NOTE | 2024-10-30 17:35 | Hospitalist Progress Note ---
Date of Service October 30, 2024 Assessment & Plan (1) History of left knee surgery: Plan: Recent left TKA with Dr. Victoria on 10/18, discharged to rehab and quickly returned to hospital Left leg doppler: negative for DVT Needle aspiration 10/21 - Gram stain is negative. Culture negative. Blood cultures negative Ortho consulted - suspect hemathrosis and less likely septic joint - wound vac removed. WBAT - celestina will need to be removed Continue Oxycodone PO q4h for pain. Left leg doppler: negative for DVT (2) Hypoxia: Plan: Pneumonia Continue CPAP HS and as needed during the day Continue Incentive spirometry CXR 10/24 reviewed: patchy infiltrates in lung bases which could be from aspiration or pneumonia Chest CT 10/25: multifocal ground glass opacities throughout lungs suggestive of infectious process. several nodular foci within the lungs, one of which may contain early cavitation. may also be infectious in etiology and raise possibility of septic emboli. neoplastic process could appear similar. short term follow up chest CT in 1 month is recommended to ensure resolution. trace b/l pleural effusions. stable elevation of right makayla-diaphgram Pulmonology consulted: recommend to consult ID, likely 4-6 week course of abx if cannot r/o endovascular etiology. Recheck CT in 6-8 weeks. ID consulted, following along Blood cultures negative. Outside facility blood cultures drawn 10/20 also no growth finalized. Continue Levaquin and Daptomycin Check TANSEEM - anticipate 10/31 Rheumatoid factor: 12 Fungal blood cultures preliminary negative. AM CBC, BMP, CRP (3) Elevated troponin: Plan: Myocardial infarction type 2, POA 2118 --> 2583 --> 2671 -->2077.0 Cardiology consulted - s/p Catheterization with Dr. Pacheco 10/23 - severe multivessel CAD - recommend outpatient referral to tertiary care center (pt has already been contacted by this office) Continue aspirin, metoprolol Would resume statin once off daptomycin Also with Afib - continue eliquis and diltiazem - Metoprolol added 10/24 - can be converted to succinate on discharge (4) DM type 2 (diabetes mellitus, type 2): Plan: Recent A1c 7.7 Decrease glargine from 64 to 32 units SQ twice daily SSI BSG acceptable (5) Altered mental status: Plan: Metabolic encephalopathy Resolved plan as above Plan Chronic stable medical conditions: * COPD- Continue usual inhalers * SONIDO - continue CPAP Dispo: continued inpatient stay, TASNEEM tomorrow DVT proph: Timis Admission and Anticipated Discharge Date Admission Date: October 21, 2024 Supervising Physician Co-Signing Physician Notes PA Supervision Note: I did not personally see or examine the patient today, but I verified all malcolm points of JARAD Trimble's assessment and plan with the following exceptions/ additions: None Subjective Patient seen resting in bed, frustrated with not knowing where the infection is coming from has hardware in several other places - neck, lower left leg and shoulder - denies pain in any of these areas no cough or shortness of breath was planned for TASNEEM today but not able to be completed today Review of Systems Review of Systems: All systems reviewed & are unremarkable except as noted in Subjective Physical Exam Physical Exam: General: NAD, VS as above, sitting up in bed, appears much better than when i saw him last week Resp: normal respiratory effort, lungs clear to auscultation CV: RRR, no murmur, Abd: soft, normal bowel sounds, non tender, no hepatosplenomegaly Extremities: Moves all extremities, left leg in shannan wrap Neuro: A&O x3, Skin: intact, no lesions noted Results & Data Results & Data Vital Signs (Past 12 Hours) Vital Signs Temp Pulse Resp BP Pulse Ox O2 Del Method 10/30/24 14:34 98.2 F 67 16 146/72 H 94 Room Air 10/30/24 07:20 Room Air 10/30/24 06:57 98.4 F 83 16 156/78 H 95 Room Air Laboratory Results cbc, chemistry and POC glucose reviewed PG Care Time/CCT Total # of Minutes Spent Total Time Spent with Patient: Total time spent is greater than 50% in coordination of care (as documented) at patient's floor/unit and/or counseling patient: Coding Level of Care Code 66687 SUB INP/OBS CARE 3/50MIN Diagnoses History of left knee surgery Z98.890 Hypoxia R09.02 Elevated troponin R79.89 DM type 2 (diabetes mellitus, type 2) E11.9 Altered mental status R41.82
[2024-10-31 07:56] LABS: Basophils # (auto) 0.07 K/uL (0.00-0.20); Basophils % (auto) 0.7 %; Eosinophils # (auto) 0.38 K/uL (0.00-0.50); Eosinophils % (auto) 3.9 %; Hematocrit (blood only) 31.1 % (42.0-52.0); Hemoglobin 10.6 g/dl (14.0-18.0); Immature Granulocytes % (auto) 4.1 %; Lymphocytes # (auto) 1.35 K/uL (1.20-3.40); Lymphocytes % (auto) 13.8 %; Mean Corpuscular Hemoglobin 31.8 pg (25.0-34.0); Mean Corpuscular Hgb Conc 34.1 g/dL (32.0-36.0); Mean Corpuscular Volume 93.4 fL (80.0-100.0); Mean Platelet Volume 8.3 fL (9.4-12.4); Monocytes # (auto) 1.03 K/uL (0.11-0.59); Monocytes % (auto) 10.6 %; Neutrophils # (auto) 6.53 K/uL (1.40-6.50); Neutrophils % (auto) 66.9 %; Platelet Count 577 K/uL (130-400); RDW Coefficient of Variation 12.5 % (11.5-14.5); RDW Standard Deviation 42.6 fL (36.4-46.3); Red Blood Count 3.33 M/uL (4.70-6.10); White Blood Count 9.76 K/ul (4.8-10.8)
[2024-10-31 08:10] LABS: C Reactive Protein 4.38 mg/dl (0-0.5); Calcium 8.6 mg/dl (8.6-10.3); Creatinine Clr Calc Pharmacy 75.3 ml/min; Potassium 4.2 mmol/L (3.5-5.1)
--- NOTE | 2024-10-31 16:36 | Infectious Disease Progress Nt ---
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 He was discharged to [facility] rehab on 10/20/2024. There he was noted to be weak and confused. He was seen in the [facility] ED where he was noted to be febrile with a temp of 101.8, tachycardic-pulse 103 and o2 sat of 92% on room air. It was thought that he had a postoperative wound infection. He was transferred back to [facility] on 10/21/2024 for further evaluation as a direct admission. He was transferred on daptomycin and Levaquin as he has multiple listed antibiotic allergies. On admission,he was hemodynamically stable and afebrile. No leukocytosis. Noted for troponin of 2118.7. Chest x-ray showed hazy airspace opacities in the left pericardiac region, right lower opacity. Left lower extremity Doppler showed no evidence of DVT. Repeat chest x-ray showed persistent slightly improved patchy bilateral lung zone infiltrates. He was evaluated by cardiology for elevated troponin and A-fib. He underwent a trans thoracic echocardiogram which showed mild aortic stenosis, normal mitral valve. He underwent coronary angiography which revealed severe obstructive coronary disease not easily amenable to percutaneous intervention. There was no acute lesion. He was also evaluated by orthopedic surgery and underwent a left knee arthrocentesis which returned 10 cc of dark red blood without purulence. Fluid studies showed 28,440 WBCs, greater than 1 million RBCs, 97% polynuclear cells. MRSA screen negative for MRSA. Fluid cultures with no growth to date. Blood cultures no growth to date (obtained after antibiotics initiated). His course complicated by hypoxia. He underwent CT chest which showed multi focal groundglass opacities throughout the lung suggestive of an infectious process and several nodular foci within the lungs concerning for possible septic emboli. However a neoplastic process could appear similar. He had no significant respiratory symptoms. He was evaluated by pulmonary who recommended ID consult for septic emboli. No intervention per pulmonary. He currently on 2 L nasal cannula. Microbiology: Blood cultures 10/21 NG Left knee synovial fluid culture 10/21 NG Left knee fluid analysis 10/21 28,440 WBCs, greater than 1 million RBCs, 97% polynuclear cells. Fugal blood culture 10/25 Pending Antibiotics: Levaquin 10/21ongoing Daptomycin 10/21ongoing # Possible septic emboli # Possible pneumonia # Recent left TKA (10/18/2024) # Neutrophilic predominant synovial fluid aspiration # History of left ankle surgery with hardware # Cephalexin allergy- rash #PCN "allergy" - GI upset Discussion: Etiology of reported fevers and tachycardia at outside hospital unclear. Appears to have resolved once admitted and started on antibiotics. Knee fluid aspiration shows greater than 20,000 WBCs with a neutrophil predominance, however cultures with no growth to date. Blood cultures also with no growth ; both synovial fluid and blood cultures obtained about 24 hours after initiation of antibiotics. Lung imaging findings concerning for pneumonia and/ septic emboli. TTE done on admission shows mild aortic stenosis but no obvious mobile densities or vegetations. MRSA screen is negative. Antibiotic allergies listed including penicillins and Bactrim however symptoms are GI upset. He has documented history of rash with cephalexin. Levaquin should appropriately cover for pneumonia ( qtc 420, 10/21 . Daptomycin does not provide lung coverage however MRSA screen is negative so doubt MRSA pneumonia. Given fevers/tachycardia prior to admission, presence of hardware/prosthetics: Left ankle and recent left knee prosthetic with concern for septic emboli on imaging, would further evaluate for endovascular infection/endocarditis. esr 88, crp 14.20 (10/26) RF 12 Recommendations Source of? septic emboli on CT lung unclear, Hopefully TASNEEM will help elucidate, IF TASNEEM unrevealing may warrant repeat lung imaging as pt remains on RA. Could this have been Pna or is it a neoplastic process? -Continue Levaquin day 10/? ( pending TASNEEM) -Continue daptomycin -Follow up TASNEEM - Follow up Fungal culture -Follow up coxiella ( q fever) serology ID will continue to follow. Daisy Stevens MD, MPH Infectious Disease ID Connect [facility], ID Division Call [phone] with questions. Admission and Anticipated Discharge Date Admission Date: October 21, 2024 Subjective This patient recommendation is based on a telemedicine consult request which was completed asynchronously through chart review and information provided by the primary physician. The patient was not seen or examined today. The evaluation is consultative in nature and all patient care and treatment decisions can either be accepted or rejected by the patient's primary hospital-based treating physician using their own independent medical judgment for their patient. Time Spent Reviewing Chart: 21 - 30 minutes Pending TASNEEM today on RA Results & Data Vital Signs (Past 12 Hours) Vital Signs Temp Pulse Resp BP Pulse Ox O2 Del Method 10/31/24 15:01 36.6 C 69 16 138/66 97 Room Air 10/31/24 07:20 Room Air 10/31/24 07:13 36.8 C 77 16 146/71 H 96 Room Air Laboratory Results Short CBC 10/31/24 Range/Units 07:21 WBC 9.76 (4.8-10.8) K/ul Hgb 10.6 L (14.0-18.0) g/dl Hct 31.1 L (42.0-52.0) % Plt Count 577 H (130-400) K/uL BMP 10/31/24 07:21 Sodium 132 L Potassium 4.2 Chloride 98 Carbon Dioxide 29 BUN 13 Creatinine 1.08 Glucose 149 H Calcium 8.6 Diagnostic Findings Microbiology 10/25/24 20:47 Blood Fungal Smear - Final 10/25/24 20:47 Blood Fungal Culture - Preliminary No yeast or fungus isolated - Report 1, Additional Report to Follow. 10/21/24 08:49 Blood Aerobic Blood Culture - Final No growth in Aerobic bottle after 5 days. 10/21/24 08:49 Blood Anaerobic Blood Culture - Final No growth in Anaerobic bottle after 5 days. 10/21/24 09:00 Blood Aerobic Blood Culture - Final No growth in Aerobic bottle after 5 days. 10/21/24 09:00 Blood Anaerobic Blood Culture - Final No growth in Anaerobic bottle after 5 days. 10/21/24 11:55 Knee Gram Stain - Final 10/21/24 11:55 Knee Aerobic and Anaerobic Culture - Final No growth Medications Administered Home Medications Medication Instructions Recorded Confirmed Last Taken albuterol sulfate 90 mcg/actuation 1 puffs inhalation UD PRN COPD #1 g 07/07/19 10/18/24 Unknown aerosol inhaler lisinopril 40 mg tablet 40 mg PO QPM #90 tabs 07/07/19 10/18/24 10/17/24 21:00 apixaban 5 mg tablet (Eliquis) 5 mg PO BID 02/16/22 10/18/24 10/13/24 18:00 fluticasone 250 mcg-salmeterol 50 1 inh inhalation QAM 02/19/22 10/18/24 10/18/24 05:00 mcg/dose blistr powdr for inhalation (Wixela Inhub) famotidine 20 mg tablet (Pepcid) 20 mg PO QAM 04/13/22 10/18/24 10/18/24 05:00 cyanocobalamin (vitamin B-12) 1,000 mcg PO QAM 07/20/22 10/18/24 10/16/24 07:00 1,000 mcg tablet (Vitamin B-12) docusate sodium 100 mg capsule 100 mg PO HS 07/20/22 10/18/24 10/17/24 21:00 (Colace) fluticasone propionate 50 1 spray intranasal UD PRN Nasal 07/20/22 10/18/24 10/18/24 05:00 mcg/actuation nasal Congestion spray,suspension diltiazem HCl 180 mg capsule,24 180 mg PO BID 02/15/23 10/18/24 10/18/24 05:00 hr,extended release blood sugar diagnostic (Accu-Chek #600 ea 02/22/23 09/11/24 Unknown Jaclyn Plus test strips) pen needle, diabetic 32 gauge x #300 ea 02/22/23 09/11/24 Unknown 1/6" (NovoFine Plus) tamsulosin 0.4 mg capsule 0.4 mg PO DAILY PRN prn 08/12/23 10/18/24 Unknown diphenhydramine HCl 50 mg capsule 50 mg PO HS PRN prn/ sleep 02/03/24 10/18/24 10/17/24 22:00 (Sleep Aid (diphenhydramine)) ascorbic acid (vitamin C) 500 mg 1 g PO QAM 09/05/24 10/18/24 10/16/24 07:00 tablet (Vitamin C) hydrochlorothiazide 25 mg tablet 25 mg PO QAM 09/05/24 10/18/24 10/17/24 07:00 insulin aspart U-100 100 unit/mL 100 unit subcut DAILY #90 mL 09/05/24 10/18/24 Unknown (3 mL) subcutaneous pen (Novolog FlexPen U-100 Insulin aspart) metformin 1,000 mg tablet 1,000 mg PO BID 09/05/24 10/18/24 10/17/24 19:00 polyethylene glycol 3350 17 17 g PO DAILY PRN Constipation 09/12/24 10/18/24 Unknown gram/dose oral powder (Miralax) insulin glargine 100 unit/mL (3 64 unit subcut BID 10/18/24 10/18/24 10/17/24 19:00 mL) subcutaneous pen (Lantus Solostar U-100 Insulin) acetaminophen 300 mg-codeine 30 mg 1 - 2 tab PO Q4H PRN pain #20 tabs 10/20/24 Unknown tablet cefadroxil 500 mg capsule 500 mg PO Q12H #28 caps 10/20/24 Unknown Active Medications Generic Name Dose Route Start Last Admin Trade Name Freq PRN Reason Stop Dose Admin Acetaminophen 650 mg 10/21/24 06:21 10/29/24 16:53 Acetaminophen 325 Mg Tab PO 11/20/24 06:20 650 mg Q4H PRN Administration Pain or Fever Albuterol 3 ml 10/21/24 06:27 10/25/24 04:28 Albut/Ipratrop 3mg/0.5mg Neb 3 Ml Vial NEB 11/20/24 06:26 3 ml Q2H PRN Administration dyspnea Protocol Albuterol 1 puffs 10/21/24 06:39 10/22/24 05:22 Albuterol Hfa 8 Gm Inhaler INH 11/20/24 06:38 1 puffs Q6H PRN Administration COPD Apixaban 5 mg 10/23/24 21:00 10/31/24 07:23 Apixaban 5 Mg Tablet PO 11/22/24 20:59 5 mg BID JOI Administration Aspirin 81 mg 10/24/24 09:00 10/31/24 07:22 Aspirin 81 Mg Ectab PO 11/23/24 08:59 81 mg QAM JOI Administration Cyanocobalamin 1,000 mcg 10/21/24 09:00 10/31/24 07:22 Cyanocobalamin (B-12) 500 Mcg Tablet PO 11/20/24 08:59 1,000 mcg QAM JOI Administration Diltiazem HCl 180 mg 10/21/24 09:00 10/31/24 07:22 Diltiazem Hcl 180 Mg Capcr PO 11/20/24 08:59 180 mg BID JOI Administration Docusate Sodium 100 mg 10/21/24 09:00 10/31/24 07:29 Docusate Sodium 100 Mg Cap PO 11/20/24 08:59 100 mg BID JOI Administration Famotidine 20 mg 10/21/24 09:00 10/31/24 07:29 Famotidine 20 Mg Tab PO 11/20/24 08:59 20 mg QAM JOI Administration Fluticasone/Vilanterol 1 puffs 10/21/24 09:00 10/31/24 07:24 Fluticasone/Vilanterol 100/25mcg 14 Puffs/Inhaler INH 11/20/24 08:59 1 puffs QAM JOI Administration Protocol Guaifenesin 600 mg 10/22/24 21:00 10/31/24 07:22 Guaifenesin 600 Mg Tabcr PO 11/21/24 20:59 600 mg Q12 JOI Administration Pantoprazole Sodium 40 mg in 10 mls @ 5 mls/min 10/21/24 21:00 10/30/24 21:54 Protonix IV 11/20/24 20:59 5 mls/min QPM JOI Administration Levofloxacin/Dextrose 750 mg in 150 mls @ 100 mls/hr 10/21/24 08:15 10/31/24 08:44 Levaquin/D5w IV 11/02/24 08:14 Infused Q24H JOI Infusion Daptomycin 575 mg/ Syringe 11.5 mls @ 5.75 mls/min 10/26/24 08:30 10/31/24 07:24 IV 12/07/24 08:14 5.75 mls/min Q24H JOI Administration Protocol Insulin Aspart 0 units 10/30/24 16:30 10/31/24 11:38 Insulin Aspart Per Unit Charge SC 11/29/24 16:29 Not Given ACHS JOI Insulin Glargine 32 units 10/21/24 09:00 10/31/24 08:17 Lantus Per Unit Charge SQ 11/20/24 08:59 32 units BID JOI Administration Melatonin 3 mg 10/25/24 01:52 10/30/24 22:23 Melatonin 3 Mg Tab PO 11/24/24 01:51 3 mg HS PRN Administration Sleep Metoprolol Tartrate 12.5 mg 10/23/24 21:00 10/31/24 07:23 Metoprolol Tartrate 25 Mg Tab PO 11/22/24 20:59 12.5 mg BID JOI Administration Miscellaneous 1 each 10/22/24 21:00 10/30/24 21:14 Remove Lidoderm Patch N/A 11/21/24 20:59 1 each DAILY@2100 JOI Administration Ondansetron HCl 4 mg 10/21/24 06:21 10/31/24 07:55 Ondansetron Inj 2 Mg/Ml 2 Ml Vial IV 11/20/24 06:20 4 mg Q6H PRN Administration Nausea Oxycodone HCl 5 mg 10/22/24 12:16 10/31/24 12:42 Oxycodone Hcl Ir 5 Mg Tab (Immediate Release) PO 11/05/24 12:15 5 mg Q4H PRN Administration Pain Petrolatum 1 appln 10/26/24 11:30 10/31/24 07:25 Butt Paste (Zinc Oxide 16%) 171 Appln/57 Gm Jar EXT 11/25/24 11:29 1 appln BID JOI Administration Polyethylene Glycol 17 gm 10/21/24 16:52 10/21/24 17:48 Polyethylene (Miralax) 17 Gm Pack PO 11/20/24 16:51 17 gm DAILY PRN Administration Constipation Sodium Chloride 2 sprays 10/28/24 11:18 10/29/24 13:33 Sodium Chloride 0.65% Na Soln 45 Ml ([place]) NA 11/27/24 11:17 2 sprays BID PRN Administration Dryness
--- NOTE | 2024-10-31 17:05 | Hospitalist Progress Note ---
Date of Service October 31, 2024 Assessment & Plan (1) History of left knee surgery: Plan: Recent left TKA with Dr. Victoria on 10/18, discharged to rehab and quickly returned to hospital Left leg doppler: negative for DVT Needle aspiration 10/21 - Gram stain is negative. Culture negative. Blood cultures negative Ortho consulted - suspect hemathrosis and less likely septic joint - wound vac removed. WBAT - celestina will need to be removed - messaged Dr. Victoria 10/31 to see if he would be able to remove while inpatient Continue Oxycodone PO q4h for pain. Left leg doppler: negative for DVT (2) Hypoxia: Plan: Pneumonia CXR 10/24 reviewed: patchy infiltrates in lung bases which could be from aspiration or pneumonia Chest CT 10/25: multifocal ground glass opacities throughout lungs suggestive of infectious process. several nodular foci within the lungs, one of which may contain early cavitation. may also be infectious in etiology and raise possibility of septic emboli. neoplastic process could appear similar. short term follow up chest CT in 1 month is recommended to ensure resolution. trace b/l pleural effusions. stable elevation of right makayla-diaphgram Pulmonology consulted: recommend to consult ID, likely 4-6 week course of abx if cannot r/o endovascular etiology. Recheck CT in 6-8 weeks. Continue IS. Has been stable on room air ID consulted, following along Blood cultures negative. Outside facility blood cultures drawn 10/20 also no growth finalized. Continue Levaquin and Daptomycin Check TASNEEM - anticipate 11/01 Rheumatoid factor: 12 Fungal blood cultures preliminary negative. Q fever testing pending AM CBC, BMP, (3) Elevated troponin: Plan: Myocardial infarction type 2, POA 2118 --> 2583 --> 2671 -->2077.0 Cardiology consulted - s/p Catheterization with Dr. Pacheco 10/23 - severe multivessel CAD - recommend outpatient referral to tertiary care center (pt has already been contacted by this office) Continue aspirin, metoprolol Would resume statin once off daptomycin Also with Afib - continue eliquis and diltiazem - Metoprolol added 10/24 - can be converted to succinate on discharge (4) DM type 2 (diabetes mellitus, type 2): Plan: Recent A1c 7.7 Decrease glargine from 64 to 32 units SQ twice daily SSI BSG acceptable (5) Altered mental status: Plan: Metabolic encephalopathy Resolved plan as above Plan Chronic stable medical conditions: * COPD- Continue usual inhalers * SONIDO - continue CPAP Dispo: continued inpatient stay, TASNEEM tomorrow DVT proph: Timis Admission and Anticipated Discharge Date Admission Date: October 21, 2024 Supervising Physician Co-Signing Physician Notes PA Supervision Note: I did not personally see or examine the patient today, but I verified all malcolm points of JARAD Trimble's assessment and plan with the following exceptions/additions: None Subjective Patient seen multiple times throughout the day - disappointed he was unable to have the TASNEEM today but understanding Patient feels well, was ambulating in the hallway. No new sites of pain or cough, fever or chills Review of Systems Review of Systems: All systems reviewed & are unremarkable except as noted in Subjective Physical Exam Physical Exam: General: NAD, VS as above, sitting up in chair, appears well Resp: normal respiratory effort, lungs clear to auscultation CV: RRR, no murmur, Abd: soft, normal bowel sounds, non tender, no hepatosplenomegaly Extremities: Moves all extremities, left leg in shannan wrap Neuro: A&O x3, Skin: intact, no lesions noted Results & Data Results & Data Vital Signs (Past 12 Hours) Vital Signs Temp Pulse Resp BP Pulse Ox O2 Del Method 10/31/24 15:01 97.9 F 69 16 138/66 97 Room Air 10/31/24 07:20 Room Air 10/31/24 07:13 98.2 F 77 16 146/71 H 96 Room Air Laboratory Results CBC, chemistry and CRP reviewed PG Care Time/CCT Total # of Minutes Spent Total Time Spent with Patient: Total time spent is greater than 50% in coordination of care (as documented) at patient's floor/unit and/or counseling patient: Coding Level of Care Code 37305 SUB INP/OBS CARE 2/35MIN Diagnoses History of left knee surgery Z98.890 Hypoxia R09.02 Elevated troponin R79.89 DM type 2 (diabetes mellitus, type 2) E11.9 Altered mental status R41.82
[2024-10-31 23:48] LABS: Q Fever IgG, Phase I NEGATIVE; Q Fever Phase I IgM Antibody NEGATIVE; Q Fever Phase II IgG Antibody NEGATIVE; Q Fever Phase II IgM Antibody NEGATIVE
[2024-11-01] MEDS: INSULIN ASPART PER UNIT CHARGE SC SCH ×2 (06:10→12:15)
[2024-11-01] MEDS ORDERED: Nursing to Pharmacy Communication SCH (06:15)
[2024-11-01] MEDS ORDERED: LIDOCAINE 2% 2 ML VIAL/AMP(20MG/ML) INFIL ONE (07:01)
[2024-11-01] MEDS ORDERED: PROPOFOL IV EMULSION 10 MG/ML 20 ML VIAL IV ONE (07:01)
--- NOTE | 2024-11-01 07:25 | Anesthesiology Consultation ---
Date of Service November 01, 2024 Assessment & Plan Chart Review Chart Review: Acceptable Risk for Surgery, Patient NOT seen in Pre Admission Testing and data entry associate initiated Consults Requested none ASA ASA3 Proposed Anesthesia Anesthesia Type: MAC Risk / Benefits Reviewed With: PT / POA / Parent / Guardian, Accepts Plan and Informed Consent Obtained History Surgery Operation Date: 10/23/24 09:30 Proposed Procedures p Cardiac Cath Procedure - Gera Archer MD Operation Date: 11/01/24 07:30 Proposed Procedures p Trans-Esophageal Echo - Fernie Guerrero MD Height/Weight Height: 6 ft Weight: 112.3 kg Allergies Allergy/AdvReac Type Severity Reaction Status Date / Time hyaluronate sodium, Allergy Severe Lips Verified 10/18/24 08:59 stabilized swelling hylan G-F 20 [From Synvisc] Allergy Severe Lips Verified 10/18/24 08:59 swelling celecoxib [From Celebrex] Allergy Unknown Rash Verified 10/18/24 08:59 cephalexin Allergy Unknown Rash Verified 10/18/24 08:59 dicyclomine Allergy Unknown Unknown Verified 10/18/24 08:59 homatropine Allergy Unknown Unknown Verified 10/18/24 08:59 hydrocodone Allergy Unknown Unknown Verified 10/18/24 08:59 meloxicam Allergy Unknown Unknown Verified 10/18/24 08:59 oxycodone [From Percocet] Allergy Unknown Unknown Verified 10/18/24 08:59 pregabalin Allergy Unknown ? Tired, Verified 10/18/24 08:59 listless Penicillins AdvReac Intermediate GI upset Verified 10/18/24 08:59 chlorthalidone AdvReac Mild Listless Verified 10/18/24 08:59 gabapentin AdvReac Mild ? Tired, Verified 10/18/24 08:59 listless pravastatin AdvReac Mild Muscle Pain Verified 10/18/24 08:59 prednisone AdvReac Mild GI upset Verified 10/18/24 08:59 sulfamethoxazole AdvReac Mild GI upset Verified 10/18/24 08:59 trimethoprim AdvReac Mild GI upset Verified 10/18/24 08:59 Medications Home Medications Medication Instructions Recorded Confirmed Last Taken albuterol sulfate 90 mcg/actuation 1 puffs inhalation UD PRN COPD #1 g 07/07/19 10/18/24 Unknown aerosol inhaler lisinopril 40 mg tablet 40 mg PO QPM #90 tabs 07/07/19 10/18/24 10/17/24 21:00 apixaban 5 mg tablet (Eliquis) 5 mg PO BID 02/16/22 10/18/24 10/13/24 18:00 fluticasone 250 mcg-salmeterol 50 1 inh inhalation QAM 02/19/22 10/18/24 10/18/24 05:00 mcg/dose blistr powdr for inhalation (Wixela Inhub) famotidine 20 mg tablet (Pepcid) 20 mg PO QAM 04/13/22 10/18/24 10/18/24 05:00 cyanocobalamin (vitamin B-12) 1,000 mcg PO QAM 07/20/22 10/18/24 10/16/24 07:00 1,000 mcg tablet (Vitamin B-12) docusate sodium 100 mg capsule 100 mg PO HS 07/20/22 10/18/24 10/17/24 21:00 (Colace) fluticasone propionate 50 1 spray intranasal UD PRN Nasal 07/20/22 10/18/24 10/18/24 05:00 mcg/actuation nasal Congestion spray,suspension diltiazem HCl 180 mg capsule,24 180 mg PO BID 02/15/23 10/18/24 10/18/24 05:00 hr,extended release blood sugar diagnostic (Accu-Chek #600 ea 02/22/23 09/11/24 Unknown Jaclyn Plus test strips) pen needle, diabetic 32 gauge x #300 ea 02/22/23 09/11/24 Unknown 1/6" (NovoFine Plus) tamsulosin 0.4 mg capsule 0.4 mg PO DAILY PRN prn 08/12/23 10/18/24 Unknown diphenhydramine HCl 50 mg capsule 50 mg PO HS PRN prn/ sleep 02/03/24 10/18/24 10/17/24 22:00 (Sleep Aid (diphenhydramine)) ascorbic acid (vitamin C) 500 mg 1 g PO QAM 09/05/24 10/18/24 10/16/24 07:00 tablet (Vitamin C) hydrochlorothiazide 25 mg tablet 25 mg PO QAM 09/05/24 10/18/24 10/17/24 07:00 insulin aspart U-100 100 unit/mL 100 unit subcut DAILY #90 mL 09/05/24 10/18/24 Unknown (3 mL) subcutaneous pen (Novolog FlexPen U-100 Insulin aspart) metformin 1,000 mg tablet 1,000 mg PO BID 09/05/24 10/18/24 10/17/24 19:00 polyethylene glycol 3350 17 17 g PO DAILY PRN Constipation 09/12/24 10/18/24 Unknown gram/dose oral powder (Miralax) insulin glargine 100 unit/mL (3 64 unit subcut BID 10/18/24 10/18/24 10/17/24 19:00 mL) subcutaneous pen (Lantus Solostar U-100 Insulin) acetaminophen 300 mg-codeine 30 mg 1 - 2 tab PO Q4H PRN pain #20 tabs 10/20/24 Unknown tablet cefadroxil 500 mg capsule 500 mg PO Q12H #28 caps 10/20/24 Unknown Active Medications Generic Name Dose Route Start Last Admin Trade Name Freq PRN Reason Stop Dose Admin Acetaminophen 650 mg 10/21/24 06:21 10/29/24 16:53 Acetaminophen 325 Mg Tab PO 11/20/24 06:20 650 mg Q4H PRN Administration Pain or Fever Albuterol 3 ml 10/21/24 06:27 10/25/24 04:28 Albut/Ipratrop 3mg/0.5mg Neb 3 Ml Vial NEB 11/20/24 06:26 3 ml Q2H PRN Administration dyspnea Protocol Albuterol 1 puffs 10/21/24 06:39 10/22/24 05:22 Albuterol Hfa 8 Gm Inhaler INH 11/20/24 06:38 1 puffs Q6H PRN Administration COPD Apixaban 5 mg 10/23/24 21:00 10/31/24 20:08 Apixaban 5 Mg Tablet PO 11/22/24 20:59 5 mg BID JOI Administration Aspirin 81 mg 10/24/24 09:00 10/31/24 07:22 Aspirin 81 Mg Ectab PO 11/23/24 08:59 81 mg QAM JOI Administration Cyanocobalamin 1,000 mcg 10/21/24 09:00 10/31/24 07:22 Cyanocobalamin (B-12) 500 Mcg Tablet PO 11/20/24 08:59 1,000 mcg QAM JOI Administration Diltiazem HCl 180 mg 10/21/24 09:00 10/31/24 20:07 Diltiazem Hcl 180 Mg Capcr PO 11/20/24 08:59 180 mg BID JOI Administration Docusate Sodium 100 mg 10/21/24 09:00 10/31/24 20:07 Docusate Sodium 100 Mg Cap PO 11/20/24 08:59 100 mg BID JOI Administration Famotidine 20 mg 10/21/24 09:00 10/31/24 07:29 Famotidine 20 Mg Tab PO 11/20/24 08:59 20 mg QAM JOI Administration Fluticasone/Vilanterol 1 puffs 10/21/24 09:00 10/31/24 07:24 Fluticasone/Vilanterol 100/25mcg 14 Puffs/Inhaler INH 11/20/24 08:59 1 puffs QAM JOI Administration Protocol Guaifenesin 600 mg 10/22/24 21:00 10/31/24 20:07 Guaifenesin 600 Mg Tabcr PO 11/21/24 20:59 600 mg Q12 JOI Administration Pantoprazole Sodium 40 mg in 10 mls @ 5 mls/min 10/21/24 21:00 10/31/24 20:08 Protonix IV 11/20/24 20:59 5 mls/min QPM JOI Administration Levofloxacin/Dextrose 750 mg in 150 mls @ 100 mls/hr 10/21/24 08:15 10/31/24 08:44 Levaquin/D5w IV 11/02/24 08:14 Infused Q24H JOI Infusion Daptomycin 575 mg/ Syringe 11.5 mls @ 5.75 mls/min 10/26/24 08:30 10/31/24 07:24 IV 12/07/24 08:14 5.75 mls/min Q24H JOI Administration Protocol Insulin Aspart 0 units 11/01/24 06:15 11/01/24 06:10 Insulin Aspart Per Unit Charge SC 11/29/24 16:29 Not Given Q6 JOI Insulin Glargine 32 units 10/21/24 09:00 10/31/24 21:53 Lantus Per Unit Charge SQ 11/20/24 08:59 32 units BID JOI Administration Melatonin 3 mg 10/25/24 01:52 10/31/24 21:53 Melatonin 3 Mg Tab PO 11/24/24 01:51 3 mg HS PRN Administration Sleep Metoprolol Tartrate 12.5 mg 10/23/24 21:00 10/31/24 20:07 Metoprolol Tartrate 25 Mg Tab PO 11/22/24 20:59 12.5 mg BID JOI Administration Miscellaneous 1 each 10/22/24 21:00 10/31/24 20:08 Remove Lidoderm Patch N/A 11/21/24 20:59 1 each DAILY@2100 OJI Administration Ondansetron HCl 4 mg 10/21/24 06:21 10/31/24 18:32 Ondansetron Inj 2 Mg/Ml 2 Ml Vial IV 11/20/24 06:20 4 mg Q6H PRN Administration Nausea Oxycodone HCl 5 mg 10/22/24 12:16 11/01/24 06:13 Oxycodone Hcl Ir 5 Mg Tab (Immediate Release) PO 11/05/24 12:15 5 mg Q4H PRN Administration Pain Petrolatum 1 appln 10/26/24 11:30 10/31/24 23:18 Butt Paste (Zinc Oxide 16%) 171 Appln/57 Gm Jar EXT 11/25/24 11:29 Not Given BID JOI Polyethylene Glycol 17 gm 10/21/24 16:52 10/21/24 17:48 Polyethylene (Miralax) 17 Gm Pack PO 11/20/24 16:51 17 gm DAILY PRN Administration Constipation Sodium Chloride 2 sprays 10/28/24 11:18 10/29/24 13:33 Sodium Chloride 0.65% Na Soln 45 Ml ([place]) NA 11/27/24 11:17 2 sprays BID PRN Administration Dryness NPO Date Last Intake of Fluids: 10/31/24 Time Last Intake of Fluids: 19:00 Last Intake of Fluids Comment: Sip water with med this AM Date Last Intake of Solids: 10/31/24 Time Last Intake of Solids: 19:00 Past Medical History Medical History Osteoarthritis of left knee Aortic stenosis Echo 05/2023: "Mild" aortic stenosis (ARTI Vmax 2.17 cm, DVI 0.48) Hx of supraventricular tachycardia Nodule of kidney Follows with Dr. Aldridge Dyslipidemia Diabetic nephropathy Arthritis Nocturnal hypoxemia Obesity Chronic kidney disease, stage 2 (mild) Follows with Dr. 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 Per EP office visit (06/03/22): 2.2 second pause noted on telemetry during inpatient stay. 3 more pauses on Zio patch, longest 3.1 seconds, all in atrial fibrillation. "In atrial fibrillation, without any symptoms, he would have to have a pause of 5 seconds to qualify for a pacemaker. No indication for any further intervention at this time. 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 (no chemo or xrt) Exercise / Class Metabolic Activity III < 4 Walking/Shop/Light housework (cane) Past Family History Family History Other Family history of diabetes mellitus in father Past Surgical History Surgical History Hx of LASIK History of ankle surgery left ankle hardware present History of left shoulder replacement (01/2023) Family history of reaction to anesthesia Mother- PONV History of carpal tunnel surgery of left wrist Nausea and vomiting after administration of anesthetic agent controlled with meds History of endoscopy History of colonoscopy with polypectomy History of carpal tunnel surgery of right wrist + ulnar nerve surgery History of fusion of cervical spine x2- most recent 2014 History of decompression of median nerve Per records, pt unsure History of decompression of ulnar nerve Right Left ulnar nerve transposition (03/15/24): LMA igel#[address] 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 History of cholecystectomy Past Anesthesia History No Hx of Anesthesia Complications and No Family Hx of Anesthesia Complications History of PONV History of PONV and Hx of Motion Sickness Social History Smoking Status: Former smoker tobacco type: cigars Do You Dip or Chew Tobacco: No Hx Alcohol Use: No Hx Substance Use: No substance use type: does not use Physical Exam Vital Signs Last Vital Signs Temp 36.7 C 10/31/24 19:54 Pulse 75 10/31/24 19:54 Resp 16 10/31/24 19:54 BP 138/78 10/31/24 19:54 Pulse Ox 95 10/31/24 19:54 O2 Del Method Room Air, CPAP 10/31/24 20:08 O2 Flow Rate 2 10/26/24 19:25 FiO2 2 10/23/24 23:17 Constitutional + obese; no acute distress ENMT Mouth: no chipped teeth and no loose teeth Thyromental Distance: > or= 3.5 Finger Breadths Mallampati Class: III Neck normal visual inspection and + facial hair Respiratory normal respiratory effort; no respiratory distress Auscultation: lungs clear to auscultation bilaterally Cardiovascular Rate/Rhythm: regular rate; + abnormal rhythm Heart Sounds: no murmur Musculoskeletal Spine: normal cervical ROM Psychiatric Orientation: alert and oriented x 3 Testing Laboratory Results 10/31/24 07:21 10/31/24 07:21 PT 11.5 Seconds (9.0-12.0) 10/21/24 06:42 INR 1.1 (0.9-1.1) 10/21/24 06:42 APTT 31 Seconds (21-31) 10/21/24 06:42 Urine Color Yellow 10/21/24 17:21 Urine Appearance Clear (Clear) 10/21/24 17:21 Urine pH 5.5 (4.5-7.5) 10/21/24 17:21 Ur Specific [place] 1.021 (1.000-1.030) 10/21/24 17:21 Urine Protein 2+ (Negative) H 10/21/24 17:21 Urine Glucose (UA) Trace (Negative) H 10/21/24 17:21 Urine Ketones 1+ (Negative) H 10/21/24 17:21 Urine Nitrite Negative (Negative) 10/21/24 17:21 Ur Leukocyte Esterase Negative (Negative) 10/21/24 17:21 Urine WBC (Auto) 0-5 /hpf (0-5) 10/21/24 17:21 Urine RBC (Auto) 0-2 /hpf (0-2) 10/21/24 17:21 U Hyaline Cast (Auto) 0-2 /lpf (0-2) 10/21/24 17:21 U Epithel Cells (Auto) 0-2 /hpf (0-2) 10/21/24 17:21 Urine Bacteria (Auto) None Seen (None Seen) 10/21/24 17:21 10/25/24 20:47 Fungal Smear - Final Blood Fungal Culture - Preliminary No yeast or fungus isolated - Report 1, Additional Report to Follow. 10/21/24 08:49 Aerobic Blood Culture - Final Blood No growth in Aerobic bottle after 5 days. Anaerobic Blood Culture - Final No growth in Anaerobic bottle after 5 days. 10/21/24 09:00 Aerobic Blood Culture - Final Blood No growth in Aerobic bottle after 5 days. Anaerobic Blood Culture - Final No growth in Anaerobic bottle after 5 days. 10/21/24 11:55 Gram Stain - Final Knee Aerobic and Anaerobic Culture - Final No growth 11/01/24 10/31/24 06:07 20:59 POC Glucose 137 H 147 H Day of Procedure Evaluation. Date of Surgery November 01, 2024 Height/Weight Height: 6 ft Weight: 112.3 kg Vital Signs Last Vital Signs Temp 36.7 C 10/31/24 19:54 Pulse 75 10/31/24 19:54 Resp 16 10/31/24 19:54 BP 138/78 10/31/24 19:54 Pulse Ox 95 10/31/24 19:54 O2 Del Method Room Air, CPAP 10/31/24 20:08 O2 Flow Rate 2 10/26/24 19:25 FiO2 2 10/23/24 23:17 Allergies Allergy/AdvReac Type Severity Reaction Status Date / Time hyaluronate sodium, Allergy Severe Lips Verified 10/18/24 08:59 stabilized swelling hylan G-F 20 [From Synvisc] Allergy Severe Lips Verified 10/18/24 08:59 swelling celecoxib [From Celebrex] Allergy Unknown Rash Verified 10/18/24 08:59 cephalexin Allergy Unknown Rash Verified 10/18/24 08:59 dicyclomine Allergy Unknown Unknown Verified 10/18/24 08:59 homatropine Allergy Unknown Unknown Verified 10/18/24 08:59 hydrocodone Allergy Unknown Unknown Verified 10/18/24 08:59 meloxicam Allergy Unknown Unknown Verified 10/18/24 08:59 oxycodone [From Percocet] Allergy Unknown Unknown Verified 10/18/24 08:59 pregabalin Allergy Unknown ? Tired, Verified 10/18/24 08:59 listless Penicillins AdvReac Intermediate GI upset Verified 10/18/24 08:59 chlorthalidone AdvReac Mild Listless Verified 10/18/24 08:59 gabapentin AdvReac Mild ? Tired, Verified 10/18/24 08:59 listless pravastatin AdvReac Mild Muscle Pain Verified 10/18/24 08:59 prednisone AdvReac Mild GI upset Verified 10/18/24 08:59 sulfamethoxazole AdvReac Mild GI upset Verified 10/18/24 08:59 trimethoprim AdvReac Mild GI upset Verified 10/18/24 08:59 Medications Home Medications Medication Instructions Recorded Confirmed Last Taken albuterol sulfate 90 mcg/actuation 1 puffs inhalation UD PRN COPD #1 g 07/07/19 10/18/24 Unknown aerosol inhaler lisinopril 40 mg tablet 40 mg PO QPM #90 tabs 07/07/19 10/18/24 10/17/24 21:00 apixaban 5 mg tablet (Eliquis) 5 mg PO BID 02/16/22 10/18/24 10/13/24 18:00 fluticasone 250 mcg-salmeterol 50 1 inh inhalation QAM 02/19/22 10/18/24 10/18/24 05:00 mcg/dose blistr powdr for inhalation (Wixela Inhub) famotidine 20 mg tablet (Pepcid) 20 mg PO QAM 04/13/22 10/18/24 10/18/24 05:00 cyanocobalamin (vitamin B-12) 1,000 mcg PO QAM 07/20/22 10/18/24 10/16/24 07:00 1,000 mcg tablet (Vitamin B-12) docusate sodium 100 mg capsule 100 mg PO HS 07/20/22 10/18/24 10/17/24 21:00 (Colace) fluticasone propionate 50 1 spray intranasal UD PRN Nasal 07/20/22 10/18/24 10/18/24 05:00 mcg/actuation nasal Congestion spray,suspension diltiazem HCl 180 mg capsule,24 180 mg PO BID 02/15/23 10/18/24 10/18/24 05:00 hr,extended release blood sugar diagnostic (Accu-Chek #600 ea 02/22/23 09/11/24 Unknown Jaclyn Plus test strips) pen needle, diabetic 32 gauge x #300 ea 02/22/23 09/11/24 Unknown 1/6" (NovoFine Plus) tamsulosin 0.4 mg capsule 0.4 mg PO DAILY PRN prn 08/12/23 10/18/24 Unknown diphenhydramine HCl 50 mg capsule 50 mg PO HS PRN prn/ sleep 02/03/24 10/18/24 10/17/24 22:00 (Sleep Aid (diphenhydramine)) ascorbic acid (vitamin C) 500 mg 1 g PO QAM 09/05/24 10/18/24 10/16/24 07:00 tablet (Vitamin C) hydrochlorothiazide 25 mg tablet 25 mg PO QAM 09/05/24 10/18/24 10/17/24 07:00 insulin aspart U-100 100 unit/mL 100 unit subcut DAILY #90 mL 09/05/24 10/18/24 Unknown (3 mL) subcutaneous pen (Novolog FlexPen U-100 Insulin aspart) metformin 1,000 mg tablet 1,000 mg PO BID 09/05/24 10/18/24 10/17/24 19:00 polyethylene glycol 3350 17 17 g PO DAILY PRN Constipation 09/12/24 10/18/24 Unknown gram/dose oral powder (Miralax) insulin glargine 100 unit/mL (3 64 unit subcut BID 10/18/24 10/18/24 10/17/24 19:00 mL) subcutaneous pen (Lantus Solostar U-100 Insulin) acetaminophen 300 mg-codeine 30 mg 1 - 2 tab PO Q4H PRN pain #20 tabs 10/20/24 Unknown tablet cefadroxil 500 mg capsule 500 mg PO Q12H #28 caps 10/20/24 Unknown Active Medications Generic Name Dose Route Start Last Admin Trade Name Freq PRN Reason Stop Dose Admin Acetaminophen 650 mg 10/21/24 06:21 10/29/24 16:53 Acetaminophen 325 Mg Tab PO 11/20/24 06:20 650 mg Q4H PRN Administration Pain or Fever Albuterol 3 ml 10/21/24 06:27 10/25/24 04:28 Albut/Ipratrop 3mg/0.5mg Neb 3 Ml Vial NEB 11/20/24 06:26 3 ml Q2H PRN Administration dyspnea Protocol Albuterol 1 puffs 10/21/24 06:39 10/22/24 05:22 Albuterol Hfa 8 Gm Inhaler INH 11/20/24 06:38 1 puffs Q6H PRN Administration COPD Apixaban 5 mg 10/23/24 21:00 10/31/24 20:08 Apixaban 5 Mg Tablet PO 11/22/24 20:59 5 mg BID JOI Administration Aspirin 81 mg 10/24/24 09:00 10/31/24 07:22 Aspirin 81 Mg Ectab PO 11/23/24 08:59 81 mg QAM JOI Administration Cyanocobalamin 1,000 mcg 10/21/24 09:00 10/31/24 07:22 Cyanocobalamin (B-12) 500 Mcg Tablet PO 11/20/24 08:59 1,000 mcg QAM JOI Administration Diltiazem HCl 180 mg 10/21/24 09:00 10/31/24 20:07 Diltiazem Hcl 180 Mg Capcr PO 11/20/24 08:59 180 mg BID JOI Administration Docusate Sodium 100 mg 10/21/24 09:00 10/31/24 20:07 Docusate Sodium 100 Mg Cap PO 11/20/24 08:59 100 mg BID JOI Administration Famotidine 20 mg 10/21/24 09:00 10/31/24 07:29 Famotidine 20 Mg Tab PO 11/20/24 08:59 20 mg QAM JOI Administration Fluticasone/Vilanterol 1 puffs 10/21/24 09:00 10/31/24 07:24 Fluticasone/Vilanterol 100/25mcg 14 Puffs/Inhaler INH 11/20/24 08:59 1 puffs QAM JOI Administration Protocol Guaifenesin 600 mg 10/22/24 21:00 10/31/24 20:07 Guaifenesin 600 Mg Tabcr PO 11/21/24 20:59 600 mg Q12 JOI Administration Pantoprazole Sodium 40 mg in 10 mls @ 5 mls/min 10/21/24 21:00 10/31/24 20:08 Protonix IV 11/20/24 20:59 5 mls/min QPM JOI Administration Levofloxacin/Dextrose 750 mg in 150 mls @ 100 mls/hr 10/21/24 08:15 10/31/24 08:44 Levaquin/D5w IV 11/02/24 08:14 Infused Q24H JOI Infusion Daptomycin 575 mg/ Syringe 11.5 mls @ 5.75 mls/min 10/26/24 08:30 10/31/24 07:24 IV 12/07/24 08:14 5.75 mls/min Q24H JOI Administration Protocol Insulin Aspart 0 units 11/01/24 06:15 11/01/24 06:10 Insulin Aspart Per Unit Charge SC 11/29/24 16:29 Not Given Q6 JOI Insulin Glargine 32 units 10/21/24 09:00 10/31/24 21:53 Lantus Per Unit Charge SQ 11/20/24 08:59 32 units BID JOI Administration Melatonin 3 mg 10/25/24 01:52 10/31/24 21:53 Melatonin 3 Mg Tab PO 11/24/24 01:51 3 mg HS PRN Administration Sleep Metoprolol Tartrate 12.5 mg 10/23/24 21:00 10/31/24 20:07 Metoprolol Tartrate 25 Mg Tab PO 11/22/24 20:59 12.5 mg BID JOI Administration Miscellaneous 1 each 10/22/24 21:00 10/31/24 20:08 Remove Lidoderm Patch N/A 11/21/24 20:59 1 each DAILY@2100 JOI Administration Ondansetron HCl 4 mg 10/21/24 06:21 10/31/24 18:32 Ondansetron Inj 2 Mg/Ml 2 Ml Vial IV 11/20/24 06:20 4 mg Q6H PRN Administration Nausea Oxycodone HCl 5 mg 10/22/24 12:16 11/01/24 06:13 Oxycodone Hcl Ir 5 Mg Tab (Immediate Release) PO 11/05/24 12:15 5 mg Q4H PRN Administration Pain Petrolatum 1 appln 10/26/24 11:30 10/31/24 23:18 Butt Paste (Zinc Oxide 16%) 171 Appln/57 Gm Jar EXT 11/25/24 11:29 Not Given BID JOI Polyethylene Glycol 17 gm 10/21/24 16:52 10/21/24 17:48 Polyethylene (Miralax) 17 Gm Pack PO 11/20/24 16:51 17 gm DAILY PRN Administration Constipation Sodium Chloride 2 sprays 10/28/24 11:18 10/29/24 13:33 Sodium Chloride 0.65% Na Soln 45 Ml ([place]) NA 11/27/24 11:17 2 sprays BID PRN Administration Dryness Past Anesthesia History No Hx of Anesthesia Complications and No Family Hx of Anesthesia Complications History of PONV History of PONV and Hx of Motion Sickness NPO Date Last Intake of Fluids: 10/31/24 Time Last Intake of Fluids: 19:00 Last Intake of Fluids Comment: Sip water with med this AM Date Last Intake of Solids: 10/31/24 Time Last Intake of Solids: 19:00 HCG & FBG Results 11/01/24 10/31/24 06:07 20:59 POC Glucose 137 H 147 H Home Medications Home Medications Medication Instructions Recorded Confirmed Last Taken albuterol sulfate 90 mcg/actuation 1 puffs inhalation UD PRN COPD #1 g 07/07/19 10/18/24 Unknown aerosol inhaler lisinopril 40 mg tablet 40 mg PO QPM #90 tabs 07/07/19 10/18/24 10/17/24 21:00 apixaban 5 mg tablet (Eliquis) 5 mg PO BID 02/16/22 10/18/24 10/13/24 18:00 fluticasone 250 mcg-salmeterol 50 1 inh inhalation QAM 02/19/22 10/18/24 10/18/24 05:00 mcg/dose blistr powdr for inhalation ([place]ela Inhub) famotidine 20 mg tablet (Pepcid) 20 mg PO QAM 04/13/22 10/18/24 10/18/24 05:00 cyanocobalamin (vitamin B-12) 1,000 mcg PO QAM 07/20/22 10/18/24 10/16/24 07:00 1,000 mcg tablet (Vitamin B-12) docusate sodium 100 mg capsule 100 mg PO HS 07/20/22 10/18/24 10/17/24 21:00 (Colace) fluticasone propionate 50 1 spray intranasal UD PRN Nasal 07/20/22 10/18/24 10/18/24 05:00 mcg/actuation nasal Congestion spray,suspension diltiazem HCl 180 mg capsule,24 180 mg PO BID 02/15/23 10/18/24 10/18/24 05:00 hr,extended release blood sugar diagnostic (Accu-Chek #600 ea 02/22/23 09/11/24 Unknown Jaclyn Plus test strips) pen needle, diabetic 32 gauge x #300 ea 02/22/23 09/11/24 Unknown 12/04" (NovoFine Plus) tamsulosin 0.4 mg capsule 0.4 mg PO DAILY PRN prn 08/12/23 10/18/24 Unknown diphenhydramine HCl 50 mg capsule 50 mg PO HS PRN prn/ sleep 02/03/24 10/18/24 10/17/24 22:00 (Sleep Aid (diphenhydramine)) ascorbic acid (vitamin C) 500 mg 1 g PO QAM 09/05/24 10/18/24 10/16/24 07:00 tablet (Vitamin C) hydrochlorothiazide 25 mg tablet 25 mg PO QAM 09/05/24 10/18/24 10/17/24 07:00 insulin aspart U-100 100 unit/mL 100 unit subcut DAILY #90 mL 09/05/24 10/18/24 Unknown (3 mL) subcutaneous pen (Novolog FlexPen U-100 Insulin aspart) metformin 1,000 mg tablet 1,000 mg PO BID 09/05/24 10/18/24 10/17/24 19:00 polyethylene glycol 3350 17 17 g PO DAILY PRN Constipation 09/12/24 10/18/24 Unknown gram/dose oral powder (Miralax) insulin glargine 100 unit/mL (3 64 unit subcut BID 10/18/24 10/18/24 10/17/24 19:00 mL) subcutaneous pen (Lantus Solostar U-100 Insulin) acetaminophen 300 mg-codeine 30 mg 1 - 2 tab PO Q4H PRN pain #20 tabs 10/20/24 Unknown tablet cefadroxil 500 mg capsule 500 mg PO Q12H #28 caps 10/20/24 Unknown Active Medications Generic Name Dose Route Start Last Admin Trade Name Mirella PRN Reason Stop Dose Admin Acetaminophen 650 mg 10/21/24 06:21 10/29/24 16:53 Acetaminophen 325 Mg Tab PO 11/20/24 06:20 650 mg Q4H PRN Administration Pain or Fever Albuterol 3 ml 10/21/24 06:27 10/25/24 04:28 Albut/Ipratrop 3mg/0.5mg Neb 3 Ml Vial NEB 11/20/24 06:26 3 ml Q2H PRN Administration dyspnea Protocol Albuterol 1 puffs 10/21/24 06:39 10/22/24 05:22 Albuterol Hfa 8 Gm Inhaler INH 11/20/24 06:38 1 puffs Q6H PRN Administration COPD Apixaban 5 mg 10/23/24 21:00 10/31/24 20:08 Apixaban 5 Mg Tablet PO 11/22/24 20:59 5 mg BID JOI Administration Aspirin 81 mg 10/24/24 09:00 10/31/24 07:22 Aspirin 81 Mg Ectab PO 11/23/24 08:59 81 mg QAM JOI Administration Cyanocobalamin 1,000 mcg 10/21/24 09:00 10/31/24 07:22 Cyanocobalamin (B-12) 500 Mcg Tablet PO 11/20/24 08:59 1,000 mcg QAM JOI Administration Diltiazem HCl 180 mg 10/21/24 09:00 10/31/24 20:07 Diltiazem Hcl 180 Mg Capcr PO 11/20/24 08:59 180 mg BID JOI Administration Docusate Sodium 100 mg 10/21/24 09:00 10/31/24 20:07 Docusate Sodium 100 Mg Cap PO 11/20/24 08:59 100 mg BID JOI Administration Famotidine 20 mg 10/21/24 09:00 10/31/24 07:29 Famotidine 20 Mg Tab PO 11/20/24 08:59 20 mg QAM JOI Administration Fluticasone/Vilanterol 1 puffs 10/21/24 09:00 10/31/24 07:24 Fluticasone/Vilanterol 100/25mcg 14 Puffs/Inhaler INH 11/20/24 08:59 1 puffs QAM JOI Administration Protocol Guaifenesin 600 mg 10/22/24 21:00 10/31/24 20:07 Guaifenesin 600 Mg Tabcr PO 11/21/24 20:59 600 mg Q12 JOI Administration Pantoprazole Sodium 40 mg in 10 mls @ 5 mls/min 10/21/24 21:00 10/31/24 20:08 Protonix IV 11/20/24 20:59 5 mls/min QPM JOI Administration Levofloxacin/Dextrose 750 mg in 150 mls @ 100 mls/hr 10/21/24 08:15 10/31/24 08:44 Levaquin/D5w IV 11/02/24 08:14 Infused Q24H JOI Infusion Daptomycin 575 mg/ Syringe 11.5 mls @ 5.75 mls/min 10/26/24 08:30 10/31/24 07:24 IV 12/07/24 08:14 5.75 mls/min Q24H JOI Administration Protocol Insulin Aspart 0 units 11/01/24 06:15 11/01/24 06:10 Insulin Aspart Per Unit Charge SC 11/29/24 16:29 Not Given Q6 JOI Insulin Glargine 32 units 10/21/24 09:00 10/31/24 21:53 Lantus Per Unit Charge SQ 11/20/24 08:59 32 units BID JOI Administration Melatonin 3 mg 10/25/24 01:52 10/31/24 21:53 Melatonin 3 Mg Tab PO 11/24/24 01:51 3 mg HS PRN Administration Sleep Metoprolol Tartrate 12.5 mg 10/23/24 21:00 10/31/24 20:07 Metoprolol Tartrate 25 Mg Tab PO 11/22/24 20:59 12.5 mg BID JOI Administration Miscellaneous 1 each 10/22/24 21:00 10/31/24 20:08 Remove Lidoderm Patch N/A 11/21/24 20:59 1 each DAILY@2100 JOI Administration Ondansetron HCl 4 mg 10/21/24 06:21 10/31/24 18:32 Ondansetron Inj 2 Mg/Ml 2 Ml Vial IV 11/20/24 06:20 4 mg Q6H PRN Administration Nausea Oxycodone HCl 5 mg 10/22/24 12:16 11/01/24 06:13 Oxycodone Hcl Ir 5 Mg Tab (Immediate Release) PO 11/05/24 12:15 5 mg Q4H PRN Administration Pain Petrolatum 1 appln 10/26/24 11:30 10/31/24 23:18 Butt Paste (Zinc Oxide 16%) 171 Appln/57 Gm Jar EXT 11/25/24 11:29 Not Given BID JOI Polyethylene Glycol 17 gm 10/21/24 16:52 10/21/24 17:48 Polyethylene (Miralax) 17 Gm Pack PO 11/20/24 16:51 17 gm DAILY PRN Administration Constipation Sodium Chloride 2 sprays 10/28/24 11:18 10/29/24 13:33 Sodium Chloride 0.65% Na Soln 45 Ml ([place]) NA 11/27/24 11:17 2 sprays BID PRN Administration Dryness Exercise / Class Metabolic Activity Metabolic Activity: III < 4 Walking/Shop/Light housework (cane) Physical Exam Constitutional: + obese; no acute distress Mouth: no chipped teeth and no loose teeth Thyromental Distance: > or= 3.5 Finger Breadths Mallampati Class: III Neck: + visual inspection normal and + facial hair Respiratory: + respiratory effort normal and + clear to auscultation bilaterally; no respiratory distress Cardiovascular: + regular rate; no regular rhythm and no murmur Musculoskeletal: no limited cervical ROM Psychiatric: + alert and + oriented x 3 ASA ASA3 Proposed Anesthesia Proposed Anesthesia: MAC Risk / Benefits Reviewed With: PT / POA / Parent / Guardian, Accepts Plan and Informed Consent Obtained
[2024-11-01 07:28] LABS: Hematocrit (blood only) 31.5 % (42.0-52.0); Hemoglobin 10.7 g/dl (14.0-18.0); Mean Corpuscular Hemoglobin 31.6 pg (25.0-34.0); Mean Corpuscular Volume 92.9 fL (80.0-100.0); Mean Platelet Volume 8.3 fL (9.4-12.4); Platelet Count 600 K/uL (130-400); RDW Coefficient of Variation 12.5 % (11.5-14.5); RDW Standard Deviation 42.7 fL (36.4-46.3); Red Blood Count 3.39 M/uL (4.70-6.10); White Blood Count 9.22 K/ul (4.8-10.8)
[2024-11-01 07:47] LABS: BUN Creatinine Ratio 12.6 (10-20); Calcium 8.9 mg/dl (8.6-10.3); Creatinine Clr Calc Pharmacy 78.9 ml/min; Potassium 4.2 mmol/L (3.5-5.1)
[2024-11-01] MEDS: BENZOCAINE/TETRACAIN/BUTAM 50 APPLN/5 GM CAN EXT ONE (08:46)
--- NOTE | 2024-11-01 08:53 | Post Operative Brief Note ---
Cardiology Brief Post Op Date of Surgery November 01, 2024 Pre & Post Diagnosis Operation Date: 11/01/24 07:30 <No data on this case meets the specified criteria> Procedure Procedure: Transesophageal echocardiogram Indication: Presumed septic pulmonary emboli Findings: No valvular vegetations identified Complications: None Digital Account Coordinator Fernie Guerrero MD Senior Buyer Isabelle Mendez Estimated Blood Loss 0 Findings See Below No valvular vegetation
--- NOTE | 2024-11-01 09:22 | XCELERA ---
[id number] [email or web address]\[id number]
[2024-11-01 10:04] LABS: Ferritin 127.7 ng/ml (8-388)
--- NOTE | 2024-11-01 10:16 | Infectious Disease Progress Nt ---
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 He was discharged to [facility] rehab on 10/20/2024. There he was noted to be weak and confused. He was seen in the [facility] ED where he was noted to be febrile with a temp of 101.8, tachycardic-pulse 103 and o2 sat of 92% on room air. It was thought that he had a postoperative wound infection. He was transferred back to [facility] on 10/21/2024 for further evaluation as a direct admission. He was transferred on daptomycin and Levaquin as he has multiple listed antibiotic allergies. On admission,he was hemodynamically stable and afebrile. No leukocytosis. Noted for troponin of 2118.7. Chest x-ray showed hazy airspace opacities in the left pericardiac region, right lower opacity. Left lower extremity Doppler showed no evidence of DVT. Repeat chest x-ray showed persistent slightly improved patchy bilateral lung zone infiltrates. He was evaluated by cardiology for elevated troponin and A-fib. He underwent a trans thoracic echocardiogram which showed mild aortic stenosis, normal mitral valve. He underwent coronary angiography which revealed severe obstructive coronary disease not easily amenable to percutaneous intervention. There was no acute lesion. He was also evaluated by orthopedic surgery and underwent a left knee arthrocentesis which returned 10 cc of dark red blood without purulence. Fluid studies showed 28,440 WBCs, greater than 1 million RBCs, 97% polynuclear cells. MRSA screen negative for MRSA. Fluid cultures with no growth to date. Blood cultures no growth to date (obtained after antibiotics initiated). His course complicated by hypoxia. He underwent CT chest which showed multi focal groundglass opacities throughout the lung suggestive of an infectious process and several nodular foci within the lungs concerning for possible septic emboli. However a neoplastic process could appear similar. He had no significant respiratory symptoms. He was evaluated by pulmonary who recommended ID consult for septic emboli. No intervention per pulmonary. He currently on 2 L nasal cannula. Microbiology: Blood cultures 10/21 NG Left knee synovial fluid culture 10/21 NG Left knee fluid analysis 10/21 28,440 WBCs, greater than 1 million RBCs, 97% polynuclear cells. Fungal blood culture 10/25 NGTD Antibiotics: Levaquin 10/21ongoing Daptomycin 10/21ongoing # Possible septic emboli # Possible pneumonia # Recent left TKA (10/18/2024) # Neutrophilic predominant synovial fluid aspiration # History of left ankle surgery with hardware # Cephalexin allergy- rash #PCN "allergy" - GI upset Discussion: Etiology of reported fevers and tachycardia at outside hospital unclear. Appears to have resolved once admitted and started on antibiotics. Knee fluid aspiration shows greater than 20,000 WBCs with a neutrophil predominance, however cultures with no growth to date. Blood cultures also with no growth ; both synovial fluid and blood cultures obtained about 24 hours after initiation of antibiotics. Lung imaging findings concerning for pneumonia and/ septic emboli. TTE done on admission shows mild aortic stenosis but no obvious mobile densities or vegetations. MRSA screen is negative. Antibiotic allergies listed including penicillins and Bactrim however symptoms are GI upset. He has documented history of rash with cephalexin. Levaquin should appropriately cover for pneumonia ( qtc 420, 10/21 . Daptomycin does not provide lung coverage however MRSA screen is negative so doubt MRSA pneumonia. Given fevers/tachycardia prior to admission, presence of cathy dware/prosthetics: Left ankle and recent left knee prosthetic with concern for septic emboli on imaging, so initiated further evaluation for endovascular infection/endocarditis. esr 88, crp 14.20 (10/26) RF 12 12/4 TASNEEM negative for vegetation Source of? "septic emboli"on CT lung unclear, BC sterile, fungal Bc ngtd. Discussed with radiology and not definitive septic emboli but concerning nod ular appearance- non specific. Agrees that could represent pneumonia but agrees that we should repeat lung imaging. Could this have been Pna or is it a neoplastic process? Ortho suspects joint findings is 2/2 hemarthrosis and less likely septic joint. Recommendations _Repeat CT lung today -Continue Levaquin day 10/12 . This should cover for pna pending completion of endovascular infection workup/repeat CT chest -Discontinued daptomycin - Follow up Fungal culture -Follow up coxiella ( q fever) serology Discussed with team. Daisy Stevens MD, MPH Infectious Disease ID Connect [facility], ID Division Call [phone] with questions. Admission and Anticipated Discharge Date Admission Date: October 21, 2024 Subjective This patient recommendation is based on a telemedicine consult request which was completed asynchronously through chart review and information provided by the primary physician. The patient was not seen or examined today. The evaluation is consultative in nature and all patient care and treatment decisions can either be accepted or rejected by the patient's primary hospital-based treating physician using their own independent medical judgment for their patient. Time Spent Reviewing Chart: 21 - 30 minutes TASNEEM neg for vegatations D/w Radiologist who read CT scan- agrees with repeat CT lung today Results & Data Vital Signs (Past 12 Hours) Vital Signs Temp Pulse Pulse Resp BP BP Pulse Ox 11/01/24 09:15 36.7 C 74 15 144/82 H 95 11/01/24 08:40 11/01/24 08:17 74 18 129/58 L 93 11/01/24 08:10 74 18 129/58 L 93 11/01/24 08:00 81 19 138/65 92 11/01/24 07:50 82 17 132/67 94 11/01/24 07:45 74 19 123/55 L 98 11/01/24 07:41 77 18 135/61 98 11/01/24 07:36 87 20 100 11/01/24 07:32 84 15 154/70 H 94 O2 Del Method O2 Flow Rate 11/01/24 09:15 Room Air 11/01/24 08:40 Room Air 11/01/24 08:17 Room Air 11/01/24 08:10 Room Air 11/01/24 08:00 Room Air 11/01/24 07:50 Room Air 11/01/24 07:45 Oxymask 11/01/24 07:41 Oxymask 6 11/01/24 07:36 Oxymask 6 11/01/24 07:32 Room Air Laboratory Results Short CBC 11/01/24 Range/Units 07:00 WBC 9.22 (4.8-10.8) K/ul Hgb 10.7 L (14.0-18.0) g/dl Hct 31.5 L (42.0-52.0) % Plt Count 600 H (130-400) K/uL BMP 11/01/24 07:00 Sodium 132 L Potassium 4.2 Chloride 99 Carbon Dioxide 27 BUN 13 Creatinine 1.03 Glucose 142 H Calcium 8.9 Diagnostic Findings Microbiology 10/25/24 20:47 Blood Fungal Smear - Final 10/25/24 20:47 Blood Fungal Culture - Preliminary No yeast or fungus isolated - Report 1, Additional Report to Follow. 10/21/24 08:49 Blood Aerobic Blood Culture - Final No growth in Aerobic bottle after 5 days. 10/21/24 08:49 Blood Anaerobic Blood Culture - Final No growth in Anaerobic bottle after 5 days. 10/21/24 09:00 Blood Aerobic Blood Culture - Final No growth in Aerobic bottle after 5 days. 10/21/24 09:00 Blood Anaerobic Blood Culture - Final No growth in Anaerobic bottle after 5 days. 10/21/24 11:55 Knee Gram Stain - Final 10/21/24 11:55 Knee Aerobic and Anaerobic Culture - Final No growth Medications Administered Home Medications Medication Instructions Recorded Confirmed Last Taken albuterol sulfate 90 mcg/actuation 1 puffs inhalation UD PRN COPD #1 g 07/07/19 10/18/24 Unknown aerosol inhaler lisinopril 40 mg tablet 40 mg PO QPM #90 tabs 07/07/19 10/18/24 10/17/24 21:00 apixaban 5 mg tablet (Eliquis) 5 mg PO BID 02/16/22 10/18/24 10/13/24 18:00 fluticasone 250 mcg-salmeterol 50 1 inh inhalation QAM 02/19/22 10/18/24 10/18/24 05:00 mcg/dose blistr powdr for inhalation (Wixela Inhub) famotidine 20 mg tablet (Pepcid) 20 mg PO QAM 04/13/22 10/18/24 10/18/24 05:00 cyanocobalamin (vitamin B-12) 1,000 mcg PO QAM 07/20/22 10/18/24 10/16/24 07:00 1,000 mcg tablet (Vitamin B-12) docusate sodium 100 mg capsule 100 mg PO HS 07/20/22 10/18/24 10/17/24 21:00 (Colace) fluticasone propionate 50 1 spray intranasal UD PRN Nasal 07/20/22 10/18/24 10/18/24 05:00 mcg/actuation nasal Congestion spray,suspension diltiazem HCl 180 mg capsule,24 180 mg PO BID 02/15/23 10/18/24 10/18/24 05:00 hr,extended release blood sugar diagnostic (Accu-Chek #600 ea 02/22/23 09/11/24 Unknown Jaclyn Plus test strips) pen needle, diabetic 32 gauge x #300 ea 02/22/23 09/11/24 Unknown 1/6" (NovoFine Plus) tamsulosin 0.4 mg capsule 0.4 mg PO DAILY PRN prn 08/12/23 10/18/24 Unknown diphenhydramine HCl 50 mg capsule 50 mg PO HS PRN prn/ sleep 02/03/24 10/18/24 10/17/24 22:00 (Sleep Aid (diphenhydramine)) ascorbic acid (vitamin C) 500 mg 1 g PO QAM 09/05/24 10/18/24 10/16/24 07:00 tablet (Vitamin C) hydrochlorothiazide 25 mg tablet 25 mg PO QAM 09/05/24 10/18/24 10/17/24 07:00 insulin aspart U-100 100 unit/mL 100 unit subcut DAILY #90 mL 09/05/24 10/18/24 Unknown (3 mL) subcutaneous pen (Novolog FlexPen U-100 Insulin aspart) metformin 1,000 mg tablet 1,000 mg PO BID 09/05/24 10/18/24 10/17/24 19:00 polyethylene glycol 3350 17 17 g PO DAILY PRN Constipation 09/12/24 10/18/24 Unknown gram/dose oral powder (Miralax) insulin glargine 100 unit/mL (3 64 unit subcut BID 10/18/24 10/18/24 10/17/24 19:00 mL) subcutaneous pen (Lantus Solostar U-100 Insulin) acetaminophen 300 mg-codeine 30 mg 1 - 2 tab PO Q4H PRN pain #20 tabs 10/20/24 Unknown tablet cefadroxil 500 mg capsule 500 mg PO Q12H #28 caps 10/20/24 Unknown Active Medications Generic Name Dose Route Start Last Admin Trade Name Freq PRN Reason Stop Dose Admin Acetaminophen 650 mg 10/21/24 06:21 10/29/24 16:53 Acetaminophen 325 Mg Tab PO 11/20/24 06:20 650 mg Q4H PRN Administration Pain or Fever Albuterol 3 ml 10/21/24 06:27 10/25/24 04:28 Albut/Ipratrop 3mg/0.5mg Neb 3 Ml Vial NEB 11/20/24 06:26 3 ml Q2H PRN Administration dyspnea Protocol Albuterol 1 puffs 10/21/24 06:39 10/22/24 05:22 Albuterol Hfa 8 Gm Inhaler INH 11/20/24 06:38 1 puffs Q6H PRN Administration COPD Apixaban 5 mg 10/23/24 21:00 11/01/24 08:44 Apixaban 5 Mg Tablet PO 11/22/24 20:59 5 mg BID JOI Administration Aspirin 81 mg 10/24/24 09:00 11/01/24 08:44 Aspirin 81 Mg Ectab PO 11/23/24 08:59 81 mg QAM JOI Administration Cyanocobalamin 1,000 mcg 10/21/24 09:00 11/01/24 08:44 Cyanocobalamin (B-12) 500 Mcg Tablet PO 11/20/24 08:59 1,000 mcg QAM JOI Administration Diltiazem HCl 180 mg 10/21/24 09:00 11/01/24 08:44 Diltiazem Hcl 180 Mg Capcr PO 11/20/24 08:59 180 mg BID JOI Administration Docusate Sodium 100 mg 10/21/24 09:00 11/01/24 08:45 Docusate Sodium 100 Mg Cap PO 11/20/24 08:59 100 mg BID JOI Administration Famotidine 20 mg 10/21/24 09:00 11/01/24 08:45 Famotidine 20 Mg Tab PO 11/20/24 08:59 20 mg QAM JOI Administration Fluticasone/Vilanterol 1 puffs 10/21/24 09:00 11/01/24 08:45 Fluticasone/Vilanterol 100/25mcg 14 Puffs/Inhaler INH 11/20/24 08:59 1 puffs QAM JOI Administration Protocol Guaifenesin 600 mg 10/22/24 21:00 11/01/24 08:44 Guaifenesin 600 Mg Tabcr PO 11/21/24 20:59 600 mg Q12 JOI Administration Pantoprazole Sodium 40 mg in 10 mls @ 5 mls/min 10/21/24 21:00 10/31/24 20:08 Protonix IV 11/20/24 20:59 5 mls/min QPM JOI Administration Levofloxacin/Dextrose 750 mg in 150 mls @ 100 mls/hr 10/21/24 08:15 11/01/24 10:00 Levaquin/D5w IV 11/02/24 08:14 Infused Q24H JOI Infusion Daptomycin 575 mg/ Syringe 11.5 mls @ 5.75 mls/min 10/26/24 08:30 11/01/24 08:44 IV 12/07/24 08:14 5.75 mls/min Q24H JOI Administration Protocol Insulin Glargine 32 units 10/21/24 09:00 11/01/24 08:46 Lantus Per Unit Charge SQ 11/20/24 08:59 32 units BID JOI Administration Melatonin 3 mg 10/25/24 01:52 10/31/24 21:53 Melatonin 3 Mg Tab PO 11/24/24 01:51 3 mg HS PRN Administration Sleep Metoprolol Tartrate 12.5 mg 10/23/24 21:00 11/01/24 08:45 Metoprolol Tartrate 25 Mg Tab PO 11/22/24 20:59 12.5 mg BID JOI Administration Miscellaneous 1 each 10/22/24 21:00 10/31/24 20:08 Remove Lidoderm Patch N/A 11/21/24 20:59 1 each DAILY@2100 JOI Administration Ondansetron HCl 4 mg 10/21/24 06:21 10/31/24 18:32 Ondansetron Inj 2 Mg/Ml 2 Ml Vial IV 11/20/24 06:20 4 mg Q6H PRN Administration Nausea Oxycodone HCl 5 mg 10/22/24 12:16 11/01/24 06:13 Oxycodone Hcl Ir 5 Mg Tab (Immediate Release) PO 11/05/24 12:15 5 mg Q4H PRN Administration Pain Petrolatum 1 appln 10/26/24 11:30 11/01/24 08:46 Butt Paste (Zinc Oxide 16%) 171 Appln/57 Gm Jar EXT 11/25/24 11:29 1 appln BID JOI Administration Polyethylene Glycol 17 gm 10/21/24 16:52 10/21/24 17:48 Polyethylene (Miralax) 17 Gm Pack PO 11/20/24 16:51 17 gm DAILY PRN Administration Constipation Sodium Chloride 2 sprays 10/28/24 11:18 10/29/24 13:33 Sodium Chloride 0.65% Na Soln 45 Ml ([place]) NA 11/27/24 11:17 2 sprays BID PRN Administration Dryness
--- NOTE | 2024-11-01 11:59 | Anesthesiology Progress Note ---
Date of Service November 01, 2024 Anesthesia Post Procedure Vital Signs Vital Signs: Temp Pulse Pulse Resp BP BP Pulse Ox 11/01/24 09:15 36.7 C 74 15 144/82 H 95 11/01/24 08:40 11/01/24 08:17 74 18 129/58 L 93 11/01/24 08:10 74 18 129/58 L 93 11/01/24 08:00 81 19 138/65 92 11/01/24 07:50 82 17 132/67 94 11/01/24 07:45 74 19 123/55 L 98 11/01/24 07:41 77 18 135/61 98 11/01/24 07:36 87 20 100 11/01/24 07:32 84 15 154/70 H 94 10/31/24 20:08 10/31/24 19:54 36.7 C 75 16 138/78 95 10/31/24 15:01 36.6 C 69 16 138/66 97 O2 Del Method O2 Flow Rate 11/01/24 09:15 Room Air 11/01/24 08:40 Room Air 11/01/24 08:17 Room Air 11/01/24 08:10 Room Air 11/01/24 08:00 Room Air 11/01/24 07:50 Room Air 11/01/24 07:45 Oxymask 11/01/24 07:41 Oxymask 6 11/01/24 07:36 Oxymask 6 11/01/24 07:32 Room Air 10/31/24 20:08 Room Air, CPAP 10/31/24 19:54 Room Air 10/31/24 15:01 Room Air Pain Intensity Left Knee: Pain Intensity: 5 Lower Back: Pain Intensity: 7 Transfer of Care Handoff Completed per policy Notes Mental Status: alert / awake / arousable and participated in evaluation Patient Amnestic to Procedure: Yes Nausea / Vomiting: adequately controlled Pain: adequately controlled Airway Patency, RR, SpO2: stable & adequate BP & HR: stable & adequate Hydration State: stable & adequate Anesthetic Complications: no major complications apparent
--- NOTE | 2024-11-01 12:51 | CT Scan Report ---
CT OF THE CHEST WITHOUT IV CONTRAST CLINICAL HISTORY: f/u septic emboli/pna COMPARISON STUDY: Chest CT October 25, 2024. Chest CT September 15, 2012. CT DOSE: 843.59 mGy.cm TECHNIQUE: Axial images of the chest were obtained without IV contrast. Images were reviewed in the axial, sagittal, and coronal planes. IV contrast was not administered for this examination. Automat ed exposure control was utilized for the study. A dose lowering technique was utilized adhering to t he principles of ALARA. FINDINGS: No enlarged axillary, mediastinal or hilar lymph nodes are present. There is no pericardia l effusion. The heart is mildly enlarged. There is extensive coronary calcification. Elevation of the right hemidiaphragm is unchanged. There is no pneumothorax or pleural effusion. The central airways are patent. Scattered groundglass opacities shown on prior exam have improved. However, there has bee n interval cavitation of several pulmonary nodules shown on prior exam, including a 1.2 cm left lower lobe nodule on image 120 of 233. Several additional cavitary pulmonary nodules are present. A 1.6 cm lobulated lingular nodule on image 163 is similar in appearance without cavitation. No new airspace opacities are present. IMPRESSION: 1. Interval development of cavitation within several pulmonary nodules since CT of October 25, 2024. These nodules measure up to 1.6 cm. Although the appearance favors septic pulmonary emboli, the find ings are nonspecific and additional differential considerations include fungal infection, a vasculiti s, necrobiotic lung nodules or less likely cavitary pulmonary metastases. A follow-up chest CT in one to 2 months to ensure resolution is recommended. 2. Interval improvement in scattered additional groundglass opacities since prior exam. These were li bailey infectious. 3. No thoracic lymphadenopathy. ACT 112: Negative or not required by law. Electronically signed by: James Doe M.D. 11/01/2024 12:49 PM
[2024-11-01] MEDS: traMADol HCL 50 MG TABLET PO ONE (13:42)
--- NOTE | 2024-11-01 17:58 | Pulmonology Progress Note ---
Date of Service November 01, 2024 Assessment & Plan (1) Multiple pulmonary nodules determined by computed tomography of lung: Plan: I had a lengthy discussion with the patient and his daughter regarding the differential for these nodules including atypical infectious process versus inflammatory disease such as sarcoidosis versus malignancy. I think malignancy is much less likely on the differential and infection still is the more likely possibility. I was asked by the hospitalist service regarding the possibility of robotic bronchoscopy. I think that he is too high risk for complications from a coronary event related to general anesthesia and robotic bronchoscopy especially in light of his recent left heart catheterization. I would recommend a CT-guided approach to biopsying 1 of these cavitary lesions which at least 2 of the nodules are amenable for biopsy particularly in the left lower lobe lateral segment. I would recommend that this be done at a tertiary center given his coronary artery disease and potential need for backup of a thoracic or cardiothoracic surgeon. I agree with ID to evaluate for possible occult fungal infection. (2) Coronary artery disease: Plan: Patient has a consultation pending with cardiothoracic surgery at [facility] as an outpatient. I would encourage sampling 1 of these lung nodules prior to undergoing cardiothoracic surgery preferably with a CT-guided approach which I think the lesions are amenable to. Plan Please call with questions. Pulmonary sign off at this time. Thank you for the consult. I will be happy to see the patient as an outpatient for follow-up if he so desires. Admission and Anticipated Discharge Date Admission Date: October 21, 2024 Subjective Patient seen and examined. He is comfortable sitting in a chair. He is on room air. Denies any cough or shortness of breath. He denies any chest pain. I also discussed his history with the patient's daughter over the phone with the patient's permission. Patient has been followed closely by [facility]. He had a repeat CT of his chest completed which revealed multiple nonspecific pulmonary nodules concerning for possible septic emboli, but other differentials were also considered including fungal infection, vasculitis and cavitary pulmonary metastases. Cultures been negative thus far. ID is ordered crypto antigen, Aspergillus galactomannan, Fungitell and a urine histoplasma antigen. Review of Systems Review of Systems: All systems reviewed & are unremarkable except as noted in HPI & below Physical Exam Physical Exam: Constitutional: Patient appears to be of their stated age. Patient is in no apparent distress. Patient is well-developed. Eyes: Pupils are equal round and reactive to light. Conjunctivae are normal. Anicteric sclera. Ears nose, mouth and throat: Mallampati class 2. Normal posterior oropharynx. Uvula is midline. Neck: Trachea is midline. Visual inspection is normal. Respiratory: Clear to auscultation bilaterally. No use of accessory muscles. No significant clubbing noted. Cardiovascular: Regular rate and rhythm. No murmurs. No edema. Gastrointestinal: Normal bowel sounds, soft, nontender and nondistended. No hepatosplenomegaly noted. Musculoskeletal: No cyanosis. Patient is able to move all extremities. Strength is 5 out of 5 in the upper and lower extremities. Skin: No rashes, warm dry and intact. Neurologic: No obvious focal neurological deficits seen. Psychiatric: Alert and oriented x3 with a euthymic affect. Results & Data Results & Data Vital Signs (Past 12 Hours) Vital Signs Temp Pulse Pulse Resp BP BP Pulse Ox 11/01/24 15:13 36.6 C 73 16 118/67 96 11/01/24 09:15 36.7 C 74 15 144/82 H 95 11/01/24 08:40 11/01/24 08:17 74 18 129/58 L 93 11/01/24 08:10 74 18 129/58 L 93 11/01/24 08:00 81 19 138/65 92 11/01/24 07:50 82 17 132/67 94 11/01/24 07:45 74 19 123/55 L 98 11/01/24 07:41 77 18 135/61 98 11/01/24 07:36 87 20 100 11/01/24 07:32 84 15 154/70 H 94 O2 Del Method O2 Flow Rate 11/01/24 15:13 Room Air 11/01/24 09:15 Room Air 11/01/24 08:40 Room Air 11/01/24 08:17 Room Air 11/01/24 08:10 Room Air 11/01/24 08:00 Room Air 11/01/24 07:50 Room Air 11/01/24 07:45 Oxymask 11/01/24 07:41 Oxymask 6 11/01/24 07:36 Oxymask 6 11/01/24 07:32 Room Air PG Care Time/CCT Total # of Minutes Spent Total Time Spent with Patient: Total time spent is greater than 50% in coordination of care (as documented) at patient's floor/unit and/or counseling patient: Coding Level of Care Code 03941 SUB INP/OBS CARE MIN Diagnoses Multiple pulmonary nodules determined by computed tomography of lung R91.8 Coronary artery disease I25.10
--- NOTE | 2024-11-01 17:59 | Hospitalist Progress Note ---
Date of Service November 01, 2024 Assessment & Plan (1) Hypoxia: Plan: Pneumonia CXR 10/24 reviewed: patchy infiltrates in lung bases which could be from aspiration or pneumonia Chest CT 10/25: multifocal ground glass opacities throughout lungs suggestive of infectious process. several nodular foci within the lungs, one of which may contain early cavitation. may also be infectious in etiology and raise possibility of septic emboli. neoplastic process could appear similar. short term follow up chest CT in 1 month is recommended to ensure resolution. trace b/l pleural effusions. stable elevation of right makayla-diaphgram Chest CT 11/01: Interval development of cavitation within several pulmonary nodules since CT of October 25, 2024. These nodules measure up to 1.6 cm. Although the appearance favors septic pulmonary emboli, the findings are nonspecific and additional differential considerations include fungal infection, a vasculitis, necrobiotic lung nodules or less likely cavitary pulmonary metastases. A follow-up chest CT in one to 2 months to ensure resolution is recommended. Pulmonology consulted: recommend to consult ID, likely 4-6 week course of abx if cannot r/o endovascular etiology. Recheck CT in 6-8 weeks. Continue IS. Has been stable on room air ID consulted, following along Blood cultures negative. Outside facility blood cultures drawn 10/20 also no growth finalized. Continue Levaquin for 14 day course. Daptomycin has been discontinued. Check TASNEEM - no vegetation. Rheumatoid factor: 12 Fungal blood cultures preliminary negative. Q fever testing: negative. Additional fungal testing ordered 11/02 - cryptococcus, aspergillosis, [id number], Histoplasmosis Urine - Pending 11/01: Discussed with ID, with negative TASNEEM plan to repeat chest CT today. Repeat chest CT showing cavitations as above. Discussed with Pulmonology - they will re-eval the patient. ID has ordered fungal studies and suggesting bronch.. Sputum culture ordered with hypertonic saline nebs to help facilitate collection. Ortho [facility] to remove celestina tomorrow. Pulmonary recommending transfer to tertiary center - pt first choice is [facility]. Pt has been accepted under hospitalist service, Dr. Oneil Nelson. AM CBC, BMP, (2) History of left knee surgery: Plan: Recent left TKA with Dr. Victoria on 10/18, discharged to rehab and quickly returned to hospital Left leg doppler: negative for DVT Needle aspiration 10/21 - Gram stain is negative. Culture negative. Blood cultures negative Ortho consulted - suspect hemarthrosis and less likely septic joint - wound vac removed. WBAT - celestina will need to be removed - messaged Dr. Victoria 10/31 to see if he would be able to remove while inpatient. Ortho [facility] Should be able to remove on 11/02 Continue Oxycodone PO q4h for pain. (3) Elevated troponin: Plan: Myocardial infarction type 2, POA 2118 --> 2583 --> 2671 -->2077.0 Cardiology consulted - s/p Catheterization with Dr. Pacheco 10/23 - severe multivessel CAD - recommend outpatient referral to tertiary care center (pt has already been contacted by this office) Continue aspirin, metoprolol Also with Afib - continue eliquis and diltiazem - Metoprolol added 10/24 - can be converted to succinate on discharge (4) Thrombocytosis: Plan: Platelets continuing to rise - possible acute phase reactant iron studies - consistent with anemia of chronic disease ESR is downtrending AM CBC (5) DM type 2 (diabetes mellitus, type 2): Plan: Recent A1c 7.7 Decrease glargine from 64 to 32 units SQ twice daily SSI BSG acceptable (6) Altered mental status: Plan: Metabolic encephalopathy Resolved plan as above Plan Chronic stable medical conditions: * COPD- Continue usual inhalers * SONIDO - continue CPAP Dispo: continued inpatient stay, pending transfer to [place] DVT proph: [facility] Admission and Anticipated Discharge Date Admission Date: October 21, 2024 Supervising Physician Co-Signing Physician Notes PA Supervision Note: I did not personally see or examine the patient today, but I verified all malcolm points of JARAD Trimble's assessment and plan with the following exceptions/additions: None Subjective Patient seen sititng up in the chair. thankful that he was able to get his TASNEEM done today. no new symptoms, feels like his knee is progressing well - still has the celestina in. Review of Systems Review of Systems: All systems reviewed & are unremarkable except as noted in Subjective Physical Exam Physical Exam: General: NAD, VS as above, sitting up in chair, appears well Resp: normal respiratory effort, lungs clear to auscultation CV: RRR, no murmur, Abd: soft, normal bowel sounds, non tender, no hepatosplenomegaly Extremities: Moves all extremities, left leg in shannan wrap Neuro: A&O x3, Skin: intact, no lesions noted Results & Data Results & Data Vital Signs (Past 12 Hours) Vital Signs Temp Pulse Pulse Resp BP BP Pulse Ox 11/01/24 15:13 97.9 F 73 16 118/67 96 11/01/24 09:15 98.1 F 74 15 144/82 H 95 11/01/24 08:40 11/01/24 08:17 74 18 129/58 L 93 11/01/24 08:10 74 18 129/58 L 93 11/01/24 08:00 81 19 138/65 92 11/01/24 07:50 82 17 132/67 94 11/01/24 07:45 74 19 123/55 L 98 11/01/24 07:41 77 18 135/61 98 11/01/24 07:36 87 20 100 11/01/24 07:32 84 15 154/70 H 94 O2 Del Method O2 Flow Rate 11/01/24 15:13 Room Air 11/01/24 09:15 Room Air 11/01/24 08:40 Room Air 11/01/24 08:17 Room Air 11/01/24 08:10 Room Air 11/01/24 08:00 Room Air 11/01/24 07:50 Room Air 11/01/24 07:45 Oxymask 11/01/24 07:41 Oxymask 6 11/01/24 07:36 Oxymask 6 11/01/24 07:32 Room Air Laboratory Results CBC, chemistry and CRP reviewed PG Care Time/CCT Total # of Minutes Spent Total Time Spent with Patient: Total time spent is greater than 50% in coordination of care (as documented) at patient's floor/unit and/or counseling patient: Coding Level of Care Code 43416 SUB INP/OBS CARE 3/50MIN Diagnoses Hypoxia R09.02 History of left knee surgery Z98.890 Elevated troponin R79.89 Thrombocytosis D75.839 DM type 2 (diabetes mellitus, type 2) E11.9 Altered mental status R41.82
--- NOTE | 2024-11-01 19:32 | Discharge Summary ---
Discharge Summary Date of Service November 01, 2024 Principal Dx & Hospital Course #1 = Principal Diagnosis (1) Hypoxia: Pneumonia CXR 10/24 reviewed: patchy infiltrates in lung bases which could be from aspiration or pneumonia Chest CT 10/25: multifocal ground glass opacities throughout lungs suggestive of infectious process. several nodular foci within the lungs, one of which may contain early cavitation. may also be infectious in etiology and raise possibility of septic emboli. neoplastic process could appear similar. short term follow up chest CT in 1 month is recommended to ensure resolution. trace b/l pleural effusions. stable elevation of right makayla-diaphgram Chest CT 11/01: Interval development of cavitation within several pulmonary nodules since CT of October 25, 2024. These nodules measure up to 1.6 cm. Although the appearance favors septic pulmonary emboli, the findings are nonspecific and additional differential considerations include fungal infection, a vasculitis, necrobiotic lung nodules or less likely cavitary pulmonary metastases. A follow-up chest CT in one to 2 months to ensure resolution is recommended. Pulmonology consulted: Recommend sampling 1 of these lung nodules prior to undergoing cardiothoracic surgery preferably with a CT-guided approach which I think the lesions are amenable to. - would not recommend robotic bronscopy here due to high risk procedure and l ack of CT surgery if emergency ID consulted, following along Blood cultures negative. Outside facility blood cultures drawn 10/20 also no growth finalized. Continue Levaquin for 14 day course. Daptomycin has been discontinued. Check TASNEEM - no vegetation. Rheumatoid factor: 12 Fungal blood cultures preliminary negative. Q fever testing: negative. Additional fungal testing ordered 11/02 - cryptococcus, aspergillosis, [id number], Histoplasmosis Urine - Pending 11/01: Discussed with ID, with negative TASNEEM plan to repeat chest CT today. Repeat chest CT showing cavitations as above. Discussed with Pulmonology - they will re-eval the patient. ID has ordered fungal studies and suggesting bronch.. Sputum culture ordered with hypertonic saline nebs to help facilitate collection. Ortho [facility] to remove celestina tomorrow. Pulmonary recommending transfer to tertiary center - pt first choice is [facility]. Pt has been accepted under hospitalist service, Dr. Oneil Nelson. Hospital course: direct admission after concerns for post op knee infection. Knee infection was ruled out. Concern for other source - focusing on pulm (was requiring O2, febrile on admission). CT showing concern for septic emboli - explored endovascular sources. 2 sets of blood cultures negative (Here and outside facility). TASNEEM without vegetation. Repeated Chest CT as above. Per discussion with ID and pulm recommend transfer [facility] for tissue sampling. Eliquis held - last dose AM 11/01 (2) History of left knee surgery: Recent left TKA with Dr. Victoria on 10/18, discharged to rehab and quickly returned to hospital Left leg doppler: negative for DVT Needle aspiration 10/21 - Gram stain is negative. Culture negative. Blood cultures negative Ortho consulted - suspect hemarthrosis and less likely septic joint - wound vac removed. WBAT - celestina will need to be removed - messaged Dr. Victoria 10/31 to see if he would be able to remove while inpatient. Ortho [facility] Should be able to remove on 11/02 if pt has not left for [place]. Continue Oxycodone PO q4h for pain. (3) Elevated troponin: Myocardial infarction type 2, POA 2118 --> 2583 --> 2671 -->2077.0 Cardiology consulted - s/p Catheterization with Dr. Pacheco 10/23 - severe multivessel CAD - recommend outpatient referral to tertiary care center (pt has already been contacted by this office) Continue aspirin, metoprolol Also with Afib - continue eliquis and diltiazem - Metoprolol added 10/24 - can be converted to succinate on discharge - statin started after completion of dapto (4) Thrombocytosis: Platelets continuing to rise - possible acute phase reactant iron studies - consistent with anemia of chronic disease ESR is downtrending AM CBC (5) DM type 2 (diabetes mellitus, type 2): Recent A1c 7.7 Decrease glargine from 64 to 32 units SQ twice daily SSI BSG acceptable (6) Altered mental status: Metabolic encephalopathy Resolved plan as above Plan Chronic stable medical conditions: * COPD- Continue usual inhalers * SONIDO - continue CPAP Dispo: discharge to [place]. Notes For Next Care Provider May need local pulm follow up. Patient was referred to [place] for outpatient surgery - but patient thinking he may want to go to [place] pending his experience with this transfer. Admission HPI Per Admitting Provider The patient is a 74-year-old male with past medical history including bipartite patella, vitamin D deficiency, peripheral neuropathy, BPH with LUTS, COPD, diabetic nephropathy, reticular tachycardia, hypertension, atrial fibrillation and proteinuria. He underwent a left total knee arthroplasty on 10/18/2024, was then transferred to rehab and placed for, he was found to be confused disoriented and temperature. He was evaluated at [facility], was thought to have a postoperative wound infection. A call was made to [facility] hospitalist service, and with coordination with DOC covering orthopedic surgeon, patient has been accepted to [facility] for evaluation and treatment. Upon arrival, the patient is conversant, feels that his problem may be related to or codeine and it was used to for pain control, but does have significant pain in left lower extremity as of the expected. Wound VAC is intact. His left lower extremity is swollen and tender, with knee showing mild generalized erythema and warmth. Will order CBC with differential, chemistry profile, magnesium, troponin, EKG, chest x-ray and lower extremity venous Doppler. Patient will be admitted to medical telemetry, with consult orthopedic surgery. Discharge Exam General: NAD, VS as above, sitting up in chair, appears well Resp: normal respiratory effort, lungs clear to auscultation CV: RRR, no murmur, Abd: soft, normal bowel sounds, non tender, no hepatosplenomegaly Extremities: Moves all extremities Neuro: A&O x3, Skin: intact, no lesions noted Discharge Plan Discharge Items Patient Disposition: Transfer Acute Care Hospital Reason For Visit: POST OP L TKA / CELLULITIS Discharge Diagnosis: cavitating lung lesion severe multivessel CAD Activity: Resume your previous activity Non-emergency contact: Primary Care Provider Call non-emergency contact if: you have any medication questions, your pain is unusual for you and your temperature is above 101 Follow-up/Referrals: Tyesha Aguilar MD [Primary Care Provider] - (Follow up after Discharge from [place]) Diet: Carb Consistent or DM2 Addtl Attending Provider Instructions: Mr. Ramirez You were hosptialized after concerns for infection after knee surgery. We have not been able to identify an exact source. Knee infection was ruled out. there are concerns about lesions in your lungs that will be biopsied at [place]. your medication list will be updated when you are discharge from [facility]. please follow up with your PCP after discharge from [place]/rehab Continue to follow up with outpatient scrap bunch maker for Heart surgery. Can follow up with our guard manager - I have attached dr. Sprague information if needed. ------- For [facility]: * Current abx reigment - Levaquin. (dapto discontinued 11/01) * Will likely need rehab placement after stay for his TKA * has oxycodone allergy listed but tolerating well here * New meds: metoprolol and ASA and statin * insulin home regiment in 64units BID and has been well controlled on 32units long acting with SSI * butt paste for sacral reddening * Eliquis held - last dose AM 11/01 Pending Studies at Discharge: Yes (fungal studies ) Stand-Alone Forms: My [facility] [employer] Skilled Items Patient informed of condition?: Yes DNR: No Discharge Level of Care: Other Communicable Disease: No Discharge Prognosis: Stable Lines: None Urinary Catheter: No Medications and DC Order Prescriptions: New levofloxacin 750 mg Tablet 750 mg PO DAILY Qty: 4 0RF metoprolol tartrate 25 mg Tablet 12.5 mg PO BID Qty: 30 0RF aspirin 81 mg Tablet,Delayed Release (Dr/Ec) 81 mg PO QAM Qty: 30 0RF Continued fluticasone propion-salmeterol [Wixela Inhub] 250-50 mcg/dose blister with device 1 inh inhalation QAM Patient Comments: MOST OF THE TIME ONLY DO IT ONCE IN THE MORNING (DME) Accu-Chek Jaclyn Plus test strp Strip See Rx Instructions .Route Qty: 600 3RF Rx Instructions: test blood sugar 6 times per day (DME) NovoFine Plus 32 gauge x 1/6" needle See Dose Instructions .ROUTE .MEDSUPPLY Qty: 300 3RF Rx Instructions: use 3 needles daily tamsulosin 0.4 mg capsule 0.4 mg PO DAILY PRN (Reason: prn) Eliquis 5 mg tablet 5 mg PO BID albuterol sulfate 90 mcg/actuation HFA aerosol inhaler 1 puffs inhalation UD PRN (Reason: COPD) Qty: 1 Patient Comments: HARDLY USE IT famotidine [Pepcid] 20 mg tablet 20 mg PO QAM metformin 1,000 mg tablet 1,000 mg PO BID insulin aspart U-100 [Novolog FlexPen U-100 Insulin] 100 unit/mL (3 mL) insulin pen 100 unit subcut DAILY MDD 100 units Qty: 90 3RF Rx Instructions: Inject 15-20 units with breakfast and lunch and 20-40 units with dinner per sliding scale; TDD 100units cyanocobalamin (vitamin B-12) [Vitamin B-12] 1,000 mcg Tablet 1,000 mcg PO QAM docusate sodium [Colace] 100 mg Capsule 100 mg PO HS Patient Comments: I THINK IT SAYS IT HAS A MILD LAXATIVE fluticasone propionate 50 mcg/actuation Effort,Suspension 1 spray INTRANASAL UD PRN (Reason: Nasal Congestion) Patient Comments: NOT VERY OFTEN Rx Instructions: administer into each nostril ascorbic acid (vitamin C) [Vitamin C] 500 mg tablet 1 g PO QAM diltiazem HCl 180 mg Capsule,Extended Release 24 Hr 180 mg PO BID diphenhydramine HCl [Sleep Aid (diphenhydramine)] 50 mg Capsule 50 mg PO HS PRN (Reason: prn/ sleep) polyethylene glycol 3350 [Miralax] 17 gram/dose Powder 17 g PO DAILY PRN (Reason: Constipation) insulin glargine [Lantus Solostar U-100 Insulin] 100 unit/mL (3 mL) insulin pen 64 unit subcut BID acetaminophen-codeine 300-30 mg Tablet 1 - 2 tab PO Q4H PRN (Reason: pain) Qty: 20 0RF Held hydrochlorothiazide 25 mg tablet 25 mg PO QAM Hold Instructions: Resume on 11/08/24. discuss with PCP Discontinued lisinopril 40 mg tablet 40 mg PO QPM Qty: 90 cefadroxil 500 mg capsule 500 mg PO Q12H Qty: 28 0RF Discharge Orders: Discharge Order (Routine); Ordered 11/01/24 Ordered By: Norma Trimble Admission Data Admit Date/Time: 10/21/24 06:02 Attending Provider: Josette Cook Admit Provider: Ryan Bañuelos Primary Care Provider: Tyesha Aguilar Other Providers: [facility]; [facility]; [facility]; Solomon Ferrara; Gera Archer; Tresa Goldberg; Lesley Daigle; Deepthi Cr; Daisy Stevens; Mary Jacobs; Brandi Dobbins Hospital Stay Data Consultations 10/21/24 08:51 Consult Orthopedic Surgery Routine 10/21/24 13:52 Consult Cardiology Routine 10/25/24 11:54 Consult Pulmonology Routine 10/25/24 13:38 Consult Infectious Diseases Routine Procedures Performed Operation Date: 11/01/24 07:30 Actual Procedures p Echo Transesophageal - Fernie Guerrero MD Diagnostic Imagining Performed 10/21/24 06:51 US venous doppler LE LT Stat 10/23/24 07:38 CL Cath Imgs for PACS use only Routine 10/25/24 08:56 CT chest diagnostic wo con Routine 11/01/24 10:19 CT chest diagnostic wo con Urgent Discharge Instructions Given to Patient (Per Discharging Provider) Mr. Ramirez You were hosptialized after concerns for infection after knee surgery. We have not been able to identify an exact source. Knee infection was ruled out. there are concerns about lesions in your lungs that will be biopsied at [place]. your medication list will be updated when you are discharge from [place]. please follow up with your PCP after discharge from [place]/rehab Continue to follow up with outpatient scrap bunch maker for Heart surgery. Can follow up with our guard manager - I have attached dr. Sprague information if needed. ------- For [place]: * Current abx reigment - Levaquin. (dapto discontinued 11/01) * Will likely need rehab placement after stay for his TKA * has oxycodone allergy listed but tolerating well here * New meds: metoprolol and ASA and statin * insulin home regiment in 64units BID and has been well controlled on 32units long acting with SSI * butt paste for sacral reddening * Eliquis held - last dose AM 11/01 Supervising Physician Co-Signing Physician Notes PA Supervision Note: I did not personally see or examine the patient today, but I verified all malcolm points of JARAD Trimble's assessment and plan with the following exceptions/additions: None Total Time Total Time Spent Total Time Spent (In Minutes): Time spent day of discharge 45 minutes including direct patient care, medication reconciliation, documentation, review of labs and images, and coordination of care. Coding Level of Care Code 62839 INP/OBS DISCH >30 MIN Diagnoses Hypoxia R09.02 History of left knee surgery Z98.890 Elevated troponin R79.89 Thrombocytosis D75.839 DM type 2 (diabetes mellitus, type 2) E11.9 Altered mental status R41.82
[2024-11-01 19:56] VITALS: PULSE 91; RESP 18; TEMP 98.1
[2024-11-01 20:21] VITALS: O2SAT 98
[2024-11-01] MEDS: SODIUM CHLOR 7% 4 ML NEB NEB SCH (20:21)
[2024-11-01] MEDS: ATORVASTATIN 40 MG TAB PO SCH (22:14)
[2024-11-01 23:57] VITALS: BP 129/58
[2024-11-02] MEDS ORDERED: levoFLOXacin 750 MG TAB PO SCH (09:00)
[2024-11-04 23:22] LABS: Cryptococcal Antigen Not Detected (Not Detected); Fungitell (1-3)-B-D-Glucan <31 pg/mL; Source Serum
[2024-11-05 14:52] LABS: Aspergillus Ag Index 0.04 (<0.50); Aspergillus Antigen, Serum Not Detected (Not Detected)
== END 2024-11-02 01:54 | disposition short-term general hospital (02) | DRG 193 ==
LOC: SUATTDRO 06:02 → 2W 06:02 → 1E 10-23 14:02 → 2N 10-24 12:45 → 3E 10-29 12:25
PROC: CLB.CCO (2024-10-23 09:30)